=== PATIENT | male | born 1950 | race Caucasian/White ===

== ENCOUNTER 2016-05-22 07:51 | Outpatient (CLI) | payer MEDICARE, MEDICAID ==
[~2016-05-22 07:51] MED LIST: ALPR2TAB3 PO; GLUC500T PO; INFL10VL IV; LISI30TA4 PO; OMEP40CA2 PO; PENT500C PO; PRED20TA PO; VESI10TA PO; diphenhydrAMINE 25 MG CAP PO SCH
[2016-05-22] MEDS ORDERED: NS 1,000 ML IV SCH (08:00)
[2016-05-22] MEDS ORDERED: inFLIXimab INJECTION 500 MG in NS 200 ML IV ONE (08:00)
== END 2016-05-22 11:00 | disposition home or self-care (01) ==
LOC: M INFU 07:51
PROVIDERS: ATTEND Internal Medicine Gastroenterology
DX: K50.90 Crohn's disease, unspecified, without complications (principal); Z79.899 Other long term (current) drug therapy; Z88.8 Allergy status to other drugs, medicaments and biological substances; Z91.013 Allergy to seafood
CPT/HCPCS: 96413; 96415; J1745

== ENCOUNTER 2016-07-11 08:06 | Outpatient (CLI) | payer MEDICARE, MEDICAID ==
[~2016-07-11] VITALS: Ht 175.3 cm; Wt 84.3 kg
[2016-07-11] MEDS ORDERED: inFLIXimab INJECTION 500 MG in NS 200 ML IV ONE (09:00)
[2016-07-11] MEDS ORDERED: NS 1,000 ML IV SCH (09:00)
== END 2016-07-11 11:30 | disposition home or self-care (01) ==
LOC: M INFU 08:06
PROVIDERS: ATTEND Internal Medicine Gastroenterology
DX: K50.90 Crohn's disease, unspecified, without complications (principal); Z79.899 Other long term (current) drug therapy; Z79.84 Long term (current) use of oral hypoglycemic drugs; Z88.8 Allergy status to other drugs, medicaments and biological substances; Z88.5 Allergy status to narcotic agent; Z91.013 Allergy to seafood
CPT/HCPCS: 96413; 96415; J1745

== ENCOUNTER → 2016-07-17 | Outpatient (CLI) | payer MEDICARE, MEDICAID ==
[~2016-07-17] MED LIST changes: +HYDR25T PO; +JANU100T PO; +PROA1AER INH; +PROAIR INH; +VENL100T PO; +VENL150C43 PO; +VENL50TA2 PO; +WELL100T2 PO; +XANA1TAB2 PO; +[UNRECOGNIZED DRUG - CODE] XX; -diphenhydrAMINE 25 MG CAP PO SCH
[2016-07-17 11:01] LABS: MEAN CORPUSCULAR HEMOGLOBIN 29.5 pg (27.0-33.0); MEAN CORPUSCULAR HGB CONC 32.6 g/dl (32.0-36.5); MEAN CORPUSCULAR VOLUME 90.4 fl (80.0-96.0); RED CELL DISTRIBUTION WIDTH 12.5 % (11.5-14.5); WHITE BLOOD COUNT 12.9 K/mm3 (4.0-10.0)
[2016-07-17 12:03] LABS: ALBUMIN 3.5 GM/DL (3.2-5.2); ALBUMIN/GLOBULIN RATIO 0.95 (1.00-1.93); ALKALINE PHOSPHATASE 103 U/L (45-117); ALT/SGPT 36 U/L (12-78); ANION GAP 6 MEQ/L (8-16); AST/SGOT 20 U/L (15-37); BILIRUBIN,TOTAL 0.2 MG/DL (0.2-1.0); BLOOD UREA NITROGEN 26 MG/DL (7-18); CALCIUM LEVEL 9.4 MG/DL (8.8-10.2); CARBON DIOXIDE LEVEL 31 MEQ/L (21-32); CHLORIDE LEVEL 103 MEQ/L (98-107); CREATININE FOR GFR 1.32 MG/DL (0.70-1.30); GLOMERULAR FILTRATION RATE 57.9 (>49); GLUCOSE, FASTING 117 MG/DL (80-110); POTASSIUM SERUM 4.6 MEQ/L (3.5-5.1); SODIUM LEVEL 140 MEQ/L (136-145); TOTAL PROTEIN 7.2 GM/DL (6.4-8.2)
[2016-07-17 13:08] LABS: VITAMIN B12 LEVEL 426 PG/ML
[2016-07-17 13:09] LABS: FOLATE > 24.0 NG/ML
== END ==
LOC: M LAB 10:19
PROVIDERS: ATTEND Internal Medicine Gastroenterology
DX: K50.00 Crohn's disease of small intestine without complications (principal)

== ENCOUNTER 2016-07-21 09:39 | Inpatient (IN) | payer MEDICARE, MEDICAID ==
[~2016-07-21] VITALS: Ht 175.3 cm; Wt 76.6 kg
[~2016-07-21 09:39] MED LIST changes: -HYDR25T PO; -JANU100T PO; -PROA1AER INH; -PROAIR INH; -VENL100T PO; -VENL150C43 PO; -VENL50TA2 PO; -WELL100T2 PO; -XANA1TAB2 PO; -[UNRECOGNIZED DRUG - CODE] XX
[2016-07-21] MEDS ORDERED: [UNRECOGNIZED DRUG - CODE] XX (10:48)
[2016-07-21] MEDS ORDERED: LISI30TA4 PO (10:50)
[2016-07-21] MEDS ORDERED: XANA1TAB2 PO (10:51)
[2016-07-21] MEDS ORDERED: ALPR2TAB3 PO (10:51)
[2016-07-21] MEDS ORDERED: JANU100T PO (10:52)
[2016-07-21] MEDS ORDERED: VENL100T PO (10:54)
[2016-07-21] MEDS ORDERED: VENL50TA2 PO (10:54)
[2016-07-21] MEDS ORDERED: HYDR25T PO (10:55)
[2016-07-21] MEDS ORDERED: WELL100T2 PO (10:57)
[2016-07-21 11:15] LABS: MEAN CORPUSCULAR HEMOGLOBIN 29.9 pg (27.0-33.0); MEAN CORPUSCULAR HGB CONC 32.8 g/dl (32.0-36.5); MEAN CORPUSCULAR VOLUME 91.3 fl (80.0-96.0); PLATELET COUNT, AUTOMATED 352 k/mm3 (150-450); RED CELL DISTRIBUTION WIDTH 12.7 % (11.5-14.5); WHITE BLOOD COUNT 16.1 K/mm3 (4.0-10.0)
[2016-07-21 11:40] LABS: METHADONE URINE NEGATIVE (NEGATIVE)
[2016-07-21 11:51] LABS: ALBUMIN 3.4 GM/DL (3.2-5.2); ALBUMIN/GLOBULIN RATIO 0.92 (1.00-1.93); ALKALINE PHOSPHATASE 94 U/L (45-117); ALT/SGPT 33 U/L (12-78); ANION GAP 6 MEQ/L (8-16); AST/SGOT 17 U/L (15-37); BILIRUBIN,DIRECT < 0.1 MG/DL (0.0-0.2); BILIRUBIN,TOTAL 0.2 MG/DL (0.2-1.0); BLOOD UREA NITROGEN 26 MG/DL (7-18); CALCIUM LEVEL 8.5 MG/DL (8.8-10.2); CARBON DIOXIDE LEVEL 25 MEQ/L (21-32); CHLORIDE LEVEL 106 MEQ/L (98-107); CREATININE FOR GFR 1.41 MG/DL (0.70-1.30); GLOMERULAR FILTRATION RATE 53.7 (>49); GLUCOSE, FASTING 147 MG/DL (80-110); POTASSIUM SERUM 4.5 MEQ/L (3.5-5.1); SODIUM LEVEL 137 MEQ/L (136-145); TOTAL PROTEIN 7.1 GM/DL (6.4-8.2)
[2016-07-21 13:57] LABS: BASO # 0.1 K/mm3 (0.0-0.2); BASO % 0.6 % (0.0-1.0); EOS # 0.2 K/mm3 (0.0-0.50); EOS % 1.3 % (0.0-3.0); LARGE UNSTAINED CELL # 0.2 K/mm3 (0.0-0.4); LARGE UNSTAINED CELL % 1.3 % (0.0-4.0); LYMPH # 4.1 K/mm3 (1.5-4.5); LYMPH % 23.7 % (24.0-44.0); MONO % 5.8 % (0.0-5.0); NEUTROPHILS % 67.4 % (36.0-66.0)
[2016-07-21 14:18] LABS: DIFF SLIDE NUMBER 125
[2016-07-21 16:11] VITALS: BP 124/88
[2016-07-21] MEDS ORDERED: VENL150C43 PO (18:27)
[2016-07-21] MEDS ORDERED: PROAIR INH (18:32)
[2016-07-21] MEDS ORDERED: ACETAMINOPHEN TAB 650MG DOSE (2X325MG) PO PRN (18:45)
[2016-07-21] MEDS ORDERED: ALBUTEROL 90 MCG/ACT 8GM HFA INHALER INH PRN (18:45)
[2016-07-21] MEDS: clonazePAM 1 MG TAB PO SCH (20:04)
[2016-07-21] MEDS: VENLAFAXINE **XR** 75MG CAPSULE PO SCH (20:04)
[2016-07-21] MEDS: NICOTINE 21MG/24HR 1 EA TRANSDERMAL TD SCH (20:06)
[2016-07-21] MEDS ORDERED: MIRALAX *UNIT DOSE* 17GM PACKET PO SCH (21:00)
[2016-07-21] MEDS ORDERED: PROA1AER INH (21:34)
--- NOTE | 2016-07-22 04:03 | HPE ---
DATE OF ADMISSION: 07/21/2016 HISTORY OF PRESENT ILLNESS: Please refer to psychiatric history and evaluation for further details on this admission. This examination and history is intended for medical issues, which may need treatment, followup or consult on this 65-year-old male. ALLERGIES: 1. CELEBREX. 2. TRAMADOL. 3. SEAFOOD. PRIMARY CARE PROVIDER: Dr. Restrepo. SOCIAL HISTORY: He is . Ethyl alcohol (EtOH) none. Smokes 1-2 packs of cigarettes per day. Recreational drug use none. PAST MEDICAL HISTORY: 1. Drx-acxkpcy-pgungwkyw diabetes type 2. 2. Hypertension. 3. Crohn's disease. He follows with Dr. Sanchez. 4. Difficulty starting flow and sometimes no control. He has been to urology, has been worked up. Continues to be worked up. 5. Depression and anxiety. PAST SURGICAL HISTORY: 1. Back surgery times three. 2. Repair right knee meniscus. 3. Cystoscopy. LABORATORY STUDIES: WBC 16.1, hemoglobin 15.1, hematocrit 46.1, platelets 352. BUN 26, creatinine 1.4, calcium 8.5. Urine was positive for benzodiazepines. CURRENT MEDICATIONS: - Remicade infusion every 2 months - lisinopril 30 mg by mouth daily - Januvia 100 mg by mouth daily - ProAir two puffs by mouth four times a day as needed for shortness of breath or wheeze - Xanax 1 mg by mouth four times a day as needed for anxiety - venlafaxine ER 150 mg by mouth twice a day depression REVIEW OF SYSTEMS: No complaint of headache. No blurred or double vision. No fever. No chills. No tinnitus. No hoarseness. No difficulty swallowing. No lightheadedness. No vertigo. Cardiovascular: No complaints of chest pain, shortness of breath, palpitations or edema. Respiratory: No chronic cough, no sputum production. No hemoptysis. No orthopnea. No wheeze. Gastrointestinal (GI): No nausea, vomiting or diarrhea. No hematochezia. No melena. No complaints of abdominal pain. Genitourinary (): History of difficulty starting flow and occasional incontinence. Workup with urology. Musculoskeletal: No joint redness or swelling. Endocrine: History of rvf-ubnowxq-ymlcqthru diabetes type 2. Hematological: No history of anemia. Neurological: No history of seizures. Psychological: See psychiatric history of present illness (HPI). PHYSICAL EXAMINATION: 65-year-old cooperative male in no acute distress. Height 69 inches, weight 80.7 kg, body mass index (BMI) 26.3. Blood pressure 124/88, pulse 99, respirations 16, temperature 97.8. The patient is alert and oriented times three. Pupils equal and react to light. Extraocular muscles intact. Cornea and sclerae clear. Conjunctivae were normal. No facial asymmetry. Pharynx, tongue and gums pink and moist. Tongue is midline. Lower lip has a white-like cyst in the middle of it. He states he has had it going on a year. He put his tooth through it at one time and he has had the light white lump. It seems to sometimes have drainage, none currently. Neck is supple without lymphadenopathy. No thyromegaly, no goiter. Carotids 2+ without bruit. Chest clear to auscultation without wheeze or retraction. Heart is regular. Abdomen is soft, nontender. No masses, pulsations or bruits. No organomegaly. Bowel sounds are positive. Genitourinary/rectal: Not done. Extremities: Show equal strength, full range of motion. No cyanosis, clubbing or edema. Peripheral pulses equal and palpable bilaterally. Skin is warm and dry. IMPRESSION/PLAN: 1. Hypertension, stable, continue lisinopril. 2. Sny-voyejkh-tzaddnlgs diabetes type 2. Continue Januvia. Consistent carbohydrate diet. Fingerstick blood sugars twice a day. 3. Bump or cyst on lower lip. The patient is instructed to follow with primary care provider and may need oral referral. EKG baseline ordered.
[2016-07-22 06:48] VITALS: BP 135/74
[2016-07-22 07:28] LABS: BASO # 0.1 K/mm3 (0.0-0.2); BASO % 0.7 % (0.0-1.0); EOS # 0.3 K/mm3 (0.0-0.50); EOS % 2.2 % (0.0-3.0); LARGE UNSTAINED CELL # 0.3 K/mm3 (0.0-0.4); LARGE UNSTAINED CELL % 1.8 % (0.0-4.0); LYMPH % 30.2 % (24.0-44.0); MEAN CORPUSCULAR HEMOGLOBIN 29.8 pg (27.0-33.0); MEAN CORPUSCULAR HGB CONC 33.1 g/dl (32.0-36.5); MEAN CORPUSCULAR VOLUME 90.1 fl (80.0-96.0); MONO % 6.4 % (0.0-5.0); NEUTROPHILS # 9.3 K/mm3 (1.8-7.7); NEUTROPHILS % 58.8 % (36.0-66.0); PLATELET COUNT, AUTOMATED 371 k/mm3 (150-450); RED CELL DISTRIBUTION WIDTH 12.7 % (11.5-14.5)
[2016-07-22 07:36] LABS: WHITE BLOOD COUNT 15.8 K/mm3 (4.0-10.0)
[2016-07-22] MEDS: VENLAFAXINE **XR** 75MG CAPSULE PO SCH (08:27)
[2016-07-22] MEDS: clonazePAM 1 MG TAB PO SCH ×2 (08:28→20:07)
[2016-07-22] MEDS: SITagliptin 50 MG TAB (JANUVIA) PO SCH (08:29)
[2016-07-22] MEDS: NICOTINE 21MG/24HR 1 EA TRANSDERMAL TD SCH (08:30)
[2016-07-22] MEDS: LISINOPRIL 10 MG TAB PO SCH (09:00)
[2016-07-22] MEDS ORDERED: PARoxetine 25 MG CR TAB (PAXIL CR) PO SCH (09:00)
--- NOTE | 2016-07-22 17:05 | HPEPDOC ---
[facility] History & Physical History and Physical DATE OF ADMISSION: Jul 21, 2016 at 15:24 LEGAL STATUS AT ADMISSION: 9.39 CHIEF COMPLAINT: "I was just on the wrong meds HISTORY OF THE PRESENT ILLNESS: The patient a 65-year-old man presented to [facility] after experiencing increasingly severe depression and anxiety after recent medication change. He described that since 2 years ago when he began to have persistent bladder problems that he became increasingly stressed out and depressed. He described that he began to become more anhedonic and insomnia: Past couple months. He described that he previously done well on Effexor for the last 10 years but after being switched towards Wellbutrin first treatment he experienced multiple late of side effects including visual hallucinations, dizziness and vertigo. He described that he was told by his pharmacist to stop his medication and resume his Effexor. However, he noted some positive effect but realized that his depression was out of control, describing that he lost several pounds as he was not able to have enough energy to get up to clean his house or to go grocery shopping. He additionally described the due to the dizziness from the Wellbutrin that he was unable to drive his car or to provide for himself. He describes that his family due to their concerns helped him to come in for evaluation. PSYCHIATRIC ROS: Affective: The patient does state that he has depressed moods lasting longer than 2 weeks at time with depressed mood featuring him more than 4-5 days during a week associated with anhedonia, insomnia, hopelessness, excessive guilt as primary neurovegetative symptoms.The patient denies any episodes of euphoria/dysphoria associated with decreased need for sleep, hedonism, talkatively or impulsivity lasting longer than 5 days. Anxiety: The patient does state he has excessive worry to the point of fatigue and irritability, as well as discrete episodes of panic associated with diaphoresis, shortness of breath and other somatic symptoms. These do not appear to have a discrete provoking factor and occur suddenly. Trauma: The patient denies any traumatic events associated with nightmares or intrusive thoughts. Psychosis:The patient denies any experiences of auditory or visual hallucinations. They deny any episodes of paranoia or delusional thinking in the past Personality: The patient does not screen positive for borderline personality disorder PAST PSYCHIATRIC HISTORY: Prior Psychiatric Diagnosis: Depression and anxiety Previous admissions: None Current Medications: Effects 300 mg daily in divided doses with Xanax 1 mg 3 times a day when necessary for anxiety for the last "10 or 11 years" Suicide attempts: None Psychotropic Medication History: Tried a variety of SSRIs including Prozac, sertraline, Paxil and other medications that he is unable to recollect at this time. He is unsure of whether they were effective or he had stopped due to side effects. ALLERGIES: Please see below. FAMILY PSYCHIATRIC HISTORY: He reports that most of his family including his mother, sister and brother suffered from depression. His cousin is also diagnosed depression and takes Effexor and Xanax as well. SOCIAL HISTORY: Early Relations:/development: Characterized by a tumultuous relationship with his mother and early abandonment by his father. -sibling order: Youngest of 4 children -Paternal relationships: Father left his mother when he was 10 years old and his mother was noted to be fairly upset and "took her anger out on me". 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 Legal: None elicited Martial: with several children Economic: Subsists on Social Security disability Supports: Daughter, sister and family appear to be good supports Abuse/trauma: Denies any excessive physical, emotional or sexual abuse when he was younger. SUBSTANCE ABUSE HISTORY: He describes used to "drink a lot" until 30 years ago when his son was born he stopped drinking. He states the only will drink and "glass of wine with dinner from time to time". He describes that he does smoke quite a bit but was unable to gauge exactly how much she smokes per day. He denies using any other substances. MEDICAL HISTORY: Diabetes type 2 Chronic back pain urinary incontinence Crohn's disease MENTAL STATUS EXAMINATION: General: Well dressed with fair hygiene Speech: Spontaneous and fluid Thought processes: Linear and logical Thought content: Perseveration on anxiety Abstract reasoning, and computation: Intact Description of associations: Intact Description of abnormal or psychotic thoughts:Denies any suicidal or homicidal ideation. Denies any auditory or visual hallucinations. Does not appear to be responding to internal stimuli. Does not appear to be endorsing any bizarre or paranoid ideation. Judgment: Fair Insight: Fair Orientation: Alert and orientated 3 Recent and remote memory: Intact Attention span and concentration: Intact Fund of knowledge: Adequate Mood: "Ellie bad" Affect: Anxious and dysphoric DIAGNOSES: 1. Unspecified depressive disorder Rule out MDD 2. Unspecified anxiety disorder Rule out somatization as cause of bladder spasms 3. Alcohol use disorder, severe, in sustained remission 4. Tobacco uses disorder, severe, in controlled setting on replacement therapy ASSESSMENT: The patient a 65-year-old man with a history of depression well treated with Effexor with no need for inpatient admissions has presented after recent medication change appears to produce his depressive symptoms to a point that he is unable to cope with. He has multiple stressors including increasing loneliness from living alone and ineffective control of his bladder incontinence which appears to reflect him relapsing into a depressive episode. He is motivated to be detoxed off of Xanax and feels that he does not want to rely on this for his anxiety control. PROBLEM LIST: 1. Anxiety 2. Depression 3. Ineffective coping INITIAL TREATMENT PLAN: 1. Patient was admitted on a 9.39 legal status. 2. Complete history was obtained. 3. With patients permission, family will be contacted and database will be expanded. 4. Patients medication regimen will be reviewed and changed accordingly. -Effects or 300 mg extended release daily with augmentation of 0.25 mg of risperidone daily we will give patient 1 mg of clonazepam twice a day with tapering to help taper off of Xanax due to the excessive length of treatment 5. Patient will be provided with protected environment. 6. Patient will be treated with individual, group, and milieu therapies. 7. Patient will receive supportive psych-education. 8. Discharge planning will commence immediately. 9. Outpatient follow-up treatment will be strongly recommended. 10. The initial treatment plan will focus initially on: Engaging in psychotherapy and furthering evaluation ESTIMATED LENGTH OF STAY: 5-7 DAYS. TIME SPENT COUNSELING AND COORDINATING INITIAL CARE: 50 minutes. Laboratory Data 24H Labs Laboratory Tests 2 07/22/16 06:13: Bedside Glucose (Misc Panel) 158H 07/22/16 06:58: White Blood Count 15.8H, Red Blood Count 5.21, Hemoglobin 15.6, Hematocrit 47.0 , Mean Corpuscular Volume 90.1, Mean Corpuscular Hemoglobin 29.8, Mean Corpuscular Hemoglobin Concent 33.1, Red Cell Distribution Width 12.7, Platelet Count 371, Neutrophils (%) (Auto) 58.8, Lymphocytes (%) (Auto) 30.2, Monocytes ( %) (Auto) 6.4H, Eosinophils (%) (Auto) 2.2, Basophils (%) (Auto) 0.7, Neutrophils # (Auto) 9.3H, Lymphocytes # (Auto) 5.0H, Monocytes # (Auto) 1.0H, Eosinophils # (Auto) 0.3, Basophils # (Auto) 0.1, Large Unclassified Cells # 0.3 , Large Unclassified Cells % 1.8 CBC/BMP Laboratory Tests 07/22/16 06:58 Red Blood Count 5.21, Mean Corpuscular Volume 90.1, Mean Corpuscular Hemoglobin 29.8, Mean Corpuscular Hemoglobin Concent 33.1, Red Cell Distribution Width 12.7 , Neutrophils (%) (Auto) 58.8, Lymphocytes (%) (Auto) 30.2, Monocytes (%) (Auto ) 6.4 H, Eosinophils (%) (Auto) 2.2, Basophils (%) (Auto) 0.7, Neutrophils # ( Auto) 9.3 H, Lymphocytes # (Auto) 5.0 H, Monocytes # (Auto) 1.0 H, Eosinophils # (Auto) 0.3, Basophils # (Auto) 0.1 FSBS Laboratory Tests Test 07/22/16 06:13 Range/Units Bedside Glucose (Misc Panel) 158 80-115 MG/DL Medications Scheduled Infliximab Injection (Remicade) 100 Mg/10 Ml Vial 100 MG IV ASDIRECTED CROHNS ( Reported) EVERY 2 MONTHS; LAST DOSE 07/18/2016 Lisinopril (Lisinopril) 30 Mg Tab 30 MG PO DAILY HYPERTENSION (Reported) Sitagliptin Phosphate (Januvia) 100 Mg Tab 100 MG PO DAILY DIABETES (Reported) Venlafaxine Hydrochloride (Venlafaxine HCl ER) 150 Mg Cap 150 MG PO BID DEPRESSION (Reported) Scheduled PRN Albuterol Sulfate (Proair Hfa) 108 Mcg/Act Aer 2 PUFF INH Q4H PRN PRN SHORTNESS OF BREATH (Reported) Alprazolam (Xanax) 1 Mg Tab 1 MG PO QID PRN PRN ANXIETY (Reported) Allergies Coded Allergies: Celecoxib (Verified Allergy, Unknown, 06/07/14) SEAFOOD (Verified Allergy, Unknown, 2/24/15) Tramadol (Verified Allergy, Unknown, 06/07/14) GME ATTESTATION My preceptor for this patient encounter was physically present in the building during the encounter and was fully available. As needed, all aspects of the patient interview, examination, medical decision making process, and medical care plan development were reviewed and approved by the preceptor. Preceptor is aware and concurs with the plan as stated in the body of this note and will attest to such by his/her cosignature. IZA SMITH DO Jul 22, 2016 17:05
[2016-07-22 18:00] VITALS: BP 118/67
--- NOTE | 2016-07-22 18:01 | ECGEPIP ---
Stationary ECG Study [facility] Test Date: 2016-07-22 Pat Name: JOVITA OLIVA Department: Room: [place] [address] Gender: M Licensed Optical Dispenser: HERLINDA : 1950 Requested By: Marlen Mcfarlane [facility] Order Number: [id number] Reading MD: George Dickens Measurements Intervals [place] Rate: 97 P: 60 [place]: 170 QRS: 89 QRSD: 94 T: 67 QT: 332 QTc: 424 Interpretive Statements Normal sinus rhythm Low voltages with indeterminate frontal axis prominent right precordial R-waves and persistent S waves in V5 and V6; body habitus versus pulmonary disease. Consider right ventricular hypertrophy versus prior posterior wall IN. No change from 11/21/14 Electronically Signed On 07-22-2016 18:01:41 EDT by George Dickens
[2016-07-22] MEDS: traZODone 50 MG TAB PO PRN (20:07)
[2016-07-22] MEDS: MIRALAX *UNIT DOSE* 17GM PACKET PO PRN (20:07)
[2016-07-23 06:44] VITALS: BP 133/82
[2016-07-23] MEDS: SITagliptin 50 MG TAB (JANUVIA) PO SCH (08:16)
[2016-07-23] MEDS: LISINOPRIL 10 MG TAB PO SCH (08:16)
[2016-07-23] MEDS: NICOTINE 21MG/24HR 1 EA TRANSDERMAL TD SCH (08:16)
[2016-07-23] MEDS: clonazePAM 1 MG TAB PO SCH (08:16)
[2016-07-23] MEDS: VENLAFAXINE **XR** 75MG CAPSULE PO SCH (08:17)
[2016-07-23] MEDS: risperiDONE 0.5 MG TAB PO SCH (08:17)
[2016-07-23 09:43] LABS: ALBUMIN 3.3 GM/DL (3.2-5.2); ALBUMIN/GLOBULIN RATIO 0.89 (1.00-1.93); BILIRUBIN,TOTAL 0.3 MG/DL (0.2-1.0); CALCIUM LEVEL 8.5 MG/DL (8.8-10.2); CREATININE FOR GFR 1.55 MG/DL (0.70-1.30); GLOMERULAR FILTRATION RATE 48.1 (>49); POTASSIUM SERUM 4.6 MEQ/L (3.5-5.1)
[2016-07-23] MEDS: MOM 30ML SUSPENSION UDC PO PRN (14:36)
--- NOTE | 2016-07-23 16:37 | IPNPDOC ---
[facility] Progress Note Progress Note DATE OF SERVICE: 07/23/16 INTERVAL HISTORY: Medication Side effects: The patient reports no ill effects from the effects or such as dry mouth or increased anxiety. He denies any side effects from his risperidone such as tremor or EPS. Behavior: Friendly and amenable engaging well in therapeutic milieu Group Attendance: attending groups regularly Psychiatric Symptom change: Reports that his depression remains significant without much change he does continue to report his anxiety is mildly improved but still causes significant impairment in his ability to function. He reports that being more aware of his anxiety he has noticed that he is able to go to the bathroom without the same severity of urinary incontinence that he had had previously. He attributes this to increased stress and anxiety. VITAL SIGNS: See below. NEW TEST RESULTS: See below CURRENT MEDICATIONS: See below. MENTAL STATUS EXAMINATION: General: Well dressed with good hygiene Speech: Spontaneous and fluid Thought processes: Linear and logical Thought content: Future orientated Abstract reasoning, and computation: Intact Description of associations: Intact Description of abnormal or psychotic thoughts:Denies any suicidal or homicidal ideation. Denies any auditory or visual hallucinations. Does not appear to be responding to internal stimuli. Does not appear to be endorsing any bizarre or paranoid ideation. Judgment: Fair Insight: Fair Orientation: Alert and orientated 3 Recent and remote memory: Intact Attention span and concentration: Intact Fund of knowledge: Adequate Mood: "Fine" Affect: Dysthymic with a constricted range DIAGNOSES: 1. Unspecified depression. 2. Unspecified anxiety disorder. 3. Alcohol use disorder, severe, in sustained remission. ASSESSMENT: Improving MANAGEMENT PLAN: Medications: Continue Effexor Center release 300 mg daily with risperidone 0.25 mg for augmentation. We will cut down tomorrow's clonazepam dose to 0. 0.5 mg in the morning and retain the 1 mg a night to continue taper due to long history of Xanax use. Psychotherapy: Encourage groups Social: Discharge planning underway Misc: None Disposition: The patient will need of further inpatient stay to address his severe depression and anxiety as well as to ensure a safe and effective discharge due to his disposition needs. TIME SPENT: 20 minutes. Vital Signs Vital Signs Date Time Temp Pulse Resp B/P Pulse Ox O2 Delivery O2 Flow Rate FiO2 07/23/16 08:16 139/77 07/23/16 06:44 98.4 76 16 07/21/16 10:18 97 07/21/16 09:40 Room Air Laboratory Data 24H Labs Laboratory Tests 2 07/23/16 06:15: Bedside Glucose (Misc Panel) 138H 07/23/16 08:41: Blood Urea Nitrogen 26H, Creatinine 1.55H, Sodium Level 138, Potassium Level 4.6 , Chloride Level 103, Carbon Dioxide Level 27, Calcium Level 8.5L, Aspartate Amino Transf (AST/SGOT) 16, Alanine Aminotransferase (ALT/SGPT) 34, Alkaline Phosphatase 96, Total Bilirubin 0.3, Total Protein 7.0, Albumin 3.3, Albumin/ Globulin Ratio 0.89L, Anion Gap 8, Glomerular Filtration Rate 48.1L CBC/BMP Laboratory Tests 07/23/16 08:41 Calcium Level 8.5 L, Aspartate Amino Transf (AST/SGOT) 16, Alanine Aminotransferase (ALT/SGPT) 34, Alkaline Phosphatase 96, Total Bilirubin 0.3, Total Protein 7.0, Albumin 3.3 Current Medications Current Medications Acetaminophen (Tylenol Tab) 650 mg Q6HP PRN PO HEADACHE or DISCOMFORT; Start at 18:45; Stop 08/20/16 at 18:44 Al Hydrox/Mg Hydrox/Simethicone (Mylanta) 30 ml Q4HP PRN PO HEARTBURN/ INDIGESTION; Start 07/21/16 at 18:45; Stop 08/20/16 at 18:44 Albuterol Sulfate (Proventil, Ventolin Hfa) 2 puff Q4HP PRN INH SHORTNESS OF BREATH; Start 07/21/16 at 18:45; Stop 08/20/16 at 18:44 Clonazepam (KlonoPIN) 1 mg BID PO Last administered on 07/23/16 08:16; Start 07/21/16 at 21:00; Stop 07/28/16 at 20:59 Home Med (Med Rec Complete!) ASDIRECTED XX ; Start 07/21/16 at 21:45; Stop at 21:45; Status DC Lisinopril (Prinivil) 30 mg DAILY PO Last administered on 07/23/16 08:16; Start 07/22/16 at 09:00; Stop 08/21/16 at 08:59 Magnesium Hydroxide (Milk Of Magnesia) 30 ml DAILYPRN PRN PO CONSTIPATION Last administered on 07/23/16 14:36; Start 07/21/16 at 18:45; Stop 08/20/16 at 18:44 Nicotine (Nicoderm Cq 21mg) 1 patch DAILY TD Last administered on 07/23/16 08: 16; Start 07/21/16 at 09:00; Stop 08/20/16 at 08:59 Paroxetine HCl (PAXil CR) 25 mg QAM PO ; Start 07/22/16 at 09:00; Stop 07/22/16 at 16:35; Status DC Polyethylene Glycol (Miralax) 1 pkt BID PO Last administered on 07/21/16 20:04 ; Start 07/21/16 at 21:00; Stop 07/21/16 at 23:51; Status DC Polyethylene Glycol (Miralax) 1 pkt DAILYPRN PRN PO CONSTIPATION Last administered on 07/22/16 20:07; Start 07/22/16 at 00:00; Stop 08/21/16 at 00:00 Risperidone (RisperDAL) 0.25 mg DAILY PO Last administered on 07/23/16 08:17; Start 07/23/16 at 09:00; Stop 08/22/16 at 08:59 Sitagliptin Phosphate (Januvia) 100 mg DAILY PO Last administered on 07/23/16 08:16; Start 07/22/16 at 09:00; Stop 08/21/16 at 08:59 Trazodone HCl (Desyrel) 50 mg QHSP PRN PO INSOMNIA Last administered on 20:07; Start 07/21/16 at 18:45; Stop 08/20/16 at 18:44 Venlafaxine HCl (Effexor Xr) 150 mg BID PO Last administered on 07/22/16 08:27; Start 07/21/16 at 21:00; Stop 07/22/16 at 14:27; Status DC Venlafaxine HCl (Effexor Xr) 300 mg DAILY PO Last administered on 08:17; Start 07/23/16 at 09:00; Stop 08/22/16 at 08:59 Allergies Coded Allergies: Celecoxib (Verified Allergy, Unknown, 06/07/14) SEAFOOD (Verified Allergy, Unknown, 06/07/14) Tramadol (Verified Allergy, Unknown, 06/07/14) GME ATTESTATION My preceptor for this patient encounter was physically present in the building during the encounter and was fully available. As needed, all aspects of the patient interview, examination, medical decision making process, and medical care plan development were reviewed and approved by the preceptor. Preceptor is aware and concurs with the plan as stated in the body of this note and will attest to such by his/her cosignature. IZA SMITH DO Jul 23, 2016 16:37
[2016-07-23 18:00] VITALS: BP 128/65
[2016-07-23] MEDS ORDERED: clonazePAM 1 MG TAB PO SCH (21:00)
[2016-07-23] MEDS: traZODone 50 MG TAB PO PRN (21:27)
[2016-07-23] MEDS: MAALOX 30 ML SUSP *UDC PO PRN (23:26)
[2016-07-24 06:41] VITALS: BP 132/70
[2016-07-24] MEDS: NICOTINE 21MG/24HR 1 EA TRANSDERMAL TD SCH (08:08)
[2016-07-24] MEDS: risperiDONE 0.5 MG TAB PO SCH (08:09)
[2016-07-24] MEDS: LISINOPRIL 10 MG TAB PO SCH (08:09)
[2016-07-24] MEDS: VENLAFAXINE **XR** 75MG CAPSULE PO SCH (08:10)
[2016-07-24] MEDS: clonazePAM 0.5 MG TAB PO SCH ×2 (08:10→20:57)
[2016-07-24] MEDS: SITagliptin 50 MG TAB (JANUVIA) PO SCH (08:10)
[2016-07-24] MEDS: MAALOX 30 ML SUSP *UDC PO PRN (09:05)
--- NOTE | 2016-07-24 18:36 | IPNPDOC ---
[facility] Progress Note Progress Note DATE OF SERVICE: 07/24/16 INTERVAL HISTORY: Medication Side effects: The patient reports that the risperidone is caused him to be dizzy and have some blurred vision. He is unsure if he is having any side effects from the venlafaxine. Behavior: Has been friendly and amenable on the rincon with significant ability to tolerate others anxiety Group Attendance: Has been attending groups fairly frequently, attended this provider's process group and appeared to engage well Psychiatric Symptom change: Reports that his depression and anxiety are improving despite the side effects from the risperidone. VITAL SIGNS: See below. NEW TEST RESULTS: See below CURRENT MEDICATIONS: See below. MENTAL STATUS EXAMINATION: General: Well dressed with good hygiene Speech: Spontaneous and fluid Thought processes: Linear and logical Thought content: Future orientated Abstract reasoning, and computation: Intact Description of associations: Intact Description of abnormal or psychotic thoughts:Denies any suicidal or homicidal ideation. Denies any auditory or visual hallucinations. Does not appear to be responding to internal stimuli. Does not appear to be endorsing any bizarre or paranoid ideation. Judgment: Fair Insight: Fair Orientation: Alert and orientated 3 Recent and remote memory: Intact Attention span and concentration: Intact Fund of knowledge: Adequate Mood: "Okay" Affect: Euthymic with a constricted range DIAGNOSES: 1. Unspecified depressive disorder. 2. Unspecified anxiety disorder. 3. Alcohol use disorder, severe, in sustained remission. ASSESSMENT: Improving MANAGEMENT PLAN: Medications: Will change risperidone to Abilify 2 mg tomorrow. We will continue to taper down clonazepam to 0.5 mg daily and 0.5 mg nightly from 1 mg nightly respectively. We will continue venlafaxine 300 mg extended release Psychotherapy: Encourage group attendance Social: We'll continue discharge planning, patient might be able to see a therapist at another facility that will allow him to change his psychiatrist Misc: None Disposition: The patient will need of further inpatient stay to address his medication adjustments and side effects from risperidone as well as disposition planning. TIME SPENT: 25 minutes. Vital Signs Vital Signs Date Time Temp Pulse Resp B/P Pulse Ox O2 Delivery O2 Flow Rate FiO2 07/24/16 08:09 128/66 07/24/16 06:41 98.9 87 16 07/21/16 10:18 97 07/21/16 09:40 Room Air Laboratory Data 24H Labs Laboratory Tests 2 07/24/16 11:27: Bedside Glucose (Misc Panel) 167H Current Medications Current Medications Acetaminophen (Tylenol Tab) 650 mg Q6HP PRN PO HEADACHE or DISCOMFORT; Start at 18:45; Stop 08/20/16 at 18:44 Al Hydrox/Mg Hydrox/Simethicone (Mylanta) 30 ml Q4HP PRN PO HEARTBURN/ INDIGESTION Last administered on 07/24/16 09:05; Start 07/21/16 at 18:45; Stop 08/20/16 at 18:44 Albuterol Sulfate (Proventil, Ventolin Hfa) 2 puff Q4HP PRN INH SHORTNESS OF BREATH; Start 07/21/16 at 18:45; Stop 08/20/16 at 18:44 Clonazepam (KlonoPIN) 0.5 mg DAILY PO Last administered on 07/24/16 08:10; Start 07/24/16 at 09:00; Stop 07/31/16 at 08:59 Clonazepam (KlonoPIN) 1 mg BID PO Last administered on 07/23/16 08:16; Start 07/21/16 at 21:00; Stop 07/23/16 at 16:38; Status DC Clonazepam (KlonoPIN) 1 mg QHS PO Last administered on 07/23/16 21:26; Start 07/23/16 at 21:00; Stop 07/30/16 at 20:59 Home Med (Med Rec Complete!) ASDIRECTED XX ; Start 07/21/16 at 21:45; Stop at 21:45; Status DC Lisinopril (Prinivil) 30 mg DAILY PO Last administered on 07/24/16 08:09; Start 07/22/16 at 09:00; Stop 08/21/16 at 08:59 Magnesium Hydroxide (Milk Of Magnesia) 30 ml DAILYPRN PRN PO CONSTIPATION Last administered on 07/23/16 14:36; Start 07/21/16 at 18:45; Stop 08/20/16 at 18:44 Nicotine (Nicoderm Cq 21mg) 1 patch DAILY TD Last administered on 07/24/16 08: 08; Start 07/21/16 at 09:00; Stop 08/20/16 at 08:59 Paroxetine HCl (PAXil CR) 25 mg QAM PO ; Start 07/22/16 at 09:00; Stop 07/22/16 at 16:35; Status DC Polyethylene Glycol (Miralax) 1 pkt BID PO Last administered on 07/21/16 20:04 ; Start 07/21/16 at 21:00; Stop 07/21/16 at 23:51; Status DC Polyethylene Glycol (Miralax) 1 pkt DAILYPRN PRN PO CONSTIPATION Last administered on 07/22/16 20:07; Start 07/22/16 at 00:00; Stop 08/21/16 at 00:00 Risperidone (RisperDAL) 0.25 mg DAILY PO Last administered on 07/24/16 08:09; Start 07/23/16 at 09:00; Stop 08/22/16 at 08:59 Sitagliptin Phosphate (Januvia) 100 mg DAILY PO Last administered on 07/24/16 08:10; Start 07/22/16 at 09:00; Stop 08/21/16 at 08:59 Trazodone HCl (Desyrel) 50 mg QHSP PRN PO INSOMNIA Last administered on 21:27; Start 07/21/16 at 18:45; Stop 08/20/16 at 18:44 Venlafaxine HCl (Effexor Xr) 150 mg BID PO Last administered on 07/22/16 08:27; Start 07/21/16 at 21:00; Stop 07/22/16 at 14:27; Status DC Venlafaxine HCl (Effexor Xr) 300 mg DAILY PO Last administered on 08:10; Start 07/23/16 at 09:00; Stop 08/22/16 at 08:59 Allergies Coded Allergies: Celecoxib (Verified Allergy, Unknown, 06/07/14) SEAFOOD (Verified Allergy, Unknown, 06/07/14) Tramadol (Verified Allergy, Unknown, 06/07/14) GME ATTESTATION My preceptor for this patient encounter was physically present in the building during the encounter and was fully available. As needed, all aspects of the patient interview, examination, medical decision making process, and medical care plan development were reviewed and approved by the preceptor. Preceptor is aware and concurs with the plan as stated in the body of this note and will attest to such by his/her cosignature. IZA SMITH DO Jul 24, 2016 18:36
[2016-07-24] MEDS: ARIPiprazole 2 MG TAB PO SCH (20:57)
[2016-07-24] MEDS: traZODone 50 MG TAB PO PRN (20:57)
[2016-07-25 06:33] VITALS: BP 127/63
[2016-07-25] MEDS: NICOTINE 21MG/24HR 1 EA TRANSDERMAL TD SCH (08:12)
[2016-07-25] MEDS: SITagliptin 50 MG TAB (JANUVIA) PO SCH (08:12)
[2016-07-25] MEDS: ARIPiprazole 2 MG TAB PO SCH (08:12)
[2016-07-25] MEDS: VENLAFAXINE **XR** 75MG CAPSULE PO SCH (08:12)
[2016-07-25] MEDS: LISINOPRIL 10 MG TAB PO SCH (08:13)
[2016-07-25] MEDS: clonazePAM 0.5 MG TAB PO SCH ×2 (08:14→22:07)
--- NOTE | 2016-07-25 16:53 | IPNPDOC ---
[facility] Progress Note Progress Note DATE OF SERVICE: 07/25/16 INTERVAL HISTORY: Medication Side effects: Reports some mild fatigue from the Abilify but currently denies any blurred vision or dizziness. Otherwise tolerating medications well Behavior: Friendly and amenable Group Attendance: Engaging groups well Psychiatric Symptom change: No change from yesterday in terms of depression or anxiety, describes some increased worry about his outpatient disposition and will happen once he returns home. VITAL SIGNS: See below. NEW TEST RESULTS: See below CURRENT MEDICATIONS: See below. MENTAL STATUS EXAMINATION: General: Well dressed with good hygiene Speech: Spontaneous and fluid Thought processes: Linear and logical Thought content: Future orientated Abstract reasoning, and computation: Intact Description of associations: Intact Description of abnormal or psychotic thoughts:Denies any suicidal or homicidal ideation. Denies any auditory or visual hallucinations. Does not appear to be responding to internal stimuli. Does not appear to be endorsing any bizarre or paranoid ideation. Judgment: Fair Insight: Fair Orientation: Alert and orientated 3 Recent and remote memory: Intact Attention span and concentration: Intact Fund of knowledge: Adequate Mood: "Okay" Affect: Mildly anxious with a constricted range DIAGNOSES: 1. Unspecified depressive disorder. 2. Unspecified anxiety disorder. 3. Alcohol use disorder, severe, in sustained remission. ASSESSMENT: Improving MANAGEMENT PLAN: Medications: Continue Abilify 2 mg daily with affect sore 300 mg extended release daily. Will titrate Klonopin down to 0.5 mg nightly by discontinuing the morning dose for tomorrow, patient does not appear to be expressing any withdrawal Psychotherapy: Encourage groups Social: Disposition options are being worked on Misc: None Disposition: The patient will need of further inpatient stay to address medication titrations and disposition planning. TIME SPENT: 30 minutes. Vital Signs Vital Signs Date Time Temp Pulse Resp B/P Pulse Ox O2 Delivery O2 Flow Rate FiO2 07/25/16 08:13 127/63 07/25/16 06:33 98.5 79 18 07/21/16 10:18 97 07/21/16 09:40 Room Air Current Medications Current Medications Acetaminophen (Tylenol Tab) 650 mg Q6HP PRN PO HEADACHE or DISCOMFORT; Start at 18:45; Stop 08/20/16 at 18:44 Al Hydrox/Mg Hydrox/Simethicone (Mylanta) 30 ml Q4HP PRN PO HEARTBURN/ INDIGESTION Last administered on 07/24/16 09:05; Start 07/21/16 at 18:45; Stop 08/20/16 at 18:44 Albuterol Sulfate (Proventil, Ventolin Hfa) 2 puff Q4HP PRN INH SHORTNESS OF BREATH; Start 07/21/16 at 18:45; Stop 08/20/16 at 18:44 Aripiprazole (AbiLIFY) 2 mg DAILY PO Last administered on 07/25/16 08:12; Start 07/24/16 at 09:00; Stop 08/23/16 at 08:59 Clonazepam (KlonoPIN) 0.5 mg DAILY PO Last administered on 07/25/16 08:14; Start 07/24/16 at 09:00; Stop 07/31/16 at 08:59 Clonazepam (KlonoPIN) 0.5 mg QHS PO Last administered on 07/24/16 20:57; Start 07/24/16 at 21:00; Stop 07/31/16 at 20:59 Clonazepam (KlonoPIN) 1 mg BID PO Last administered on 07/23/16 08:16; Start 07/21/16 at 21:00; Stop 07/23/16 at 16:38; Status DC Clonazepam (KlonoPIN) 1 mg QHS PO Last administered on 07/23/16 21:26; Start 07/23/16 at 21:00; Stop 07/24/16 at 18:33; Status DC Home Med (Med Rec Complete!) ASDIRECTED XX ; Start 07/21/16 at 21:45; Stop at 21:45; Status DC Lisinopril (Prinivil) 30 mg DAILY PO Last administered on 07/25/16 08:13; Start 07/22/16 at 09:00; Stop 08/21/16 at 08:59 Magnesium Hydroxide (Milk Of Magnesia) 30 ml DAILYPRN PRN PO CONSTIPATION Last administered on 07/23/16 14:36; Start 07/21/16 at 18:45; Stop 08/20/16 at 18:44 Nicotine (Nicoderm Cq 21mg) 1 patch DAILY TD Last administered on 07/25/16 08: 12; Start 07/21/16 at 09:00; Stop 08/20/16 at 08:59 Paroxetine HCl (PAXil CR) 25 mg QAM PO ; Start 07/22/16 at 09:00; Stop 07/22/16 at 16:35; Status DC Polyethylene Glycol (Miralax) 1 pkt BID PO Last administered on 07/21/16 20:04 ; Start 07/21/16 at 21:00; Stop 07/21/16 at 23:51; Status DC Polyethylene Glycol (Miralax) 1 pkt DAILYPRN PRN PO CONSTIPATION Last administered on 07/22/16 20:07; Start 07/22/16 at 00:00; Stop 08/21/16 at 00:00 Risperidone (RisperDAL) 0.25 mg DAILY PO Last administered on 07/24/16 08:09; Start 07/23/16 at 09:00; Stop 07/24/16 at 18:33; Status DC Sitagliptin Phosphate (Januvia) 100 mg DAILY PO Last administered on 07/25/16 08:12; Start 07/22/16 at 09:00; Stop 08/21/16 at 08:59 Trazodone HCl (Desyrel) 50 mg QHSP PRN PO INSOMNIA Last administered on 20:57; Start 07/21/16 at 18:45; Stop 08/20/16 at 18:44 Venlafaxine HCl (Effexor Xr) 150 mg BID PO Last administered on 07/22/16 08:27; Start 07/21/16 at 21:00; Stop 07/22/16 at 14:27; Status DC Venlafaxine HCl (Effexor Xr) 300 mg DAILY PO Last administered on 08:12; Start 07/23/16 at 09:00; Stop 08/22/16 at 08:59 Allergies Coded Allergies: Celecoxib (Verified Allergy, Unknown, 06/07/14) SEAFOOD (Verified Allergy, Unknown, 06/07/14) Tramadol (Verified Allergy, Unknown, 06/07/14) GME ATTESTATION My preceptor for this patient encounter was physically present in the building during the encounter and was fully available. As needed, all aspects of the patient interview, examination, medical decision making process, and medical care plan development were reviewed and approved by the preceptor. Preceptor is aware and concurs with the plan as stated in the body of this note and will attest to such by his/her cosignature. IZA SMTIH DO Jul 25, 2016 16:53
[2016-07-25 18:00] VITALS: BP 135/66
--- NOTE | 2016-07-25 19:17 | REP ---
KUB ABDOMEN AND PELVIS: KUB film of abdomen and pelvis is performed. Bowel gas pattern is normal. There is no evidence of bowel obstruction. Vascular calcifications are seen in the pelvis. A stent is seen in the lower abdomen just to the left of midline. There are mild degenerative changes of the spine. IMPRESSION: Essentially negative exam. Signed by Armando De MD 07/26/2016 03:21 P
[2016-07-25 20:57] VITALS: BP 170/84
[2016-07-25] MEDS ORDERED: ONDANSETRON 4 MG ORAL DISINTEGRATING TAB (S0181) PO PRN (22:00)
[2016-07-25] MEDS: PANTOPRAZOLE 40MG TAB (PROTONIX) PO SCH (22:07)
[2016-07-25] MEDS: MIRALAX *UNIT DOSE* 17GM PACKET PO PRN (22:18)
[2016-07-25 22:36] LABS: BASO # 0.1 K/mm3 (0.0-0.2); BASO % 0.6 % (0.0-1.0); EOS # 0.2 K/mm3 (0.0-0.50); EOS % 1.2 % (0.0-3.0); LARGE UNSTAINED CELL # 0.2 K/mm3 (0.0-0.4); LARGE UNSTAINED CELL % 1.3 % (0.0-4.0); LYMPH # 3.8 K/mm3 (1.5-4.5); MEAN CORPUSCULAR HGB CONC 34.3 g/dl (32.0-36.5); MEAN CORPUSCULAR VOLUME 90.3 fl (80.0-96.0); MONO # 1.2 K/mm3 (0.0-0.8); MONO % 7.4 % (0.0-5.0); NEUTROPHILS # 10.5 K/mm3 (1.8-7.7); NEUTROPHILS % 66.6 % (36.0-66.0); PLATELET COUNT, AUTOMATED 333 k/mm3 (150-450); RED CELL DISTRIBUTION WIDTH 12.6 % (11.5-14.5); WHITE BLOOD COUNT 15.8 K/mm3 (4.0-10.0)
[2016-07-25 22:55] LABS: ALBUMIN 3.3 GM/DL (3.2-5.2); ALKALINE PHOSPHATASE 141 U/L (45-117); ALT/SGPT 258 U/L (12-78); ANION GAP 6 MEQ/L (8-16); AST/SGOT 349 U/L (15-37); BILIRUBIN,TOTAL 0.6 MG/DL (0.2-1.0); BLOOD UREA NITROGEN 26 MG/DL (7-18); CALCIUM LEVEL 8.6 MG/DL (8.8-10.2); CARBON DIOXIDE LEVEL 30 MEQ/L (21-32); CHLORIDE LEVEL 102 MEQ/L (98-107); CREATININE FOR GFR 1.33 MG/DL (0.70-1.30); GLOMERULAR FILTRATION RATE 57.4 (>49); GLUCOSE, FASTING 183 MG/DL (80-110); MAGNESIUM LEVEL 2.6 MG/DL (1.8-2.4); POTASSIUM SERUM 4.1 MEQ/L (3.5-5.1); SODIUM LEVEL 138 MEQ/L (136-145); TOTAL PROTEIN 7.4 GM/DL (6.4-8.2)
--- NOTE | 2016-07-25 23:20 | REPUSA ---
CT of the abdomen and pelvis without contrast Clinical statement: Pain. Technique: Multiple axial CT images were obtained from the base of the lungs to the floor of the pelv is utilizing 5 mm axial slices without administration of contrast. Coronal and sagittal reconstructio ns were also obtained. Comparison: 06/01/2015. Findings: Chest: The visualized lung bases are clear. Abdomen: The kidneys are normal in size bilaterally. There is no evidence of hydronephrosis or nephro lithiasis. Numerous tiny gallstones are in the gallbladder. No pericholecystic inflammatory changes a re seen however. The liver, spleen, pancreas, and adrenal glands are unremarkable. The aorta demonstr ates normal caliber and contour. There is no abdominal lymphadenopathy or ascites. Pelvis: The bowel is unremarkable, with no obstructive or inflammatory changes. The urinary bladder i s within normal limits. There is no pelvic lymphadenopathy or ascites. The other pelvic structures ap pear unremarkable. Bones: There are no suspicious osseous abnormalities seen. Multilevel degenerative disc disease is no darius throughout the spine, most severe at L1/L2, L4/L5, and L5/S1. Mild osteoarthritis of the hip join ts is seen bilaterally. Impression: 1. Cholelithiasis without evidence of acute cholecystitis. 2. No obstructive or inflammatory bowel changes. 3. No evidence of hydronephrosis or nephrolithiasis. 4. Multilevel degenerative disc disease in the lumbar spine as described. 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
[2016-07-25] MEDS: traZODone 50 MG TAB PO PRN (23:37)
[2016-07-25] MEDS: MAALOX 30 ML SUSP *UDC PO PRN (23:37)
[2016-07-25 23:38] LABS: GAMMA GLUTAMYLTRANSPEPTIDASE 385 U/L (15-85)
--- NOTE | 2016-07-26 00:17 | CR ---
DATE OF CONSULTATION: 07/25/2016 PRIMARY CARE PROVIDER: Dr. Linda Restrepo OUTPATIENT PSYCHIATRIST: Dr. Schaffer REQUESTING PHYSICIAN: Dr. Lewis CHIEF COMPLAINT: Abdominal pain. HISTORY OF THE PRESENT ILLNESS: Mr. Jacinto is a 65-year-old male with a past medical history of Moseley's esophagus, Crohn's, currently receiving Remicade infusion every [address] Sanchez, who complains of nausea, vomiting during dinner tonight. The patient is currently admitted to inpatient mental health unit (IM) for severe depression and ineffective coping skills. Since admission, he has been feeling relatively well until tonight when he ate dinner and after three spoons of mashed potato and meatballs, started feeling nauseous. He went back to his room and after using his finger to induce emesis, he immediately vomited some phlegm mixed with some bright red color emesis. Associated with sharp abdominal pain, most significant on his right upper quadrant. Pain was described as sharp. It does wax and wane. Drank some james-luiz which seemed to help. Denies diarrhea. He actually complains of constipation and last bowel movement was yesterday morning where he thought it was a mixture of green mixed with bright red color stool, more foul odor compared to his normal stools. No chest pain, shortness of breath, palpitations, fever, night sweats. Reports chills. Denies similar episodes in the past. PAST MEDICAL HISTORY: Moseley's esophagus. Crohn's disease, last Remicade infusion was July 17, 2016. Bladder incontinence, reportedly followed with three different urologists in the past and was told that it was normal. The patient thinks it is related to his anxiety and depression and states that whenever his psychiatric conditions are well controlled, he notices improvement of symptoms. Type 2 diabetes. Chronic back pain. Hypertension. Depression. Anxiety. Tobacco use. PAST SURGICAL HISTORY: Colonoscopy in 2011 showed non-thrombosed external hemorrhoids. Esophagogastroduodenoscopy (EGD) in 2011, 2012, 2014 consistent with Moseley's esophagus. Colonoscopy in 2014 showed noninflamed stricture and bland scarring in the ileocecal valve, suggestive of Crohn's or inflammatory bowel. Bilateral stent placement to his groin. Three back surgeries. HOME MEDICATIONS: - ProAir HFA two puffs inhaled every 4 hours as needed - Xanax 1 mg four times a day as needed for anxiety - Remicade infusion every 2 months - lisinopril 30 mg by mouth daily - Januvia 100 mg by mouth daily - Effexor 150 mg by mouth twice a day INPATIENT MEDICATIONS: - trazodone 50 mg nightly - Tylenol 650 mg as needed every 6 hours - Milk of Magnesia 30 mL as needed daily - Mylanta 30 mL every 4 hours as needed - nicotine patch 21 mg daily - lisinopril 30 mg daily - Proventil two puffs every 4 hours - Januvia 100 mg daily - MiraLAX one packet as needed - Effexor 300 mg daily - Klonopin 0.5 nightly - Abilify 2 mg by mouth daily ALLERGIES: TRAMADOL, SEAFOOD, CELEBREX, reaction is unknown. SOCIAL HISTORY: The patient is a current smoker, has been smoking up to 1-1/2 packs a day for the last 50 years. He used to drink alcohol but quit 32 years ago. No drug use. 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 No asbestos or TB he's aware of. No pets at home. Outside travel includes to [place], [place], [place]. FAMILY HISTORY: Father from complications from alcohol. Mother from congestive heart failure and emphysema. One brother of heart disease in his 80s. REVIEW OF SYSTEMS: CONSTITUTIONAL: Denies fevers, chills, rigors, weight changes. HENT: Denies headaches, lightheadedness, dizziness, difficulty with speech and swallow. EYES: No blurry vision, diplopia. CARDIOVASCULAR: Denies chest pain, paroxysmal nocturnal dyspnea, pillow orthopnea, lower extremity edema. PULMONARY: Denies shortness of breath, productive cough, hemoptysis. GASTROINTESTINAL: As above. GENITOURINARY: Positive for urinary incontinence. Has been evaluated by multiple urologists in the past. MUSCULOSKELETAL: No bone, muscle, joint pain. NEUROLOGICAL: No paralysis, paresthesia, headaches. ENDOCRINE: Negative for diabetes, or thyroid disease. LYMPHATICS: No lumps, bumps, or swelling anywhere in neck, axilla, or groin. HEMATOLOGY: No abnormal bleeding or bruising. PSYCHIATRIC: Currently admitted to [facility]. SKIN: No new rashes. PHYSICAL EXAMINATION: VITAL SIGNS: Blood pressure 170/84, heart rate 80, temperature 98.3, respiratory rate 20. GENERAL: Patient is lying in bed, comfortable, in no acute distress. He is alert, awake, oriented times three, pleasant, cooperative. HEENT: Normocephalic, atraumatic. Moist oral mucosa. Extraocular movement intact. NECK: Supple. Trachea midline. No jugular venous distention (JVD). CHEST: Symmetric chest rise, no accessory muscle use. Breath sounds clear to auscultation bilaterally. HEART: Regular rate and rhythm. S1, S2 present. ABDOMEN: Soft, mildly tender to palpation diffusely. No guarding, no rebound, no peritoneal signs. : Deferred EXTREMITIES: No pedal edema. Pedal pulses present bilaterally. SKIN: No obvious rashes or lesions. NEUROLOGIC: Cranial nerves 2-12 grossly intact. No focal deficits. PSYCHIATRIC: He is cooperative. Normal affect. IMPRESSION AND PLAN: Mr. Jacinto is a 65-year-old male with a history of Moseley's esophagus, Crohn's disease, who is admitted to inpatient mental health unit (IM) for severe depression and coping mechanism, found to have episodes of nausea, vomiting and abdominal pain tonight. 1. Nausea, vomiting. Currently etiology unclear. Possible causes include GERD, pancreatitis, gastroenteritis, Crohn's exacerbation versus other. At this time, we will check blood work, including CBC, CMP, lipase. We have also ordered a CT of the abdomen and pelvis to further evaluate. Will start the patient with Zofran, continue Tylenol. He reportedly was taking proton pump inhibitor (PPI) a year ago for his Moseley's. Have restarted him on Protonix. Will followup labs. Continue to monitor the patient closely. 2. Hypertension. His blood pressure is somewhat high tonight. This is likely secondary to his underlying pain. If it continues to be elevated, will consider adding Norvasc. Will continue lisinopril for now. 3. Type 2 diabetes. Continue Januvia. 4. Chronic kidney disease. On review of his labs, his creatinine has been about 1.28 to 1.3 range. He did show a slight bump in his creatinine from his labs 2 days ago. Repeat labs tonight. Will continue lisinopril for now. 5. Crohn's disease. His last infusion was 2 weeks ago of Remicade. He reportedly receives Remicade every 2 months. 6. History of Moseley's esophagus. We have put him back on proton pump inhibitor as mentioned above. 7. Urinary incontinence. Reportedly, per patient, his urinary incontinence improves whenever his anxiety and depression are under control. 8. Tobacco abuse. He is on a nicotine patch. 9. Anxiety/depression and difficulty with coping mechanism. He is currently being managed by psychiatric team. Thank you for allowing us to participate in this patient's care. Will continue to follow him closely with you. My preceptor for this patient encounter was Dr. Serrano. The preceptor was physically present in the building during the encounter and was fully available. As needed, all aspects of the patient interview, examination, medical decision making process, and medical care plan development were reviewed and approved by the preceptor. The preceptor is aware and concurs with the plan as stated in the body of this note and will attest to such by his/her cosignature. Edited 07/26/2016 [facility] I have both independently examined this patient as well as reviewed the H&P. I have discussed in detail with the resident the findings and plan of treatment as documented in the residents note. I will continue to follow the patient and offer further guidance to the patients care as necessary during this hospital stay. Hayley ERWIN
[2016-07-26 06:00] VITALS: BP 151/74
[2016-07-26] MEDS: NICOTINE 21MG/24HR 1 EA TRANSDERMAL TD SCH (08:15)
[2016-07-26] MEDS: LISINOPRIL 10 MG TAB PO SCH (08:15)
[2016-07-26] MEDS: VENLAFAXINE **XR** 75MG CAPSULE PO SCH (08:15)
[2016-07-26] MEDS: SENOKOT S TAB PO SCH ×2 (08:15→20:35)
[2016-07-26] MEDS: ARIPiprazole 2 MG TAB PO SCH (08:15)
[2016-07-26] MEDS: SITagliptin 50 MG TAB (JANUVIA) PO SCH (08:16)
[2016-07-26] MEDS: MAALOX 30 ML SUSP *UDC PO PRN (10:26)
--- NOTE | 2016-07-26 11:31 | IPNPDOC ---
Subjective Date Seen The patient was seen on 07/26/16. Subjective Chief Complaint/HPI The patient is a 65-year-old male admitted with a reason for visit of Unspecified Depressive D/O. Events since last encounter Pt states he is feeling better today. No further N/V. Denies abdominal pain. States sx have resolved. ENT: Denies: Dysphagia, Ear Pain, Head Aches Pulmonary: Denies: Cough, Dyspnea Cardiovascular: Denies: Chest Pain, Lt Headedness, Orthopnea, Palpitations, Paroxysmal Noc. Dyspnea Gastrointestinal: Denies: Abdominal Pain, Constipation, Diarrhea, Nausea, Vomiting Objective Physical Examination General Exam: Positive: Alert Eye Exam: Positive: PERRLA ENT Exam: Positive: Atraumatic Chest Exam: Positive: Clear to auscultation, Normal air movement Heart Exam: Positive: Normal S1, Normal S2, Rate Normal, Regular Rhythm, Negative: Murmurs, Rubs Abdomen Exam: Positive: Normal bowel sounds, Soft, Negative: Hepatospenomegaly, Tenderness Skin Exam: Positive: Nl turgor and temperature, Negative: Breakdown, Rash Neuro Exam: Positive: Normal Gait Assessment /Plan Problems (1) Elevated LFTs Status: Acute Problem Text: * Recheck labs. . * CT A/P with no acute changes. * Labs were reviewed, LFTs still elevated. Reviewed the Pt's medications. Trazodone and Abilify are noted to be new medications which are liver metabolized and could be contributing to elevated LFTs. Reviewed with Dr Matthew as well. * Discussed with Dr Gilbert who is aware. * Repeat labs in AM. (2) Nausea & vomiting Status: Resolved Response to Treatment: Stable Problem Text: * Continue Zofran as needed * Symptoms have resolved * Monitor * Recheck labs this AM (3) HTN (hypertension) Status: Chronic Problem Text: * Lisinopril (4) CKD (chronic kidney disease) Status: Chronic Problem Text: * Baseline 1.2-1.3 * Repeat labs pending. (5) Diabetes mellitus Status: Chronic Problem Text: * Januvia (6) Crohns disease Status: Chronic (7) Moseley esophagus Status: Chronic Problem Text: * Protonix Plan/VTE VTE Prophylaxis Ordered?: No (ambulatory) VS, I&O, 24H, Fishbone Vital Signs/I&O Vital Signs Date Time Temp Pulse Resp B/P Pulse Ox O2 Delivery O2 Flow Rate FiO2 07/26/16 08:15 151/74 07/26/16 06:00 98.6 85 16 Room Air 07/21/16 10:18 97 Laboratory Data 24H LABS Laboratory Tests 2 07/25/16 19:40: Lactate Dehydrogenase 286H, Lactic Acid Level 1.8 07/25/16 22:26: Blood Urea Nitrogen 26H, Creatinine 1.33H, Sodium Level 138, Potassium Level 4.1 , Chloride Level 102, Carbon Dioxide Level 30, Calcium Level 8.6L, Aspartate Amino Transf (AST/SGOT) 349H, Alanine Aminotransferase (ALT/SGPT) 258H, Gamma Glutamyl Transpeptidase 385H, Alkaline Phosphatase 141H, Total Bilirubin 0.6#, Total Protein 7.4, Albumin 3.3, Albumin/Globulin Ratio 0.80L, Anion Gap 6L, White Blood Count 15.8H, Red Blood Count 4.84, Hemoglobin 15.0, Hematocrit 43.7 , Mean Corpuscular Volume 90.3, Mean Corpuscular Hemoglobin 31.0, Mean Corpuscular Hemoglobin Concent 34.3, Red Cell Distribution Width 12.6, Platelet Count 333, Neutrophils (%) (Auto) 66.6H, Lymphocytes (%) (Auto) 23.0L, Monocytes (%) (Auto) 7.4H, Eosinophils (%) (Auto) 1.2, Basophils (%) (Auto) 0.6 , Neutrophils # (Auto) 10.5H, Lymphocytes # (Auto) 3.8, Monocytes # (Auto) 1.2H , Eosinophils # (Auto) 0.2, Basophils # (Auto) 0.1, Glomerular Filtration Rate 57.4, Hepatitis A IgM Antibody NEGATIVE, Hepatitis B Core IgM Antibody NEGATIVE , Hepatitis B Surface Antigen NEGATIVE, Hepatitis C Antibody Index 0.1, Large Unclassified Cells # 0.2, Large Unclassified Cells % 1.3, Lipase 329, Magnesium Level 2.6H CBC/BMP Laboratory Tests 07/25/16 22:26 Calcium Level 8.6 L, Aspartate Amino Transf (AST/SGOT) 349 H, Alanine Aminotransferase (ALT/SGPT) 258 H, Gamma Glutamyl Transpeptidase 385 H, Alkaline Phosphatase 141 H, Total Bilirubin 0.6 #, Total Protein 7.4, Albumin 3.3, Red Blood Count 4.84, Mean Corpuscular Volume 90.3, Mean Corpuscular Hemoglobin 31.0, Mean Corpuscular Hemoglobin Concent 34.3, Red Cell Distribution Width 12.6, Neutrophils (%) (Auto) 66.6 H, Lymphocytes (%) (Auto) 23.0 L, Monocytes (%) (Auto) 7.4 H, Eosinophils (%) (Auto) 1.2, Basophils (%) ( Auto) 0.6, Neutrophils # (Auto) 10.5 H, Lymphocytes # (Auto) 3.8, Monocytes # ( Auto) 1.2 H, Eosinophils # (Auto) 0.2, Basophils # (Auto) 0.1 Macie Babb Jul 26, 2016 11:31
[2016-07-26 12:01] LABS: BASO # 0.1 K/mm3 (0.0-0.2); BASO % 0.5 % (0.0-1.0); EOS # 0.2 K/mm3 (0.0-0.50); EOS % 1.6 % (0.0-3.0); LARGE UNSTAINED CELL # 0.2 K/mm3 (0.0-0.4); LARGE UNSTAINED CELL % 1.7 % (0.0-4.0); LYMPH # 3.2 K/mm3 (1.5-4.5); LYMPH % 22.8 % (24.0-44.0); MEAN CORPUSCULAR HEMOGLOBIN 29.9 pg (27.0-33.0); MEAN CORPUSCULAR HGB CONC 32.8 g/dl (32.0-36.5); MEAN CORPUSCULAR VOLUME 91.1 fl (80.0-96.0); MONO % 7.5 % (0.0-5.0); NEUTROPHILS # 8.5 K/mm3 (1.8-7.7); NEUTROPHILS % 65.8 % (36.0-66.0); PLATELET COUNT, AUTOMATED 361 k/mm3 (150-450); RED CELL DISTRIBUTION WIDTH 12.5 % (11.5-14.5)
[2016-07-26 12:49] LABS: ALBUMIN 3.3 GM/DL (3.2-5.2); ALBUMIN/GLOBULIN RATIO 0.89 (1.00-1.93); BILIRUBIN,TOTAL 0.3 MG/DL (0.2-1.0); CALCIUM LEVEL 8.6 MG/DL (8.8-10.2); CREATININE FOR GFR 1.31 MG/DL (0.70-1.30); GLOMERULAR FILTRATION RATE 58.5 (>49); POTASSIUM SERUM 4.9 MEQ/L (3.5-5.1)
[2016-07-26] MEDS: MOM 30ML SUSPENSION UDC PO PRN ×2 (15:04→20:35)
--- NOTE | 2016-07-26 16:25 | IPNPDOC ---
[facility] Progress Note Progress Note DATE OF SERVICE: 07/26/16 INTERVAL HISTORY: Medication Side effects: Patient reports no side effects from his Abilify, venlafaxine or clonazepam Behavior/events: The patient last night had abdominal pain that has since resolved, he is currently undergoing a medical workup. Otherwise no acute events on the [place]incon Group Attendance: Has had difficulties attending groups today due to excessive sleepiness from not sleeping due to abdominal pain Psychiatric Symptom change: Depression/Affective: Rates depression 6 out of 10, slightly worse than previously due to insomnia and fatigue Anxiety: 0 out of 10, improved with no symptoms of excessive worry or panic attacks today Trauma: Not relevant Psychosis: Not relevant VITAL SIGNS: See below. NEW TEST RESULTS: See below CURRENT MEDICATIONS: See below. MENTAL STATUS EXAMINATION: General: Well dressed with good hygiene Speech: Spontaneous and fluid Thought processes: Linear and logical Thought content: Worries about the future Abstract reasoning, and computation: Intact Description of associations: Intact Description of abnormal or psychotic thoughts:Denies any suicidal or homicidal ideation. Denies any auditory or visual hallucinations. Does not appear to be responding to internal stimuli. Does not appear to be endorsing any bizarre or paranoid ideation. Judgment: Fair Insight: Fair Orientation: Alert and orientated 3 Recent and remote memory: Intact Attention span and concentration: Intact Fund of knowledge: Adequate Mood: "Okay" Affect: Mildly dysthymic with constricted affect DIAGNOSES: 1. Unspecified depressive disorder. 2. Unspecified anxiety disorder. 3. alcohol use disorder, severe, in sustained remission. ASSESSMENT: Stable MANAGEMENT PLAN: Medications: Will discontinue trazodone and Abilify as medical providers are concerned that this could lead to increased LFTs. Will start nightly 8 mg of Rozerem for sleep and depression augmentation. Psychotherapy: Encourage group attendance Social: Discharge planning for possible discharge Friday Misc: Medical providers or performing ultrasound tomorrow due to history of Crohn's Disposition: The patient will need of further inpatient stay to address medication adjustments and severe depression. TIME SPENT: 15 minutes. Vital Signs Vital Signs Date Time Temp Pulse Resp B/P Pulse Ox O2 Delivery O2 Flow Rate FiO2 07/26/16 08:15 151/74 07/26/16 06:00 98.6 85 16 Room Air 07/21/16 10:18 97 Laboratory Data 24H Labs Laboratory Tests 2 07/25/16 19:40: Lactate Dehydrogenase 286H, Lactic Acid Level 1.8 07/25/16 22:26: Blood Urea Nitrogen 26H, Creatinine 1.33H, Sodium Level 138, Potassium Level 4.1 , Chloride Level 102, Carbon Dioxide Level 30, Calcium Level 8.6L, Aspartate Amino Transf (AST/SGOT) 349H, Alanine Aminotransferase (ALT/SGPT) 258H, Gamma Glutamyl Transpeptidase 385H, Alkaline Phosphatase 141H, Total Bilirubin 0.6#, Total Protein 7.4, Albumin 3.3, Albumin/Globulin Ratio 0.80L, Anion Gap 6L, White Blood Count 15.8H, Red Blood Count 4.84, Hemoglobin 15.0, Hematocrit 43.7 , Mean Corpuscular Volume 90.3, Mean Corpuscular Hemoglobin 31.0, Mean Corpuscular Hemoglobin Concent 34.3, Red Cell Distribution Width 12.6, Platelet Count 333, Neutrophils (%) (Auto) 66.6H, Lymphocytes (%) (Auto) 23.0L, Monocytes (%) (Auto) 7.4H, Eosinophils (%) (Auto) 1.2, Basophils (%) (Auto) 0.6 , Neutrophils # (Auto) 10.5H, Lymphocytes # (Auto) 3.8, Monocytes # (Auto) 1.2H , Eosinophils # (Auto) 0.2, Basophils # (Auto) 0.1, Glomerular Filtration Rate 57.4, Hepatitis A IgM Antibody NEGATIVE, Hepatitis B Core IgM Antibody NEGATIVE , Hepatitis B Surface Antigen NEGATIVE, Hepatitis C Antibody Index 0.1, Large Unclassified Cells # 0.2, Large Unclassified Cells % 1.3, Lipase 329, Magnesium Level 2.6H 07/26/16 11:30: Blood Urea Nitrogen 20H, Creatinine 1.31H, Sodium Level 140, Potassium Level 4.9 , Chloride Level 105, Carbon Dioxide Level 29, Calcium Level 8.6L, Aspartate Amino Transf (AST/SGOT) 178H, Alanine Aminotransferase (ALT/SGPT) 305H, Gamma Glutamyl Transpeptidase 397H, Alkaline Phosphatase 148H, Total Bilirubin 0.3, Total Protein 7.0, Albumin 3.3, Albumin/Globulin Ratio 0.89L, Anion Gap 6L, White Blood Count 13.0H, Red Blood Count 4.98, Hemoglobin 14.9, Hematocrit 45.3 , Mean Corpuscular Volume 91.1, Mean Corpuscular Hemoglobin 29.9, Mean Corpuscular Hemoglobin Concent 32.8, Red Cell Distribution Width 12.5, Platelet Count 361, Neutrophils (%) (Auto) 65.8, Lymphocytes (%) (Auto) 22.8L, Monocytes (%) (Auto) 7.5H, Eosinophils (%) (Auto) 1.6, Basophils (%) (Auto) 0.5, Neutrophils # (Auto) 8.5H, Lymphocytes # (Auto) 3.2, Monocytes # (Auto) 1.0H, Eosinophils # (Auto) 0.2, Basophils # (Auto) 0.1, Glomerular Filtration Rate 58.5, Large Unclassified Cells # 0.2, Large Unclassified Cells % 1.7 CBC/BMP Laboratory Tests 07/25/16 22:26 Calcium Level 8.6 L, Aspartate Amino Transf (AST/SGOT) 349 H, Alanine Aminotransferase (ALT/SGPT) 258 H, Gamma Glutamyl Transpeptidase 385 H, Alkaline Phosphatase 141 H, Total Bilirubin 0.6 #, Total Protein 7.4, Albumin 3.3, Red Blood Count 4.84, Mean Corpuscular Volume 90.3, Mean Corpuscular Hemoglobin 31.0, Mean Corpuscular Hemoglobin Concent 34.3, Red Cell Distribution Width 12.6, Neutrophils (%) (Auto) 66.6 H, Lymphocytes (%) (Auto) 23.0 L, Monocytes (%) (Auto) 7.4 H, Eosinophils (%) (Auto) 1.2, Basophils (%) ( Auto) 0.6, Neutrophils # (Auto) 10.5 H, Lymphocytes # (Auto) 3.8, Monocytes # ( Auto) 1.2 H, Eosinophils # (Auto) 0.2, Basophils # (Auto) 0.1 07/26/16 11:30 Calcium Level 8.6 L, Aspartate Amino Transf (AST/SGOT) 178 H, Alanine Aminotransferase (ALT/SGPT) 305 H, Gamma Glutamyl Transpeptidase 397 H, Alkaline Phosphatase 148 H, Total Bilirubin 0.3, Total Protein 7.0, Albumin 3.3 , Red Blood Count 4.98, Mean Corpuscular Volume 91.1, Mean Corpuscular Hemoglobin 29.9, Mean Corpuscular Hemoglobin Concent 32.8, Red Cell Distribution Width 12.5, Neutrophils (%) (Auto) 65.8, Lymphocytes (%) (Auto) 22.8 L, Monocytes (%) (Auto) 7.5 H, Eosinophils (%) (Auto) 1.6, Basophils (%) ( Auto) 0.5, Neutrophils # (Auto) 8.5 H, Lymphocytes # (Auto) 3.2, Monocytes # ( Auto) 1.0 H, Eosinophils # (Auto) 0.2, Basophils # (Auto) 0.1 Current Medications Current Medications Acetaminophen (Tylenol Tab) 650 mg Q6HP PRN PO HEADACHE or DISCOMFORT; Start at 18:45; Stop 08/20/16 at 18:44 Al Hydrox/Mg Hydrox/Simethicone (Mylanta) 30 ml Q4HP PRN PO HEARTBURN/ INDIGESTION Last administered on 07/26/16 10:26; Start 07/21/16 at 18:45; Stop 08/20/16 at 18:44 Albuterol Sulfate (Proventil, Ventolin Hfa) 2 puff Q4HP PRN INH SHORTNESS OF BREATH; Start 07/21/16 at 18:45; Stop 08/20/16 at 18:44 Aripiprazole (AbiLIFY) 2 mg DAILY PO Last administered on 07/26/16 08:15; Start 07/24/16 at 09:00; Stop 07/26/16 at 16:19; Status DC Clonazepam (KlonoPIN) 0.5 mg DAILY PO Last administered on 07/25/16 08:14; Start 07/24/16 at 09:00; Stop 07/25/16 at 16:53; Status DC Clonazepam (KlonoPIN) 0.5 mg QHS PO Last administered on 07/25/16 22:07; Start 07/24/16 at 21:00; Stop 07/31/16 at 20:59 Clonazepam (KlonoPIN) 1 mg BID PO Last administered on 07/23/16 08:16; Start 07/21/16 at 21:00; Stop 07/23/16 at 16:38; Status DC Clonazepam (KlonoPIN) 1 mg QHS PO Last administered on 07/23/16 21:26; Start 07/23/16 at 21:00; Stop 07/24/16 at 18:33; Status DC Home Med (Med Rec Complete!) ASDIRECTED XX ; Start 07/21/16 at 21:45; Stop at 21:45; Status DC Lisinopril (Prinivil) 30 mg DAILY PO Last administered on 07/26/16 08:15; Start 07/22/16 at 09:00; Stop 08/21/16 at 08:59 Magnesium Hydroxide (Milk Of Magnesia) 30 ml DAILYPRN PRN PO CONSTIPATION Last administered on 07/26/16 15:04; Start 07/21/16 at 18:45; Stop 08/20/16 at 18:44 Nicotine (Nicoderm Cq 21mg) 1 patch DAILY TD Last administered on 07/26/16 08: 15; Start 07/21/16 at 09:00; Stop 08/20/16 at 08:59 Ondansetron HCl (Zofran Odt) 4 mg Q4HP PRN PO NAUSEA OR VOMITING Last administered on 07/25/16 22:18; Start 07/25/16 at 22:00; Stop 08/24/16 at 21:59 Pantoprazole Sodium (Protonix) 40 mg QHS PO Last administered on 07/25/16 22: 07; Start 07/25/16 at 21:00; Stop 08/24/16 at 20:59 Pantoprazole Sodium (Protonix) 40 mg QHS PO ; Start 07/26/16 at 21:00; Stop at 21:00; Status DC Paroxetine HCl (PAXil CR) 25 mg QAM PO ; Start 07/22/16 at 09:00; Stop 07/22/16 at 16:35; Status DC Polyethylene Glycol (Miralax) 1 pkt BID PO Last administered on 07/21/16 20:04 ; Start 07/21/16 at 21:00; Stop 07/21/16 at 23:51; Status DC Polyethylene Glycol (Miralax) 1 pkt DAILYPRN PRN PO CONSTIPATION Last administered on 07/25/16 22:18; Start 07/22/16 at 00:00; Stop 08/21/16 at 00:00 Ramelteon (Rozerem) 8 mg QHS PO ; Start 07/26/16 at 21:00; Stop 08/25/16 at 20: 59; Status UNV Risperidone (RisperDAL) 0.25 mg DAILY PO Last administered on 07/24/16 08:09; Start 07/23/16 at 09:00; Stop 07/24/16 at 18:33; Status DC Senna/Docusate Sodium (Senokot S) 1 tab BID PO Last administered on 07/26/16 08:15; Start 07/26/16 at 09:00; Stop 08/25/16 at 08:59 Sitagliptin Phosphate (Januvia) 100 mg DAILY PO Last administered on 07/26/16 08:16; Start 07/22/16 at 09:00; Stop 08/21/16 at 08:59 Trazodone HCl (Desyrel) 50 mg QHSP PRN PO INSOMNIA Last administered on 23:37; Start 07/21/16 at 18:45; Stop 07/26/16 at 16:19; Status DC Venlafaxine HCl (Effexor Xr) 150 mg BID PO Last administered on 07/22/16 08:27; Start 07/21/16 at 21:00; Stop 07/22/16 at 14:27; Status DC Venlafaxine HCl (Effexor Xr) 300 mg DAILY PO Last administered on 08:15; Start 07/23/16 at 09:00; Stop 08/22/16 at 08:59 Allergies Coded Allergies: Celecoxib (Verified Allergy, Unknown, 06/07/14) SEAFOOD (Verified Allergy, Unknown, 06/07/14) Tramadol (Verified Allergy, Unknown, 06/07/14) GME ATTESTATION My preceptor for this patient encounter was physically present in the building during the encounter and was fully available. As needed, all aspects of the patient interview, examination, medical decision making process, and medical care plan development were reviewed and approved by the preceptor. Preceptor is aware and concurs with the plan as stated in the body of this note and will attest to such by his/her cosignature. IZA SMITH DO Jul 26, 2016 16:25
[2016-07-26 18:00] VITALS: BP 120/64
[2016-07-26] MEDS ORDERED: PANTOPRAZOLE 40MG TAB (PROTONIX) PO SCH (21:00)
[2016-07-26] MEDS: RAMELTEON 8 MG TAB (ROZEREM) PO SCH (21:51)
[2016-07-26] MEDS: PANTOPRAZOLE 40MG TAB (PROTONIX) PO SCH (21:51)
[2016-07-26] MEDS: clonazePAM 0.5 MG TAB PO SCH (21:52)
[2016-07-27 06:26] VITALS: BP 113/16
[2016-07-27] MEDS: NICOTINE 21MG/24HR 1 EA TRANSDERMAL TD SCH (07:58)
[2016-07-27] MEDS: SENOKOT S TAB PO SCH ×2 (07:58→21:00)
[2016-07-27] MEDS: SITagliptin 50 MG TAB (JANUVIA) PO SCH (07:58)
[2016-07-27] MEDS: VENLAFAXINE **XR** 75MG CAPSULE PO SCH (07:58)
[2016-07-27] MEDS: LISINOPRIL 10 MG TAB PO SCH (07:58)
[2016-07-27 08:08] LABS: MEAN CORPUSCULAR HEMOGLOBIN 30.5 pg (27.0-33.0); MEAN CORPUSCULAR HGB CONC 33.6 g/dl (32.0-36.5); MEAN CORPUSCULAR VOLUME 90.7 fl (80.0-96.0); RED CELL DISTRIBUTION WIDTH 12.6 % (11.5-14.5); WHITE BLOOD COUNT 13.5 K/mm3 (4.0-10.0)
[2016-07-27 08:25] LABS: ALBUMIN 3.3 GM/DL (3.2-5.2); ALBUMIN/GLOBULIN RATIO 0.92 (1.00-1.93); BILIRUBIN,TOTAL 0.3 MG/DL (0.2-1.0); CALCIUM LEVEL 8.4 MG/DL (8.8-10.2); CREATININE FOR GFR 1.33 MG/DL (0.70-1.30); GLOMERULAR FILTRATION RATE 57.4 (>49); POTASSIUM SERUM 5.1 MEQ/L (3.5-5.1); TOTAL PROTEIN 6.9 GM/DL (6.4-8.2)
--- NOTE | 2016-07-27 08:55 | REP ---
REASON: Abdominal pain. Increased liver transaminases. PRIORS: None. Multiple ultrasonographic images of the gallbladder show multiple echogenic foci within the gallbladder lumen, which are mobile and cast acoustic shadows. The gallbladder wall is not abnormally thickened and there is no pericholecystic edema. Multiple sonographic images of the liver show the diffuse increased echoes throughout the hepatic parenchyma but without evidence of a mass or ductal dilatation. The common bile duct measures between 4 and 5 mm. The imaged portion of the pancreas is unremarkable, although seen in a markedly limited fashion. The imaged portion of the right kidney is within normal limits. IMPRESSION: There is cholelithiasis and diffuse fatty infiltration of the liver. The technologist has indicated on the worksheet that the patient did experience a positive sonographic Antunez's sign. Signed by Phil Disla DO 07/27/2016 10:19 A
[2016-07-27] MEDS: hydrOXYzine 50 MG TAB PO SCH ×3 (11:45→21:00)
[2016-07-27 18:00] VITALS: BP 117/58
[2016-07-27] MEDS: PANTOPRAZOLE 40MG TAB (PROTONIX) PO SCH (20:57)
[2016-07-27] MEDS: RAMELTEON 8 MG TAB (ROZEREM) PO SCH (20:57)
[2016-07-27] MEDS: clonazePAM 0.5 MG TAB PO SCH (20:57)
[2016-07-28 07:04] VITALS: BP 118/59
[2016-07-28] MEDS: NICOTINE 21MG/24HR 1 EA TRANSDERMAL TD SCH (08:15)
[2016-07-28] MEDS: LISINOPRIL 10 MG TAB PO SCH (08:16)
[2016-07-28] MEDS: SITagliptin 50 MG TAB (JANUVIA) PO SCH (08:17)
[2016-07-28] MEDS: VENLAFAXINE **XR** 75MG CAPSULE PO SCH (08:17)
[2016-07-28] MEDS: hydrOXYzine 50 MG TAB PO SCH ×4 (08:18→22:15)
[2016-07-28] MEDS: SENOKOT S TAB PO SCH ×2 (08:19→20:10)
[2016-07-28] MEDS: MOM 30ML SUSPENSION UDC PO PRN (12:17)
[2016-07-28 18:00] VITALS: BP 130/65
[2016-07-28] MEDS: clonazePAM 0.5 MG TAB PO SCH (20:08)
[2016-07-28] MEDS: RAMELTEON 8 MG TAB (ROZEREM) PO SCH (20:08)
[2016-07-28] MEDS: PANTOPRAZOLE 40MG TAB (PROTONIX) PO SCH (20:08)
[2016-07-29 06:24] VITALS: BP 126/73
[2016-07-29] MEDS: SITagliptin 50 MG TAB (JANUVIA) PO SCH (08:04)
[2016-07-29] MEDS: SENOKOT S TAB PO SCH ×2 (08:04→20:06)
[2016-07-29] MEDS: VENLAFAXINE **XR** 75MG CAPSULE PO SCH (08:04)
[2016-07-29] MEDS: LISINOPRIL 10 MG TAB PO SCH (08:04)
[2016-07-29] MEDS: NICOTINE 21MG/24HR 1 EA TRANSDERMAL TD SCH (08:05)
[2016-07-29] MEDS: hydrOXYzine 50 MG TAB PO SCH ×4 (08:05→20:06)
[2016-07-29] MEDS ORDERED: buPROPion **SR TABLET** (ZYBAN) 150MG PO SCH (09:00)
--- NOTE | 2016-07-29 17:16 | IPNPDOC ---
[facility] Progress Note Progress Note DATE OF SERVICE: 07/29/16 INTERVAL HISTORY: Medication Side effects: The patient reports no side effects from his Effexor or the clonazepam Behavior/events: The patient's abdominal pain appeared to be secondary to gallstones and had subsequent abdominal pain over the weekend. He received an ultrasound that revealed a fatty liver and irritation to the gallbladder. Group Attendance: Reduce group attendance Psychiatric Symptom change: Depression/Affective: Describes his depression as a "7 out of 10" Anxiety: Describes his anxiety as a 5 out of 10 Trauma: Not applicable Psychosis: Not applicable VITAL SIGNS: See below. NEW TEST RESULTS: See below CURRENT MEDICATIONS: See below. MENTAL STATUS EXAMINATION: General: Well dressed with good hygiene Speech: Spontaneous and fluid Thought processes: Linear and logical Thought content: Worried about discharge Abstract reasoning, and computation: Intact Description of associations: Intact Description of abnormal or psychotic thoughts:Denies any suicidal or homicidal ideation. Denies any auditory or visual hallucinations. Does not appear to be responding to internal stimuli. Does not appear to be endorsing any bizarre or paranoid ideation. Judgment: Fair Insight: Fair Orientation: Alert and orientated 3 Recent and remote memory: Intact Attention span and concentration: Intact Fund of knowledge: Adequate Mood: "Anxious" Affect: Mildly dysthymic DIAGNOSES: 1. Unspecified depressive disorder. 2. Unspecified anxiety disorder. 3. Alcohol use disorder, severe, in sustained remission. ASSESSMENT: Improving MANAGEMENT PLAN: Medications: The patient requested that his Effexor be cross titrated with Wellbutrin, despite his previous bad reaction he attributes this to the combination of sudden discontinuation of Effexor and Xanax. He is amenable to this cost titration as he feels his depressive symptoms are not well controlled. His clonazepam will be continued at 0.5 mg nightly as he was told this was used to detox him from Xanax. His Effexor will be lowered to 225 mg extended release tomorrow. Psychotherapy: Encourage group attendance Social: None Misc: Surgical consult was performed and the results were that the patient likely passed a gallstone over the weekend and as a currently would require no emergent surgical intervention. The surgical supervisor described that the patient could pursue outpatient call bladder removal if he should decide to. The only recommendation was to perform a liver function panel tomorrow to ensure that his liver enzymes are trending down. Disposition: The patient will need of further inpatient stay to address his refractory depressed mood. TIME SPENT: 20 minutes. Vital Signs Vital Signs Date Time Temp Pulse Resp B/P Pulse Ox O2 Delivery O2 Flow Rate FiO2 07/29/16 08:04 137/72 07/29/16 06:24 96.8 87 16 07/26/16 06:00 Room Air Laboratory Data 24H Labs Laboratory Tests 2 07/28/16 17:14: Bedside Glucose (Misc Panel) 115 Current Medications Current Medications Acetaminophen (Tylenol Tab) 650 mg Q6HP PRN PO HEADACHE or DISCOMFORT; Start at 18:45; Stop 08/20/16 at 18:44; Status Cancel Al Hydrox/Mg Hydrox/Simethicone (Mylanta) 30 ml Q4HP PRN PO HEARTBURN/ INDIGESTION Last administered on 07/26/16 10:26; Start 07/21/16 at 18:45; Stop 08/20/16 at 18:44 Albuterol Sulfate (Proventil, Ventolin Hfa) 2 puff Q4HP PRN INH SHORTNESS OF BREATH; Start 07/21/16 at 18:45; Stop 08/20/16 at 18:44 Aripiprazole (AbiLIFY) 2 mg DAILY PO Last administered on 07/26/16 08:15; Start 07/24/16 at 09:00; Stop 07/26/16 at 16:19; Status DC Bupropion HCl (Zyban, Wellbutrin Sr) 150 mg BID PO ; Start 07/29/16 at 09:00; Stop 08/28/16 at 08:59; Status Cancel Clonazepam (KlonoPIN) 0.5 mg DAILY PO Last administered on 07/25/16 08:14; Start 07/24/16 at 09:00; Stop 07/25/16 at 16:53; Status DC Clonazepam (KlonoPIN) 0.5 mg QHS PO Last administered on 07/28/16 20:08; Start 07/24/16 at 21:00; Stop 07/31/16 at 20:59 Clonazepam (KlonoPIN) 1 mg BID PO Last administered on 07/23/16 08:16; Start 07/21/16 at 21:00; Stop 07/23/16 at 16:38; Status DC Clonazepam (KlonoPIN) 1 mg QHS PO Last administered on 07/23/16 21:26; Start 07/23/16 at 21:00; Stop 07/24/16 at 18:33; Status DC Home Med (Med Rec Complete!) ASDIRECTED XX ; Start 07/21/16 at 21:45; Stop at 21:45; Status DC Hydroxyzine HCl (Atarax) 50 mg TID PO Last administered on 07/29/16 16:09; Start 07/27/16 at 09:00; Stop 08/26/16 at 08:59 Lisinopril (Prinivil) 30 mg DAILY PO Last administered on 07/29/16 08:04; Start 07/22/16 at 09:00; Stop 08/21/16 at 08:59 Magnesium Hydroxide (Milk Of Magnesia) 30 ml DAILYPRN PRN PO CONSTIPATION Last administered on 07/28/16 12:17; Start 07/21/16 at 18:45; Stop 08/20/16 at 18:44 Nicotine (Nicoderm Cq 21mg) 1 patch DAILY TD Last administered on 07/29/16 08: 05; Start 07/21/16 at 09:00; Stop 08/20/16 at 08:59 Ondansetron HCl (Zofran Odt) 4 mg Q4HP PRN PO NAUSEA OR VOMITING Last administered on 07/25/16 22:18; Start 07/25/16 at 22:00; Stop 08/24/16 at 21:59 Pantoprazole Sodium (Protonix) 40 mg QHS PO Last administered on 07/28/16 20: 08; Start 07/25/16 at 21:00; Stop 08/24/16 at 20:59 Pantoprazole Sodium (Protonix) 40 mg QHS PO ; Start 07/26/16 at 21:00; Stop at 21:00; Status DC Paroxetine HCl (PAXil CR) 25 mg QAM PO ; Start 07/22/16 at 09:00; Stop 07/22/16 at 16:35; Status DC Polyethylene Glycol (Miralax) 1 pkt BID PO Last administered on 07/21/16 20:04 ; Start 07/21/16 at 21:00; Stop 07/21/16 at 23:51; Status DC Polyethylene Glycol (Miralax) 1 pkt DAILYPRN PRN PO CONSTIPATION Last administered on 07/25/16 22:18; Start 07/22/16 at 00:00; Stop 08/21/16 at 00:00 Ramelteon (Rozerem) 8 mg QHS PO Last administered on 07/28/16 20:08; Start at 21:00; Stop 08/25/16 at 20:59 Risperidone (RisperDAL) 0.25 mg DAILY PO Last administered on 07/24/16 08:09; Start 07/23/16 at 09:00; Stop 07/24/16 at 18:33; Status DC Senna/Docusate Sodium (Senokot S) 1 tab BID PO Last administered on 07/29/16 08:04; Start 07/26/16 at 09:00; Stop 08/25/16 at 08:59 Sitagliptin Phosphate (Januvia) 100 mg DAILY PO Last administered on 07/29/16 08:04; Start 07/22/16 at 09:00; Stop 08/21/16 at 08:59 Trazodone HCl (Desyrel) 50 mg QHSP PRN PO INSOMNIA Last administered on 23:37; Start 07/21/16 at 18:45; Stop 07/26/16 at 16:19; Status DC Venlafaxine HCl (Effexor Xr) 150 mg BID PO Last administered on 07/22/16 08:27; Start 07/21/16 at 21:00; Stop 07/22/16 at 14:27; Status DC Venlafaxine HCl (Effexor Xr) 225 mg DAILY PO ; Start 07/30/16 at 09:00; Stop 08/29/16 at 08:59 Venlafaxine HCl (Effexor Xr) 300 mg DAILY PO Last administered on 08:04; Start 07/23/16 at 09:00; Stop 07/29/16 at 10:33; Status DC Allergies Coded Allergies: Celecoxib (Verified Allergy, Unknown, 06/07/14) SEAFOOD (Verified Allergy, Unknown, 06/07/14) Tramadol (Verified Allergy, Unknown, 06/07/14) GME ATTESTATION My preceptor for this patient encounter was physically present in the building during the encounter and was fully available. As needed, all aspects of the patient interview, examination, medical decision making process, and medical care plan development were reviewed and approved by the preceptor. Preceptor is aware and concurs with the plan as stated in the body of this note and will attest to such by his/her cosignature. IZA SMITH DO Jul 29, 2016 17:15
[2016-07-29 18:00] VITALS: BP 109/70
[2016-07-29] MEDS: RAMELTEON 8 MG TAB (ROZEREM) PO SCH (20:06)
[2016-07-29] MEDS: PANTOPRAZOLE 40MG TAB (PROTONIX) PO SCH (20:06)
[2016-07-29] MEDS: clonazePAM 0.5 MG TAB PO SCH (20:06)
[2016-07-30 06:42] VITALS: BP 142/88
[2016-07-30 07:46] LABS: ALBUMIN 3.2 GM/DL (3.2-5.2); ALBUMIN/GLOBULIN RATIO 0.86 (1.00-1.93); BILIRUBIN,DIRECT 0.1 MG/DL (0.0-0.2); BILIRUBIN,TOTAL 0.2 MG/DL (0.2-1.0); TOTAL PROTEIN 6.9 GM/DL (6.4-8.2)
[2016-07-30] MEDS: NICOTINE 21MG/24HR 1 EA TRANSDERMAL TD SCH (08:02)
[2016-07-30] MEDS: SITagliptin 50 MG TAB (JANUVIA) PO SCH (08:03)
[2016-07-30] MEDS: hydrOXYzine 50 MG TAB PO SCH ×3 (08:03→20:20)
[2016-07-30] MEDS: LISINOPRIL 10 MG TAB PO SCH (08:03)
[2016-07-30] MEDS: SENOKOT S TAB PO SCH ×2 (08:03→20:20)
[2016-07-30] MEDS ORDERED: VENLAFAXINE **XR** 75MG CAPSULE PO SCH (09:00)
--- NOTE | 2016-07-30 17:48 | IPNPDOC ---
[facility] Progress Note Progress Note DATE OF SERVICE: 07/30/16 Elevated 69-year-old male with history of depressive disorder who has been treated with Effexor XR XR 300 mg by mouth every morning and since yesterday he requested medication to be changed to Wellbutrin. Previously when he was admitted he stated that Wellbutrin had caused him seizures, blackouts and fainting episodes. Now he states he is not sure if it was Wellbutrin or if it was the Atarax that he was also taking. Tomorrow he will be taking only 150 mg of Effexor and on the he'll be taking 75mgs. and on Friday Effexor will be discontinued. The same Friday he will be started on Paxil CR 25 mg and on Friday the dose will be increased to 37.5 mg. All these changes were discussed with the patient because he denies suicidal ideation and homicidal ideation but he continues to say that he has no energy and that he doesn't feel like he used to be. He believes that this is because he has been taking Effexor for such a long period of time and now he feels that he is not being as effective as it was. Exactly because of this he was taking Risperdal initially just as a booster for Effexor, but he was feeling very sleepy and a little bit dizzy and for that reason it was discontinued. His liver enzymes were elevated and an abdominal ultrasound revealed that he had cholelithiasis and a fatty liver. The hospitalist was informed and his opinion was that the patient was in pain because he had passed a stone. The patient has been stable and will try to stabilize him on the medication treatment plan discussed above. The patient is not a risk to himself or others, he is not suicidal, not homicidal, not violent and not psychotic. DIAGNOSES: 1. Unspecified major depressive disorder. 2. . 3. . ASSESSMENT: Patient needs to improve his mood and energy level, and hopefully this will be done with Paxil CR. MANAGEMENT PLAN: Continue hospitalization. TIME SPENT: 30 minutes. Vital Signs Vital Signs Date Time Temp Pulse Resp B/P Pulse Ox O2 Delivery O2 Flow Rate FiO2 07/30/16 08:03 141/78 07/30/16 06:42 99.2 85 18 07/26/16 06:00 Room Air Laboratory Data 24H Labs Laboratory Tests 2 07/30/16 06:55: Aspartate Amino Transf (AST/SGOT) 24, Alanine Aminotransferase (ALT/SGPT) 100H, Alkaline Phosphatase 146H, Total Bilirubin 0.2, Direct Bilirubin 0.1, Albumin 3.2, Albumin/Globulin Ratio 0.86L, Total Protein 6.9 Current Medications Current Medications Acetaminophen (Tylenol Tab) 650 mg Q6HP PRN PO HEADACHE or DISCOMFORT; Start at 18:45; Stop 08/20/16 at 18:44; Status Cancel Al Hydrox/Mg Hydrox/Simethicone (Mylanta) 30 ml Q4HP PRN PO HEARTBURN/ INDIGESTION Last administered on 07/26/16 10:26; Start 07/21/16 at 18:45; Stop 08/20/16 at 18:44 Albuterol Sulfate (Proventil, Ventolin Hfa) 2 puff Q4HP PRN INH SHORTNESS OF BREATH; Start 07/21/16 at 18:45; Stop 08/20/16 at 18:44 Aripiprazole (AbiLIFY) 2 mg DAILY PO Last administered on 07/26/16 08:15; Start 07/24/16 at 09:00; Stop 07/26/16 at 16:19; Status DC Bupropion HCl (Zyban, Wellbutrin Sr) 150 mg BID PO ; Start 07/29/16 at 09:00; Stop 08/28/16 at 08:59; Status Cancel Clonazepam (KlonoPIN) 0.5 mg DAILY PO Last administered on 07/25/16 08:14; Start 07/24/16 at 09:00; Stop 07/25/16 at 16:53; Status DC Clonazepam (KlonoPIN) 0.5 mg QHS PO Last administered on 07/29/16 20:06; Start 07/24/16 at 21:00; Stop 07/31/16 at 20:59 Clonazepam (KlonoPIN) 1 mg BID PO Last administered on 07/23/16 08:16; Start 07/21/16 at 21:00; Stop 07/23/16 at 16:38; Status DC Clonazepam (KlonoPIN) 1 mg QHS PO Last administered on 07/23/16 21:26; Start 07/23/16 at 21:00; Stop 07/24/16 at 18:33; Status DC Home Med (Med Rec Complete!) ASDIRECTED XX ; Start 07/21/16 at 21:45; Stop at 21:45; Status DC Hydroxyzine HCl (Atarax) 50 mg TID PO Last administered on 07/30/16 15:47; Start 07/27/16 at 09:00; Stop 08/26/16 at 08:59 Lisinopril (Prinivil) 30 mg DAILY PO Last administered on 07/30/16 08:03; Start 07/22/16 at 09:00; Stop 08/21/16 at 08:59 Magnesium Hydroxide (Milk Of Magnesia) 30 ml DAILYPRN PRN PO CONSTIPATION Last administered on 07/28/16 12:17; Start 07/21/16 at 18:45; Stop 08/20/16 at 18:44 Nicotine (Nicoderm Cq 21mg) 1 patch DAILY TD Last administered on 07/30/16 08: 02; Start 07/21/16 at 09:00; Stop 08/20/16 at 08:59 Ondansetron HCl (Zofran Odt) 4 mg Q4HP PRN PO NAUSEA OR VOMITING Last administered on 07/25/16 22:18; Start 07/25/16 at 22:00; Stop 08/24/16 at 21:59 Pantoprazole Sodium (Protonix) 40 mg QHS PO Last administered on 07/29/16 20: 06; Start 07/25/16 at 21:00; Stop 08/24/16 at 20:59 Pantoprazole Sodium (Protonix) 40 mg QHS PO ; Start 07/26/16 at 21:00; Stop at 21:00; Status DC Paroxetine HCl (PAXil CR) 25 mg QAM PO ; Start 07/22/16 at 09:00; Stop 07/22/16 at 16:35; Status DC Polyethylene Glycol (Miralax) 1 pkt BID PO Last administered on 07/21/16 20:04 ; Start 07/21/16 at 21:00; Stop 07/21/16 at 23:51; Status DC Polyethylene Glycol (Miralax) 1 pkt DAILYPRN PRN PO CONSTIPATION Last administered on 07/25/16 22:18; Start 07/22/16 at 00:00; Stop 08/21/16 at 00:00 Ramelteon (Rozerem) 8 mg QHS PO Last administered on 07/29/16 20:06; Start at 21:00; Stop 08/25/16 at 20:59 Risperidone (RisperDAL) 0.25 mg DAILY PO Last administered on 07/24/16 08:09; Start 07/23/16 at 09:00; Stop 07/24/16 at 18:33; Status DC Senna/Docusate Sodium (Senokot S) 1 tab BID PO Last administered on 07/30/16 08:03; Start 07/26/16 at 09:00; Stop 08/25/16 at 08:59 Sitagliptin Phosphate (Januvia) 100 mg DAILY PO Last administered on 07/30/16 08:03; Start 07/22/16 at 09:00; Stop 08/21/16 at 08:59 Trazodone HCl (Desyrel) 50 mg QHSP PRN PO INSOMNIA Last administered on 23:37; Start 07/21/16 at 18:45; Stop 07/26/16 at 16:19; Status DC Venlafaxine HCl (Effexor Xr) 150 mg BID PO Last administered on 07/22/16 08:27; Start 07/21/16 at 21:00; Stop 07/22/16 at 14:27; Status DC Venlafaxine HCl (Effexor Xr) 225 mg DAILY PO Last administered on 08:03; Start 07/30/16 at 09:00; Stop 07/30/16 at 13:14; Status DC Venlafaxine HCl (Effexor Xr) 300 mg DAILY PO Last administered on 08:04; Start 07/23/16 at 09:00; Stop 07/29/16 at 10:33; Status DC Venlafaxine HCl (Effexor Xr) 300 mg DAILY PO ; Start 07/31/16 at 09:00; Stop 08/30/16 at 08:59; Status Cancel Allergies Coded Allergies: Celecoxib (Verified Allergy, Unknown, 06/07/14) SEAFOOD (Verified Allergy, Unknown, 06/07/14) Tramadol (Verified Allergy, Unknown, 06/07/14) DEMETRIO PLUMMER MD Jul 30, 2016 17:48
[2016-07-30 18:00] VITALS: BP 131/60
[2016-07-30] MEDS: PANTOPRAZOLE 40MG TAB (PROTONIX) PO SCH (20:20)
[2016-07-30] MEDS: clonazePAM 0.5 MG TAB PO SCH (20:20)
[2016-07-30] MEDS: RAMELTEON 8 MG TAB (ROZEREM) PO SCH (20:20)
[2016-07-30] MEDS ORDERED: PREPARATION H OINTMENT (HEMORRHOID) PR PRN (20:45)
[2016-07-31 06:34] VITALS: BP 133/66
[2016-07-31] MEDS ORDERED: VENLAFAXINE **XR** 75MG CAPSULE PO ONE (08:00)
[2016-07-31] MEDS: hydrOXYzine 50 MG TAB PO SCH ×3 (08:18→20:17)
[2016-07-31] MEDS: SENOKOT S TAB PO SCH ×2 (08:18→20:17)
[2016-07-31] MEDS: LISINOPRIL 10 MG TAB PO SCH (08:18)
[2016-07-31] MEDS: SITagliptin 50 MG TAB (JANUVIA) PO SCH (08:19)
[2016-07-31] MEDS: NICOTINE 21MG/24HR 1 EA TRANSDERMAL TD SCH (08:19)
[2016-07-31] MEDS ORDERED: VENLAFAXINE **XR** 75MG CAPSULE PO SCH (09:00)
[2016-07-31] MEDS: MOM 30ML SUSPENSION UDC PO PRN (11:38)
--- NOTE | 2016-07-31 16:03 | IPNPDOC ---
[facility] Progress Note Progress Note DATE OF SERVICE: 07/31/16 INTERVAL HISTORY: Medication Side effects: Reports no side effects from his Effexor or Klonopin Behavior/events: No major events over the evening Group Attendance: Has attended groups intermittently Self-Rated Scores: (original in paper chart) Bernardo Depressive Inventory: 31 indicating severe depression Bernardo Anxiety Inventory: 27 indicating moderate anxiety Psychiatric Symptoms & Provider Rating scales: HAM-A: 1- ANXIOUS MOOD Mild [1] 2- TENSION Mild [1] 3- FEARS Not present [0] 4- INSOMNIA Not present [0] 5- INTELLECTUAL Mild [1] 6- DEPRESSED MOOD Mild [1] 7- SOMATIC (muscular) Mild [1] 8- SOMATIC (sensory) Not present [0] 9- CARDIOVASCULAR SYMPTOMS Not present [0] 10- RESPIRATORY SYMPTOMS Not present [0] 11- GASTROINTESTINALS SYMPTOMS Not present [0] 12- GENITOURINARY SYMPTOMS Mild [1] 13- AUTONOMIC SYMPTOMS Not present [0] 14- BEHAVIOUR AT INTERVIEW Not present [0] ? HAM-A Score (of 56 points possible) 6 HAM-D: DEPRESSED MOOD Gloomy attitude, pessimism, hopelessness [1] FEELINGS OF GUILT Absent [0] SUICIDE Absent [0] INSOMNIA EARLY No difficulty falling asleep [0] INSOMNIA MIDDLE No difficulty [0] INSOMNIA LATE No difficulty [0] WORK AND ACTIVITIES Stopped working because of present illness. [4] RETARDATION: PSYCHOMOTOR Slight retardation at interview [1] AGITATION None [0] ANXIETY: PSYCHOLOGICAL Moderate [2] ANXIETY: SOMATIC Moderate [2] SOMATIC SYMPTOMS: GASTROINTESTINAL Loss of appetite but eating without encouragement [1] SOMATIC SYMPTOMS: GENERAL None [0] GENITAL SYMPTOMS Mild [1] HYPOCHONDRIASIS Self-absorption (bodily) [1] LOSS OF WEIGHT (rating method) Rating by history LOSS OF WEIGHT (result) Definite (according to patient) weight loss [2] INSIGHT Acknowledges being depressed and ill [0] PARANOID SYMPTOMS None DIURNAL VARIATION No variation DEPERSONALIZATION AND DEREALIZATION Absent OBSESSIONAL & COMPULSIVE SYMPTOMS Absent ? Score 15 ? Assessment MODERATE DEPRESSION VITAL SIGNS: See below. NEW TEST RESULTS: See below CURRENT MEDICATIONS: See below. MENTAL STATUS EXAMINATION: General: Well dressed with good hygiene Speech: Spontaneous and fluid Thought processes: Linear and logical Thought content: Perseveration on health issues Abstract reasoning, and computation: Intact Description of associations: Intact Description of abnormal or psychotic thoughts:Denies any suicidal or homicidal ideation. Denies any auditory or visual hallucinations. Does not appear to be responding to internal stimuli. Does not appear to be endorsing any bizarre or paranoid ideation. Judgment: Fair Insight: Fair Orientation: Alert and orientated 3 Recent and remote memory: Intact Attention span and concentration: Intact Fund of knowledge: Adequate Mood: "Okay" Affect: Mildly anxious and dysphoric DIAGNOSES: 1. Unspecified depressive disorder. 2. Unspecified anxiety disorder. 3. Alcohol use disorder, severe, in remission. ASSESSMENT: Patient reports severe subjective depression and moderate anxiety, Stewart rating scores indicate moderate depression and mild anxiety. Patient reports that his symptoms are improving since the day prior MANAGEMENT PLAN: Medications: Continuing to taper down off venlafaxine with 75 mg tomorrow with a planned start of Paxil on Friday. Will continue clonazepam 0.5 mg at night as the patient reports that the previous taper was done too quickly. Psychotherapy: Encourage group attendance Social: Discharge planning underway Misc: None Disposition: The patient will need of further inpatient stay to address his depressive symptoms and need for stabilization on an effective medication regiment. TIME SPENT: 20 minutes. Vital Signs Vital Signs Date Time Temp Pulse Resp B/P Pulse Ox O2 Delivery O2 Flow Rate FiO2 07/31/16 08:18 123/71 07/31/16 06:34 97.5 92 16 07/26/16 06:00 Room Air Laboratory Data 24H Labs Laboratory Tests 2 07/30/16 16:46: Bedside Glucose (Misc Panel) 157H Current Medications Current Medications Acetaminophen (Tylenol Tab) 650 mg Q6HP PRN PO HEADACHE or DISCOMFORT; Start at 18:45; Stop 08/20/16 at 18:44; Status Cancel Al Hydrox/Mg Hydrox/Simethicone (Mylanta) 30 ml Q4HP PRN PO HEARTBURN/ INDIGESTION Last administered on 07/26/16t 10:26; Start 07/21/16 at 18:45; Stop 08/20/16 at 18:44 Albuterol Sulfate (Proventil, Ventolin Hfa) 2 puff Q4HP PRN INH SHORTNESS OF BREATH; Start 07/21/16 at 18:45; Stop 08/20/16 at 18:44 Aripiprazole (AbiLIFY) 2 mg DAILY PO Last administered on 07/26/16 08:15; Start 07/24/16 at 09:00; Stop 07/26/16 at 16:19; Status DC Bupropion HCl (Zyban, Wellbutrin Sr) 150 mg BID PO ; Start 07/29/16 at 09:00; Stop 08/28/16 at 08:59; Status Cancel Clonazepam (KlonoPIN) 0.5 mg DAILY PO Last administered on 07/25/16 08:14; Start 07/24/16 at 09:00; Stop 07/25/16 at 16:53; Status DC Clonazepam (KlonoPIN) 0.5 mg QHS PO Last administered on 07/30/16 20:20; Start 07/24/16 at 21:00; Stop 07/31/16 at 20:59 Clonazepam (KlonoPIN) 1 mg BID PO Last administered on 07/23/16 08:16; Start 07/21/16 at 21:00; Stop 07/23/16 at 16:38; Status DC Clonazepam (KlonoPIN) 1 mg QHS PO Last administered on 07/23/16 21:26; Start 07/23/16 at 21:00; Stop 07/24/16 at 18:33; Status DC Home Med (Med Rec Complete!) ASDIRECTED XX ; Start 07/21/16 at 21:45; Stop at 21:45; Status DC Hydroxyzine HCl (Atarax) 50 mg TID PO Last administered on 07/31/16 15:46; Start 07/27/16 at 09:00; Stop 08/26/16 at 08:59 Lisinopril (Prinivil) 30 mg DAILY PO Last administered on 07/31/16 08:18; Start 07/22/16 at 09:00; Stop 08/21/16 at 08:59 Magnesium Hydroxide (Milk Of Magnesia) 30 ml DAILYPRN PRN PO CONSTIPATION Last administered on 07/31/16 11:38; Start 07/21/16 at 18:45; Stop 08/20/16 at 18:44 Nicotine (Nicoderm Cq 21mg) 1 patch DAILY TD Last administered on 07/31/16 08: 19; Start 07/21/16 at 09:00; Stop 08/20/16 at 08:59 Ondansetron HCl (Zofran Odt) 4 mg Q4HP PRN PO NAUSEA OR VOMITING Last administered on 07/25/16 22:18; Start 07/25/16 at 22:00; Stop 08/24/16 at 21:59 Pantoprazole Sodium (Protonix) 40 mg QHS PO Last administered on 07/30/16 20: 20; Start 07/25/16 at 21:00; Stop 08/24/16 at 20:59 Pantoprazole Sodium (Protonix) 40 mg QHS PO ; Start 07/26/16 at 21:00; Stop at 21:00; Status DC Paroxetine HCl (PAXil CR) 25 mg QAM PO ; Start 07/22/16 at 09:00; Stop 07/22/16 at 16:35; Status DC Phenyleph/Shark Oil/Min Oil/Petrol (Preparation H Ointment) 1 dose QIDP PRN [place] ITCHING Last administered on 07/30/16 21:20; Start 07/30/16 at 20:45; Stop at 20:44 Polyethylene Glycol (Miralax) 1 pkt BID PO Last administered on 07/21/16 20:04 ; Start 07/21/16 at 21:00; Stop 07/21/16 at 23:51; Status DC Polyethylene Glycol (Miralax) 1 pkt DAILYPRN PRN PO CONSTIPATION Last administered on 07/25/16 22:18; Start 07/22/16 at 00:00; Stop 08/21/16 at 00:00 Ramelteon (Rozerem) 8 mg QHS PO Last administered on 07/30/16 20:20; Start at 21:00; Stop 08/25/16 at 20:59 Risperidone (RisperDAL) 0.25 mg DAILY PO Last administered on 07/24/16 08:09; Start 07/23/16 at 09:00; Stop 07/24/16 at 18:33; Status DC Senna/Docusate Sodium (Senokot S) 1 tab BID PO Last administered on 07/31/16 08:18; Start 07/26/16 at 09:00; Stop 08/25/16 at 08:59 Sitagliptin Phosphate (Januvia) 100 mg DAILY PO Last administered on 07/31/16 08:19; Start 07/22/16 at 09:00; Stop 08/21/16 at 08:59 Trazodone HCl (Desyrel) 50 mg QHSP PRN PO INSOMNIA Last administered on 23:37; Start 07/21/16 at 18:45; Stop 07/26/16 at 16:19; Status DC Venlafaxine HCl (Effexor Xr) 150 mg BID PO Last administered on 07/22/16 08:27; Start 07/21/16 at 21:00; Stop 07/22/16 at 14:27; Status DC Venlafaxine HCl (Effexor Xr) 225 mg DAILY PO Last administered on 08:03; Start 07/30/16 at 09:00; Stop 07/30/16 at 13:14; Status DC Venlafaxine HCl (Effexor Xr) 300 mg DAILY PO Last administered on 08:04; Start 07/23/16 at 09:00; Stop 07/29/16 at 10:33; Status DC Venlafaxine HCl (Effexor Xr) 300 mg DAILY PO ; Start 07/31/16 at 09:00; Stop 08/30/16 at 08:59; Status Cancel Allergies Coded Allergies: Celecoxib (Verified Allergy, Unknown, 06/07/14) SEAFOOD (Verified Allergy, Unknown, 06/07/14) Tramadol (Verified Allergy, Unknown, 06/07/14) IZA SMITH DO Jul 31, 2016 16:03
[2016-07-31 18:00] VITALS: BP 123/64
[2016-07-31] MEDS: PANTOPRAZOLE 40MG TAB (PROTONIX) PO SCH (20:17)
[2016-07-31] MEDS: RAMELTEON 8 MG TAB (ROZEREM) PO SCH (20:17)
[2016-08-01 06:20] VITALS: BP 130/74
[2016-08-01] MEDS ORDERED: VENLAFAXINE **XR** 75MG CAPSULE PO ONE (08:00)
[2016-08-01] MEDS: LISINOPRIL 10 MG TAB PO SCH (08:36)
[2016-08-01] MEDS: hydrOXYzine 50 MG TAB PO SCH ×3 (08:36→21:00)
[2016-08-01] MEDS: SITagliptin 50 MG TAB (JANUVIA) PO SCH (08:36)
[2016-08-01] MEDS: NICOTINE 21MG/24HR 1 EA TRANSDERMAL TD SCH (08:36)
[2016-08-01] MEDS: SENOKOT S TAB PO SCH ×2 (08:36→20:17)
--- NOTE | 2016-08-01 16:52 | IPNPDOC ---
[facility] Progress Note Progress Note DATE OF SERVICE: 08/01/16 INTERVAL HISTORY: Medication Side effects: Reports no side effects from his Effexor Behavior/events: No events overnight Group Attendance: Poor has been reclusive to his room the majority of the day sleeping Psychiatric Symptoms: HAM-A: 1- ANXIOUS MOOD Moderate [2] 2- TENSION Moderate [2] 3- FEARS Not present [0] 4- INSOMNIA Mild [1] 5- INTELLECTUAL Mild [1] 6- DEPRESSED MOOD Not present [0] 7- SOMATIC (muscular) Mild [1] 8- SOMATIC (sensory) Not present [0] 9- CARDIOVASCULAR SYMPTOMS Not present [0] 10- RESPIRATORY SYMPTOMS Not present [0] 11- GASTROINTESTINALS SYMPTOMS Moderate [2] 12- GENITOURINARY SYMPTOMS Mild [1] 13- AUTONOMIC SYMPTOMS Not present [0] 14- BEHAVIOUR AT INTERVIEW Moderate [2] ? HAM-A Score (of 56 points possible) 12 HAM-D: DEPRESSED MOOD Gloomy attitude, pessimism, hopelessness [1] FEELINGS OF GUILT Absent [0] SUICIDE Absent [0] INSOMNIA EARLY No difficulty falling asleep [0] INSOMNIA MIDDLE Patient complains of being restless and disturbed during the night [1] INSOMNIA LATE No difficulty [0] WORK AND ACTIVITIES Stopped working because of present illness. [4] RETARDATION: PSYCHOMOTOR Normal speech and thought [0] AGITATION Fidgetiness [1] ANXIETY: PSYCHOLOGICAL Moderate [2] ANXIETY: SOMATIC Mild [1] SOMATIC SYMPTOMS: GASTROINTESTINAL Loss of appetite but eating without encouragement [1] SOMATIC SYMPTOMS: GENERAL Heaviness in limbs, back or head; backaches, headaches , muscle aches, fatigability [1] GENITAL SYMPTOMS Mild [1] HYPOCHONDRIASIS Not present [0] LOSS OF WEIGHT (rating method) Rating by history LOSS OF WEIGHT (result) Definite (according to patient) weight loss [2] INSIGHT Acknowledges being depressed and ill [0] PARANOID SYMPTOMS None DIURNAL VARIATION Worse in P.M. Christian the severity of the variation Mild DEPERSONALIZATION AND DEREALIZATION Absent OBSESSIONAL & COMPULSIVE SYMPTOMS Absent ? Score 15 ? Assessment MODERATE DEPRESSION YOUNG NIRALI: Not indicated BRIEF PSYCHOTIC RATING SCALE: Not indicated VITAL SIGNS: See below. NEW TEST RESULTS: See below CURRENT MEDICATIONS: See below. MENTAL STATUS EXAMINATION: General: Well dressed with good hygiene Speech: Spontaneous and fluid Thought processes: Linear and logical Thought content: Perseveration on anxiety Abstract reasoning, and computation: Intact Description of associations: Intact Description of abnormal or psychotic thoughts:Denies any suicidal or homicidal ideation. Denies any auditory or visual hallucinations. Does not appear to be responding to internal stimuli. Does not appear to be endorsing any bizarre or paranoid ideation. Judgment: Fair Insight: Fair Orientation: Alert and orientated 3 Recent and remote memory: Intact Attention span and concentration: Intact Fund of knowledge: Adequate Mood: "Bad" Affect: Anxious and dysphoric DIAGNOSES: 1. Unspecified depressive disorder. 2. Unspecified anxiety disorder. 3. Alcohol use disorder, severe, in sustained remission. ASSESSMENT: Regressing subjectively MANAGEMENT PLAN: Medications: Continue cross titration with last dose of Effexor and start of Paxil 25 mg controlled release tomorrow Psychotherapy: Encourage group attendance Social: [place] of discharge Friday Misc: None Disposition: The patient will need of further inpatient stay to address medication titrations and depressive/anxiety symptoms. TIME SPENT: 15 minutes. Vital Signs Vital Signs Date Time Temp Pulse Resp B/P Pulse Ox O2 Delivery O2 Flow Rate FiO2 08/01/16 08:36 139/78 08/01/16 06:20 98.1 84 18 07/26/16 06:00 Room Air Laboratory Data 24H Labs Laboratory Tests 2 08/01/16 06:18: Bedside Glucose (Misc Panel) 141H Current Medications Current Medications Acetaminophen (Tylenol Tab) 650 mg Q6HP PRN PO HEADACHE or DISCOMFORT; Start at 18:45; Stop 08/20/16 at 18:44; Status Cancel Al Hydrox/Mg Hydrox/Simethicone (Mylanta) 30 ml Q4HP PRN PO HEARTBURN/ INDIGESTION Last administered on 07/26/16 10:26; Start 07/21/16 at 18:45; Stop 08/20/16 at 18:44 Albuterol Sulfate (Proventil, Ventolin Hfa) 2 puff Q4HP PRN INH SHORTNESS OF BREATH; Start 07/21/16 at 18:45; Stop 08/20/16 at 18:44 Aripiprazole (AbiLIFY) 2 mg DAILY PO Last administered on 07/26/16 08:15; Start 07/24/16 at 09:00; Stop 07/26/16 at 16:19; Status DC Bupropion HCl (Zyban, Wellbutrin Sr) 150 mg BID PO ; Start 07/29/16 at 09:00; Stop 08/28/16 at 08:59; Status Cancel Clonazepam (KlonoPIN) 0.5 mg DAILY PO Last administered on 07/25/16 08:14; Start 07/24/16 at 09:00; Stop 07/25/16 at 16:53; Status DC Clonazepam (KlonoPIN) 0.5 mg QHS PO Last administered on 07/30/16 20:20; Start 07/24/16 at 21:00; Stop 07/31/16 at 20:59; Status DC Clonazepam (KlonoPIN) 1 mg BID PO Last administered on 07/23/16 08:16; Start 07/21/16 at 21:00; Stop 07/23/16 at 16:38; Status DC Clonazepam (KlonoPIN) 1 mg QHS PO Last administered on 07/23/16 21:26; Start 07/23/16 at 21:00; Stop 07/24/16 at 18:33; Status DC Home Med (Med Rec Complete!) ASDIRECTED XX ; Start 07/21/16 at 21:45; Stop at 21:45; Status DC Hydroxyzine HCl (Atarax) 50 mg TID PO Last administered on 08/01/16 16:05; Start 07/27/16 at 09:00; Stop 08/26/16 at 08:59 Lisinopril (Prinivil) 30 mg DAILY PO Last administered on 08/01/16 08:36; Start 07/22/16 at 09:00; Stop 08/21/16 at 08:59 Magnesium Hydroxide (Milk Of Magnesia) 30 ml DAILYPRN PRN PO CONSTIPATION Last administered on 07/31/16 11:38; Start 07/21/16 at 18:45; Stop 08/20/16 at 18:44 Miscellaneous (Unresolved Clarification Entry) SEE LABEL COMMENTS UNRESOLVED XX ; Start 08/01/16 at 00:01; Stop 08/31/16 at 00:00 Nicotine (Nicoderm Cq 21mg) 1 patch DAILY TD Last administered on 08/01/16 08: 36; Start 07/21/16 at 09:00; Stop 08/20/16 at 08:59 Ondansetron HCl (Zofran Odt) 4 mg Q4HP PRN PO NAUSEA OR VOMITING Last administered on 07/25/16 22:18; Start 07/25/16 at 22:00; Stop 08/24/16 at 21:59 Pantoprazole Sodium (Protonix) 40 mg QHS PO Last administered on 07/31/16 20: 17; Start 07/25/16 at 21:00; Stop 08/24/16 at 20:59 Pantoprazole Sodium (Protonix) 40 mg QHS PO ; Start 07/26/16 at 21:00; Stop at 21:00; Status DC Paroxetine HCl (PAXil CR) 25 mg QAM PO ; Start 07/22/16 at 09:00; Stop 07/22/16 at 16:35; Status DC Paroxetine HCl (PAXil CR) 25 mg QAM PO ; Start 08/02/16 at 09:00; Stop 08/04/16 at 08:00 Phenyleph/Shark Oil/Min Oil/Petrol (Preparation H Ointment) 1 dose QIDP PRN [place] ITCHING Last administered on 07/30/16 21:20; Start 07/30/16 at 20:45; Stop at 20:44 Polyethylene Glycol (Miralax) 1 pkt BID PO Last administered on 07/21/16 20:04 ; Start 07/21/16 at 21:00; Stop 07/21/16 at 23:51; Status DC Polyethylene Glycol (Miralax) 1 pkt DAILYPRN PRN PO CONSTIPATION Last administered on 07/25/16 22:18; Start 07/22/16 at 00:00; Stop 08/21/16 at 00:00 Ramelteon (Rozerem) 8 mg QHS PO Last administered on 07/31/16 20:17; Start at 21:00; Stop 08/25/16 at 20:59 Risperidone (RisperDAL) 0.25 mg DAILY PO Last administered on 07/24/16 08:09; Start 07/23/16 at 09:00; Stop 07/24/16 at 18:33; Status DC Senna/Docusate Sodium (Senokot S) 1 tab BID PO Last administered on 08/01/16 08:36; Start 07/26/16 at 09:00; Stop 08/25/16 at 08:59 Sitagliptin Phosphate (Januvia) 100 mg DAILY PO Last administered on 08/01/16 08:36; Start 07/22/16 at 09:00; Stop 08/21/16 at 08:59 Trazodone HCl (Desyrel) 50 mg QHSP PRN PO INSOMNIA Last administered on 23:37; Start 07/21/16 at 18:45; Stop 07/26/16 at 16:19; Status DC Venlafaxine HCl (Effexor Xr) 150 mg BID PO Last administered on 07/22/16 08:27; Start 07/21/16 at 21:00; Stop 07/22/16 at 14:27; Status DC Venlafaxine HCl (Effexor Xr) 225 mg DAILY PO Last administered on 08:03; Start 07/30/16 at 09:00; Stop 07/30/16 at 13:14; Status DC Venlafaxine HCl (Effexor Xr) 300 mg DAILY PO Last administered on 08:04; Start 07/23/16 at 09:00; Stop 07/29/16 at 10:33; Status DC Venlafaxine HCl (Effexor Xr) 300 mg DAILY PO ; Start 07/31/16 at 09:00; Stop 08/30/16 at 08:59; Status Cancel Allergies Coded Allergies: Celecoxib (Verified Allergy, Unknown, 06/07/14) SEAFOOD (Verified Allergy, Unknown, 06/07/14) Tramadol (Verified Allergy, Unknown, 06/07/14) GME ATTESTATION My preceptor for this patient encounter was physically present in the building during the encounter and was fully available. As needed, all aspects of the patient interview, examination, medical decision making process, and medical care plan development were reviewed and approved by the preceptor. Preceptor is aware and concurs with the plan as stated in the body of this note and will attest to such by his/her cosignature. IZA SMITH DO Aug 01, 2016 16:52
[2016-08-01 18:00] VITALS: BP 124/65
[2016-08-01] MEDS: PANTOPRAZOLE 40MG TAB (PROTONIX) PO SCH (20:17)
[2016-08-01] MEDS: RAMELTEON 8 MG TAB (ROZEREM) PO SCH (20:17)
[2016-08-02 07:14] VITALS: BP 125/67
[2016-08-02] MEDS: NICOTINE 21MG/24HR 1 EA TRANSDERMAL TD SCH (08:03)
[2016-08-02] MEDS: PARoxetine 25 MG CR TAB (PAXIL CR) PO SCH (08:04)
[2016-08-02] MEDS: SENOKOT S TAB PO SCH ×2 (08:04→20:22)
[2016-08-02] MEDS: SITagliptin 50 MG TAB (JANUVIA) PO SCH (08:04)
[2016-08-02] MEDS: LISINOPRIL 10 MG TAB PO SCH (08:04)
[2016-08-02] MEDS: hydrOXYzine 50 MG TAB PO SCH ×3 (08:05→20:22)
[2016-08-02] MEDS: MAALOX 30 ML SUSP *UDC PO PRN (11:41)
--- NOTE | 2016-08-02 16:32 | IPNPDOC ---
[facility] Progress Note Progress Note DATE OF SERVICE: 08/02/16 INTERVAL HISTORY: Medication Side effects: Reports that he's become increasingly anxious after the discontinuation of the Effexor, but has not noted any side effects on the Paxil Behavior/events: No events overnight Group Attendance: Has had difficulty with group attendance as he's been reclusive to his room Psychiatric Symptoms: HAM-A: 1- ANXIOUS MOOD Moderate [2] 2- TENSION Moderate [2] 3- FEARS Not present [0] 4- INSOMNIA Moderate [2] 5- INTELLECTUAL Mild [1] 6- DEPRESSED MOOD Moderate [2] 7- SOMATIC (muscular) Moderate [2] 8- SOMATIC (sensory) Moderate [2] 9- CARDIOVASCULAR SYMPTOMS Mild [1] 10- RESPIRATORY SYMPTOMS Not present [0] 11- GASTROINTESTINALS SYMPTOMS Moderate [2] 12- GENITOURINARY SYMPTOMS Mild [1] 13- AUTONOMIC SYMPTOMS Mild [1] 14- BEHAVIOUR AT INTERVIEW Moderate [2] ? HAM-A Score (of 56 points possible) 20 HAM-D: DEPRESSED MOOD Gloomy attitude, pessimism, hopelessness [1] FEELINGS OF GUILT Self-reproach, feels he/she has let people down [1] SUICIDE Absent [0] INSOMNIA EARLY Complaints of occasional difficulty in falling asleep i.e. more than half-hour [1] INSOMNIA MIDDLE Patient complains of being restless and disturbed during the night [1] INSOMNIA LATE No difficulty [0] WORK AND ACTIVITIES Stopped working because of present illness. [4] RETARDATION: PSYCHOMOTOR Normal speech and thought [0] AGITATION Playing with hands, hair, obvious restlessness [2] ANXIETY: PSYCHOLOGICAL Moderate [2] ANXIETY: SOMATIC Moderate [2] SOMATIC SYMPTOMS: GASTROINTESTINAL Difficulty eating without urging. Requests or requires laxatives or medication [2] SOMATIC SYMPTOMS: GENERAL Heaviness in limbs, back or head; backaches, headaches , muscle aches, fatigability [1] GENITAL SYMPTOMS Mild [1] HYPOCHONDRIASIS Self-absorption (bodily) [1] LOSS OF WEIGHT (rating method) Rating by history LOSS OF WEIGHT (result) Definite (according to patient) weight loss [2] INSIGHT Acknowledges illness but attributes cause to bad food, overwork, virus, need for rest, etc. [1] PARANOID SYMPTOMS None DIURNAL VARIATION Worse in P.M. Christian the severity of the variation Mild DEPERSONALIZATION AND DEREALIZATION Absent OBSESSIONAL & COMPULSIVE SYMPTOMS Absent ? Score 22 ? Assessment SEVERE DEPRESSION VITAL SIGNS: See below. NEW TEST RESULTS: See below CURRENT MEDICATIONS: See below. MENTAL STATUS EXAMINATION: General: Well dressed with good hygiene Speech: Spontaneous and fluid Thought processes: Linear and logical Thought content: Preoccupations with anxiety and health Abstract reasoning, and computation: Intact Description of associations: Intact Description of abnormal or psychotic thoughts:Denies any suicidal or homicidal ideation. Denies any auditory or visual hallucinations. Does not appear to be responding to internal stimuli. Does not appear to be endorsing any bizarre or paranoid ideation. Judgment: Fair Insight: Fair Orientation: Alert and orientated 3 Recent and remote memory: Intact Attention span and concentration: Intact Fund of knowledge: Adequate Mood: "Bad" Affect: Anxious and dysphoric DIAGNOSES: 1. Unspecified depressive disorder. 2. Unspecified anxiety disorder. 3. Alcohol use disorder, severe, in sustained remission. ASSESSMENT: Patient appears to be deteriorating in terms of depression and anxiety symptoms according to his rating scales as he is being cross titrated from the effects or to the Paxil. This is an expected consequence of a complex titration with Effexor. The original cross titration was the need is for the patient's admission. MANAGEMENT PLAN: Medications: Continue Paxil 25 mg daily Psychotherapy: Encourage group attendance Social: Plan discharge for Friday if patient's symptoms resolve sufficiently well Misc: Encourage patient to take more nothing by mouth Disposition: The patient will need of further inpatient stay to address severe depressive symptoms and increasing anxiety symptoms and medication cross titration. TIME SPENT: 15 minutes. Vital Signs Vital Signs Date Time Temp Pulse Resp B/P Pulse Ox O2 Delivery O2 Flow Rate FiO2 08/02/16 08:04 125/67 08/02/16 07:14 98.0 86 20 Current Medications Current Medications Acetaminophen (Tylenol Tab) 650 mg Q6HP PRN PO HEADACHE or DISCOMFORT; Start at 18:45; Stop 08/20/16 at 18:44; Status Cancel Al Hydrox/Mg Hydrox/Simethicone (Mylanta) 30 ml Q4HP PRN PO HEARTBURN/ INDIGESTION Last administered on 08/02/16t 11:41; Start 07/21/16 at 18:45; Stop 08/20/16 at 18:44 Albuterol Sulfate (Proventil, Ventolin Hfa) 2 puff Q4HP PRN INH SHORTNESS OF BREATH; Start 07/21/16 at 18:45; Stop 08/20/16 at 18:44 Aripiprazole (AbiLIFY) 2 mg DAILY PO Last administered on 07/26/16 08:15; Start 07/24/16 at 09:00; Stop 07/26/16 at 16:19; Status DC Bupropion HCl (Zyban, Wellbutrin Sr) 150 mg BID PO ; Start 07/29/16 at 09:00; Stop 08/28/16 at 08:59; Status Cancel Clonazepam (KlonoPIN) 0.5 mg DAILY PO Last administered on 07/25/16 08:14; Start 07/24/16 at 09:00; Stop 07/25/16 at 16:53; Status DC Clonazepam (KlonoPIN) 0.5 mg QHS PO Last administered on 07/30/16 20:20; Start 07/24/16 at 21:00; Stop 07/31/16 at 20:59; Status DC Clonazepam (KlonoPIN) 1 mg BID PO Last administered on 07/23/16 08:16; Start 07/21/16 at 21:00; Stop 07/23/16 at 16:38; Status DC Clonazepam (KlonoPIN) 1 mg QHS PO Last administered on 07/23/16 21:26; Start 07/23/16 at 21:00; Stop 07/24/16 at 18:33; Status DC Home Med (Med Rec Complete!) ASDIRECTED XX ; Start 07/21/16 at 21:45; Stop at 21:45; Status DC Hydroxyzine HCl (Atarax) 50 mg TID PO Last administered on 08/02/16 15:42; Start 07/27/16 at 09:00; Stop 08/26/16 at 08:59 Lisinopril (Prinivil) 30 mg DAILY PO Last administered on 08/02/16 08:04; Start 07/22/16 at 09:00; Stop 08/21/16 at 08:59 Magnesium Hydroxide (Milk Of Magnesia) 30 ml DAILYPRN PRN PO CONSTIPATION Last administered on 07/31/16 11:38; Start 07/21/16 at 18:45; Stop 08/20/16 at 18:44 Miscellaneous (Unresolved Clarification Entry) SEE LABEL COMMENTS UNRESOLVED XX ; Start 08/01/16 at 00:01; Stop 08/31/16 at 00:00 Nicotine (Nicoderm Cq 21mg) 1 patch DAILY TD Last administered on 08/02/16 08: 03; Start 07/21/16 at 09:00; Stop 08/20/16 at 08:59 Ondansetron HCl (Zofran Odt) 4 mg Q4HP PRN PO NAUSEA OR VOMITING Last administered on 07/25/16 22:18; Start 07/25/16 at 22:00; Stop 08/24/16 at 21:59 Pantoprazole Sodium (Protonix) 40 mg QHS PO Last administered on 08/01/16 20: 17; Start 07/25/16 at 21:00; Stop 08/24/16 at 20:59 Pantoprazole Sodium (Protonix) 40 mg QHS PO ; Start 07/26/16 at 21:00; Stop at 21:00; Status DC Paroxetine HCl (PAXil CR) 25 mg QAM PO ; Start 07/22/16 at 09:00; Stop 07/22/16 at 16:35; Status DC Paroxetine HCl (PAXil CR) 25 mg QAM PO Last administered on 08/02/16 08:04; Start 08/02/16 at 09:00; Stop 08/04/16 at 08:00 Phenyleph/Shark Oil/Min Oil/Petrol (Preparation H Ointment) 1 dose QIDP PRN [place] ITCHING Last administered on 07/30/16 21:20; Start 07/30/16 at 20:45; Stop at 20:44 Polyethylene Glycol (Miralax) 1 pkt BID PO Last administered on 07/21/16 20:04 ; Start 07/21/16 at 21:00; Stop 07/21/16 at 23:51; Status DC Polyethylene Glycol (Miralax) 1 pkt DAILYPRN PRN PO CONSTIPATION Last administered on 07/25/16 22:18; Start 07/22/16 at 00:00; Stop 08/21/16 at 00:00 Ramelteon (Rozerem) 8 mg QHS PO Last administered on 08/01/16 20:17; Start at 21:00; Stop 08/25/16 at 20:59 Risperidone (RisperDAL) 0.25 mg DAILY PO Last administered on 07/24/16 08:09; Start 07/23/16 at 09:00; Stop 07/24/16 at 18:33; Status DC Senna/Docusate Sodium (Senokot S) 1 tab BID PO Last administered on 08/02/16 08:04; Start 07/26/16 at 09:00; Stop 08/25/16 at 08:59 Sitagliptin Phosphate (Januvia) 100 mg DAILY PO Last administered on 08/02/16 08:04; Start 07/22/16 at 09:00; Stop 08/21/16 at 08:59 Trazodone HCl (Desyrel) 50 mg QHSP PRN PO INSOMNIA Last administered on 23:37; Start 07/21/16 at 18:45; Stop 07/26/16 at 16:19; Status DC Venlafaxine HCl (Effexor Xr) 150 mg BID PO Last administered on 07/22/16 08:27; Start 07/21/16 at 21:00; Stop 07/22/16 at 14:27; Status DC Venlafaxine HCl (Effexor Xr) 225 mg DAILY PO Last administered on 08:03; Start 07/30/16 at 09:00; Stop 07/30/16 at 13:14; Status DC Venlafaxine HCl (Effexor Xr) 300 mg DAILY PO Last administered on 08:04; Start 07/23/16 at 09:00; Stop 07/29/16 at 10:33; Status DC Venlafaxine HCl (Effexor Xr) 300 mg DAILY PO ; Start 07/31/16 at 09:00; Stop 08/30/16 at 08:59; Status Cancel Allergies Coded Allergies: Celecoxib (Verified Allergy, Unknown, 06/07/14) SEAFOOD (Verified Allergy, Unknown, 06/07/14) Tramadol (Verified Allergy, Unknown, 06/07/14) GME ATTESTATION My preceptor for this patient encounter was physically present in the building during the encounter and was fully available. As needed, all aspects of the patient interview, examination, medical decision making process, and medical care plan development were reviewed and approved by the preceptor. Preceptor is aware and concurs with the plan as stated in the body of this note and will attest to such by his/her cosignature. IZA SMITH DO Aug 02, 2016 16:32
[2016-08-02 18:00] VITALS: BP 111/68
[2016-08-02] MEDS: RAMELTEON 8 MG TAB (ROZEREM) PO SCH (20:22)
[2016-08-02] MEDS: PANTOPRAZOLE 40MG TAB (PROTONIX) PO SCH (20:22)
[2016-08-03 06:37] VITALS: BP 135/69
[2016-08-03] MEDS: NICOTINE 21MG/24HR 1 EA TRANSDERMAL TD SCH (08:26)
[2016-08-03] MEDS: SITagliptin 50 MG TAB (JANUVIA) PO SCH (08:26)
[2016-08-03] MEDS: SENOKOT S TAB PO SCH ×2 (08:26→21:41)
[2016-08-03] MEDS: hydrOXYzine 50 MG TAB PO SCH ×3 (08:26→21:41)
[2016-08-03] MEDS: LISINOPRIL 10 MG TAB PO SCH (08:27)
[2016-08-03] MEDS: PARoxetine 25 MG CR TAB (PAXIL CR) PO SCH (08:28)
[2016-08-03 18:00] VITALS: BP 130/74
[2016-08-03] MEDS: PANTOPRAZOLE 40MG TAB (PROTONIX) PO SCH (21:41)
[2016-08-03] MEDS: RAMELTEON 8 MG TAB (ROZEREM) PO SCH (21:41)
[2016-08-04 06:44] VITALS: BP 132/61
[2016-08-04] MEDS: SITagliptin 50 MG TAB (JANUVIA) PO SCH (08:19)
[2016-08-04] MEDS: hydrOXYzine 50 MG TAB PO SCH ×3 (08:19→21:45)
[2016-08-04] MEDS: PARoxetine 12.5 MG **CR** TAB PO SCH (08:19)
[2016-08-04] MEDS: SENOKOT S TAB PO SCH ×2 (08:20→21:45)
[2016-08-04] MEDS: LISINOPRIL 10 MG TAB PO SCH (08:20)
[2016-08-04] MEDS: NICOTINE 21MG/24HR 1 EA TRANSDERMAL TD SCH (08:22)
[2016-08-04 18:00] VITALS: BP 117/58
[2016-08-04] MEDS: PANTOPRAZOLE 40MG TAB (PROTONIX) PO SCH (21:45)
[2016-08-04] MEDS: RAMELTEON 8 MG TAB (ROZEREM) PO SCH (21:45)
[2016-08-05 06:24] VITALS: BP 106/67
[2016-08-05 08:12] VITALS: BP 129/68
[2016-08-05] MEDS: LISINOPRIL 10 MG TAB PO SCH (08:12)
[2016-08-05] MEDS: hydrOXYzine 50 MG TAB PO SCH (08:12)
[2016-08-05] MEDS: NICOTINE 21MG/24HR 1 EA TRANSDERMAL TD SCH (08:12)
[2016-08-05] MEDS: SENOKOT S TAB PO SCH (08:12)
[2016-08-05] MEDS: SITagliptin 50 MG TAB (JANUVIA) PO SCH (08:12)
[2016-08-05] MEDS: PARoxetine 12.5 MG **CR** TAB PO SCH (09:54)
[2016-08-05] MEDS ORDERED: PARO12.5 PO ×2 (10:44→11:05)
[2016-08-05] MEDS ORDERED: ROZE8TAB9 PO (10:47)
[2016-08-05] MEDS ORDERED: HYDRO50TAB PO (10:54)
[2016-08-05] MEDS ORDERED: NICO21DI5 TD (11:12)
--- NOTE | 2016-08-05 14:13 | DS.PDOC ---
[facility] Discharge Summary Discharge Summary DATE OF ADMISSION: Jul 21, 2016 at 15:24 DATE OF DISCHARGE: Aug 05, 2016 at 12:30 DISCHARGE DIAGNOSES: 1. Major depressive disorder, chronic moderate without suicidal ideation 2. Generalized anxiety disorder REASON FOR ADMISSION: Upon admission he stated that he has been feeling very depressed and anxious and he thought that the antidepressant that he was taking (Effexor 300 mg) was not helping him anymore. He expressed that he had been treated with multiple antidepressants and that he was being treated with Xanax and he wished it to be discontinued. CONSULTANTS INVOLVED: Surgery consult for cholelithiasis. He was evaluated and the technology sales consultant thought he could have elected surgery after being discharged. He' ll even consider these was an emergency. TREATMENT AND PROGRESS ON THE UNIT : During this hospitalization the patient has slow progress and he never got to feel free of the symptoms of depression. Although he denied suicidal thoughts, his energy levels were low and low social interaction with other peers, blaming himself and have guilty feelings, has poor attention and concentration, psychomotor retardation, anhedonia. He received Risperdal on a low-dose, not as an antipsychotic but to boost his antidepressant, Effexor but it was discontinued because he stated feeling dizzy. Xanax was discontinued and he was started on a very low dose of Klonopin but it was discontinued. He also received Abilify instead of Risperdal to boost his antidepressant but it also was discontinued, because he had elevated liver function tests. He was kept on Effexor until he verbalized he continued to be very depressed and he didn't want to be on Effexor anymore. He agreed to start using Paxil CR, since he had used it before and he felt he had a response to it. He was tapered from Effexor and started on Paxil CR 25 mg and was discharged on Paxil CR 37.5 mg. On Friday, August 03 he still verbalized feeling depressed and anxious but not suicidal. On August 04 he reported feeling better with the new dose of 37.5 mg of Paxil and upon discharge on August 05 he said that he felt a little bit better and that he hoped this medication will help him control his depression. HOSPITAL COURSE: After above DISCHARGE ASSESSMENT: Patient was stable, judgment and insight have improved, continued to be depressed but less and he was on admission. He was not suicidal and not homicidal. No psychotic thoughts. MENTAL STATUS EXAMINATION ON DISCHARGE: Patient is a 65-year old male, who is alert, oriented, cooperative with good eye contact. Speech is and normal. Language skills are fair. Thought processes including: Linear, goal-directed. Thought content: Negative for suicidal ideation, negative for homicidal ideation , negative for delusional thoughts, negative for auditory or visual hallucinations. Abstract reasoning, and computation: Fair. Description of associations: No loosening of associations. Description of abnormal or psychotic thoughts: Not present. Judgment: Improved. Insight: Improved. Orientation to oriented 3. Recent and remote memory: Intact. Attention span and concentration: Improved. Language: Normal. Fund of knowledge: Fair. Mood:"I'm getting better". Affect: Brighter. MEDICATIONS ON DISCHARGE: -Paxil CR 37.5 mg for depression and anxiety. - Rozerem 8 mg by mouth daily at bedtime for insomnia. -Atarax 50 mg twice a day when necessary for anxiety. PLAN/FOLLOWUP ARRANGEMENTS: We will continue his outpatient treatment. The amount of time spent in the coordination of care for this patient was approximately 30 minutes. Vital Signs/I&Os Vital Signs Date Time Temp Pulse Resp B/P Pulse Ox O2 Delivery O2 Flow Rate FiO2 08/05/16 08:12 129/68 08/05/16 06:24 98.1 83 16 Laboratory Data Labs 24H Laboratory Tests 2 08/04/16 17:15: Bedside Glucose (Misc Panel) 151H 08/05/16 05:48: Bedside Glucose (Misc Panel) 140H Medications Scheduled Hydroxyzine HCl (Hydroxyzine HCl) 50 Mg Tab #10 50 MG PO TID ANXIETY Infliximab Injection (Remicade) 100 Mg/10 Ml Vial 100 MG IV ASDIRECTED CROHNS ( Reported) EVERY 2 MONTHS; LAST DOSE 07/18/2016 Lisinopril (Lisinopril) 30 Mg Tab 30 MG PO DAILY HYPERTENSION (Reported) Nicotine (Nicoderm Cq) 21 Mg/24 Hr Dis 21 MG TD DAILY SMOKING CESSATION ( Reported) Paroxetine (Paroxetine HCl ER) 12.5 Mg Tab #21 37.5 MG PO DAILY MOOD Ramelteon (Rozerem) 8 Mg Tab #10 8 MG PO QHS insomnia Sitagliptin Phosphate (Januvia) 100 Mg Tab 100 MG PO DAILY DIABETES (Reported) Scheduled PRN Albuterol Sulfate (Proair Hfa) 108 Mcg/Act Aer 2 PUFF INH Q4H PRN PRN SHORTNESS OF BREATH (Reported) Allergies Coded Allergies: Celecoxib (Verified Allergy, Unknown, 06/07/14) SEAFOOD (Verified Allergy, Unknown, 06/07/14) Tramadol (Verified Allergy, Unknown, 06/07/14) DEMETRIO PLUMMER MD Aug 05, 2016 14:13
== END 2016-08-05 12:30 | disposition home or self-care (01) | DRG 885 ==
LOC: M ED 10:58 → M ED INP 15:24 → M PSY 15:56
PROVIDERS: ADMIT Psychiatry & Neurology Psychiatry; ATTEND Psychiatry & Neurology Psychiatry
DX: F33.1 Major depressive disorder, recurrent, moderate (principal); K50.90 Crohn's disease, unspecified, without complications; F41.1 Generalized anxiety disorder; F17.210 Nicotine dependence, cigarettes, uncomplicated; I10 Essential (primary) hypertension; R32 Unspecified urinary incontinence; R94.5 Abnormal results of liver function studies; K13.0 Diseases of lips; K22.70 Barrett's esophagus without dysplasia; E11.9 Type 2 diabetes mellitus without complications; Z91.013 Allergy to seafood; Z88.5 Allergy status to narcotic agent; Z88.8 Allergy status to other drugs, medicaments and biological substances; Z79.899 Other long term (current) drug therapy; Z79.84 Long term (current) use of oral hypoglycemic drugs

== ENCOUNTER → 2016-08-12 | Outpatient (REF) | payer MEDICARE, MEDICAID ==
[~2016-08-12] MED LIST changes: +HYDR25T PO; +HYDRO50TAB PO; +JANU100T PO; +NICO21DI5 TD; +PARO12.5 PO; +PROA1AER INH; +PROAIR INH; +ROZE8TAB9 PO; +VENL100T PO; +VENL150C43 PO; +VENL50TA2 PO; +WELL100T2 PO; +XANA1TAB2 PO; +[UNRECOGNIZED DRUG - CODE] XX
[2016-08-12 19:11] LABS: BASO # 0.1 K/mm3 (0.0-0.2); BASO % 0.8 % (0.0-1.0); EOS # 0.3 K/mm3 (0.0-0.50); EOS % 1.7 % (0.0-3.0); LARGE UNSTAINED CELL # 0.4 K/mm3 (0.0-0.4); LARGE UNSTAINED CELL % 2.3 % (0.0-4.0); LYMPH # 5.4 K/mm3 (1.5-4.5); LYMPH % 29.5 % (24.0-44.0); MEAN CORPUSCULAR HEMOGLOBIN 30.5 pg (27.0-33.0); MEAN CORPUSCULAR HGB CONC 33.6 g/dl (32.0-36.5); MEAN CORPUSCULAR VOLUME 90.8 fl (80.0-96.0); MONO # 1.2 K/mm3 (0.0-0.8); MONO % 7.1 % (0.0-5.0); NEUTROPHILS # 10.1 K/mm3 (1.8-7.7); NEUTROPHILS % 58.7 % (36.0-66.0); PLATELET COUNT, AUTOMATED 443 k/mm3 (150-450); RED CELL DISTRIBUTION WIDTH 12.4 % (11.5-14.5)
[2016-08-12 19:18] LABS: WHITE BLOOD COUNT 17.2 K/mm3 (4.0-10.0)
[2016-08-12 19:30] LABS: ALBUMIN 3.4 GM/DL (3.2-5.2); ALBUMIN/GLOBULIN RATIO 0.89 (1.00-1.93); BILIRUBIN,TOTAL 0.2 MG/DL (0.2-1.0); CALCIUM LEVEL 8.1 MG/DL (8.8-10.2); CREATININE FOR GFR 1.35 MG/DL (0.70-1.30); GLOMERULAR FILTRATION RATE 56.5 (>49); POTASSIUM SERUM 4.4 MEQ/L (3.5-5.1); TOTAL PROTEIN 7.2 GM/DL (6.4-8.2)
== END ==
LOC: M LAB REF 16:43
PROVIDERS: ATTEND Family Medicine
DX: K80.20 Calculus of gallbladder without cholecystitis without obstruction (principal); E11.9 Type 2 diabetes mellitus without complications; R30.0 Dysuria; Z72.0 Tobacco use

== ENCOUNTER → 2016-08-19 | Outpatient (REF) | payer MEDICARE, MEDICAID ==
[2016-08-19 19:24] LABS: BASO # 0.1 K/mm3 (0.0-0.2); BASO % 0.8 % (0.0-1.0); EOS # 0.3 K/mm3 (0.0-0.50); EOS % 2.6 % (0.0-3.0); LARGE UNSTAINED CELL # 0.2 K/mm3 (0.0-0.4); LARGE UNSTAINED CELL % 2.1 % (0.0-4.0); LYMPH # 3.9 K/mm3 (1.5-4.5); LYMPH % 33.5 % (24.0-44.0); MEAN CORPUSCULAR HEMOGLOBIN 30.3 pg (27.0-33.0); MEAN CORPUSCULAR HGB CONC 33.4 g/dl (32.0-36.5); MEAN CORPUSCULAR VOLUME 90.8 fl (80.0-96.0); MONO # 0.8 K/mm3 (0.0-0.8); MONO % 7.4 % (0.0-5.0); NEUTROPHILS # 5.9 K/mm3 (1.8-7.7); NEUTROPHILS % 53.6 % (36.0-66.0); PLATELET COUNT, AUTOMATED 372 k/mm3 (150-450); RED CELL DISTRIBUTION WIDTH 12.5 % (11.5-14.5)
[2016-08-19 20:04] LABS: ALT/SGPT 48 U/L (12-78); AMYLASE 57 U/L (25-115); ANION GAP 7 MEQ/L (8-16); AST/SGOT 22 U/L (15-37); BLOOD UREA NITROGEN 15 MG/DL (7-18); CALCIUM LEVEL 8.6 MG/DL (8.8-10.2); CARBON DIOXIDE LEVEL 26 MEQ/L (21-32); CHLORIDE LEVEL 109 MEQ/L (98-107); CREATININE FOR GFR 1.26 MG/DL (0.70-1.30); GLOMERULAR FILTRATION RATE > 60.0 (>49); GLUCOSE, FASTING 122 MG/DL (80-110); POTASSIUM SERUM 4.7 MEQ/L (3.5-5.1); SODIUM LEVEL 142 MEQ/L (136-145)
== END ==
LOC: M LAB REF 16:46
PROVIDERS: ATTEND Family Medicine
DX: K85.90 Acute pancreatitis without necrosis or infection, unspecified (principal); K80.20 Calculus of gallbladder without cholecystitis without obstruction; E83.51 Hypocalcemia

== ENCOUNTER → 2016-08-28 | Outpatient (REF) | payer MEDICARE, MEDICAID ==
[~2016-08-28] MED LIST changes: +METF-699 PO; +PAXI40TA2 PO; +bp pill PO
[2016-08-28 17:59] LABS: BASO # 0.1 K/mm3 (0.0-0.2); EOS # 0.2 K/mm3 (0.0-0.50); EOS % 2.1 % (0.0-3.0); LARGE UNSTAINED CELL # 0.2 K/mm3 (0.0-0.4); LARGE UNSTAINED CELL % 1.8 % (0.0-4.0); LYMPH # 3.3 K/mm3 (1.5-4.5); LYMPH % 31.2 % (24.0-44.0); MEAN CORPUSCULAR HEMOGLOBIN 30.4 pg (27.0-33.0); MEAN CORPUSCULAR HGB CONC 33.2 g/dl (32.0-36.5); MEAN CORPUSCULAR VOLUME 91.3 fl (80.0-96.0); MONO # 0.9 K/mm3 (0.0-0.8); MONO % 8.7 % (0.0-5.0); NEUTROPHILS # 5.6 K/mm3 (1.8-7.7); NEUTROPHILS % 55.1 % (36.0-66.0); PLATELET COUNT, AUTOMATED 395 k/mm3 (150-450); RED CELL DISTRIBUTION WIDTH 12.6 % (11.5-14.5); WHITE BLOOD COUNT 10.1 K/mm3 (4.0-10.0)
[2016-08-28 18:00] LABS: ALT/SGPT 39 U/L (12-78); AMYLASE 81 U/L (25-115); ANION GAP 5 MEQ/L (8-16); AST/SGOT 20 U/L (15-37); BLOOD UREA NITROGEN 11 MG/DL (7-18); CALCIUM LEVEL 7.9 MG/DL (8.8-10.2); CARBON DIOXIDE LEVEL 29 MEQ/L (21-32); CHLORIDE LEVEL 106 MEQ/L (98-107); CREATININE FOR GFR 1.13 MG/DL (0.70-1.30); GLOMERULAR FILTRATION RATE > 60.0 (>49); GLUCOSE, FASTING 98 MG/DL (80-110); POTASSIUM SERUM 4.6 MEQ/L (3.5-5.1); SODIUM LEVEL 140 MEQ/L (136-145)
== END ==
LOC: M LAB REF 16:44
PROVIDERS: ATTEND Family Medicine
DX: K80.20 Calculus of gallbladder without cholecystitis without obstruction (principal); E11.9 Type 2 diabetes mellitus without complications; I10 Essential (primary) hypertension; Z87.438 Personal history of other diseases of male genital organs

== ENCOUNTER 2016-09-06 07:42 | Day surgery (SDC) | payer MEDICARE, MEDICAID ==
[~2016-09-06] VITALS: Ht 175.3 cm; Wt 78.5 kg
[2016-09-06] MEDS ORDERED: LIDOCAINE 1% SDV 5 ML VIAL SQ PRN (08:00)
[2016-09-06] MEDS: metFORMIN XR 500MG TAB *GLUCOPHAGE XR PO SCH (08:00)
[2016-09-06] MEDS ORDERED: LR 1,000 ML IV ONE (08:00)
[2016-09-06] MEDS ORDERED: LIDOCAINE 2% INJ 100 MG/5 ML SDV (FOR ANES.) As Ordered ONE (08:52)
[2016-09-06] MEDS ORDERED: fentaNYL 250 MCG/5 ML INJECTION (J3010) As Ordered ONE (08:52)
[2016-09-06] MEDS ORDERED: ROCURONIUM BROMIDE 50 MG/5 ML VIAL As Ordered ONE (08:52)
[2016-09-06] MEDS ORDERED: MIDAZOLAM INJ 2 MG/2 ML VIAL (J2250) As Ordered ONE (08:52)
[2016-09-06] MEDS ORDERED: PROPOFOL 200 MG/20 ML VIAL As Ordered ONE (08:52)
[2016-09-06] MEDS ORDERED: [UNRECOGNIZED DRUG - CODE] PO (08:56)
[2016-09-06] MEDS ORDERED: LISI30TA4 PO (08:57)
[2016-09-06] MEDS: SENOKOT S TAB PO SCH ×2 (09:00→20:45)
[2016-09-06] MEDS ORDERED: LR 1,000 ML IV SCH ×2 (09:00→11:45)
[2016-09-06] MEDS: OMEPRAZOLE 20 MG CAP PO SCH (09:00)
[2016-09-06] MEDS ORDERED: OLANZapine 5 MG TAB PO SCH (09:00)
[2016-09-06] MEDS: PARoxetine 20 MG TAB PO SCH (09:00)
[2016-09-06] MEDS: LISINOPRIL 10 MG TAB PO SCH (09:00)
[2016-09-06] MEDS ORDERED: BUPIVACAINE HCL 0.25% 30 ML VIAL As Ordered ONE (09:39)
[2016-09-06] MEDS ORDERED: LIDOCAINE 1% SDV INJ 30 ML VIAL As Ordered ONE (09:39)
[2016-09-06] MEDS ORDERED: CONRAY-60 60% 50ML VIAL (Q9961) As Ordered ONE (09:43)
[2016-09-06] MEDS: AMPICILLIN SOD/SULBACTAM SOD 3 GM in D5W MINI-BAG PLUS 100 ML IV SCH ×2 (10:05→15:00)
[2016-09-06] MEDS ORDERED: ePHEDrine SULFATE 25 MG/5 ML(5MG/ML) SYRINGE As Ordered ONE (10:19)
[2016-09-06] MEDS ORDERED: LABETALOL HCL 100 MG/20 ML VIAL As Ordered ONE (10:34)
[2016-09-06] MEDS ORDERED: METOCLOPRAMIDE INJ 10MG/2ML VIAL (J2765) As Ordered ONE (10:38)
[2016-09-06] MEDS ORDERED: GLYCOPYRROLATE INJ 0.2 MG/ML 2 ML VIAL As Ordered ONE (10:47)
[2016-09-06] MEDS ORDERED: ONDANSETRON 4MG/2ML VIAL (J2405) As Ordered ONE (10:47)
[2016-09-06] MEDS ORDERED: NEOSTIGMINE 1MG/ML 5 ML SYRINGE (J2710) As Ordered ONE (10:47)
[2016-09-06] MEDS ORDERED: HYDROmorphone HCL 2 MG/ML 1ML VIAL (J1170) As Ordered ONE (11:02)
--- NOTE | 2016-09-06 11:35 | ROOPDOC ---
[facility] Report Of Operation Report of Operation DATE OF PROCEDURE: 09/06/16 PREPROCEDURE DIAGNOSES: Cholelithiasis, history of transient passage of common bile duct stone, gallstone pancreatitis POSTPROCEDURE DIAGNOSES: Same PROCEDURE: Laparoscopic cholecystectomy with intraoperative cholangiogram. SURGEON: Sunny Ewing MD CHILD CARE TEACHER: Wai Hughes MD ANESTHESIA: General anesthesia. ESTIMATED BLOOD LOSS: Approximately 20 mL. COMPLICATIONS: None. REMARKS: Chronically thickened gallbladder with small stones inside. No acute inflammation. Cystic duct and common bile duct appears normal in size, nondilated. No filling defects identified in the cholangiogram. Normal passage of dye into the duodenum.. PROCEDURE NOTE: Patient is a 65-year-old gentleman who back in June had a history consistent of transient passage of a colon bile duct stone when he had abdominal pain, abnormally elevated LFTs that resolved after a day or so while he was admitted at the inpatient mental health unit. He had gallstones on ultrasound. He continues to have intermittent pain and discomfort as an outpatient also with transient elevation of his lipase.. DESCRIPTION OF PROCEDURE: . He is brought to the OR for laparoscopic cholecystectomy. We also plan to perform intraoperative cholangiogram to verify no residual stones in the biliary tree. He has a history consistent of transient passage of gallstones through the common bile duct. He was given a dose of Unasyn 3 g IV for prophylaxis. He was brought to the operating room, placed supine on the table. General endotracheal anesthesia started. His abdomen prepped and draped in usual sterile fashion. He had compression stockings for DVT prophylaxis. After surgical timeout we began our surgery. Entry into the abdomen done through an incision at the above the umbilicus. He has a small reducible umbilical hernia. Veress needle inserted and intra- abdominal insufflation done to a pressure of 15 mmHg. Using the same incision a 5 mm Visiport was placed under direct vision laparoscope. He was then placed on the reverse Trendelenburg position, his right side tilted up about 30 to further expose the gallbladder. 3 working ports were placed in their usual position including 11 mm port at the epigastric area, and 5 mm ports along the right subcostal line. The gallbladder was noted to be moderately distended, extending several centimeters off from the liver edge. Liver appears smooth in appearance. Fundus of gallbladder was grasped and the gallbladder elevated superiorly exposing the infundibulum neck to gallbladder. There were some small adhesions at the underside of the gallbladder which was easily lysed. The hepato -cystic triangle was dissected both with [place] instrument and Bovie cautery. The cystic duct was identified as well as the cystic artery. There were both circumferentially dissected. The posterior wall of the neck of the gallbladder was likewise dissected free off the liver bed. Dissection of the Gallbladder neck done until we met the critical view of safety whereby only the previously identified cystic duct and cystic artery were coursing through the neck to gallbladder. A Vizcaino clamp was then used for intraoperative cholangiogram. The neck of the gallbladder was grasped. Under direct vision the cholangiogram catheter inserted onto the neck of the gallbladder. This was aspirated and tested noted to be working well. The abdomen was deflated he was placed in slight Trendelenburg position. Intraoperative cholangiogram was done. Visualized images shows normal biliary tree. No filling defects identified. Full passage of contrast into the duodenum and observed. The cholangiogram was then ended. He was repositioned back to complete the cholecystectomy. His abdomen was then reinflated. The cystic artery was clipped 4 times and divided. The cystic duct was clipped proximal to where we made the entry for the cholangiogram. This was then divided.. The rest of the gallbladder was then dissected off the liver bed with Bovie cautery. Gallbladder was delivered through the epigastric port site with an Endo Catch bag. On re-insufflation, we examined our surgical site. Liver bed shows no bleeding. The clips at the cystic duct and artery were noted to be well placed. The abdomen was then deflated, all ports removed. The fascial defect at the epigastric port site was closed with 0 Vicryl. All skin incisions closed with 4-0 Monocryl in subcuticular fashion Dermabond was used for wound coverage. Patient was then promptly awake and extubated and brought to the recovery room stable sponges and instruments verified to be correct . SUNNY EWING MD September 06, 2016 11:29
[2016-09-06] MEDS ORDERED: ONDANSETRON 4MG/2ML VIAL (J2405) IV PRN ×3 (11:45→12:30)
[2016-09-06] MEDS ORDERED: fentaNYL 100 MCG/2 ML INJECTION (J3010) IV PRN (11:45)
[2016-09-06] MEDS ORDERED: NORCO, ANEXSIA 5/325MG TABLET (HYDROcodone/ACETAMINOPHEN) PO PRN ×4 (12:00→12:30)
[2016-09-06] MEDS ORDERED: KETOROLAC 30 MG/ML VIAL (J1885) IV PRN (12:00)
[2016-09-06] MEDS ORDERED: ALPRAZolam 0.5 MG TAB PO PRN (12:30)
[2016-09-06] MEDS ORDERED: ACETAMINOPHEN TAB 650MG DOSE (2X325MG) PO PRN (12:30)
[2016-09-06 12:50] VITALS: BP 144/89
[2016-09-06 14:00] VITALS: BP 142/82
[2016-09-06] MEDS ORDERED: LOSA50TA20 PO (15:43)
[2016-09-06] MEDS ORDERED: HYDR-3713 PO (15:43)
[2016-09-06] MEDS ORDERED: diphenhydrAMINE 25 MG CAP PO ONE (20:15)
[2016-09-06 22:00] VITALS: BP 144/77
[2016-09-07 06:00] VITALS: BP 146/74
[2016-09-07] MEDS: SENOKOT S TAB PO SCH (08:27)
[2016-09-07 08:28] VITALS: BP 146/74
[2016-09-07] MEDS: metFORMIN XR 500MG TAB *GLUCOPHAGE XR PO SCH (08:28)
[2016-09-07] MEDS: PARoxetine 20 MG TAB PO SCH (08:28)
[2016-09-07] MEDS: OMEPRAZOLE 20 MG CAP PO SCH (08:28)
[2016-09-07] MEDS: LISINOPRIL 10 MG TAB PO SCH (08:28)
[2016-09-07] MEDS ORDERED: SITagliptin 50 MG TAB (JANUVIA) PO SCH (09:00)
--- NOTE | 2016-09-07 10:56 | REP ---
Intraoperative cholangiogram: Single view. History: Symptomatic gallstones. 9 seconds of fluoroscopy time is reported. Findings: A single fluoroscopically obtained intraprocedural last image hold spot radiograph of the right upper quadrant documents cystic duct contrast injection. Good opacification is seen in the common hepatic and common bile duct with contrast in the duodenum. No filling defect is seen in the common bile duct. There is reflux into a segment of normal appearing pancreatic duct. Impression: No evidence of common bile duct stone. Signed by Ashish Merrill MD 09/11/2016 07:34 A
== END 2016-09-07 10:00 | disposition home or self-care (01) ==
LOC: M SDC 07:42 → M MS5PR 12:50 → M SDC 09-07 10:00
PROVIDERS: ATTEND Surgery
DX: K80.18 Calculus of gallbladder with other cholecystitis without obstruction (principal); K85.10 Biliary acute pancreatitis without necrosis or infection; I10 Essential (primary) hypertension; F32.9 Major depressive disorder, single episode, unspecified; F41.9 Anxiety disorder, unspecified; K44.9 Diaphragmatic hernia without obstruction or gangrene; H90.5 Unspecified sensorineural hearing loss; R19.7 Diarrhea, unspecified; I49.9 Cardiac arrhythmia, unspecified; K64.9 Unspecified hemorrhoids; M12.9 Arthropathy, unspecified; E11.9 Type 2 diabetes mellitus without complications; K50.90 Crohn's disease, unspecified, without complications; I73.9 Peripheral vascular disease, unspecified; Z87.891 Personal history of nicotine dependence; Z88.8 Allergy status to other drugs, medicaments and biological substances; Z91.013 Allergy to seafood; Z79.899 Other long term (current) drug therapy; Z79.84 Long term (current) use of oral hypoglycemic drugs
CPT/HCPCS: 47563; 74300; 88304; J1170; J2250; J2405; J2710; J2765; J3010; Q9961

== ENCOUNTER 2016-09-26 07:47 | Outpatient (CLI) | payer MEDICARE, MEDICAID ==
[~2016-09-26] VITALS: Ht 175.3 cm; Wt 84.3 kg
[~2016-09-26 07:47] MED LIST changes: +HYDR-3713 PO; +LOSA50TA20 PO; +[UNRECOGNIZED DRUG - CODE] PO; +diphenhydrAMINE 25 MG CAP PO SCH
[2016-09-26] MEDS ORDERED: NS 1,000 ML IV SCH (08:00)
[2016-09-26] MEDS ORDERED: inFLIXimab INJECTION 500 MG in NS 200 ML IV ONE (09:00)
== END 2016-09-26 10:50 | disposition home or self-care (01) ==
LOC: M INFU 07:47
PROVIDERS: ATTEND Internal Medicine Gastroenterology
DX: K50.90 Crohn's disease, unspecified, without complications (principal); F17.210 Nicotine dependence, cigarettes, uncomplicated; Z88.8 Allergy status to other drugs, medicaments and biological substances; Z91.013 Allergy to seafood; Z79.899 Other long term (current) drug therapy
CPT/HCPCS: 96413; 96415; J1745

== ENCOUNTER → 2016-10-10 | Outpatient (REF) | payer MEDICARE, MEDICAID ==
[~2016-10-10] MED LIST changes: +ALPR2TAB3; +BUPR10TASR PO; +CIPR-249 PO; +HYDR-3363 PO; -HYDR25T PO; +PARO40TA2; +PAXI40TA10 PO; -PAXI40TA2 PO; +PERC5TAB12 PO; -PROA1AER INH; +PROAAER10 INH; +PYRI1TAB5 PO; +ROZE8TAB16 PO; -ROZE8TAB9 PO; +TRAM50TA2; +TRAM50TA2 PO; -VESI10TA PO; +VESI10TA2 PO; +[UNRECOGNIZED DRUG - CODE] PO; -[UNRECOGNIZED DRUG - CODE] PO; -diphenhydrAMINE 25 MG CAP PO SCH
== END ==
LOC: M SMT 17:07
PROVIDERS: ATTEND Urology
DX: N39.41 Urge incontinence (principal)
CPT/HCPCS: 81001; 87086; G0463

== ENCOUNTER → 2016-10-11 | Outpatient (CLI) | payer MEDICARE, MEDICAID | LOC: M LAB 12:15 | PROVIDERS: ATTEND Urology | DX: Z12.5 Encounter for screening for malignant neoplasm of prostate (principal) ==

== ENCOUNTER → 2016-11-01 | Outpatient (REF) | payer MEDICARE | LOC: M SMT 12:32 | PROVIDERS: ATTEND Urology | DX: R31.29 Other microscopic hematuria (principal) ==

== ENCOUNTER 2016-11-21 07:30 | Outpatient (CLI) | payer MEDICARE, MEDICAID ==
[~2016-11-21] VITALS: Ht 175.3 cm; Wt 84.3 kg
[~2016-11-21 07:30] MED LIST changes: -ALPR2TAB3; -BUPR10TASR PO; -CIPR-249 PO; -PARO40TA2; -PERC5TAB12 PO; -PYRI1TAB5 PO; -TRAM50TA2; -TRAM50TA2 PO; +diphenhydrAMINE 25 MG CAP PO SCH
[2016-11-21] MEDS ORDERED: inFLIXimab INJECTION 500 MG in NS 200 ML IV ONE (08:00)
[2016-11-21] MEDS ORDERED: NS 1,000 ML IV SCH (08:00)
[2017-02-14] MEDS ORDERED: BUPR10TASR PO (15:48)
== END 2016-11-21 10:30 | disposition home or self-care (01) ==
LOC: M INFU 07:30
PROVIDERS: ATTEND Internal Medicine Gastroenterology
DX: K50.00 Crohn's disease of small intestine without complications (principal); Z72.0 Tobacco use; Z88.8 Allergy status to other drugs, medicaments and biological substances; Z91.013 Allergy to seafood; Z79.899 Other long term (current) drug therapy
CPT/HCPCS: 96413; 96415; J1745

== ENCOUNTER 2016-12-10 13:09 | Emergency (ER) | payer MEDICARE, MEDICAID ==
[~2016-12-10] VITALS: Ht 175.3 cm; Wt 79.5 kg
[~2016-12-10 13:09] MED LIST changes: -diphenhydrAMINE 25 MG CAP PO SCH
[2016-12-10] MEDS ORDERED: TRAM50TA2 (13:30)
[2016-12-10] MEDS ORDERED: PARO40TA2 (13:30)
[2016-12-10] MEDS ORDERED: ALPR2TAB3 (13:30)
[2016-12-10] MEDS ORDERED: PERC5TAB12 PO (15:12)
--- NOTE | 2016-12-10 15:45 | REP ---
Right rib series: Five the views including PA chest. History: Right rib pain question fracture. Comparison chest x-ray November 21, 2014. Findings: PA chest radiograph shows no evidence of pneumothorax or hydrothorax. Mediastinum is not widened. The heart size is normal. Right lung and left lung appear clear. Right-sided rib views demonstrate fractures involving the right 6th, 7th, and 8th, lateral ribs segments. These are minimally displaced. There is some mild pleural thickening. Impression: Right 6th, 7th, and 8th, lateral rib fractures , minimally displaced. No pneumothorax or pulmonary contusion. Signed by Ashish Merrill MD 12/10/2016 05:19 P
[2016-12-10 15:56] VITALS: BP 124/71
[2017-02-14] MEDS ORDERED: BUPR10TASR PO (15:48)
== END 2016-12-10 15:57 | disposition home or self-care (01) ==
LOC: M ED 13:09
DX: S22.41XA Multiple fractures of ribs, right side, initial encounter for closed fracture (principal); S20.211A Contusion of right front wall of thorax, initial encounter; W19.XXXA Unspecified fall, initial encounter; Y92.89 Other specified places as the place of occurrence of the external cause; Y93.89 Activity, other specified; Y99.8 Other external cause status; E11.9 Type 2 diabetes mellitus without complications; F41.9 Anxiety disorder, unspecified; F33.9 Major depressive disorder, recurrent, unspecified; K50.90 Crohn's disease, unspecified, without complications; Z87.891 Personal history of nicotine dependence

== ENCOUNTER 2016-12-13 19:51 | Emergency (ER) | payer MEDICARE, MEDICAID ==
[~2016-12-13] VITALS: Ht 175.3 cm; Wt 77.3 kg
[~2016-12-13 19:51] MED LIST changes: +ALPR2TAB3; +PARO40TA2; +PERC5TAB12 PO; +TRAM50TA2
--- NOTE | 2016-12-13 21:50 | REPUSA ---
Clinical history: right flank pain, hematuria. Findings: The urinary bladder is contracted. The right kidney measures 10.9 x 5.7 x 5.5 cm. The left kidney measures 12.1 x 5.5 x 4.8 cm. The kidneys demonstrate normal echotexture and echogenicity. The re is no evidence of hydronephrosis or nephrolithiasis. No renal masses are seen. No free fluid is ap preciated. Impression: Unremarkable ultrasound examination of the kidneys.
[2016-12-13] MEDS ORDERED: TRAM50TA2 PO (22:06)
[2016-12-13] MEDS ORDERED: CIPR-249 PO (22:08)
[2016-12-13] MEDS ORDERED: PYRI1TAB5 PO (22:08)
[2016-12-13] MEDS ORDERED: CIPROFLOXACIN 500 MG TAB PO ONE (22:15)
[2016-12-13] MEDS ORDERED: PHENAZOPYRIDINE 100 MG TAB PO ONE (22:15)
[2016-12-13 22:19] VITALS: BP 121/74
[2017-02-14] MEDS ORDERED: BUPR10TASR PO (15:48)
== END 2016-12-13 22:21 | disposition home or self-care (01) ==
LOC: M ED 19:51
DX: N30.91 Cystitis, unspecified with hematuria (principal); E11.9 Type 2 diabetes mellitus without complications; I10 Essential (primary) hypertension; K50.90 Crohn's disease, unspecified, without complications

== ENCOUNTER 2017-01-29 09:16 | Outpatient (CLI) | payer MEDICARE, MEDICAID ==
[~2017-01-29] VITALS: Ht 175.3 cm; Wt 87.8 kg
[~2017-01-29 09:16] MED LIST changes: +CIPR-249 PO; +PYRI1TAB5 PO; +TRAM50TA2 PO
[2017-01-29] MEDS: inFLIXimab INJECTION 500 MG in NS 200 ML IV ONE (09:59)
[2017-01-29] MEDS: NS 1,000 ML IV SCH (09:59)
[2017-01-29] MEDS: diphenhydrAMINE 25 MG CAP PO ONE (10:00)
[2017-02-14] MEDS ORDERED: BUPR10TASR PO (15:48)
== END 2017-01-29 12:15 | disposition home or self-care (01) ==
LOC: M INFU 09:16
PROVIDERS: ATTEND Internal Medicine Gastroenterology
DX: K50.90 Crohn's disease, unspecified, without complications (principal); Z88.8 Allergy status to other drugs, medicaments and biological substances; Z91.013 Allergy to seafood; Z88.3 Allergy status to other anti-infective agents; Z79.899 Other long term (current) drug therapy
CPT/HCPCS: 96413; 96415; J1745

== ENCOUNTER 2017-02-20 06:38 | Day surgery (SDC) | payer MEDICARE, MEDICAID ==
[2017-02-20] VITALS (7 sets, daily range): BP systolic 138–157; BP diastolic 68–95
[~2017-02-20] VITALS: Ht 175.3 cm; Wt 77.1 kg
[~2017-02-20 06:38] MED LIST changes: +BUPR10TASR PO
[2017-02-20] MEDS ORDERED: LIDOCAINE 1% MDV 20ML VIAL SQ PRN (07:00)
[2017-02-20] MEDS ORDERED: LR 1,000 ML IV ONE (07:00)
[2017-02-20] MEDS ORDERED: CONRAY-60 60% 50ML VIAL (Q9961) As Ordered ONE (08:28)
[2017-02-20] MEDS ORDERED: MIDAZOLAM INJ 2 MG/2 ML VIAL (J2250) As Ordered ONE (08:34)
[2017-02-20] MEDS ORDERED: ROCURONIUM BROMIDE 50 MG/5 ML VIAL As Ordered ONE (08:34)
[2017-02-20] MEDS ORDERED: PROPOFOL 200 MG/20 ML VIAL As Ordered ONE (08:34)
[2017-02-20] MEDS ORDERED: LIDOCAINE 2% INJ 100 MG/5 ML SDV (FOR ANES.) As Ordered ONE (08:34)
[2017-02-20] MEDS ORDERED: dexameTHASONE 4 MG/ML 1ML VIAL (J1100) As Ordered ONE (08:34)
[2017-02-20] MEDS ORDERED: fentaNYL 250 MCG/5 ML INJECTION (J3010) As Ordered ONE (08:34)
[2017-02-20] MEDS ORDERED: ePHEDrine SULFATE 25 MG/5 ML(5MG/ML) SYRINGE As Ordered ONE (09:15)
[2017-02-20] MEDS ORDERED: LABETALOL HCL 100 MG/20 ML VIAL As Ordered ONE (09:35)
[2017-02-20] MEDS ORDERED: METOCLOPRAMIDE INJ 10MG/2ML VIAL (J2765) As Ordered ONE (09:36)
[2017-02-20] MEDS ORDERED: ONDANSETRON 4MG/2ML VIAL (J2405) As Ordered ONE (09:36)
[2017-02-20] MEDS ORDERED: GLYCOPYRROLATE INJ 0.2 MG/ML 2 ML VIAL As Ordered ONE (09:53)
[2017-02-20] MEDS ORDERED: NEOSTIGMINE 10 MG/10 ML VIAL (J2710) As Ordered ONE (09:53)
[2017-02-20] MEDS ORDERED: CIPR500T3 PO (10:14)
[2017-02-20] MEDS ORDERED: TYLE650T35 PO (10:15)
--- NOTE | 2017-02-20 10:27 | REP ---
Retrograde pyelogram: A series of seven films is performed during opacification of the right and left ureters through a cystoscopy cannula. The procedure is performed by the urologist, Dr. Granda. Fluoroscopic exposure time is 1 minute 8 seconds. Fluoroscopic images are performed with last image hold technology and require no additional radiation. Signed by Armando Montes MD 02/20/2017 10:19 A
[2017-02-20] MEDS ORDERED: fentaNYL 100 MCG/2 ML INJECTION (J3010) IV PRN (11:15)
[2017-02-20] MEDS ORDERED: ONDANSETRON 4MG/2ML VIAL (J2405) IV PRN (11:15)
[2017-02-20] MEDS ORDERED: METOCLOPRAMIDE INJ 10MG/2ML VIAL (J2765) IV PRN (11:15)
[2017-02-20] MEDS ORDERED: LR 1,000 ML IV SCH (11:15)
[2017-02-20] MEDS ORDERED: MEPERIDINE INJ 25 MG/ML VIAL (J2175) IV PRN (11:15)
[2017-02-20] MEDS ORDERED: PERCOCET 5MG/325MG TAB PO PRN (11:15)
[2017-02-20] MEDS ORDERED: metFORMIN XR 500MG TAB *GLUCOPHAGE XR PO ONE (14:00)
[2017-02-20] MEDS ORDERED: oxyCODONE 5MG TAB PO PRN (14:45)
[2017-02-20] MEDS: ACETAMINOPHEN 650MG ER TAB (TYLENOL ARTHRITIS) PO SCH ×2 (14:48→20:50)
[2017-02-20] MEDS: CIPROFLOXACIN 500 MG TAB PO SCH (17:32)
[2017-02-20] MEDS ORDERED: metFORMIN XR 500MG TAB *GLUCOPHAGE XR PO SCH (18:00)
[2017-02-21 02:00] VITALS: BP 144/66
[2017-02-21] MEDS: ACETAMINOPHEN 650MG ER TAB (TYLENOL ARTHRITIS) PO SCH (05:29)
[2017-02-21] MEDS: CIPROFLOXACIN 500 MG TAB PO SCH (05:29)
[2017-02-21 06:00] VITALS: BP 143/87
[2017-02-21 08:26] VITALS: BP 143/87
[2017-02-21] MEDS ORDERED: buPROPion (WELLBUTRIN SR) 100 MG SR TAB PO SCH (09:00)
[2017-02-21] MEDS ORDERED: LOSARTAN 50 MG TAB PO SCH (09:00)
[2017-02-21 10:00] VITALS: BP 156/75
--- NOTE | 2017-02-21 13:35 | RO ---
DATE OF PROCEDURE: 02/20/2017 PREPROCEDURE DIAGNOSES: Lower urinary tract symptoms, urgency and frequency, plus urine cytology positive for malignancy. POSTPROCEDURE DIAGNOSES: Flat bladder lesions, multiple, possible carcinoma in situ. SURGERY PERFORMED: Cystoscopy plus bilateral retrograde pyelograms, plus random bladder biopsies, plus resection of prostatic urethra, transurethral resection of prostate (TURP), plus exam under anesthesia. SURGEON: Dexter Jackson MD AUDIT CONTROL CLERK: None. ANESTHESIA: General. FINDINGS: Flat bladder lesions, possible carcinoma in situ. COMPLICATIONS: None. ESTIMATED BLOOD LOSS (EBL): Minimum. HISTORY OF PRESENT ILLNESS: 66-year-old male patient with lower urinary tract symptoms including urgency and frequency. He had a urodynamic study that showed a low bladder capacity. The patient underwent, at [facility], a TURP of the prostate. He continued having lower urinary tract symptoms. For this reason, we did, in the clinic, a urine cytology and a cystoscopy. The urine cytology has shown suspicious for malignancy in two urine cytologies, positive for malignancy. For this reason, we have consented the patient for cystoscopy plus bilateral retrograde pyelograms, possible bilateral ureteroscopy, possible double-J stents, plus random bladder biopsies, plus TURP. The patient is aware of the complication related to this type of surgery. He has consented for the surgery. PROCEDURE DESCRIPTION: In a patient under general anesthesia in supine modified low lithotomy position, after prepping and draping the area of concern, which included the entire genitalia and abdomen, we started by introducing a cystoscope, #21-Venezuelan in diameter with a 30-degree lens under videoendoscopic guidance. The patient has hypospadias and, for this reason, we introduced the cystoscopy, which showed a penile urethra, which was normal, bulbar urethra and membranous urethra normal. The prostatic urethra showed changes of a prior transurethral resection of the prostate. Bladder neck was opened. Both ureteral orifices were seen, small and flat in the trigone. There were multiple flat lesions in the bladder with a tendency to bleed in the whole entire bladder, and we could actively notice that the bladder capacity was also reduced. For this reason, we grabbed biopsy forceps and we did random biopsies of the bladder. First, we did the posterior bladder wall, then right lateral wall, left lateral wall, dome. We then proceeded to actively take out the cystoscope and introduce a resectoscope. We fulgurated every single lesion, bleeding from the biopsies, and then we actively did another set of biopsies from the right lateral wall with the resectoscope and sent them for pathology analysis. We then proceeded to resect the left prostatic urethra between the level of 4 and 6-o'clock position, and then also the right prostatic urethra between the level of 8 and 6-o'clock position. We sent the specimens in separate containers. We also resected the trigonal area of the bladder and sent it in separate containers. All specimens were sent for permanent pathology analysis. We then took out the resectoscope plus the cystoscope and passed a #5-Venezuelan Pollack catheter into the right ureteral orifice and did a retrograde pyelogram. The ureter was intact, and the upper collecting system was intact. We performed the same maneuver on the left side. We did a retrograde pyelogram on the left side. The ureter was intact. There was no hydronephrosis, no lesions in the left upper tract. We then took the Pollack catheter out and took the cystoscope and passed a #20-Frency Pollack [place] catheter, three way, irrigated with normal saline, inflated balloon to 20 mL and placed it to gravity. PLAN: The patient will go home today with a [place] to gravity. Once the irrigation is actively passing urine clear, will discontinue irrigation. He will go home with a [place] to gravity. Ciprofloxacin 500 mg one tablet by mouth twice a day for 10 days and Tylenol for pain. He will followup in 4 days for a voiding trial.
== END 2017-02-21 10:28 | disposition home or self-care (01) ==
LOC: M SDC 06:38 → M MS5PR 12:02 → M SDC 02-21 10:28
PROVIDERS: ATTEND Urology
DX: D09.0 Carcinoma in situ of bladder (principal); R39.15 Urgency of urination; I10 Essential (primary) hypertension; E11.9 Type 2 diabetes mellitus without complications; K50.90 Crohn's disease, unspecified, without complications; K21.9 Gastro-esophageal reflux disease without esophagitis; M12.9 Arthropathy, unspecified; M54.9 Dorsalgia, unspecified; M81.0 Age-related osteoporosis without current pathological fracture; F41.9 Anxiety disorder, unspecified; F32.9 Major depressive disorder, single episode, unspecified; Z88.8 Allergy status to other drugs, medicaments and biological substances; Z91.013 Allergy to seafood; Z91.048 Other nonmedicinal substance allergy status; Z79.899 Other long term (current) drug therapy; Z79.84 Long term (current) use of oral hypoglycemic drugs; Z87.440 Personal history of urinary (tract) infections; Z72.0 Tobacco use
CPT/HCPCS: 52204; 52601; 74420; 88108; 88305; J1100; J2250; J2405; J2710; J2765; J3010; Q9961

== ENCOUNTER 2017-03-13 07:59 | Outpatient (CLI) | payer MEDICARE, MEDICAID ==
[~2017-03-13] VITALS: Ht 175.3 cm; Wt 84.3 kg
[~2017-03-13 07:59] MED LIST changes: +CIPR500T3 PO; +TYLE650T35 PO
[2017-03-13] MEDS ORDERED: NS 1,000 ML IV SCH (08:15)
[2017-03-13] MEDS ORDERED: diphenhydrAMINE 25 MG CAP PO ONE (08:15)
[2017-03-13] MEDS ORDERED: inFLIXimab INJECTION 500 MG in NS 200 ML IV ONE (09:00)
== END 2017-03-13 11:20 | disposition home or self-care (01) ==
LOC: M INFU 07:59
PROVIDERS: ATTEND Internal Medicine Gastroenterology
DX: K50.90 Crohn's disease, unspecified, without complications (principal); F41.9 Anxiety disorder, unspecified; F17.210 Nicotine dependence, cigarettes, uncomplicated; Z88.8 Allergy status to other drugs, medicaments and biological substances; Z88.3 Allergy status to other anti-infective agents; Z91.013 Allergy to seafood; Z79.84 Long term (current) use of oral hypoglycemic drugs; Z79.891 Long term (current) use of opiate analgesic; Z79.899 Other long term (current) drug therapy; Z79.2 Long term (current) use of antibiotics
CPT/HCPCS: 96413; 96415; J1745

== ENCOUNTER → 2017-06-12 | Outpatient (REF) | payer MEDICARE, MEDICAID | LOC: M LAB REF 15:50 | DX: K50.00 Crohn's disease of small intestine without complications (principal) | CPT/HCPCS: 87507 ==

== ENCOUNTER → 2017-06-26 | Outpatient (CLI) | payer MEDICARE, MEDICAID ==
[~2017-06-26] MED LIST changes: -ALPR2TAB3; -ALPR2TAB3 PO; -BUPR10TASR PO; -CIPR-249 PO; -CIPR500T3 PO; +GASTROGRAFIN SOLUTION 30ML (Q9963) As Ordered; -GLUC500T PO; -HYDR-3363 PO; -HYDR-3713 PO; -HYDRO50TAB PO; -INFL10VL IV; +ISOVUE-370 76% 100ML VIAL (Q9967) As Ordered; -JANU100T PO; -LISI30TA4 PO; -LOSA50TA20 PO; -METF-699 PO; -NICO21DI5 TD; -OMEP40CA2 PO; -PARO12.5 PO; -PARO40TA2; -PAXI40TA10 PO; -PENT500C PO; -PERC5TAB12 PO; -PRED20TA PO; -PROAAER10 INH; -PROAIR INH; -PYRI1TAB5 PO; -ROZE8TAB16 PO; -TRAM50TA2; -TRAM50TA2 PO; -TYLE650T35 PO; -VENL100T PO; -VENL150C43 PO; -VENL50TA2 PO; -VESI10TA2 PO; -WELL100T2 PO; -XANA1TAB2 PO; -[UNRECOGNIZED DRUG - CODE] PO; -[UNRECOGNIZED DRUG - CODE] XX; -bp pill PO
== END ==
LOC: M RAD 08:43
DX: K50.018 Crohn's disease of small intestine with other complication (principal); Z98.890 Other specified postprocedural states
CPT/HCPCS: Q9963

== ENCOUNTER 2017-09-15 08:17 | Outpatient (CLI) | payer MEDICARE, MEDICAID ==
[2017-09-15] MEDS: FILTER 1.2 MICRON (ADULT TPN/MANNITOL/REMICADE) XX (08:45)
[2017-09-15] MEDS: diphenhydrAMINE 25 MG CAP PO (08:50)
[2017-09-15] MEDS: ACETAMINOPHEN TAB 650MG DOSE (2X325MG) PO (08:51)
[2017-09-15] MEDS: NS 1,000 ML IV (08:56)
[2017-09-15] MEDS: inFLIXimab INJECTION 400 MG in NS 210 ML IV (09:11)
== END 2017-09-15 11:25 | disposition home or self-care (01) ==
LOC: M INFU 08:17
DX: K50.90 Crohn's disease, unspecified, without complications (principal); E11.9 Type 2 diabetes mellitus without complications; M54.2 Cervicalgia; M12.9 Arthropathy, unspecified; F17.210 Nicotine dependence, cigarettes, uncomplicated; Z79.891 Long term (current) use of opiate analgesic; Z79.899 Other long term (current) drug therapy; Z79.84 Long term (current) use of oral hypoglycemic drugs; Z88.8 Allergy status to other drugs, medicaments and biological substances; Z91.013 Allergy to seafood; Z85.51 Personal history of malignant neoplasm of bladder; Z87.442 Personal history of urinary calculi
CPT/HCPCS: J1745

== ENCOUNTER 2017-09-24 13:20 | Outpatient (CLI) | payer MEDICARE, MEDICAID ==
[2017-10-06 14:26] LABS: BASO # 0.1 10^3/uL (0.0-0.2); EOS # 0.6 10^3/uL (0.0-0.50); EOS % 4.2 % (0.0-3.0); HEMATOCRIT 37.1 % (42.0-52.0); HEMOGLOBIN 12.1 g/dl (13.5-17.5); IMMATURE GRANULOCYTE % 0.4 % (0-3.0); LYMPH # 3.6 10^3/uL (1.5-4.5); LYMPH % 27.8 % (24.0-44.0); MEAN CORPUSCULAR HEMOGLOBIN 27.6 pg (27.0-33.0); MEAN CORPUSCULAR HGB CONC 32.6 g/dl (32.0-36.5); MEAN CORPUSCULAR VOLUME 84.7 fl (80.0-96.0); MONO # 1.3 10^3/uL (0.0-0.8); MONO % 9.8 % (0.0-5.0); NEUTROPHILS # 7.4 10^3/uL (1.8-7.7); NEUTROPHILS % 56.8 % (36.0-66.0); PLATELET COUNT, AUTOMATED 319 10^3/uL (150-450); RED BLOOD COUNT 4.38 10^6/uL (4.30-6.10); RED CELL DISTRIBUTION WIDTH 14.9 % (11.5-14.5)
[2017-10-06 15:13] LABS: VITAMIN B12 LEVEL 346 PG/ML (247-911)
[2017-10-06 15:24] LABS: HEPATITIS B SURFACE ANTIGEN NEGATIVE (NEGATIVE)
[2017-10-06 15:39] LABS: ALBUMIN 3.2 GM/DL (3.2-5.2); ALBUMIN/GLOBULIN RATIO 0.84 (1.00-1.93); ALKALINE PHOSPHATASE 126 U/L (45-117); ALT/SGPT 27 U/L (12-78); ANION GAP 8 MEQ/L (8-16); AST/SGOT 17 U/L (7-37); BILIRUBIN,TOTAL 0.2 MG/DL (0.2-1.0); BLOOD UREA NITROGEN 21 MG/DL (7-18); C REACTIVE PROTEIN QUANTITATIV 0.76 MG/DL (0.00-0.30); CARBON DIOXIDE LEVEL 25 MEQ/L (21-32); CHLORIDE LEVEL 107 MEQ/L (98-107); CREATININE FOR GFR 1.23 MG/DL (0.70-1.30); GLOMERULAR FILTRATION RATE > 60.0 (>49); GLUCOSE, FASTING 128 MG/DL (70-100); POTASSIUM SERUM 4.3 MEQ/L (3.5-5.1); SODIUM LEVEL 140 MEQ/L (136-145)
[2017-10-08 14:47] LABS: QUANTIFERON GOLD TB Negative (Negative); TB Test (QFT) Antigen 0.04 IU/mL (.); TB Test (QFT) Antigen Minus Ni 0.01 IU/mL (.); TB Test (QFT) Mitogen 6.61 IU/mL (.); TB Test (QFT) Nil 0.03 IU/mL (.)
== END 2017-10-06 ==
LOC: M LAB 13:20
DX: K50.018 Crohn's disease of small intestine with other complication (principal)
CPT/HCPCS: 82607

== ENCOUNTER 2017-10-07 05:55 | Emergency (ER) | payer MEDICARE, MEDICAID ==
[2017-10-07] MEDS: GASTROGRAFIN SOLUTION 30ML PO ×2 (08:00→08:31)
[2017-10-07] MEDS ORDERED: diphenhydrAMINE INJ 50MG/ML VIAL (J1200) IV (08:00)
[2017-10-07] MEDS ORDERED: FAMOTIDINE IV BAG 20 MG in APPROPRIATE DILUENT 1 EA IV (08:00)
[2017-10-07] MEDS ORDERED: methylPREDNISolone INJ 125 MG/2 ML VIAL (J2930) IV (08:00)
[2017-10-07] MEDS: NS 1,000 ML IV (08:01)
[2017-10-07 08:16] LABS: BASO # 0.1 10^3/uL (0.0-0.2); BASO % 1.2 % (0.0-1.0); EOS # 0.4 10^3/uL (0.0-0.50); EOS % 4.2 % (0.0-3.0); HEMATOCRIT 38.2 % (42.0-52.0); HEMOGLOBIN 12.4 g/dl (13.5-17.5); IMMATURE GRANULOCYTE % 0.3 % (0-3.0); LYMPH # 3.1 10^3/uL (1.5-4.5); MEAN CORPUSCULAR HEMOGLOBIN 27.4 pg (27.0-33.0); MEAN CORPUSCULAR HGB CONC 32.5 g/dl (32.0-36.5); MEAN CORPUSCULAR VOLUME 84.3 fl (80.0-96.0); MONO # 1.1 10^3/uL (0.0-0.8); MONO % 10.7 % (0.0-5.0); NEUTROPHILS # 5.2 10^3/uL (1.8-7.7); NEUTROPHILS % 52.6 % (36.0-66.0); PLATELET COUNT, AUTOMATED 295 10^3/uL (150-450); RED BLOOD COUNT 4.53 10^6/uL (4.30-6.10); RED CELL DISTRIBUTION WIDTH 14.8 % (11.5-14.5); WHITE BLOOD COUNT 9.8 10^3/uL (4.0-10.0)
[2017-10-07 08:26] LABS: KETONE, URINE AUTO RFX NEGATIVE (NEGATIVE); RBC, URINE AUTO RFX 2 /HPF (0-3); SPECIFIC GRAVITY UR AUTO RFX 1.004 (1.002-1.035); SQUAM EPITHELIAL CELL UR AURFX 0 /HPF (0-6); WBC, URINE AUTO RFX 6 /HPF (0-3)
[2017-10-07 08:36] LABS: LEUKOCYTE ESTERASE UR AUTO RFX TRACE (NEGATIVE); NITRITE, URINE AUTO RFX POSITIVE (NEGATIVE)
[2017-10-07 08:45] LABS: ALBUMIN 3.2 GM/DL (3.2-5.2); ALBUMIN/GLOBULIN RATIO 0.84 (1.00-1.93); ALKALINE PHOSPHATASE 111 U/L (45-117); ALT/SGPT 31 U/L (12-78); AMYLASE 61 U/L (25-115); ANION GAP 9 MEQ/L (8-16); AST/SGOT 18 U/L (7-37); BILIRUBIN,DIRECT < 0.1 MG/DL (0.0-0.2); BILIRUBIN,TOTAL 0.2 MG/DL (0.2-1.0); BLOOD UREA NITROGEN 21 MG/DL (7-18); C REACTIVE PROTEIN QUANTITATIV 0.96 MG/DL (0.00-0.30); CALCIUM LEVEL 8.3 MG/DL (8.8-10.2); CARBON DIOXIDE LEVEL 24 MEQ/L (21-32); CHLORIDE LEVEL 108 MEQ/L (98-107); CREATININE FOR GFR 1.15 MG/DL (0.70-1.30); GLOMERULAR FILTRATION RATE > 60.0 (>49); GLUCOSE, FASTING 116 MG/DL (70-100); LIPASE 150 U/L (73-393); POTASSIUM SERUM 4.2 MEQ/L (3.5-5.1); SODIUM LEVEL 141 MEQ/L (136-145)
[2017-10-07 09:15] LABS: ERYTHROCYTE SEDIMENTATION RATE 42 mm/hr (0-20)
[2017-10-07] MEDS ORDERED: ISOVUE-370 76% 100ML VIAL (Q9967) As Ordered (09:46)
== END 2017-10-07 11:40 | disposition home or self-care (01) ==
LOC: M ED 05:55
DX: R19.7 Diarrhea, unspecified (principal); N13.30 Unspecified hydronephrosis; I10 Essential (primary) hypertension; J44.9 Chronic obstructive pulmonary disease, unspecified; K50.919 Crohn's disease, unspecified, with unspecified complications; Z85.51 Personal history of malignant neoplasm of bladder; Z85.46 Personal history of malignant neoplasm of prostate; Z90.79 Acquired absence of other genital organ(s); F41.9 Anxiety disorder, unspecified; F32.9 Major depressive disorder, single episode, unspecified; Z72.0 Tobacco use; Z79.899 Other long term (current) drug therapy; Z88.8 Allergy status to other drugs, medicaments and biological substances; Z91.89 Other specified personal risk factors, not elsewhere classified; Z91.013 Allergy to seafood
CPT/HCPCS: Q9963

== ENCOUNTER 2017-11-10 13:54 | Outpatient (CLI) | payer MEDICARE, MEDICAID ==
[2017-11-10] MEDS: FILTER 1.2 MICRON (ADULT TPN/MANNITOL/REMICADE) XX (13:45)
[2017-11-10] MEDS: diphenhydrAMINE 25 MG CAP PO (14:29)
[2017-11-10] MEDS: NS 1,000 ML IV (14:29)
[2017-11-10] MEDS: ACETAMINOPHEN TAB 650MG DOSE (2X325MG) PO (14:29)
[2017-11-10] MEDS: inFLIXimab INJECTION 400 MG in NS 210 ML IV (14:40)
== END 2017-11-10 17:00 | disposition home or self-care (01) ==
LOC: M INFU 13:54
DX: K50.90 Crohn's disease, unspecified, without complications (principal); Z88.8 Allergy status to other drugs, medicaments and biological substances; Z91.013 Allergy to seafood; Z79.84 Long term (current) use of oral hypoglycemic drugs; Z79.899 Other long term (current) drug therapy; Z79.891 Long term (current) use of opiate analgesic
CPT/HCPCS: J1745

== ENCOUNTER 2017-12-17 14:54 | Emergency (ER) | payer MEDICARE, MEDICAID | END 2017-12-17 19:02 | disposition home or self-care (01) | LOC: M ED 14:54 | DX: S06.0X1A Concussion with loss of consciousness of 30 minutes or less, initial encounter (principal); W22.8XXA Striking against or struck by other objects, initial encounter; Y92.59 Other trade areas as the place of occurrence of the external cause; Y99.0 Civilian activity done for income or pay; R19.7 Diarrhea, unspecified; K50.00 Crohn's disease of small intestine without complications; I10 Essential (primary) hypertension; J44.9 Chronic obstructive pulmonary disease, unspecified; E11.9 Type 2 diabetes mellitus without complications; K50.90 Crohn's disease, unspecified, without complications; M81.0 Age-related osteoporosis without current pathological fracture; F41.9 Anxiety disorder, unspecified; F33.9 Major depressive disorder, recurrent, unspecified; F90.9 Attention-deficit hyperactivity disorder, unspecified type; F17.200 Nicotine dependence, unspecified, uncomplicated; Z85.46 Personal history of malignant neoplasm of prostate; Z79.84 Long term (current) use of oral hypoglycemic drugs; Z79.899 Other long term (current) drug therapy | CPT/HCPCS: 70450 ==

== ENCOUNTER → 2017-12-17 | Outpatient (CLI) | payer MEDICARE, MEDICAID | LOC: M LAB 14:04 | DX: K50.00 Crohn's disease of small intestine without complications (principal); R19.7 Diarrhea, unspecified ==

== ENCOUNTER 2018-01-06 07:05 | Outpatient (CLI) | payer MEDICARE, MEDICAID ==
[2018-01-06] MEDS: diphenhydrAMINE 25 MG CAP PO (07:25)
[2018-01-06] MEDS: NS 1,000 ML IV (07:25)
[2018-01-06] MEDS: ACETAMINOPHEN TAB 650MG DOSE (2X325MG) PO (07:25)
[2018-01-06] MEDS: FILTER 1.2 MICRON (ADULT TPN/MANNITOL/REMICADE) XX (07:26)
[2018-01-06] MEDS: inFLIXimab INJECTION 400 MG in NS 210 ML IV (07:47)
== END 2018-01-06 13:00 | disposition home or self-care (01) ==
LOC: M INFU 07:05
DX: K50.90 Crohn's disease, unspecified, without complications (principal); Z91.013 Allergy to seafood; Z88.8 Allergy status to other drugs, medicaments and biological substances; Z88.3 Allergy status to other anti-infective agents; Z91.041 Radiographic dye allergy status
CPT/HCPCS: J1745

== ENCOUNTER 2018-01-09 06:52 | Day surgery (SDC) | payer MEDICARE, MEDICAID ==
[2018-01-09] MEDS ORDERED: SIMETHICONE 40MG/0.6ML DROPS 30ML As Ordered (07:11)
[2018-01-09] MEDS: NS 1,000 ML IV (07:38)
[2018-01-09] MEDS ORDERED: PROPOFOL 200 MG/20 ML VIAL As Ordered (08:22)
[2018-01-09] MEDS ORDERED: LIDOCAINE 2% INJ 100 MG/5 ML SDV (FOR ANES.) As Ordered (08:22)
== END 2018-01-09 10:36 | disposition home or self-care (01) ==
LOC: M OPP 06:52
DX: K22.70 Barrett's esophagus without dysplasia (principal); K22.8 Other specified diseases of esophagus; K44.9 Diaphragmatic hernia without obstruction or gangrene; I10 Essential (primary) hypertension; E11.9 Type 2 diabetes mellitus without complications; R00.8 Other abnormalities of heart beat; K50.90 Crohn's disease, unspecified, without complications; K21.9 Gastro-esophageal reflux disease without esophagitis; R12 Heartburn; M19.90 Unspecified osteoarthritis, unspecified site; M81.0 Age-related osteoporosis without current pathological fracture; F41.9 Anxiety disorder, unspecified; F32.9 Major depressive disorder, single episode, unspecified; J44.9 Chronic obstructive pulmonary disease, unspecified; Z85.51 Personal history of malignant neoplasm of bladder; Z85.46 Personal history of malignant neoplasm of prostate; F17.210 Nicotine dependence, cigarettes, uncomplicated; Z88.8 Allergy status to other drugs, medicaments and biological substances; Z88.3 Allergy status to other anti-infective agents; Z91.013 Allergy to seafood; Z79.84 Long term (current) use of oral hypoglycemic drugs; Z79.899 Other long term (current) drug therapy
CPT/HCPCS: 43239

== ENCOUNTER → 2018-02-12 | Outpatient (REF) | payer MEDICARE, MEDICAID | LOC: M LAB REF 12:36 | DX: R19.7 Diarrhea, unspecified (principal) | CPT/HCPCS: 87507 ==

== ENCOUNTER → 2018-02-13 | Outpatient (CLI) | payer MEDICARE, MEDICAID ==
[2018-02-13 11:40] LABS: BASO # 0.1 10^3/uL (0.0-0.2); BASO % 0.9 % (0.0-1.0); EOS # 0.3 10^3/uL (0.0-0.50); EOS % 2.4 % (0.0-3.0); HEMATOCRIT 41.1 % (42.0-52.0); HEMOGLOBIN 13.2 g/dl (13.5-17.5); IMMATURE GRANULOCYTE % 0.4 % (0-3.0); LYMPH # 3.3 10^3/uL (1.5-4.5); MEAN CORPUSCULAR HEMOGLOBIN 27.2 pg (27.0-33.0); MEAN CORPUSCULAR HGB CONC 32.1 g/dl (32.0-36.5); MEAN CORPUSCULAR VOLUME 84.7 fl (80.0-96.0); MONO # 1.2 10^3/uL (0.0-0.8); MONO % 9.3 % (0.0-5.0); NEUTROPHILS # 7.7 10^3/uL (1.8-7.7); PLATELET COUNT, AUTOMATED 339 10^3/uL (150-450); RED BLOOD COUNT 4.85 10^6/uL (4.30-6.10); RED CELL DISTRIBUTION WIDTH 13.5 % (11.5-14.5); WHITE BLOOD COUNT 12.5 10^3/uL (4.0-10.0)
[2018-02-13 11:57] LABS: ALBUMIN 3.4 GM/DL (3.2-5.2); ALBUMIN/GLOBULIN RATIO 0.79 (1.00-1.93); ALKALINE PHOSPHATASE 158 U/L (45-117); ALT/SGPT 60 U/L (12-78); ANION GAP 8 MEQ/L (8-16); AST/SGOT 39 U/L (7-37); BILIRUBIN,TOTAL 0.2 MG/DL (0.2-1.0); BLOOD UREA NITROGEN 21 MG/DL (7-18); C REACTIVE PROTEIN QUANTITATIV 0.82 MG/DL (0.00-0.30); CARBON DIOXIDE LEVEL 27 MEQ/L (21-32); CHLORIDE LEVEL 105 MEQ/L (98-107); CREATININE FOR GFR 1.46 MG/DL (0.70-1.30); GLOMERULAR FILTRATION RATE 51.3 (>49); GLUCOSE, FASTING 107 MG/DL (70-100); POTASSIUM SERUM 4.5 MEQ/L (3.5-5.1); SODIUM LEVEL 140 MEQ/L (136-145); TOTAL PROTEIN 7.7 GM/DL (6.4-8.2)
== END ==
LOC: M LAB 10:43
DX: R19.7 Diarrhea, unspecified (principal)
CPT/HCPCS: 82607

== ENCOUNTER 2018-03-02 07:53 | Outpatient (CLI) | payer MEDICARE, MEDICAID ==
[2018-03-02] MEDS: NS 1,000 ML IV (08:00)
[2018-03-02] MEDS: FILTER 1.2 MICRON (ADULT TPN/MANNITOL/REMICADE) XX (08:00)
[2018-03-02] MEDS: diphenhydrAMINE 25MG PO PRIOR TO INFUSION PO (08:17)
[2018-03-02] MEDS: ACETAMINOPHEN 650MG PO PRIOR TO INFUSION PO (08:17)
[2018-03-02] MEDS: inFLIXimab INJECTION 400 MG in NS 210 ML IV (08:27)
== END 2018-03-02 10:50 | disposition home or self-care (01) ==
LOC: M INFU 07:53
DX: K50.90 Crohn's disease, unspecified, without complications (principal); Z91.013 Allergy to seafood; Z88.8 Allergy status to other drugs, medicaments and biological substances; Z91.041 Radiographic dye allergy status; Z85.51 Personal history of malignant neoplasm of bladder; Z79.899 Other long term (current) drug therapy
CPT/HCPCS: J1745

== ENCOUNTER → 2018-03-30 | Outpatient (CLI) | payer MEDICARE, MEDICAID ==
[~2018-03-30] MED LIST changes: +ADDE10CA3 PO; +ALPR2TAB3; +ALPR2TAB3 PO; +BUPR10TASR PO; +CHOL4POW2 PO; +CIPR-249 PO; +CIPR500T3 PO; -GASTROGRAFIN SOLUTION 30ML (Q9963) As Ordered; +GLUC500T PO; +HYDR-3363 PO; +HYDR-3713 PO; +HYDRO50TAB PO; +INFL10VL IV; -ISOVUE-370 76% 100ML VIAL (Q9967) As Ordered; +JANU100T PO; +LISI-672 PO; +LOSA50TA73 PO; +METF-699 PO; +NICO21DI5 TD; +OLAN2.5T PO; +OMEP40CA2 PO; +PARO12.5 PO; +PARO40TA2; +PAXI40TA10 PO; +PENT500C PO; +PERC5TAB12 PO; +PRED20TA PO; +PROAAER10 INH; +PROAIR INH; +PYRI1TAB5 PO; +ROZE8TAB16 PO; +TRAM50TA2; +TRAM50TA2 PO; +TYLE650T35 PO; +VENL100T PO; +VENL150C43 PO; +VENL50TA2 PO; +VESI10TA2 PO; +WELL100T2 PO; +XANA1TAB2 PO; +[UNRECOGNIZED DRUG - CODE] PO; +[UNRECOGNIZED DRUG - CODE] XX; +bp pill PO
[2018-03-30 10:36] LABS: BASO # 0.1 10^3/uL (0.0-0.2); BASO % 0.8 % (0.0-1.0); EOS # 0.3 10^3/uL (0.0-0.50); EOS % 2.3 % (0.0-3.0); HEMATOCRIT 41.3 % (42.0-52.0); HEMOGLOBIN 12.7 g/dl (13.5-17.5); LYMPH # 2.7 10^3/uL (1.5-4.5); LYMPH % 23.7 % (24.0-44.0); MEAN CORPUSCULAR HEMOGLOBIN 27.5 pg (27.0-33.0); MEAN CORPUSCULAR HGB CONC 30.8 g/dl (32.0-36.5); MEAN CORPUSCULAR VOLUME 89.4 fl (80.0-96.0); MONO # 1.3 10^3/uL (0.0-0.8); MONO % 11.3 % (0.0-5.0); NEUTROPHILS % 61.2 % (36.0-66.0); PLATELET COUNT, AUTOMATED 264 10^3/uL (150-450); RED BLOOD COUNT 4.62 10^6/uL (4.30-6.10); WHITE BLOOD COUNT 11.5 10^3/uL (4.0-10.0)
[2018-03-30 11:06] LABS: ALBUMIN 3.2 GM/DL (3.2-5.2); BILIRUBIN,TOTAL 0.2 MG/DL (0.2-1.0); C REACTIVE PROTEIN QUANTITATIV 1.88 MG/DL (0.00-0.30); CALCIUM LEVEL 7.9 MG/DL (8.8-10.2); CREATININE FOR GFR 1.33 MG/DL (0.70-1.30); GLOMERULAR FILTRATION RATE 57.1 (>49); POTASSIUM SERUM 4.5 MEQ/L (3.5-5.1)
== END ==
LOC: M LAB 09:46
PROVIDERS: ATTEND Internal Medicine Gastroenterology
DX: K50.018 Crohn's disease of small intestine with other complication (principal)

== ENCOUNTER → 2018-04-03 | Outpatient (CLI) | payer MEDICARE, MEDICAID ==
[~2018-04-03] MED LIST changes: +ISOVUE-370 76% 100ML VIAL (Q9967) As Ordered ONE; -LOSA50TA73 PO; +LOSA50TA88 PO; -NICO21DI5 TD; +NICO21DI6 TD
--- NOTE | 2018-04-03 18:45 | REP ---
Clinical: History of prostate cancer. Technique: Axial contrast enhanced images from the lung bases to the pubic symphysis using 100 ml Isovue 370 intravenous contrast material with precontrast and delayed images of the abdomen as well as coronal and sagittal re-formations. Comparison: 10/07/2017. Findings: The patient appears to be status post bladder and prostate resection with ileal loop urostomy via the right anterior abdominopelvic wall. The kidneys demonstrate normal symmetric enhancement and no evidence for acute perinephric stranding or hydroureteronephrosis. Liver, spleen, pancreas, and bilateral adrenal glands are normal. The patient is status post cholecystectomy. The enteric system is without obstruction. There is submucosal fat deposition and mural thickening involving the distal third terminal ileum raising the possibility of inflammatory bowel disease/Crohn's disease. Scattered sigmoid diverticula noted without acute diverticulitis. Pelvis again demonstrates prior bladder and prostate resection without inflammatory changes, fluid, or residual mass. No intraperitoneal, retroperitoneal or pelvic adenopathy is appreciated. No ascites. No free air. Atherosclerotic changes of the aorta and vasculature noted without aneurysm. Patent left common iliac artery stent identified. Musculoskeletal structures demonstrate degenerative changes without focal osseous abnormality. Lung bases are clear. Visualized heart and pericardium normal. Impression: 1. Evidence of prior bladder and prostate resection with ileal loop urostomy and normal appearance the bilateral kidneys. 2. Mild mucosal thickening and submucosal fat deposition to the distal ileum raising the possibility of inflammatory bowel disease/Crohn's disease. 3. No further acute abdominopelvic pathology appreciated. No ascites. No adenopathy. No mass/metastatic lesion identified. Electronically Signed by Christian Garcia MD 04/03/2018 06:37 P
== END ==
LOC: M RAD 16:56
PROVIDERS: ATTEND Urology
DX: C61 Malignant neoplasm of prostate (principal); K57.30 Diverticulosis of large intestine without perforation or abscess without bleeding; I70.0 Atherosclerosis of aorta; Z90.79 Acquired absence of other genital organ(s)
CPT/HCPCS: 74178; Q9967

== ENCOUNTER 2018-04-27 07:59 | Outpatient (CLI) | payer MEDICARE, MEDICAID ==
[2018-04-27] VITALS (8 sets, daily range): BP systolic 116–157; BP diastolic 62–93
[~2018-04-27] VITALS: Ht 170.2 cm; Wt 79.0 kg
[~2018-04-27 07:59] MED LIST changes: -ISOVUE-370 76% 100ML VIAL (Q9967) As Ordered ONE
[2018-04-27] MEDS ORDERED: ACETAMINOPHEN 650MG PO PRIOR TO INFUSION PO ONE (09:00)
[2018-04-27] MEDS ORDERED: diphenhydrAMINE 25MG PO PRIOR TO INFUSION PO ONE (09:00)
[2018-04-27] MEDS ORDERED: inFLIXimab INJECTION 400 MG in NS 210 ML IV ONE (09:00)
[2018-04-27] MEDS ORDERED: NS 1,000 ML IV SCH (09:00)
[2018-04-27] MEDS ORDERED: FILTER 1.2 MICRON (ADULT TPN/MANNITOL/REMICADE) XX ONE (09:00)
== END 2018-04-27 11:30 | disposition home or self-care (01) ==
LOC: M INFU 07:59
PROVIDERS: ATTEND Internal Medicine Gastroenterology
DX: K50.90 Crohn's disease, unspecified, without complications (principal)
CPT/HCPCS: 96413; 96415; J1745

== ENCOUNTER 2018-06-02 08:16 | Outpatient (CLI) | payer MEDICARE, MEDICAID ==
[~2018-06-02] VITALS: Ht 175.3 cm; Wt 83.9 kg
[2018-06-02 08:20] VITALS: BP 161/79
[2018-06-02] MEDS ORDERED: VEDOLIZUMAB 300 MG in NS 250 ML IV ONE (09:00)
[2018-06-02 09:15] VITALS: BP 136/81
[2018-06-02 10:30] VITALS: BP_SYST 151; BP_SYST 154; BP_DIAS 67; BP_DIAS 70
== END 2018-06-02 10:30 | disposition home or self-care (01) ==
LOC: M INFU 08:16
PROVIDERS: ATTEND Internal Medicine Gastroenterology
DX: K50.90 Crohn's disease, unspecified, without complications (principal); Z79.84 Long term (current) use of oral hypoglycemic drugs; Z79.899 Other long term (current) drug therapy; Z88.3 Allergy status to other anti-infective agents; Z88.8 Allergy status to other drugs, medicaments and biological substances; Z91.013 Allergy to seafood
CPT/HCPCS: 96365; J3380

== ENCOUNTER 2018-06-16 07:45 | Outpatient (CLI) | payer MEDICARE, MEDICAID ==
[~2018-06-16] VITALS: Ht 172.7 cm; Wt 83.9 kg
[2018-06-16] MEDS ORDERED: VEDOLIZUMAB 300 MG in NS 250 ML IV ONE (08:15)
[2018-06-16 08:17] VITALS: BP 133/74
[2018-06-16 09:08] VITALS: BP 149/71
[2018-06-16 09:37] VITALS: BP 141/68
== END 2018-06-16 09:40 | disposition home or self-care (01) ==
LOC: M INFU 07:45
PROVIDERS: ATTEND Internal Medicine Gastroenterology
DX: K50.90 Crohn's disease, unspecified, without complications (principal); Z88.8 Allergy status to other drugs, medicaments and biological substances
CPT/HCPCS: 96365; J3380

== ENCOUNTER 2018-07-14 08:48 | Outpatient (CLI) | payer MEDICARE, MEDICAID ==
[~2018-07-14] VITALS: Ht 175.3 cm; Wt 83.9 kg
[~2018-07-14 08:48] MED LIST changes: -OLAN2.5T PO; +OLAN2.5T25 PO
[2018-07-14 09:00] VITALS: BP 166/76
[2018-07-14] MEDS ORDERED: VEDOLIZUMAB 300 MG in NS 250 ML IV ONE (09:15)
[2018-07-14 09:25] VITALS: BP 132/68
[2018-07-14 10:15] VITALS: BP 125/67
== END 2018-07-14 10:20 | disposition home or self-care (01) ==
LOC: M INFU 08:48
PROVIDERS: ATTEND Internal Medicine Gastroenterology
DX: K50.90 Crohn's disease, unspecified, without complications (principal); Z88.6 Allergy status to analgesic agent; Z88.8 Allergy status to other drugs, medicaments and biological substances
CPT/HCPCS: 96365; J3380

== ENCOUNTER 2018-09-08 15:00 | Outpatient (CLI) | payer MEDICARE, MEDICAID ==
[~2018-09-08] VITALS: Ht 175.3 cm; Wt 83.9 kg
[2018-09-08] MEDS ORDERED: VEDOLIZUMAB 300 MG in NS 250 ML IV ONE (15:15)
[2018-09-08 15:16] VITALS: BP 141/76
[2018-09-08 16:30] VITALS: BP 150/75
== END 2018-09-08 16:30 | disposition home or self-care (01) ==
LOC: M INFU 15:00
PROVIDERS: ATTEND Internal Medicine Gastroenterology
DX: K50.90 Crohn's disease, unspecified, without complications (principal); Z88.3 Allergy status to other anti-infective agents; Z91.013 Allergy to seafood; Z79.84 Long term (current) use of oral hypoglycemic drugs; Z79.899 Other long term (current) drug therapy
CPT/HCPCS: 96365; J3380

== ENCOUNTER → 2018-10-20 | Outpatient (CLI) | payer MEDICARE, MEDICAID ==
[2018-10-20 12:23] LABS: BASO # 0.1 10^3/uL (0.0-0.2); BASO % 1.2 % (0.0-1.0); EOS # 0.3 10^3/uL (0.0-0.50); EOS % 3.1 % (0.0-3.0); HEMATOCRIT 41.5 % (42.0-52.0); HEMOGLOBIN 13.4 g/dl (13.5-17.5); LYMPH # 2.6 10^3/uL (1.5-4.5); LYMPH % 23.6 % (24.0-44.0); MEAN CORPUSCULAR HEMOGLOBIN 28.5 pg (27.0-33.0); MEAN CORPUSCULAR HGB CONC 32.3 g/dl (32.0-36.5); MEAN CORPUSCULAR VOLUME 88.3 fl (80.0-96.0); MONO # 0.9 10^3/uL (0.0-0.8); MONO % 8.4 % (0.0-5.0); NEUTROPHILS # 6.8 10^3/uL (1.8-7.7); NEUTROPHILS % 62.8 % (36.0-66.0); PLATELET COUNT, AUTOMATED 334 10^3/uL (150-450); WHITE BLOOD COUNT 10.9 10^3/uL (4.0-10.0)
[2018-10-20 13:40] LABS: ALBUMIN 3.5 GM/DL (3.2-5.2); ALT/SGPT 46 U/L (12-78); BILIRUBIN,TOTAL 0.2 MG/DL (0.2-1.0); BLOOD UREA NITROGEN 21 MG/DL (7-18); C REACTIVE PROTEIN QUANTITATIV 1.34 MG/DL (0.00-0.30); CALCIUM LEVEL 8.8 MG/DL (8.8-10.2); CARBON DIOXIDE LEVEL 25 MEQ/L (21-32); CHLORIDE LEVEL 104 MEQ/L (98-107); CREATININE FOR GFR 1.27 MG/DL (0.70-1.30); GLOMERULAR FILTRATION RATE > 60.0 (>49); GLUCOSE, FASTING 215 MG/DL (70-100); POTASSIUM SERUM 4.6 MEQ/L (3.5-5.1); SODIUM LEVEL 137 MEQ/L (136-145); TOTAL PROTEIN 7.4 GM/DL (6.4-8.2)
[2018-10-20 14:51] LABS: CLOSTRIDIUM DIFFICILE PCR NEGATIVE (NEGATIVE)
[2018-10-21 08:58] LABS: HEPATITIS B SURFACE ANTIGEN NEGATIVE (NEGATIVE)
== END ==
LOC: M LAB 11:25
PROVIDERS: ATTEND Internal Medicine Gastroenterology
DX: K50.018 Crohn's disease of small intestine with other complication (principal)

== ENCOUNTER 2018-11-03 08:00 | Outpatient (CLI) | payer MEDICARE, MEDICAID ==
[~2018-11-03] VITALS: Ht 175.3 cm; Wt 83.9 kg
[2018-11-03 08:16] VITALS: BP 157/80
[2018-11-03] MEDS ORDERED: NS IV ONE (09:00)
[2018-11-03] MEDS ORDERED: VEDOLIZUMAB IV ONE (09:00)
[2018-11-03 10:39] VITALS: BP 142/78
== END 2018-11-03 10:45 | disposition home or self-care (01) ==
LOC: M INFU 08:00
PROVIDERS: ATTEND Internal Medicine Gastroenterology
DX: K50.90 Crohn's disease, unspecified, without complications (principal)
CPT/HCPCS: 96365; J3380

== ENCOUNTER → 2018-12-08 | Outpatient (CLI) | payer MEDICARE, MEDICAID ==
[~2018-12-08] MED LIST changes: +HYDR1TAB33 PO; -HYDRO50TAB PO
--- NOTE | 2018-12-09 12:05 | REP ---
PA and lateral chest: Comparison is 02/13/2017. The lung lee are clear. The cardiac size is normal. The marleny, mediastinum, and skeletal structures are unremarkable. Impression: Negative PA and lateral chest. There is no interval change. Electronically Signed by Armando Montes MD 12/09/2018 07:55 A
== END ==
LOC: M LAB 07:16
PROVIDERS: ATTEND Urology
DX: C61 Malignant neoplasm of prostate (principal)

== ENCOUNTER → 2018-12-16 | Outpatient (REF) | payer MEDICARE, MEDICAID ==
[~2018-12-16] MED LIST changes: -OMEP40CA2 PO; +OMEP40CA97 PO; -PARO12.5 PO; +PARO12.510 PO
[2018-12-16 16:48] LABS: BASO # 0.1 10^3/uL (0.0-0.2); BASO % 1.3 % (0.0-1.0); EOS # 0.5 10^3/uL (0.0-0.5); EOS % 4.9 % (0.0-3.0); HEMATOCRIT 41.7 % (42.0-52.0); HEMOGLOBIN 13.3 g/dl (13.5-17.5); LYMPH # 2.5 10^3/uL (1.5-5.0); LYMPH % 24.4 % (24.0-44.0); MEAN CORPUSCULAR HEMOGLOBIN 29.2 pg (27.0-33.0); MEAN CORPUSCULAR HGB CONC 31.9 g/dl (32.0-36.5); MEAN CORPUSCULAR VOLUME 91.4 fl (80.0-96.0); MONO # 0.9 10^3/uL (0.0-0.8); MONO % 8.7 % (0.0-5.0); NEUTROPHILS # 6.2 10^3/uL (1.5-8.5); NEUTROPHILS % 59.9 % (36.0-66.0); PLATELET COUNT, AUTOMATED 392 10^3/uL (150-450); RED BLOOD COUNT 4.56 10^6/uL (4.30-6.10); WHITE BLOOD COUNT 10.4 10^3/uL (4.0-10.0)
[2018-12-16 17:19] LABS: ALBUMIN 3.4 GM/DL (3.2-5.2); BILIRUBIN,TOTAL 0.2 MG/DL (0.2-1.0); CHOLESTEROL RISK RATIO 4.818 (<5); CREATININE FOR GFR 1.43 MG/DL (0.70-1.30); GLOMERULAR FILTRATION RATE 52.4 (>49); POTASSIUM SERUM 4.7 MEQ/L (3.5-5.1); TOTAL PROTEIN 7.5 GM/DL (6.4-8.2)
== END ==
LOC: M LAB REF 16:14
PROVIDERS: ATTEND Family Medicine
DX: Z00.00 Encounter for general adult medical examination without abnormal findings (principal); D09.0 Carcinoma in situ of bladder; R07.89 Other chest pain; J44.9 Chronic obstructive pulmonary disease, unspecified; Z98.890 Other specified postprocedural states; I10 Essential (primary) hypertension

== ENCOUNTER 2018-12-29 08:05 | Outpatient (CLI) | payer MEDICARE, MEDICAID ==
[~2018-12-29] VITALS: Ht 175.3 cm; Wt 83.9 kg
[2018-12-29 08:05] VITALS: BP 158/72
[2018-12-29] MEDS ORDERED: VEDOLIZUMAB IV ONE (09:00)
[2018-12-29] MEDS ORDERED: NS IV ONE (09:00)
[2018-12-29 10:15] VITALS: BP 146/70
== END 2018-12-29 10:15 | disposition home or self-care (01) ==
LOC: M INFU 08:05
PROVIDERS: ATTEND Internal Medicine Gastroenterology
DX: K51.90 Ulcerative colitis, unspecified, without complications (principal)
CPT/HCPCS: 96365; J3380

== ENCOUNTER → 2019-02-12 | Outpatient (CLI) | payer MEDICARE, MEDICAID ==
[~2019-02-12] MED LIST changes: +PARO12.5 PO; -PARO12.510 PO
--- NOTE | 2019-03-02 07:19 | ECWPNPC ---
PATIENT NAME: JOVITA OLIVA : 1950 GENDER: MALE VISIT DATE: 02/12/2019 DISCHARGE DATE: 02/12/19 1313 VISIT LOCKED DATE TIME: PHYSICIAN: ARELIS CAI MD RESOURCE: ARELIS CAI MD REASON FOR APPOINTMENT 1. LOW BCK & LEFT LEG HISTORY OF PRESENT ILLNESS PAIN SCREENING: PATIENT HAS A COMPLAINT OF ACUTE OR CHRONIC PAIN :YES 68 YEAR OLD MALE PATIENT WITH A HISTORY OF CHRONIC LOW BACK AND LEFT HIP PAIN. THE PATIENT DESCRIBES THE PAIN SORE, SHARP, AND CONTINUOUS WITH A PAIN SCORE OF 7-10/10 DEPENDING ON PHYSICAL ACTIVITY. THE PATIENT STATES HE HAS BEEN SUFFERING FROM HIS PAIN FOR MANY YEARS AND HAS HAD 3 BACK SURGERIES DONE IN THE PAST, HOWEVER THE PAIN STILL PERSISTS. THE PATIENT SAYS HIS LOW BACK AND LEFT HIP PAIN IS AFFECTING HIS ABILITY TO PERFORM HIS DAILY ACTIVITIES SUCH MOVING AROUND, CLEANING HIS HOUSE, AND GROCERY SHOPPING. THE PATIENT SAYS HE HAS TROUBLE WALKING DUE TO HIS PAIN AND MUST TAKE FREQUENT BREAKS TO REST. PATIENT DENIES UNEXPLAINABLE WEIGHT LOSS, FEVER, CHILLS, NEW CHANGES ON HIS URINARY OR BOWEL CONTROL. THE PATIENT MENTIONS ON 05/20/2017 HE HAD A CYSTECTOMY DUE TO BLADDER CANCER. FALL RISK SCREENING: SCREENING :NO FALLS REPORTED IN THE LAST YEAR CURRENT MEDICATIONS TAKING METFORMIN HCL 500 MG TABLET 1 TABLET WITH A MEAL ORALLY BID TAKING OMEPRAZOLE 40 MG CAPSULE DELAYED RELEASE 1 CAPSULE 30 MINUTES BEFORE MORNING MEAL ORALLY ONCE A DAY TAKING ATORVASTATIN CALCIUM 20 MG TABLET 1 TABLET ORALLY ONCE A DAY TAKING DEXTROAMPHETAMINE SULFATE 10 MG TABLET 1 TABLET IN THE MORNING ORALLY ONCE A DAY TAKING LOSARTAN POTASSIUM 50 MG TABLET 1 TABLET ORALLY ONCE A DAY TAKING ALPRAZOLAM 2 MG TABLET 1 TABLET ORALLY UP TO 3 TIMES A DAY TAKING BUPROPION HCL 100 MG TABLET 1 TABLET ORALLY DAILY TAKING VENLAFAXINE HCL 75 MG TABLET 1 TABLET WITH FOOD ORALLY ONCE A DAY TAKING ENTYVIO 300 MG SOLUTION RECONSTITUTED DIRECTED INTRAVENOUS INFUSION EVERY 60 DAYS TAKING ALEVE 220 MG TABLET 1 TABLET WITH FOOD OR MILK NEEDED ORALLY EVERY 12 HRS NOT-TAKING LEEROY BCG 50 MG SUSPENSION RECONSTITUTED DIRECTED INTRAVESICAL 1 INSTILLATION PER WK X 6 WKS MEDICATION LIST REVIEWED AND RECONCILED WITH THE PATIENT PAST MEDICAL HISTORY HTN DEPRESSION/ANXIETY HYPERLIPIDEMIA S/P DISC REPAIR-LUMBAR 1995 DM GERD/BARRETTS BRONCHITIS CROHN'S DISEASE ALLERGIES CELEBREX: RASH - ALLERGY SHELL FISH: RASH, SWELLING - ALLERGY CHANTIX: RASH, STOMACH UPSET - ALLERGY IODINE: RASH SURGICAL HISTORY ABSCESS DRAINAGE 12/25/2010 COLONOSCOPY/ENDOSCOPY 05/16/2011 LOWER BACK SURGERY 07/1995, 10/2007, 10/2013 RIGHT KNEE TORN MENISCUS REPAIR 07/2012 GALLBLADDER REMOVED 09/2016 BLADDER SURGERY 02/20/2017 FAMILY HISTORY FATHER: , HEART MOTHER: , CHF SIBLINGS: ALIVE, BROTHER 68 YEARS WITH ENLARGED HEART., DIAGNOSED WITH UNSPECIFIED HEART DISEASE SON(S): ALIVE 1 SISTER(S) . 1 SON(S) . NO KNOWN FAMILY HISTORY OF ANY UROLOGICALLY RELATED DISEASES/CANCERS. SOCIAL HISTORY GENERAL: TOBACCO USE ARE YOU A:CURRENT EVERY DAY SMOKER SMOKING CESSATION INFORMATION GIVEN02/12/2019 ARE YOU A:CURRENT EVERY DAY SMOKER SMOKING CESSATION INFORMATION GIVEN02/12/2019 DIET: REGULAR. DOMESTIC VIOLENCE NONE. RECREATIONAL DRUG USE DENIES. EXERCISE: DAILY. LEARNING BARRIERS / SPECIAL NEEDS BARRIERS TO LEARNING?NO HEARING IMPAIRED?YES VISION IMPAIRED?YES :CORRECTIVE LENSES COGNITIVELY IMPAIRED?NO READINESS TO LEARN?YES LEARNING PREFERENCES?NO LEARNING CAPABILITIES PRESENT?YES EMOTIONAL BARRIERS?NO SPECIAL DEVICES?NO SCUBA INSTRUCTOR NEEDED?NO PAIN CLINIC PFS, CLERGY, PUBLIC HEALTH REFERRALS HAS THE PATIENT BEEN EDUCATED REGARDING HIS/HER PLAN OF CARE?YES HAS THE PATIENT BEEN EDUCATED REGARDING PAIN, THE RISK FOR PAIN, THE IMPORTANCE OF EFFECTIVE PAIN MANAGEMENT, AND THE PAIN ASSESSMENT PROCESS?YES LATEX QUESTIONNAIRE LATEX ALLERGY : HAVE YOU EVER DEVELOPED ANY TYPE OF REACTION AFTER HANDLING LATEX PRODUCTS SUCH RUBBER GLOVES, CONDOMS, DIAPHRAGMS, BALLOONS, SOCKS, OR UNDERWEAR?NO LATEX ALLERGY : HAVE YOU EVER DEVELOPED ANY TYPE OF REACTION DURING OR AFTER DENTAL APPOINTMENT, VAGINAL/RECTAL EXAMINATION, SURGICAL PROCEDURE, OR ANY OTHER EXPOSURE?NO LATEX RISK : HAVE YOU EVER HAD ANY DIFFICULTY BREATHING OR HIVES AFTER EATING OR HANDLING ANY FRUITS, OR VEGETABLES; SUCH KIWI, BANANAS, STONE FRUITS, OR CHESTNUTSNO LATEX RISK : DO YOU HAVE A PREVIOUS PERSONAL HISTORY OF MORE THAN NINE SURGERIES, SPINA BIFIDA, OR REPEATED CATHERIZATIONS? NO LATEX RISK : ARE YOU FREQUENTLY EXPOSED TO LATEX PRODUCTS IN YOUR OCCUPATION?NO DATE ASKED : 02/12/2019 CAFFEINE RECENT QUIT 11 DAYS AGO, USING A NICOTINE PATCH. ADVANCE DIRECTIVE ADVANCE DIRECTIVE DISCUSSED WITH PATIENT:YES PT HAS HCP -SON CHRISTOPHER PJ DRUZE NO ROMAN CATHOLIC BELIEFS THAT WOULD IMPACT HEALTH CARE. MARITAL STATUS: .. ALCOHOL SCREENING POINTS: 0, INTERPRETATION: NEGATIVE. OCCUPATION: RETIRED. SEXUAL HX HAD SEX IN THE LAST 12 MONTHS (VAGINAL, ORAL, OR ANAL)?: NO, HAVE YOU EVER HAD AN STD?: NO. PARTIALLY DISABLED DUE TO BACK.REVIEWED WITH PT 02/12/19 1145 BV. HOSPITALIZATION/MAJOR DIAGNOSTIC PROCEDURE SURGICALY RELATED REVIEW OF SYSTEMS REVIEWED BY: PROVIDER: ARELIS CAI MD . CONSTITUTIONAL: ANY CHANGE IN YOUR MEDICAL CONDITION? NO . CHILLS NO . FEVER NO . INFECTION: DO YOU HAVE NEW INFECTIONS? NO . DO YOU HAVE HISTORY OF MRSA? NO . MUSCULOSKELETAL: ANY NEW PATTERNS OF PAIN OR NUMBNESS? YES, PT STATES HE HAS HAD LOW BACK PAIN SINCE 1995, STATES HE ALSO HAS HAD PAIN IN LEFT HIP FOR THE PAST COUPLE YEARS . SYTEMIC LUPUS NO . GASTROENTEROLOGY: ANY NEW CHANGE IN BOWEL CONTROL? YES, PT HAS CROHNS DISEASE . BARRETTS ESOPHAGUS YES . CIRRHOSIS NO . HEPATITIS NO . LIVER FAILURE NO . ACID REFLUX YES . UNEXPLAINED WEIGHT LOSS NO . GENITOURINARY: ANY NEW CHANGE IN BLADDER CONTROL? PT HAS URINE OSTOMY . IS THERE A CHANCE YOU COULD BE ? NO . HEMATOLOGY/LYMPH: DO YOU TAKE ANY BLOOD THINNERS? (FOR EXAMPLE- COUMADIN, PLAVIX, AGGRENOX, PLATEL, PRADAXA, OR XARELTO) NO . WHEN WAS YOUR LAST DOSE? DATE: TIME: . LOW PLATELET COUNT NO . SICKLE CELL DISEASE NO . VON WILLIEBRANDS NO . FACTOR V LEIDEN NO . THALLASEMIA NO . ANEMIA NO . EASY BRUISING NO . NEUROLOGY: HAVE YOU FALLEN IN THE PAST 12 MONTHS? YES, PT STATES HE HAS HAD ABOUT 3 FALLS IN THE PAST YEAR, STATES WITH ONE FALL ABOUT A YEAR AGO, HE FELL OFF A LADDER AND HIT HIS HEAD, STATES HE LOST CONSCIOUSNESS, STATES PRIMARY DOCTOR IS AWARE. . ANY NEW EXTREMITY NUMBNESS OR WEAKNESS? NO . HEAD INJURY YES, WITH FALL OFF LADDER ABOUT 1 YEAR AGO, HIT BACK OF HEAD . DEMENTIA NO . CEREBRAL PALSY NO . MULTIPLE SCLEROSIS NO . DIZZINESS NO . HEADACHE NO . STROKES NO . VERTIGO NO . CARDIOLOGY: DO YOU HAVE A PACEMAKER OR DEFIBRILLATOR? NO . ANGINA NO . HEART ATTACK NO . HEART SURGERY NO . CONGESTIVE HEART FAILURE/FLUID OVERLOAD NO . CHEST PAIN NO . HIGH BLOOD PRESSURE ON MEDICATION(S) . IRREGULAR HEART BEAT NO . RESPIRATORY: HAVE YOU BEEN SICK IN THE PAST WEEK? NO . FEVER NO . FLU LIKE SYMPTOMS? NO . CPAP NO . BYPAP NO . ASTHMA NO . EMPHYSEMA NO . CHRONIC LUNG DISEASES NO . SHORTNESS OF BREATH ON EXERTION NO . COUGH NO . SNORING NO . INTEGUMENTARY: DO YOU HAVE ANY RASHES OR OPEN SORES? NO . ALLERGIC/IMMUNO: ARE YOU ALLERGIC TO IV DYE? YES . ANY NEW ALLERGIES? NO . PSYCHIATRIC: DO YOU HAVE THOUGHTS OF HURTING YOURSELF OR SOMEONE ELSE? NO . ARE YOU ABUSED, NEGLECTED, OR IN AN UNSAFE ENVIRONMENT? NO . ENDOCRINOLOGY: ARE YOU DIABETIC? YES . THYROID DISORDER NO . OTHER: DO YOU NEED ANY PRESCRIPTIONS? NO . IF YES, PLEASE LIST: ____ . ANY NEW PROBLEMS WITH YOUR MEDICATIONS? NO . WHEN DID YOU LAST EAT? ____ . WHEN DID YOU LAST DRINK? ____ . WHAT DID YOU LAST DRINK? ____ . NAME OF PERSON DRIVING YOU HOME? ____ . DO YOU HAVE ANY OTHER QUESTIONS OR CONCERNS NO . VITAL SIGNS WT 174.4 LBS, HT 69 IN, BMI 25.75 INDEX, BP 134/66 MM HG, HR 91 /MIN, RR 18 /MIN, TEMP 97.3 F, OXYGEN SAT % 98%, NA INITIALS AW 1130, REVIEWED BY: BV. EXAMINATION GENERAL EXAMINATION: PATIENT IS ALERT O X 3 AND COOPERATIVE. LUNGS CLEAR, TO AUSCULTATION. HEART: NO MURMURS OR GALLOPS; FACIAL CRANIAL NERVES ARE GROSSLY NORMAL. GOOD SYMMETRY OF FACIAL MUSCLE MOVEMENT. NORMAL VISUAL GONZALEZ. ANTALGIC WALK. TENDERNESS OVER THE PARASPINAL MUSCLE GROUP OF THE LOW BACK. PRESENCE OF BANDS OF TISSUE AND TRIGGER POINTS WITH RESTRICTION OF MOVEMENT OF THE LOW BACK. LEFT LEG IS WEAKER AT EXTENSION AND FLEXION. TENDERNESS OVER THE LEFT HIP NEAR THE GREATER TROCH OF FEMUR. ASSESSMENTS LOW BACK PAIN - M54.5 (PRIMARY) OTHER CHRONIC PAIN - G89.29 MYALGIA, OTHER SITE - M79.18 INTERVERTEBRAL DISC DISORDERS WITH RADICULOPATHY, LUMBAR REGION - M51.16 GREATER TROCHANTERIC BURSITIS OF RIGHT HIP - M70.61 TREATMENT LOW BACK PAIN [facility] MRI LUMBAR W/O CONTRAST (CPT 31361) (ORDER CANCELLED)[id number] FOR CLEARANCES FOR CONTRAST CLINICAL NOTES: WE DISCUSSED SEVERAL ISSUES WITH MR. OLIVA'S PAIN MANAGEMENT CASE. I WOULD LIKE TO ORDER A LUMBAR AND LEFT HIP MRI WITH AND WITHOUT CONTRAST. HOWEVER, BEFORE THE PATIENT HAS THE MRI'S DONE I WILL REQUEST FOR A CLEARANCE FROM THE PATIENT'S PRIMARY CARE PROVIDER FOR THE PATIENT TO HAVE CONTRAST DUE TO THE HISTORY OF CYSTECTOMY. I WILL ALSO REQUEST FOR A CLEARANCE FROM THE PATIENT'S PRIMARY CARE PROVIDER FOR THE PATIENT TO HAVE STEROID SPINE INJECTIONS DONE IN THE FUTURE. DUE TO THE TRIGGER POINTS, BANDS OF TISSUE, AND RESTRICTION OF MOVEMENT, I WOULD LIKE TO MOVE FORWARD WITH A LOW BACK TRIGGER POINT INJECTION AT THIS TIME. WE DISCUSSED THE BENEFITS, RISKS, AND ALTERNATIVES OF THE INJECTION AND THE PATIENT WOULD LIKE TO PROCEED. I AM LOOKING FOR LONG LASTING PAIN RELIEF FROM THIS INJECTION FOR THE PATIENT. THE PATIENT WILL FOLLOW UP WITH THE NURSE PRACTITIONER IN SEVERAL WEEKS AFTER HIS TRIGGER POINT INJECTION TO SEE HOW IT IS HELPING WITH HIS PAIN AND WILL ALSO FOLLOW UP TO REVIEW HIS MRI RESULTS ONCE THEY ARE DONE. INSTRUCTIONS WERE GIVEN, QUESTIONS WERE ANSWERED, PATIENT REPORTS UNDERSTANDING AND AGREES WITH THE PLAN. I, HOMERO PRIDE, DOCUMENTED THE ABOVE INFORMATION ACTING A SCRIBE FOR DR. CAI. I HAVE REVIEWED THE ABOVE DOCUMENT, WRITTEN BY HOMERO HENSONIBMaicol AND I VERIFY THAT IT IS ACCURATE. DEAR ALEXANDER DOVER MD: THANK YOU FOR YOUR KIND REFERRAL OF JOVITA OLIVA. IF YOU WANT TO DISCUSS HIS CASE WITH ME PLEASE CALL ME AT THE PAIN CENTER AT [phone]. SINCERELY, ARELIS CAI MD PAIN MEDICINE . OTHER CHRONIC PAIN [facility] MRI LUMBAR W/O CONTRAST (CPT 52879) (ORDER CANCELLED)[id number] FOR CLEARANCES FOR CONTRAST PREVENTIVE MEDICINE PAIN CLINIC TEACHING: PROCEDURE TEACHING PT GIVEN WRITTEN AND VERBAL EDUCATION ON TRIGGER POINT INJECTIONS. PT ALSO GIVEN WRITTEN AND VERBAL PRE PROCEDURE INSTRUCTIONS. PT VERBALIZED UNDERSTANDING OF ALL EDUCATION AND INSTRUCTIONS. LUIS HASTINGS 02/12/2019 1:16:41 PM > . PROCEDURE CODES FA211 ESTABILISHED PATIENT [facility] FACILITY CHARGE G8427 CURRENT MEDS W/DOSAGES DOCUMENTED G8730 PAIN ASSESS POS TOOL F/U PLAN DOC DISPOSITION & COMMUNICATION FOLLOW UP REASON: TPI AND F/UP WITH DISPUTE COORDINATOR AFTER TPI, REQUESTING CLEARANCES FOR LS AND LT HIP MRI'S AFTER RECEIVE CLEARANCES ELECTRONICALLY SIGNED BY ARELIS CAI MD, MD ON 03/01/2019 AT 05:34 PM EST DISCLAIMER : THIS IS A VISIT SUMMARY EXTRACTED FROM THE [employer] CHART. IT IS NOT A COPY OF THE [employer] PROGRESS NOTE. RIP
== END ==
LOC: M PAIN 11:30
PROVIDERS: ATTEND Anesthesiology
DX: M54.5 Low back pain (principal); G89.29 Other chronic pain; M79.18 Myalgia, other site; M51.16 Intervertebral disc disorders with radiculopathy, lumbar region; M70.61 Trochanteric bursitis, right hip; I10 Essential (primary) hypertension; Z86.59 Personal history of other mental and behavioral disorders; E78.5 Hyperlipidemia, unspecified; E11.9 Type 2 diabetes mellitus without complications; K21.9 Gastro-esophageal reflux disease without esophagitis; F17.210 Nicotine dependence, cigarettes, uncomplicated; Z88.3 Allergy status to other anti-infective agents; Z88.8 Allergy status to other drugs, medicaments and biological substances; Z91.013 Allergy to seafood; Z79.84 Long term (current) use of oral hypoglycemic drugs; Z79.899 Other long term (current) drug therapy

== ENCOUNTER → 2019-02-25 | Outpatient (CLI) | payer MEDICARE, MEDICAID ==
--- NOTE | 2019-02-25 13:40 | REP ---
CT brain: 02/25/2019. Indication: Head trauma. Comparison: None. Technique: Unenhanced axial CT images of the brain were obtained from skull base to vertex. Findings: There is no acute intracranial hemorrhage, acute cortical infarction, mass effect or hydrocephalous. New no acute calvarial fracture is present. Impression: No acute intracranial process. Electronically Signed by Antonio Arambula DO 02/25/2019 01:32 P
== END ==
LOC: M RAD 13:10
PROVIDERS: ATTEND Physician Assistant
DX: S05.10XA Contusion of eyeball and orbital tissues, unspecified eye, initial encounter (principal); X58.XXXA Exposure to other specified factors, initial encounter; Y92.9 Unspecified place or not applicable

== ENCOUNTER → 2019-03-29 | Outpatient (CLI) | payer MEDICARE, MEDICAID ==
[~2019-03-29] MED LIST changes: +BUPIVACAINE HCL 0.25% 10 ML VIAL As Ordered ONE; +BUPIVACAINE HCL 0.25% 30 ML VIAL As Ordered ONE
--- NOTE | 2019-03-31 02:27 | ECWPNPC ---
PATIENT NAME: JOVITA OLIVA : 1950 GENDER: MALE VISIT DATE: 03/29/2019 DISCHARGE DATE: 03/29/19 161 VISIT LOCKED DATE TIME: PHYSICIAN: ARELIS CAI MD RESOURCE: ARELIS CAI MD REASON FOR APPOINTMENT 1. TPI HISTORY OF PRESENT ILLNESS HISTORY OF PRESENT ILLNESS: PAIN THE PATIENT DESCRIBES THE PAIN... FALL RISK SCREENING: SCREENING :NO FALLS REPORTED IN THE LAST YEAR CURRENT MEDICATIONS TAKING METFORMIN HCL 500 MG TABLET 1 TABLET WITH A MEAL ORALLY BID, NOTES: 03/29/19 0600 TAKING OMEPRAZOLE 40 MG CAPSULE DELAYED RELEASE 1 CAPSULE 30 MINUTES BEFORE MORNING MEAL ORALLY ONCE A DAY, NOTES: NONE LATELY TAKING ATORVASTATIN CALCIUM 20 MG TABLET 1 TABLET ORALLY ONCE A DAY, NOTES: 03/29/19 06 TAKING DEXTROAMPHETAMINE SULFATE 10 MG TABLET 1 TABLET IN THE MORNING ORALLY ONCE A DAY, NOTES: 03/29/19 AM TAKING LOSARTAN POTASSIUM 50 MG TABLET 1 TABLET ORALLY ONCE A DAY, NOTES: 03/29/19 AM TAKING ALPRAZOLAM 2 MG TABLET 1 TABLET ORALLY UP TO 3 TIMES A DAY, NOTES: 03/29/19 AM TAKING BUPROPION HCL 100 MG TABLET 1 TABLET ORALLY DAILY, NOTES: 03/29/19 AM TAKING VENLAFAXINE HCL 75 MG TABLET 1 TABLET WITH FOOD ORALLY ONCE A DAY, NOTES: 03/29/19 TAKING ENTYVIO 300 MG SOLUTION RECONSTITUTED DIRECTED INTRAVENOUS INFUSION EVERY 60 DAYS, NOTES: FEBRUARY TAKING ALEVE 220 MG TABLET 1 TABLET WITH FOOD OR MILK NEEDED ORALLY EVERY 12 HRS, NOTES: NONE LATELY NOT-TAKING LEEROY BCG 50 MG SUSPENSION RECONSTITUTED DIRECTED INTRAVESICAL 1 INSTILLATION PER WK X 6 WKS MEDICATION LIST REVIEWED AND RECONCILED WITH THE PATIENT PAST MEDICAL HISTORY HTN DEPRESSION/ANXIETY HYPERLIPIDEMIA S/P DISC REPAIR-LUMBAR 1995 DM GERD/BARRETTS BRONCHITIS CROHN'S DISEASE FX LEFT SHOULDER-01/30 ALLERGIES CELEBREX: RASH - ALLERGY SHELL FISH: RASH, SWELLING - ALLERGY CHANTIX: RASH, STOMACH UPSET - ALLERGY IODINE: RASH SURGICAL HISTORY ABSCESS DRAINAGE 12/25/2010 COLONOSCOPY/ENDOSCOPY 05/16/2011 LOWER BACK SURGERY 07/1995, 10/2007, 10/2013 RIGHT KNEE TORN MENISCUS REPAIR 07/2012 GALLBLADDER REMOVED 09/2016 BLADDER SURGERY 02/20/2017 FAMILY HISTORY FATHER: , HEART MOTHER: , CHF SIBLINGS: ALIVE, BROTHER 68 YEARS WITH ENLARGED HEART., DIAGNOSED WITH UNSPECIFIED HEART DISEASE SON(S): ALIVE 1 SISTER(S) . 1 SON(S) . NO KNOWN FAMILY HISTORY OF ANY UROLOGICALLY RELATED DISEASES/CANCERS. SOCIAL HISTORY GENERAL: TOBACCO USE ARE YOU A:CURRENT SOME DAY SMOKER SMOKING CESSATION INFORMATION GIVEN03/19/2019 DIET: REGULAR. DOMESTIC VIOLENCE NONE. RECREATIONAL DRUG USE DENIES. EXERCISE: DAILY. LEARNING BARRIERS / SPECIAL NEEDS BARRIERS TO LEARNING?NO HEARING IMPAIRED?YES VISION IMPAIRED?YES COGNITIVELY IMPAIRED?NO :CORRECTIVE LENSES READINESS TO LEARN?YES LEARNING PREFERENCES?NO LEARNING CAPABILITIES PRESENT?YES EMOTIONAL BARRIERS?NO SPECIAL DEVICES?NO MEAT PROCESSOR NEEDED?NO PAIN CLINIC PFS, CLERGY, PUBLIC HEALTH REFERRALS HAS THE PATIENT BEEN EDUCATED REGARDING HIS/HER PLAN OF CARE?YES HAS THE PATIENT BEEN EDUCATED REGARDING PAIN, THE RISK FOR PAIN, THE IMPORTANCE OF EFFECTIVE PAIN MANAGEMENT, AND THE PAIN ASSESSMENT PROCESS?YES LATEX QUESTIONNAIRE LATEX ALLERGY : HAVE YOU EVER DEVELOPED ANY TYPE OF REACTION AFTER HANDLING LATEX PRODUCTS SUCH RUBBER GLOVES, CONDOMS, DIAPHRAGMS, BALLOONS, SOCKS, OR UNDERWEAR?NO LATEX ALLERGY : HAVE YOU EVER DEVELOPED ANY TYPE OF REACTION DURING OR AFTER DENTAL APPOINTMENT, VAGINAL/RECTAL EXAMINATION, SURGICAL PROCEDURE, OR ANY OTHER EXPOSURE?NO LATEX RISK : HAVE YOU EVER HAD ANY DIFFICULTY BREATHING OR HIVES AFTER EATING OR HANDLING ANY FRUITS, OR VEGETABLES; SUCH KIWI, BANANAS, STONE FRUITS, OR CHESTNUTSNO LATEX RISK : DO YOU HAVE A PREVIOUS PERSONAL HISTORY OF MORE THAN NINE SURGERIES, SPINA BIFIDA, OR REPEATED CATHERIZATIONS? NO LATEX RISK : ARE YOU FREQUENTLY EXPOSED TO LATEX PRODUCTS IN YOUR OCCUPATION?NO DATE ASKED : 03/19/2019 CAFFEINE RECENT QUIT 11 DAYS AGO, USING A NICOTINE PATCH. ADVANCE DIRECTIVE ADVANCE DIRECTIVE DISCUSSED WITH PATIENT:YES PT HAS HCP -SON JAMSHID OLIVA ZOROASTRIANISM NO TEMPLE BELIEFS THAT WOULD IMPACT HEALTH CARE. MARITAL STATUS: .. ALCOHOL SCREENING POINTS: 0, INTERPRETATION: NEGATIVE. OCCUPATION: RETIRED. SEXUAL HX HAD SEX IN THE LAST 12 MONTHS (VAGINAL, ORAL, OR ANAL)?: NO, HAVE YOU EVER HAD AN STD?: NO. PARTIALLY DISABLED DUE TO BACK.REVIEWED WITH PT 02/12/19 1145 BVPRE PROCEDURE SCREENING DONE 03/19/19 EM 03/29/19 REVIEWED WITH PT. AD. HOSPITALIZATION/MAJOR DIAGNOSTIC PROCEDURE SURGICALY RELATED REVIEW OF SYSTEMS REVIEWED BY: PROVIDER: . CONSTITUTIONAL: ANY CHANGE IN YOUR MEDICAL CONDITION? NO . CHILLS NO . FEVER NO . INFECTION: DO YOU HAVE NEW INFECTIONS? NO . DO YOU HAVE HISTORY OF MRSA? NO . MUSCULOSKELETAL: ANY NEW PATTERNS OF PAIN OR NUMBNESS? NO . GASTROENTEROLOGY: ANY NEW CHANGE IN BOWEL CONTROL? NO . GENITOURINARY: ANY NEW CHANGE IN BLADDER CONTROL? NO . IS THERE A CHANCE YOU COULD BE ? NO . HEMATOLOGY/LYMPH: DO YOU TAKE ANY BLOOD THINNERS? (FOR EXAMPLE- COUMADIN, PLAVIX, AGGRENOX, PLATEL, PRADAXA, OR XARELTO) NO . WHEN WAS YOUR LAST DOSE? DATE: TIME: . NEUROLOGY: HAVE YOU FALLEN IN THE PAST 12 MONTHS? YES, FELL OFF LADDER, FELL WHEN GETTING OUT OF A BOAT. NO MAJOR INJURIES. . ANY NEW EXTREMITY NUMBNESS OR WEAKNESS? NO, HANDS ACHE AND LEFT LEG WEAKNESS GETTING WORSE OVER THE PAST YEAR . CARDIOLOGY: DO YOU HAVE A PACEMAKER OR DEFIBRILLATOR? NO . RESPIRATORY: HAVE YOU BEEN SICK IN THE PAST WEEK? NO . FEVER NO . FLU LIKE SYMPTOMS? NO . COUGH NO . INTEGUMENTARY: DO YOU HAVE ANY RASHES OR OPEN SORES? NO . ALLERGIC/IMMUNO: ARE YOU ALLERGIC TO IV DYE? NO . ANY NEW ALLERGIES? NO . PSYCHIATRIC: DO YOU HAVE THOUGHTS OF HURTING YOURSELF OR SOMEONE ELSE? NO . ARE YOU ABUSED, NEGLECTED, OR IN AN UNSAFE ENVIRONMENT? NO . ENDOCRINOLOGY: ARE YOU DIABETIC? YES, FSBS AT 0700 WAS 123 . OTHER: DO YOU NEED ANY PRESCRIPTIONS? NO . IF YES, PLEASE LIST: ____ . ANY NEW PROBLEMS WITH YOUR MEDICATIONS? NO . WHEN DID YOU LAST EAT? 03/28 2000 . WHEN DID YOU LAST DRINK? 03/29 1100 . WHAT DID YOU LAST DRINK? WATER . NAME OF PERSON DRIVING YOU HOME? RONNIE NAVARRO . DO YOU HAVE ANY OTHER QUESTIONS OR CONCERNS NO I TOOK MY METFORMIN OUT OF HABIT. HAD FLU SHOT 01/30 . VITAL SIGNS WT 168.2 LBS, HT 69 IN, BMI 24.84 INDEX, BP 124/69 MM HG, HR 107 /MIN, RR 18 /MIN, TEMP 96.7 F, OXYGEN SAT % 98%, NA INITIALS SC 13:53, REVIEWED BY: AD. ASSESSMENTS MYALGIA, OTHER SITE - M79.18 (PRIMARY) PROCEDURES PN TRIGGER POINT INJECTION NO STEROIDS DATE OF PROCEDURE : PRE PROCEDURE DIAGNOSIS 1. MYALGIA 2. PAIN AT BILATERAL LOW BACK AREA. POST PROCEDURE DIAGNOSIS 1. MYALGIA 2. PAIN AT BILATERAL LOW BACK AREA. PROCEDURE TRIGGER POINT INJECTION AT RIGHT AND LEFT LOW BACK AREA. SURGEON DR. ARELIS CAI FLARER NONE ANESTHESIA LOCAL PRE PROCEDURE NOTE 68 YEAR-OLD PATIENT WITH HISTORY OF CHRONIC PAIN AT RIGHT AND LEFT LOW BACK AREA. I EVALUATED THE PATIENT AND REVIEWED THE CHART. THERE IS EVIDENCE OF BANDS OF TISSUE WITH RESTRICTION OF MOVEMENT AND PRESENCE OF TRIGGER POINT AT THE AFFECTED AREA. I WENT OVER THE RISKS, ALTERNATIVES, AND BENEFITS ASSOCIATED WITH THIS PROCEDURE. THE PATIENT WOULD LIKE TO PROCEED AND GAVE CONSENT TO PERFORM THE PROCEDURE. THE PATIENT DENIES UNEXPLAINABLE WEIGHT LOSS, FEVER, CHILLS, OR NEW CHANGES IN URINARY OR BOWEL CONTROL. DESCRIPTION OF PROCEDURE THE PATIENT WAS BROUGHT TO THE PROCEDURE ROOM AND PLACED IN THE SITTING POSITION. THE AREA WAS CLEANED WITH ALCOHOL. THE PROCEDURE WAS DONE USING ASEPTIC STERILE TECHNIQUES. I CHECKED LATERALITY AND THE LEVEL WHERE THE PROCEDURE WAS GOING TO BE PERFORMED WITH THE PATIENT AND THE SUPPORTING STAFF AT THE MOMENT OF THE TIME OUT IN THE PROCEDURE ROOM. USING A 25-GAUGE NEEDLE, TRIGGER POINTS WERE INJECTED AT THE RIGHT AND LEFT LOW BACK AREA WITH A TOTAL OF 40 ML OF BUPIVACAINE 0.25%. AGREED WITH THE PATIENT THE PROCEDURE WAS DONE WITHOUT STEROIDS. THERE WAS NO EVIDENCE OF BLOOD, PARESTHESIA OR CEREBROSPINAL FLUID DURING THE PROCEDURE. THE PATIENT WAS SENT TO THE RECOVERY ROOM. THE PATIENT WAS MOVING THE EXTREMITIES AND DOING WELL. THERE WAS NO COMPLICATION DURING THE PROCEDURE. POST PROCEDURE NOTE I AM LOOKING FOR LONG LASTING PAIN RELIEF WITH THIS INJECTION. THE PATIENT WILL BE SEEN IN A FOLLOW UP IN THE NEXT FEW WEEKS. INSTRUCTIONS WERE GIVEN, QUESTIONS WERE ANSWERED, AND THE PATIENT EXPRESSED UNDERSTANDING AND AGREED WITH THE PLAN. I, HOMERO PRIDE, DOCUMENTED THE ABOVE INFORMATION ACTING A SCRIBE FOR DR. CAI. I HAVE REVIEWED THE ABOVE DOCUMENT, WRITTEN BY HOMERO SANTIAGO AND I VERIFY THAT IT IS ACCURATE. PROCEDURE CODES 35899 INJ TRIGGER POINT / [facility] [place] COMMUNICATION FOLLOW UP 3 WEEKS ELECTRONICALLY SIGNED BY ARELIS CAI MD, MD ON 03/30/2019 AT 05:17 PM EST DISCLAIMER : THIS IS A VISIT SUMMARY EXTRACTED FROM THE [employer] CHART. IT IS NOT A COPY OF THE [employer] PROGRESS NOTE. MTDD
== END ==
LOC: M PAIN 13:45
PROVIDERS: ATTEND Anesthesiology
DX: M79.18 Myalgia, other site (principal); I10 Essential (primary) hypertension; Z86.59 Personal history of other mental and behavioral disorders; E78.5 Hyperlipidemia, unspecified; E11.9 Type 2 diabetes mellitus without complications; K21.9 Gastro-esophageal reflux disease without esophagitis; F17.210 Nicotine dependence, cigarettes, uncomplicated; Z88.3 Allergy status to other anti-infective agents; Z88.8 Allergy status to other drugs, medicaments and biological substances; Z91.013 Allergy to seafood; Z79.84 Long term (current) use of oral hypoglycemic drugs; Z79.899 Other long term (current) drug therapy

== ENCOUNTER 2019-04-20 07:47 | Outpatient (CLI) | payer MEDICARE, MEDICAID ==
[~2019-04-20] VITALS: Ht 175.3 cm; Wt 83.9 kg
[~2019-04-20 07:47] MED LIST changes: -BUPIVACAINE HCL 0.25% 10 ML VIAL As Ordered ONE; -BUPIVACAINE HCL 0.25% 30 ML VIAL As Ordered ONE
[2019-04-20 07:57] VITALS: BP 149/67
[2019-04-20] MEDS ORDERED: VEDOLIZUMAB IV ONE (08:00)
[2019-04-20] MEDS ORDERED: NS IV ONE (08:00)
[2019-04-20 09:30] VITALS: BP 125/68
== END 2019-04-20 10:00 | disposition home or self-care (01) ==
LOC: M INFU 07:47
PROVIDERS: ATTEND Internal Medicine Gastroenterology
DX: K50.90 Crohn's disease, unspecified, without complications (principal); Z88.1 Allergy status to other antibiotic agents; Z91.013 Allergy to seafood; Z88.6 Allergy status to analgesic agent; Z88.8 Allergy status to other drugs, medicaments and biological substances
CPT/HCPCS: 96365; J3380

== ENCOUNTER → 2019-05-03 | Outpatient (CLI) | payer MEDICARE, MEDICAID ==
[~2019-05-03] MED LIST changes: -PARO12.5 PO; +PARO12.510 PO
--- NOTE | 2019-05-19 04:38 | ECWPNPC ---
PATIENT NAME: JOVITA OLIVA : 1950 GENDER: MALE VISIT DATE: 05/03/2019 DISCHARGE DATE: 05/03/19 1225 VISIT LOCKED DATE TIME: PHYSICIAN: YANY RESENDEZ RESOURCE: YANY RESENDEZ REASON FOR APPOINTMENT 1. POST TPI HISTORY OF PRESENT ILLNESS HISTORY OF PRESENT ILLNESS: HERE FOR POST PROCEDURE FOLLOW-UP. HAD TRIGGER POINT INJECTIONS, BILATERAL LOWER BACK ON 03/29/2019. REPORTING IMPROVEMENT IN HIS LOW BACK PAIN THAT CONTINUES TODAY. RATING PAIN LEVEL A 0/10 IN HIS LOWER BACK. HE SUFFERS FROM PERSISTENT LEFT HIP PAIN. THIS HAS BEEN THERE FOR A FEW YEARS BUT SEEMS TO BE GETTING WORSE OVER THE PAST 6 MONTHS. DENIES PRECIPITATING EVENT. . HE IS UNABLE TO TOLERATE GOING TO THE GYM DUE TO LEFT HIP PAIN . DESCRIBES LEFT HIP PAIN SHARP AND SORE. PAIN THE PATIENT DESCRIBES THE PAIN... FALL RISK SCREENING: SCREENING :NO FALLS REPORTED IN THE LAST YEAR CURRENT MEDICATIONS TAKING METFORMIN HCL 500 MG TABLET 1 TABLET WITH A MEAL ORALLY BID TAKING OMEPRAZOLE 40 MG CAPSULE DELAYED RELEASE 1 CAPSULE 30 MINUTES BEFORE MORNING MEAL ORALLY ONCE A DAY TAKING ATORVASTATIN CALCIUM 20 MG TABLET 1 TABLET ORALLY ONCE A DAY TAKING DEXTROAMPHETAMINE SULFATE 10 MG TABLET 1 TABLET IN THE MORNING ORALLY ONCE A DAY TAKING LOSARTAN POTASSIUM 50 MG TABLET 1 TABLET ORALLY ONCE A DAY TAKING ALPRAZOLAM 2 MG TABLET 1 TABLET ORALLY UP TO 3 TIMES A DAY TAKING BUPROPION HCL 100 MG TABLET 1 TABLET ORALLY DAILY TAKING VENLAFAXINE HCL 75 MG TABLET 1 TABLET WITH FOOD ORALLY ONCE A DAY TAKING ENTYVIO 300 MG SOLUTION RECONSTITUTED DIRECTED INTRAVENOUS INFUSION EVERY 60 DAYS TAKING ALEVE 220 MG TABLET 1 TABLET WITH FOOD OR MILK NEEDED ORALLY EVERY 12 HRS TAKING ASPIRIN 81 81 MG TABLET DELAYED RELEASE 1 TABLET ORALLY ONCE A DAY NOT-TAKING LEEROY BCG 50 MG SUSPENSION RECONSTITUTED DIRECTED INTRAVESICAL 1 INSTILLATION PER WK X 6 WKS MEDICATION LIST REVIEWED AND RECONCILED WITH THE PATIENT PAST MEDICAL HISTORY HTN DEPRESSION/ANXIETY HYPERLIPIDEMIA S/P DISC REPAIR-LUMBAR 1995 DM GERD/BARRETTS BRONCHITIS CROHN'S DISEASE FX LEFT SHOULDER-01/30 ALLERGIES CELEBREX: RASH - ALLERGY SHELL FISH: RASH, SWELLING - ALLERGY CHANTIX: RASH, STOMACH UPSET - ALLERGY IODINE: RASH SURGICAL HISTORY ABSCESS DRAINAGE 12/25/2010 COLONOSCOPY/ENDOSCOPY 05/16/2011 LOWER BACK SURGERY 07/1995, 10/2007, 10/2013 RIGHT KNEE TORN MENISCUS REPAIR 07/2012 GALLBLADDER REMOVED 09/2016 BLADDER SURGERY 02/20/2017 FAMILY HISTORY FATHER: , HEART MOTHER: , CHF SIBLINGS: ALIVE, BROTHER 68 YEARS WITH ENLARGED HEART., DIAGNOSED WITH UNSPECIFIED HEART DISEASE SON(S): ALIVE 1 SISTER(S) . 1 SON(S) . NO KNOWN FAMILY HISTORY OF ANY UROLOGICALLY RELATED DISEASES/CANCERS. SOCIAL HISTORY GENERAL: TOBACCO USE ARE YOU A:CURRENT SOME DAY SMOKER SMOKING CESSATION INFORMATION GIVEN03/19/2019 DIET: REGULAR. DOMESTIC VIOLENCE NONE. RECREATIONAL DRUG USE DRUG USE?NO EXERCISE: DAILY. LEARNING BARRIERS / SPECIAL NEEDS BARRIERS TO LEARNING?NO HEARING IMPAIRED?YES VISION IMPAIRED?YES COGNITIVELY IMPAIRED?NO :CORRECTIVE LENSES READINESS TO LEARN?YES LEARNING PREFERENCES?NO LEARNING CAPABILITIES PRESENT?YES EMOTIONAL BARRIERS?NO SPECIAL DEVICES?NO SPICE ROOM WORKER NEEDED?NO PAIN CLINIC PFS, CLERGY, PUBLIC HEALTH REFERRALS HAS THE PATIENT BEEN EDUCATED REGARDING HIS/HER PLAN OF CARE?YES HAS THE PATIENT BEEN EDUCATED REGARDING PAIN, THE RISK FOR PAIN, THE IMPORTANCE OF EFFECTIVE PAIN MANAGEMENT, AND THE PAIN ASSESSMENT PROCESS?YES LATEX QUESTIONNAIRE LATEX ALLERGY : HAVE YOU EVER DEVELOPED ANY TYPE OF REACTION AFTER HANDLING LATEX PRODUCTS SUCH RUBBER GLOVES, CONDOMS, DIAPHRAGMS, BALLOONS, SOCKS, OR UNDERWEAR?NO LATEX ALLERGY : HAVE YOU EVER DEVELOPED ANY TYPE OF REACTION DURING OR AFTER DENTAL APPOINTMENT, VAGINAL/RECTAL EXAMINATION, SURGICAL PROCEDURE, OR ANY OTHER EXPOSURE?NO LATEX RISK : HAVE YOU EVER HAD ANY DIFFICULTY BREATHING OR HIVES AFTER EATING OR HANDLING ANY FRUITS, OR VEGETABLES; SUCH KIWI, BANANAS, STONE FRUITS, OR CHESTNUTSNO LATEX RISK : DO YOU HAVE A PREVIOUS PERSONAL HISTORY OF MORE THAN NINE SURGERIES, SPINA BIFIDA, OR REPEATED CATHERIZATIONS? NO LATEX RISK : ARE YOU FREQUENTLY EXPOSED TO LATEX PRODUCTS IN YOUR OCCUPATION?NO DATE ASKED : 03/19/2019 CAFFEINE CAFFEINE USE?YES ADVANCE DIRECTIVE ADVANCE DIRECTIVE DISCUSSED WITH PATIENT:YES PT HAS HCP -SON JAMSHID OLIVA CATHOLIC NO MORMONISM BELIEFS THAT WOULD IMPACT HEALTH CARE. MARITAL STATUS: .. ALCOHOL SCREENING POINTS: 0, INTERPRETATION: NEGATIVE. OCCUPATION: RETIRED. SEXUAL HX HAD SEX IN THE LAST 12 MONTHS (VAGINAL, ORAL, OR ANAL)?: NO, HAVE YOU EVER HAD AN STD?: NO. PARTIALLY DISABLED DUE TO BACK.REVIEWED WITH PT 02/12/19 1145 BVPRE PROCEDURE SCREENING DONE 03/19/19 EM 03/29/19 REVIEWED WITH PT. IRVIN WITH PATIENT 05/03/2019 1158 JS. HOSPITALIZATION/MAJOR DIAGNOSTIC PROCEDURE SURGICALY RELATED REVIEW OF SYSTEMS REVIEWED BY: PROVIDER: YANY VALLE . CONSTITUTIONAL: ANY CHANGE IN YOUR MEDICAL CONDITION? NO . CHILLS NO . FEVER NO . INFECTION: DO YOU HAVE NEW INFECTIONS? NO . DO YOU HAVE HISTORY OF MRSA? NO . MUSCULOSKELETAL: ANY NEW PATTERNS OF PAIN OR NUMBNESS? YES, STATES PAIN HAS GOTTEN BETTER SINCE INJECTION - PAIN PRESENT IN THE MORNING BUT GOES AWAY AFTER AN HOUR OR TWO . GASTROENTEROLOGY: ANY NEW CHANGE IN BOWEL CONTROL? NO . GENITOURINARY: ANY NEW CHANGE IN BLADDER CONTROL? NO . IS THERE A CHANCE YOU COULD BE ? NO . HEMATOLOGY/LYMPH: DO YOU TAKE ANY BLOOD THINNERS? (FOR EXAMPLE- COUMADIN, PLAVIX, AGGRENOX, PLATEL, PRADAXA, OR XARELTO) NO . WHEN WAS YOUR LAST DOSE? DATE: TIME: . NEUROLOGY: HAVE YOU FALLEN IN THE PAST 12 MONTHS? YES, STATES PRIOR TO LAST VISIT, DISCUSSED AT PREVIOUS VISIT . ANY NEW EXTREMITY NUMBNESS OR WEAKNESS? NO . CARDIOLOGY: DO YOU HAVE A PACEMAKER OR DEFIBRILLATOR? NO . RESPIRATORY: HAVE YOU BEEN SICK IN THE PAST WEEK? NO . FEVER NO . FLU LIKE SYMPTOMS? NO . COUGH NO . INTEGUMENTARY: DO YOU HAVE ANY RASHES OR OPEN SORES? NO . ALLERGIC/IMMUNO: ARE YOU ALLERGIC TO IV DYE? NO . ANY NEW ALLERGIES? NO . PSYCHIATRIC: DO YOU HAVE THOUGHTS OF HURTING YOURSELF OR SOMEONE ELSE? NO . ARE YOU ABUSED, NEGLECTED, OR IN AN UNSAFE ENVIRONMENT? NO . ENDOCRINOLOGY: ARE YOU DIABETIC? YES . OTHER: DO YOU NEED ANY PRESCRIPTIONS? NO . IF YES, PLEASE LIST: ____ . ANY NEW PROBLEMS WITH YOUR MEDICATIONS? NO . WHEN DID YOU LAST EAT? ____ . WHEN DID YOU LAST DRINK? ____ . WHAT DID YOU LAST DRINK? ____ . NAME OF PERSON DRIVING YOU HOME? ____ . DO YOU HAVE ANY OTHER QUESTIONS OR CONCERNS YES - STATES CONTINUED PAIN IN HIP AND PAINFUL WHEN HE WALKS . VITAL SIGNS WT 171.0 LBS, HT 69 IN, BMI 25.25 INDEX, BP 143/75 MM HG, HR 93 /MIN, RR 16 /MIN, TEMP 97.1 F, OXYGEN SAT % 98%, SAFE IN ENV? (Y/N) YES, REVIEWED BY: ZULEMA. EXAMINATION GENERAL EXAMINATION: GENERAL AWAKE,ALERT , PLEASANT. PSYCH AFFECT NORMAL . LUNGS: LUNG GONZALEZ ARE CLEAR TO AUSCULTATION BILATERALLY. GOOD MOVEMENT OF AIR . HEART: S1, S2 IN A REGULAR RATE AND RHYTHM. NO SIGNIFICANT MURMURS, RUBS OR GALLOPS NOTED . MUSCULOSKELETAL:TENDERNESS WITH PALPATION OVER LEFT HIP . ASSESSMENTS PAIN IN LEFT HIP - M25.552 (PRIMARY) TREATMENT PAIN IN LEFT HIP [facility] MRI HIP WITHOUT [id number] NOTES: WE WILL NEED AN MRI OF THE LEFT HIP TO ASSIST IN DETERMINING PATHOLOGY OF PAIN AND TO DEVELOP A TREATMENT PLAN/INJECTION THERAPY. PROCEDURE CODES FA211 ESTABILISHED PATIENT [facility] CHARGE DISPOSITION & COMMUNICATION FOLLOW UP POST MRI LEFT HIP (REASON: MRI LEFT HIP) ELECTRONICALLY SIGNED BY LEONARD LUGO ON 05/18/2019 AT 08:59 AM EST DISCLAIMER : THIS IS A VISIT SUMMARY EXTRACTED FROM THE [employer] CHART. IT IS NOT A COPY OF THE [employer] PROGRESS NOTE. RIP
== END ==
LOC: M PAIN 11:00
PROVIDERS: ATTEND Nurse Practitioner Family
DX: M25.552 Pain in left hip (principal); I10 Essential (primary) hypertension; Z86.59 Personal history of other mental and behavioral disorders; E78.5 Hyperlipidemia, unspecified; E11.9 Type 2 diabetes mellitus without complications; K21.9 Gastro-esophageal reflux disease without esophagitis; F17.210 Nicotine dependence, cigarettes, uncomplicated; Z88.3 Allergy status to other anti-infective agents; Z88.8 Allergy status to other drugs, medicaments and biological substances; Z91.013 Allergy to seafood; Z79.82 Long term (current) use of aspirin; Z79.84 Long term (current) use of oral hypoglycemic drugs; Z79.899 Other long term (current) drug therapy

== ENCOUNTER → 2019-05-24 | Outpatient (CLI) | payer MEDICARE, MEDICAID ==
--- NOTE | 2019-05-24 16:35 | REP ---
Clinical: Left hip pain. Technique: Neutral and frog lateral views of the left hip. Findings: Osseous structures, joint spaces, and surrounding soft tissues are normal. No overt arthritic changes are appreciated. No acute fracture dislocation. No periarticular calcifications or loose bodies identified. Impression: Normal left hip radiographs. Electronically Signed by Christian Garcia MD 05/24/2019 10:26 A
== END ==
LOC: M RAD 09:44
PROVIDERS: ATTEND Nurse Practitioner Family
DX: M25.552 Pain in left hip (principal)

== ENCOUNTER → 2019-05-24 | Outpatient (CLI) | payer MEDICARE, MEDICAID | LOC: M LAB 10:12 | PROVIDERS: ATTEND Family Medicine | DX: N41.1 Chronic prostatitis (principal); Z12.5 Encounter for screening for malignant neoplasm of prostate ==

== ENCOUNTER → 2019-06-04 | Outpatient (CLI) | payer MEDICARE, MEDICAID ==
--- NOTE | 2019-06-05 00:02 | ECWPNPC ---
PATIENT NAME: JOVITA OLIVA : 1950 GENDER: MALE VISIT DATE: 06/04/2019 DISCHARGE DATE: 06/04/19 1455 VISIT LOCKED DATE TIME: PHYSICIAN: YANY RESENDEZ RESOURCE: YANY RESENDEZ REASON FOR APPOINTMENT 1. MEDS HISTORY OF PRESENT ILLNESS HISTORY OF PRESENT ILLNESS: HERE FOR FOLLOW-UP OF PERSISTENT LEFT HIP PAIN AND ACTIVITY INTOLERANCE DUE TO LEFT HIP PAIN. HAD LEFT HIP X-RAY DONE PER OUR ORDER AND THIS IS REVIEWED WITH PATIENT TODAY. SHOWING NORMAL LEFT HIP RADIOGRAPHS. CONTINUES TO HAVE PERSISTENT LEFT HIP PAIN, ESPECIALLY WITH AMBULATING GREATER THAN 50 FEET WHERE HE HAS TO STOP DUE TO LEFT HIP PAIN. UNFORTUNATELY, X-RAY OF THE LEFT HIP WILL NOT SHOW A SOFT TISSUE INFLAMMATION. WE WILL NEED A LEFT HIP MRI TO RULE OUT LEFT HIP TROCHANTERIC BURSAL INFLAMMATION. CONTINUES TO BENEFIT FROM TRIGGER POINT INJECTIONS OF THE LUMBAR SPINE DONE A FEW MONTHS AGO. RATING PAIN LEVEL A 0-8/10 VAS. PAIN THE PATIENT DESCRIBES THE PAIN... FALL RISK SCREENING: SCREENING :NO FALLS REPORTED IN THE LAST YEAR CURRENT MEDICATIONS TAKING METFORMIN HCL 500 MG TABLET 1 TABLET WITH A MEAL ORALLY BID TAKING OMEPRAZOLE 40 MG CAPSULE DELAYED RELEASE 1 CAPSULE 30 MINUTES BEFORE MORNING MEAL ORALLY ONCE A DAY TAKING ATORVASTATIN CALCIUM 20 MG TABLET 1 TABLET ORALLY ONCE A DAY TAKING DEXTROAMPHETAMINE SULFATE 10 MG TABLET 1 TABLET IN THE MORNING ORALLY ONCE A DAY TAKING LOSARTAN POTASSIUM 50 MG TABLET 1 TABLET ORALLY ONCE A DAY TAKING ALPRAZOLAM 2 MG TABLET 1 TABLET ORALLY UP TO 3 TIMES A DAY TAKING BUPROPION HCL 100 MG TABLET 1 TABLET ORALLY DAILY TAKING VENLAFAXINE HCL 75 MG TABLET 1 TABLET WITH FOOD ORALLY ONCE A DAY TAKING ENTYVIO 300 MG SOLUTION RECONSTITUTED DIRECTED INTRAVENOUS INFUSION EVERY 60 DAYS TAKING ALEVE 220 MG TABLET 1 TABLET WITH FOOD OR MILK NEEDED ORALLY EVERY 12 HRS TAKING ASPIRIN 81 81 MG TABLET DELAYED RELEASE 1 TABLET ORALLY ONCE A DAY TAKING NICODERM CQ 21 MG/24HR PATCH 24 HOUR TRANSDERMAL NOT-TAKING LEEROY BCG 50 MG SUSPENSION RECONSTITUTED DIRECTED INTRAVESICAL 1 INSTILLATION PER WK X 6 WKS MEDICATION LIST REVIEWED AND RECONCILED WITH THE PATIENT PAST MEDICAL HISTORY HTN DEPRESSION/ANXIETY HYPERLIPIDEMIA S/P DISC REPAIR-LUMBAR 1995 DM GERD/BARRETTS BRONCHITIS CROHN'S DISEASE FX LEFT SHOULDER-01/30 ALLERGIES CELEBREX: RASH - ALLERGY SHELL FISH: RASH, SWELLING - ALLERGY CHANTIX: RASH, STOMACH UPSET - ALLERGY IODINE: RASH SURGICAL HISTORY ABSCESS DRAINAGE 12/25/2010 COLONOSCOPY/ENDOSCOPY 05/16/2011 LOWER BACK SURGERY 07/1995, 10/2007, 10/2013 RIGHT KNEE TORN MENISCUS REPAIR 07/2012 GALLBLADDER REMOVED 09/2016 BLADDER SURGERY 02/20/2017 FAMILY HISTORY FATHER: , HEART MOTHER: , CHF SIBLINGS: ALIVE, BROTHER 68 YEARS WITH ENLARGED HEART., DIAGNOSED WITH UNSPECIFIED HEART DISEASE SON(S): ALIVE 1 SISTER(S) . 1 SON(S) . NO KNOWN FAMILY HISTORY OF ANY UROLOGICALLY RELATED DISEASES/CANCERS. SOCIAL HISTORY GENERAL: TOBACCO USE ARE YOU A:CURRENT SOME DAY SMOKER SMOKING CESSATION INFORMATION GIVEN03/19/2019 03-29-19 LAST CIG DIET: REGULAR. DOMESTIC VIOLENCE NONE. RECREATIONAL DRUG USE DRUG USE?NO EXERCISE: DAILY. LEARNING BARRIERS / SPECIAL NEEDS BARRIERS TO LEARNING?NO HEARING IMPAIRED?YES VISION IMPAIRED?YES COGNITIVELY IMPAIRED?NO :CORRECTIVE LENSES READINESS TO LEARN?YES LEARNING PREFERENCES?NO LEARNING CAPABILITIES PRESENT?YES EMOTIONAL BARRIERS?NO SPECIAL DEVICES?NO FUNERAL HOME LOCATION MANAGER NEEDED?NO PAIN CLINIC PFS, CLERGY, PUBLIC HEALTH REFERRALS HAS THE PATIENT BEEN EDUCATED REGARDING HIS/HER PLAN OF CARE?YES HAS THE PATIENT BEEN EDUCATED REGARDING PAIN, THE RISK FOR PAIN, THE IMPORTANCE OF EFFECTIVE PAIN MANAGEMENT, AND THE PAIN ASSESSMENT PROCESS?YES LATEX QUESTIONNAIRE LATEX ALLERGY : HAVE YOU EVER DEVELOPED ANY TYPE OF REACTION AFTER HANDLING LATEX PRODUCTS SUCH RUBBER GLOVES, CONDOMS, DIAPHRAGMS, BALLOONS, SOCKS, OR UNDERWEAR?NO LATEX ALLERGY : HAVE YOU EVER DEVELOPED ANY TYPE OF REACTION DURING OR AFTER DENTAL APPOINTMENT, VAGINAL/RECTAL EXAMINATION, SURGICAL PROCEDURE, OR ANY OTHER EXPOSURE?NO DATE ASKED : 03/19/2019 LATEX RISK : HAVE YOU EVER HAD ANY DIFFICULTY BREATHING OR HIVES AFTER EATING OR HANDLING ANY FRUITS, OR VEGETABLES; SUCH KIWI, BANANAS, STONE FRUITS, OR CHESTNUTSNO LATEX RISK : DO YOU HAVE A PREVIOUS PERSONAL HISTORY OF MORE THAN NINE SURGERIES, SPINA BIFIDA, OR REPEATED CATHERIZATIONS? NO LATEX RISK : ARE YOU FREQUENTLY EXPOSED TO LATEX PRODUCTS IN YOUR OCCUPATION?NO CAFFEINE CAFFEINE USE?YES ADVANCE DIRECTIVE ADVANCE DIRECTIVE DISCUSSED WITH PATIENT:YES PT HAS HCP -SON JAMSHID OLIVA CHURCH NO EPISCOPAL BELIEFS THAT WOULD IMPACT HEALTH CARE. MARITAL STATUS: .. ALCOHOL SCREENING POINTS: 0, INTERPRETATION: NEGATIVE. OCCUPATION: RETIRED. SEXUAL HX HAD SEX IN THE LAST 12 MONTHS (VAGINAL, ORAL, OR ANAL)?: NO, HAVE YOU EVER HAD AN STD?: NO. PARTIALLY DISABLED DUE TO BACK.REVIEWED WITH PT 02/12/19 1145 BVPRE PROCEDURE SCREENING DONE 03/19/19 EM 03/29/19 REVIEWED WITH PT. GIOVANYJMANIRUDHD WITH PATIENT 05/03/2019 1158 JS. HOSPITALIZATION/MAJOR DIAGNOSTIC PROCEDURE SURGICALY RELATED REVIEW OF SYSTEMS REVIEWED BY: PROVIDER: YANY VALLE . CONSTITUTIONAL: ANY CHANGE IN YOUR MEDICAL CONDITION? NO . CHILLS NO . FEVER NO . INFECTION: DO YOU HAVE NEW INFECTIONS? NO . DO YOU HAVE HISTORY OF MRSA? NO . MUSCULOSKELETAL: ANY NEW PATTERNS OF PAIN OR NUMBNESS? NO . GASTROENTEROLOGY: ANY NEW CHANGE IN BOWEL CONTROL? NO . GENITOURINARY: ANY NEW CHANGE IN BLADDER CONTROL? NO . IS THERE A CHANCE YOU COULD BE ? NO . HEMATOLOGY/LYMPH: DO YOU TAKE ANY BLOOD THINNERS? (FOR EXAMPLE- COUMADIN, PLAVIX, AGGRENOX, PLATEL, PRADAXA, OR XARELTO) NO . WHEN WAS YOUR LAST DOSE? DATE: TIME: . NEUROLOGY: HAVE YOU FALLEN IN THE PAST 12 MONTHS? NO . ANY NEW EXTREMITY NUMBNESS OR WEAKNESS? NO . CARDIOLOGY: DO YOU HAVE A PACEMAKER OR DEFIBRILLATOR? NO . RESPIRATORY: HAVE YOU BEEN SICK IN THE PAST WEEK? NO . FEVER NO . FLU LIKE SYMPTOMS? NO . COUGH NO . INTEGUMENTARY: DO YOU HAVE ANY RASHES OR OPEN SORES? NO . ALLERGIC/IMMUNO: ARE YOU ALLERGIC TO IV DYE? NO . ANY NEW ALLERGIES? NO . PSYCHIATRIC: DO YOU HAVE THOUGHTS OF HURTING YOURSELF OR SOMEONE ELSE? NO . ARE YOU ABUSED, NEGLECTED, OR IN AN UNSAFE ENVIRONMENT? NO . ENDOCRINOLOGY: ARE YOU DIABETIC? NO . OTHER: DO YOU NEED ANY PRESCRIPTIONS? NO . IF YES, PLEASE LIST: ____ . ANY NEW PROBLEMS WITH YOUR MEDICATIONS? NO . WHEN DID YOU LAST EAT? ____ . WHEN DID YOU LAST DRINK? ____ . WHAT DID YOU LAST DRINK? ____ . NAME OF PERSON DRIVING YOU HOME? ____ . DO YOU HAVE ANY OTHER QUESTIONS OR CONCERNS NO . VITAL SIGNS WT 181 LBS, HT 69 IN, BMI 26.73 INDEX, BP 132/70 MM HG, HR 101 /MIN, RR 18 /MIN, TEMP 97.1 F, OXYGEN SAT % 97%, NA INITIALS MS 1417. EXAMINATION GENERAL EXAMINATION: GENERAL AWAKE,ALERT , PLEASANT. PSYCH AFFECT NORMAL . LUNGS: LUNG GONZALEZ ARE CLEAR TO AUSCULTATION BILATERALLY. GOOD MOVEMENT OF AIR . HEART: S1, S2 IN A REGULAR RATE AND RHYTHM. NO SIGNIFICANT MURMURS, RUBS OR GALLOPS NOTED . MUSCULOSKELETAL:TENDERNESS WITH PALPATION OVER LEFT HIP . ASSESSMENTS PAIN IN LEFT HIP - M25.552 (PRIMARY) MYALGIA, OTHER SITE - M79.18 TREATMENT PAIN IN LEFT HIP MRI : HIP, [id number] NOTES: DUE TO PERSISTENT LEFT HIP PAIN AND ACTIVITY INTOLERANCE DUE TO LEFT HIP PAIN IM RECOMMENDING A MRI OF THE LEFT HIP TO RULE OUT SOFT TISSUE INFLAMMATION/TROCHANTERIC BURSITIS. LEFT HIP X-RAY DONE THIS PAST MONTH IS WITHIN NORMAL LIMITS AND WILL NOT SHOW SOFT TISSUE INFLAMMATION THAT WE ARE LOOKING FOR TO SECURE DIAGNOSIS. PATIENT WILL FOLLOW-UP WITH NURSE PRACTITIONER IN 4-6 WEEKS TO REVIEW LEFT HIP MRI AND DEVELOP A TREATMENT PLAN POTENTIALLY LEFT TROCHANTERIC BURSAL STEROID INJECTION. PROCEDURE CODES FA211 ESTABILISHED PATIENT [facility] CHARGE DISPOSITION & COMMUNICATION FOLLOW UP 6 WEEKS REVIEW MRI LEFT HIP ELECTRONICALLY SIGNED BY LEONARD LUGO ON 06/04/2019 AT 03:15 PM EST DISCLAIMER : THIS IS A VISIT SUMMARY EXTRACTED FROM THE [employer] CHART. IT IS NOT A COPY OF THE [employer] PROGRESS NOTE. RIP
== END ==
LOC: M PAIN 14:00
PROVIDERS: ATTEND Nurse Practitioner Family
DX: M25.552 Pain in left hip (principal); M79.18 Myalgia, other site; I10 Essential (primary) hypertension; E11.9 Type 2 diabetes mellitus without complications; Z79.82 Long term (current) use of aspirin; Z79.84 Long term (current) use of oral hypoglycemic drugs; Z79.899 Other long term (current) drug therapy; Z88.8 Allergy status to other drugs, medicaments and biological substances; Z91.013 Allergy to seafood; Z88.4 Allergy status to anesthetic agent

== ENCOUNTER 2019-06-15 07:55 | Outpatient (CLI) | payer MEDICARE, MEDICAID ==
[~2019-06-15] VITALS: Ht 175.3 cm; Wt 78.9 kg
[2019-06-15 08:00] VITALS: BP 129/81
[2019-06-15] MEDS ORDERED: ENTY1INJ IV (08:34)
[2019-06-15] MEDS ORDERED: NS IV ONE (09:00)
[2019-06-15] MEDS ORDERED: VEDOLIZUMAB IV ONE (09:00)
[2019-06-15 10:15] VITALS: BP 146/67
== END 2019-06-15 10:15 | disposition home or self-care (01) ==
LOC: M INFU 07:55
PROVIDERS: ATTEND Internal Medicine Gastroenterology
DX: K50.90 Crohn's disease, unspecified, without complications (principal); Z88.6 Allergy status to analgesic agent; Z88.8 Allergy status to other drugs, medicaments and biological substances; Z91.013 Allergy to seafood
CPT/HCPCS: 96365; J3380

== ENCOUNTER → 2019-08-02 | Outpatient (CLI) | payer MEDICARE, MEDICAID ==
[~2019-08-02] MED LIST changes: +ENTY1INJ IV
--- NOTE | 2019-08-02 12:41 | REP ---
MRI LEFT HIP: TECHNIQUE: Coronal T1, STIR through the pelvis, T2 fat sat, left hip all three planes, axial oblique proton density fat sat left hip. Visualized osseous structures demonstrate normal bone marrow signal. There is no bone marrow edema or occult fracture. There is no evidence of avascular necrosis. There is a superior labral tear. The anterior labrum is diffusely frayed. There is no joint effusion. There is a mild chondromalacia. Surrounding soft tissue structures demonstrate no abnormality. Visualized intrapelvic structures are unremarkable. There is a small left inguinal hernia containing fat. IMPRESSION: Superior labral tear. Anterior labrum is diffusely frayed. There is mild chondromalacia. Electronically Signed by Armando De MD 08/02/2019 01:05 P
== END ==
LOC: M RAD 10:34
PROVIDERS: ATTEND Nurse Practitioner Family
DX: M25.552 Pain in left hip (principal); M94.252 Chondromalacia, left hip; S73.192A Other sprain of left hip, initial encounter; X58.XXXA Exposure to other specified factors, initial encounter; Y92.9 Unspecified place or not applicable

== ENCOUNTER → 2019-08-05 | Outpatient (CLI) | payer MEDICARE, MEDICAID ==
--- NOTE | 2019-08-07 00:29 | ECWPNPC ---
PATIENT NAME: JOVITA OLIVA : 1950 GENDER: MALE VISIT DATE: 08/05/2019 DISCHARGE DATE: 08/05/19 1043 VISIT LOCKED DATE TIME: PHYSICIAN: YANY RESENDEZ RESOURCE: YANY RESENDEZ REASON FOR APPOINTMENT 1. REVIEW MRI [phone] HISTORY OF PRESENT ILLNESS HISTORY OF PRESENT ILLNESS: PHONE CALL TO PATIENT WHO AGREES TO TELEPHONE VISIT TODAY. CHIEF AREA OF PAIN IS LEFT HIP AND LEFT LOW BACK. PAIN IS AGGRAVATED WITH INCREASED ACTIVITY. MRI OF THE LEFT HIP IS REVIEWED. THIS IS SHOWING LABRAL TEAR AND FRAYING. I WILL BE REFERRING HIM TO [facility] FOR THEIR EVALUATION. DESCRIBES MUSCLE SPASM TYPE PAIN, LEFT LOW BACK. REVIEWED TREATMENT OPTIONS. HAS RESPONDED WELL TO TRIGGER POINT INJECTIONS IN THE PAST. PAIN THE PATIENT DESCRIBES THE PAIN... FALL RISK SCREENING: SCREENING :NO FALLS REPORTED IN THE LAST YEAR CURRENT MEDICATIONS TAKING METFORMIN HCL 500 MG TABLET 1 TABLET WITH A MEAL ORALLY BID TAKING OMEPRAZOLE 40 MG CAPSULE DELAYED RELEASE 1 CAPSULE 30 MINUTES BEFORE MORNING MEAL ORALLY ONCE A DAY TAKING ATORVASTATIN CALCIUM 20 MG TABLET 1 TABLET ORALLY ONCE A DAY TAKING DEXTROAMPHETAMINE SULFATE 10 MG TABLET 1 TABLET IN THE MORNING ORALLY ONCE A DAY TAKING LOSARTAN POTASSIUM 50 MG TABLET 1 TABLET ORALLY ONCE A DAY TAKING ALPRAZOLAM 2 MG TABLET 1 TABLET ORALLY UP TO 3 TIMES A DAY TAKING BUPROPION HCL 100 MG TABLET 1 TABLET ORALLY DAILY TAKING VENLAFAXINE HCL 75 MG TABLET 1 TABLET WITH FOOD ORALLY ONCE A DAY TAKING ENTYVIO 300 MG SOLUTION RECONSTITUTED DIRECTED INTRAVENOUS INFUSION EVERY 60 DAYS TAKING ALEVE 220 MG TABLET 1 TABLET WITH FOOD OR MILK NEEDED ORALLY EVERY 12 HRS TAKING ASPIRIN 81 81 MG TABLET DELAYED RELEASE 1 TABLET ORALLY ONCE A DAY TAKING NICODERM CQ 21 MG/24HR PATCH 24 HOUR TRANSDERMAL NOT-TAKING LEEROY BCG 50 MG SUSPENSION RECONSTITUTED DIRECTED INTRAVESICAL 1 INSTILLATION PER WK X 6 WKS MEDICATION LIST REVIEWED AND RECONCILED WITH THE PATIENT PAST MEDICAL HISTORY HTN DEPRESSION/ANXIETY HYPERLIPIDEMIA S/P DISC REPAIR-LUMBAR 1995 DM GERD/BARRETTS BRONCHITIS CROHN'S DISEASE FX LEFT SHOULDER-01/30 ALLERGIES CELEBREX: RASH - ALLERGY SHELL FISH: RASH, SWELLING - ALLERGY CHANTIX: RASH, STOMACH UPSET - ALLERGY IODINE: RASH SURGICAL HISTORY ABSCESS DRAINAGE 12/25/2010 COLONOSCOPY/ENDOSCOPY 05/16/2011 LOWER BACK SURGERY 07/1995, 10/2007, 10/2013 RIGHT KNEE TORN MENISCUS REPAIR 07/2012 GALLBLADDER REMOVED 09/2016 BLADDER SURGERY 02/20/2017 FAMILY HISTORY FATHER: , HEART MOTHER: , CHF SIBLINGS: ALIVE, BROTHER 68 YEARS WITH ENLARGED HEART., DIAGNOSED WITH UNSPECIFIED HEART DISEASE SON(S): ALIVE 1 SISTER(S) . 1 SON(S) . NO KNOWN FAMILY HISTORY OF ANY UROLOGICALLY RELATED DISEASES/CANCERS. SOCIAL HISTORY GENERAL: TOBACCO USE ARE YOU A:FORMER SMOKER HOW LONG HAS IT BEEN SINCE YOU LAST SMOKED?3-6 MONTHS SMOKING CESSATION INFORMATION GIVEN08/05/2019 03-29-19 LAST CIG LATEX QUESTIONNAIRE LATEX ALLERGY : HAVE YOU EVER DEVELOPED ANY TYPE OF REACTION AFTER HANDLING LATEX PRODUCTS SUCH RUBBER GLOVES, CONDOMS, DIAPHRAGMS, BALLOONS, SOCKS, OR UNDERWEAR?NO LATEX ALLERGY : HAVE YOU EVER DEVELOPED ANY TYPE OF REACTION DURING OR AFTER DENTAL APPOINTMENT, VAGINAL/RECTAL EXAMINATION, SURGICAL PROCEDURE, OR ANY OTHER EXPOSURE?NO LATEX RISK : HAVE YOU EVER HAD ANY DIFFICULTY BREATHING OR HIVES AFTER EATING OR HANDLING ANY FRUITS, OR VEGETABLES; SUCH KIWI, BANANAS, STONE FRUITS, OR CHESTNUTSNO LATEX RISK : DO YOU HAVE A PREVIOUS PERSONAL HISTORY OF MORE THAN NINE SURGERIES, SPINA BIFIDA, OR REPEATED CATHERIZATIONS? NO LATEX RISK : ARE YOU FREQUENTLY EXPOSED TO LATEX PRODUCTS IN YOUR OCCUPATION?NO DATE ASKED : 08/05/2019 ALCOHOL SCREENING POINTS: 0, INTERPRETATION: NEGATIVE. RECREATIONAL DRUG USE DRUG USE?NO CAFFEINE CAFFEINE USE?YES SEXUAL HX HAD SEX IN THE LAST 12 MONTHS (VAGINAL, ORAL, OR ANAL)?: NO, HAVE YOU EVER HAD AN STD?: NO. BUDDHIST NO RELIGION BELIEFS THAT WOULD IMPACT HEALTH CARE. LEARNING BARRIERS / SPECIAL NEEDS BARRIERS TO LEARNING?NO HEARING IMPAIRED?YES VISION IMPAIRED?YES COGNITIVELY IMPAIRED?NO :CORRECTIVE LENSES READINESS TO LEARN?YES LEARNING PREFERENCES?NO LEARNING CAPABILITIES PRESENT?YES EMOTIONAL BARRIERS?NO SPECIAL DEVICES?NO BIOSECURITY OFFICER NEEDED?NO DOMESTIC VIOLENCE NONE. OCCUPATION: RETIRED. DIET: REGULAR. EXERCISE: DAILY. MARITAL STATUS: .. NEW PATIENT PAIN DIARY TODAY'S VISITNOTES 08/05/2019 PATIENT DESCRIBES PAIN :IT COMES AND GOES, SHARP FROM 0-10, WHAT LEVEL IS YOUR PAIN TODAY?1 DEPENDING ON ACTIVITY - STATES HE HASN'T DONE MUCH TODAY YET. PAIN CLINIC PFS, CLERGY, PUBLIC HEALTH REFERRALS HAS THE PATIENT BEEN EDUCATED REGARDING HIS/HER PLAN OF CARE?YES HAS THE PATIENT BEEN EDUCATED REGARDING PAIN, THE RISK FOR PAIN, THE IMPORTANCE OF EFFECTIVE PAIN MANAGEMENT, AND THE PAIN ASSESSMENT PROCESS?YES ADVANCE DIRECTIVE ADVANCE DIRECTIVE DISCUSSED WITH PATIENT:YES PT HAS HCP -SON JAMSHID OLIVA PARTIALLY DISABLED DUE TO BACK. HOSPITALIZATION/MAJOR DIAGNOSTIC PROCEDURE SURGICALY RELATED REVIEW OF SYSTEMS REVIEWED BY: PROVIDER: YNAY VALLE . CONSTITUTIONAL: ANY CHANGE IN YOUR MEDICAL CONDITION? NO . CHILLS NO . FEVER NO . INFECTION: DO YOU HAVE NEW INFECTIONS? NO . DO YOU HAVE HISTORY OF MRSA? NO . MUSCULOSKELETAL: ANY NEW PATTERNS OF PAIN OR NUMBNESS? NO . GASTROENTEROLOGY: ANY NEW CHANGE IN BOWEL CONTROL? NO . GENITOURINARY: ANY NEW CHANGE IN BLADDER CONTROL? NO . IS THERE A CHANCE YOU COULD BE ? NO . HEMATOLOGY/LYMPH: DO YOU TAKE ANY BLOOD THINNERS? (FOR EXAMPLE- COUMADIN, PLAVIX, AGGRENOX, PLATEL, PRADAXA, OR XARELTO) NO . WHEN WAS YOUR LAST DOSE? DATE: TIME: . NEUROLOGY: HAVE YOU FALLEN IN THE PAST 12 MONTHS? YES, STATES FALL LAST SUMMER, DISCUSSED AT PREVIOUS VISIT . ANY NEW EXTREMITY NUMBNESS OR WEAKNESS? NO . CARDIOLOGY: DO YOU HAVE A PACEMAKER OR DEFIBRILLATOR? NO . RESPIRATORY: HAVE YOU BEEN SICK IN THE PAST WEEK? NO . FEVER NO . FLU LIKE SYMPTOMS? NO . COUGH NO . INTEGUMENTARY: DO YOU HAVE ANY RASHES OR OPEN SORES? NO . ALLERGIC/IMMUNO: ARE YOU ALLERGIC TO IV DYE? NO . ANY NEW ALLERGIES? NO . PSYCHIATRIC: DO YOU HAVE THOUGHTS OF HURTING YOURSELF OR SOMEONE ELSE? NO . ARE YOU ABUSED, NEGLECTED, OR IN AN UNSAFE ENVIRONMENT? NO . ENDOCRINOLOGY: ARE YOU DIABETIC? YES . OTHER: DO YOU NEED ANY PRESCRIPTIONS? NO . IF YES, PLEASE LIST: ____ . ANY NEW PROBLEMS WITH YOUR MEDICATIONS? NO . WHEN DID YOU LAST EAT? ____ . WHEN DID YOU LAST DRINK? ____ . WHAT DID YOU LAST DRINK? ____ . NAME OF PERSON DRIVING YOU HOME? ____ . DO YOU HAVE ANY OTHER QUESTIONS OR CONCERNS NO . ASSESSMENTS PAIN IN LEFT HIP - M25.552 (PRIMARY) MYALGIA, OTHER SITE - M79.18 TREATMENT PAIN IN LEFT HIP NOTES: TRIGGER POINT INJECTION, LEFT LOW BACK. [facility] REASON:LEFT HIP PAIN/ABNORMAL LEFT HIP MRI-RECENT .DONE AT [facility] OTHERS NOTES: NO VITALS OBTAINED DUE TO PHONE VISIT. PREVENTIVE MEDICINE PAIN CLINIC TEACHING: PROCEDURE TEACHING REVIEWED INFORMATION ON TRIGGER POINT INJECTION PROCEDURE WITH PATIENT. ALSO REVIEWED PRE-PROCEDURE INSTRUCTIONS VIA PHONE AND MAILED INSTRUCTIONS TO PATIENT. PATIENT VERBALIZED AN UNDERSTANDING. MARTHA BURNS 08/05/2019 1:43:21 PM > . DISPOSITION & COMMUNICATION FOLLOW UP POST (REASON: TRIGGER POINT INJECTION, LEFT LOW BACK) ELECTRONICALLY SIGNED BY LEONARD LUGO ON 08/06/2019 AT 02:30 PM EDT DISCLAIMER : THIS IS A VISIT SUMMARY EXTRACTED FROM THE [employer] CHART. IT IS NOT A COPY OF THE [employer] PROGRESS NOTE. RIP
== END ==
LOC: M PAIN 10:30
PROVIDERS: ATTEND Nurse Practitioner Family
DX: M25.552 Pain in left hip (principal); M79.18 Myalgia, other site; I10 Essential (primary) hypertension; E11.9 Type 2 diabetes mellitus without complications; K50.90 Crohn's disease, unspecified, without complications; Z79.82 Long term (current) use of aspirin; Z79.84 Long term (current) use of oral hypoglycemic drugs; Z79.899 Other long term (current) drug therapy; Z88.4 Allergy status to anesthetic agent; Z88.8 Allergy status to other drugs, medicaments and biological substances; Z91.013 Allergy to seafood; Z87.891 Personal history of nicotine dependence

== ENCOUNTER 2019-08-10 07:50 | Outpatient (CLI) | payer MEDICARE, MEDICAID ==
[~2019-08-10] VITALS: Ht 175.3 cm; Wt 78.9 kg
[2019-08-10 08:14] VITALS: BP 138/76
[2019-08-10] MEDS ORDERED: VEDOLIZUMAB IV ONE (08:30)
[2019-08-10] MEDS ORDERED: NS IV ONE (08:30)
[2019-08-10 09:32] VITALS: BP 140/67
== END 2019-08-10 09:45 | disposition home or self-care (01) ==
LOC: M INFU 07:50
PROVIDERS: ATTEND Internal Medicine Gastroenterology
DX: K50.90 Crohn's disease, unspecified, without complications (principal); Z88.8 Allergy status to other drugs, medicaments and biological substances; Z91.013 Allergy to seafood
CPT/HCPCS: 96365; J3380

== ENCOUNTER → 2019-09-08 | Outpatient (CLI) | payer MEDICARE, MEDICAID ==
[~2019-09-08] MED LIST changes: -LISI-672 PO; +LISI30TA4 PO
[2019-09-08 11:46] LABS: CREATININE FOR GFR 1.42 MG/DL (0.70-1.30); GLOMERULAR FILTRATION RATE 52.8 (>49)
== END ==
LOC: M LAB 10:07
PROVIDERS: ATTEND Nurse Practitioner Family
DX: M46.1 Sacroiliitis, not elsewhere classified (principal)

== ENCOUNTER → 2019-09-15 | Outpatient (CLI) | payer MEDICARE, MEDICAID ==
[~2019-09-15] MED LIST changes: +PROHANCE 279.3MG/ML 5ML VIAL As Ordered ONE
--- NOTE | 2019-09-15 13:21 | REPVR ---
PROCEDURE INFORMATION: Exam: MR Lumbar Spine Without and With Contrast. Exam date and time: 09/15/2019 11:46 AM Age: 68 years old Clinical indication: Low back pain; Prior surgery; Surgery date: 6+ months; Surgery type: Surg x4, last one in 2013; Additional info: Sacriolitis TECHNIQUE: Imaging protocol: Multiplanar magnetic resonance images of the lumbar spine without and with intravenous contrast. Contrast material: PROHANCE; Contrast volume: 8 ml; Contrast route: IV; COMPARISON: MRI-LS SPINE W/O FOLL WITH CON 05/28/2013 2:44 PM FINDINGS: Vertebrae: No acute compression fracture is seen. A chronic L1 superior endplate compression fracture is noted. There is mild L1 vertebral body height loss. There is 5 mm of retrolisthesis of L1 on L2. There is minimal retrolisthesis of L2 on L3. Wide decompressive laminectomies are noted at L1 and L2 levels. Modic 2 marrow changes are present along the L4-L5 and L5-S1 endplates. Spinal cord: The conus medullaris terminates at the L1-L2 level. There is no evidence of arachnoiditis or cauda equina compression. L1-L2: There is disc dehydration, severe disc space narrowing, moderate diffuse circumferential disc bulging, circumferential osteophytic ridging, mild facet arthropathy, and a wide decompressive laminectomy. There is no spinal canal stenosis. There is severe narrowing of the left subarticular recess, severe left neural foraminal narrowing, and moderate right neural foraminal narrowing. L2-L3: There is marked diffuse circumferential disc bulging with a large superimposed broad-based right paracentral, subarticular, and foraminal disc protrusion. Right paracentral disc material is migrating caudally roughly 11 mm from the level of the disc. Circumferential osteophytic ridging and moderate facet arthropathy is also noted. There is a wide decompressive laminectomy. There is no significant spinal canal stenosis. There is severe narrowing of the right subarticular recess, moderate narrowing of the left subarticular recess, and moderate/severe bilateral neural foraminal narrowing. L3-L4: There is moderate diffuse circumferential disc bulging, marked thickening of the ligamentum flavum, and severe facet arthropathy. This is causing moderate/severe spinal canal stenosis, severe narrowing of the subarticular recesses, and moderate bilateral neural foraminal narrowing. L4-L5: There is moderate diffuse circumferential disc bulging and circumferential osteophytic ridging. Severe right and moderate left facet arthropathy is also noted. A left hemilaminectomy defect is present. This is causing mild spinal canal stenosis, moderate narrowing of the right subarticular recess, severe right neural foraminal narrowing, and mild left neural foraminal narrowing. L5-S1: There is disc dehydration, severe disc space narrowing, marked diffuse circumferential disc bulging, and a small superimposed central disc protrusion. Moderate facet arthropathy is also present. This is causing minimal spinal canal stenosis, mild narrowing of the left subarticular recess, moderate left neural foraminal narrowing, and mild right neural foraminal narrowing. Soft tissues: Mild edema and enhancement is noted within the interspinous ligament at L3-L4, likely degenerative. IMPRESSION: Postoperative and degenerative changes of the lumbar spine as discussed above Electronically signed by: Juan Hall On 09/15/2019 13:20:59 PM
== END ==
LOC: M RAD 09:02
PROVIDERS: ATTEND Nurse Practitioner Family
DX: M46.1 Sacroiliitis, not elsewhere classified (principal)
CPT/HCPCS: 72158; A9576

== ENCOUNTER → 2019-09-24 | Outpatient (CLI) | payer MEDICARE, MEDICAID ==
[~2019-09-24] MED LIST changes: -PROHANCE 279.3MG/ML 5ML VIAL As Ordered ONE
== END ==
LOC: M LABSMTC 10:55
PROVIDERS: ATTEND Family Medicine
DX: Z11.59 Encounter for screening for other viral diseases (principal)
CPT/HCPCS: C9803; U0003

== ENCOUNTER → 2019-09-24 | Outpatient (CLI) | payer MEDICARE, MEDICAID ==
--- NOTE | 2019-09-28 02:50 | ECWPNPC ---
PATIENT NAME: JOVITA OLIVA : 1950 GENDER: MALE VISIT DATE: 09/24/2019 DISCHARGE DATE: 09/24/19 1012 VISIT LOCKED DATE TIME: PHYSICIAN: YANY RESENDEZ RESOURCE: YANY RESENDEZ REASON FOR APPOINTMENT 1. MRI REVIEW/PRE PROCEDURE PAT DONE HISTORY OF PRESENT ILLNESS GENERAL: HERE FOR FOLLOW-UP OF CHRONIC LOW BACK PAIN. HISTORY OF MULTIPLE LUMBAR SURGERIES. RECENT MRI WITH IV CONTRAST OF THE LUMBOSACRAL SPINE IS REVIEWED WITH PATIENT. SHOWING MULTILEVEL SPINAL STENOSIS RELATED TO POSTOPERATIVE AND DEGENERATIVE CHANGES OF THE LUMBAR SPINE. DISCUSSED TREATMENT OPTIONS. PATIENT IS ON ENTYVIO EVERY 2 MONTHS FOR CROHN'S DISEASE. HAS A HISTORY OF BLADDER CANCER. HAS UROSTOMY TUBE. DISCUSSED IMMUNE STATUS. DISCUSSED THE POSSIBILITY OF STEROID MEDICATIONS LOWERING HIS IMMUNE STATUS. REVIEWED BUN/CREATININE THAT WERE SLIGHTLY ELEVATED BEFORE HIS MRI WITH CONTRAST ENHANCEMENT. VOICES MULTIPLE CONCERNS OVER OTHER MEDICAL ISSUES. REPORTING DIZZY EPISODES. I'VE ENCOURAGED HIM TO REVIEW BUN/CREATININE AND DIZZY SPELLS WITH HIS PRIMARY CARE PROVIDER. HE SEES PRIMARY CARE AT [facility]. -. FALL RISK SCREENING: SCREENING :TWO OR MORE FALLS WITHOUT INJURY IN THE PAST YEAR PT STATES THAT HE FEELS UNSTEADY AT TIMES, ENCOURAGED PT TO REACH OUT TO PCP FOR GUIDANCE ON AMBULATION AIDES PAIN SCREENING: PATIENT HAS A COMPLAINT OF ACUTE OR CHRONIC PAIN :YES LOCATION OF PAIN:LOW BACK INTENSITY OF PAIN (SCALE OF 1 TO 10):8 WHAT DOES YOUR PAIN FEEL LIKE:INTERMITTENT, STABBING DURATION:PERIODIC NURSING NOTE: -. PAIN CENTER INTAKE QUESTIONS: DO YOU HAVE A HISTORY OF MRSA? :NO DO YOU TAKE A BLOOD THINNERS? :NO DO YOU HAVE ANY BLEEDING DISORDERS? :NO ANY NEW NUMBNESS OR WEAKNESS IN YOUR LEGS OR ARMS? :NO ANY PACEMAKER,DEFIBRILLATOR, OR DORSAL COLUMN STIMULATOR? :NO DO YOU HAVE ANY RASHES OR OPEN SORES? :NO ARE YOU ALLERGIC TO IV DYE? :NO ARE YOU DIABETIC? :NO ANY NEW PROBLEMS WITH YOUR MEDICATIONS? :NO HAVE YOU RECEIVED A VACCINE IN THE PAST 30 DAYS? :NO DO YOU PLAN TO RECEIVE A VACCINE IN THE NEXT 21 DAYS? :NO DO YOU NEED ANY PRESCRIPTION? :NO DO YOU TAKE ANY IMMUNOSUPPRESSIVE MEDICATIONS? :NO IS THERE A CHANCE YOU COULD BE ? :NO ARE YOU BREAST FEEDING? :NO CURRENT MEDICATIONS TAKING METFORMIN HCL 500 MG TABLET 1 TABLET WITH A MEAL ORALLY BID TAKING OMEPRAZOLE 40 MG CAPSULE DELAYED RELEASE 1 CAPSULE 30 MINUTES BEFORE MORNING MEAL ORALLY ONCE A DAY TAKING ATORVASTATIN CALCIUM 20 MG TABLET 1 TABLET ORALLY ONCE A DAY TAKING DEXTROAMPHETAMINE SULFATE 10 MG TABLET 1 TABLET IN THE MORNING ORALLY ONCE A DAY TAKING LOSARTAN POTASSIUM 50 MG TABLET 1 TABLET ORALLY ONCE A DAY TAKING ALPRAZOLAM 2 MG TABLET 1 TABLET ORALLY UP TO 3 TIMES A DAY TAKING BUPROPION HCL 150 MG TABLET EXTENDED RELEASE 1 TABLET ORALLY DAILY TAKING VENLAFAXINE HCL 75 MG TABLET 1 TABLET WITH FOOD ORALLY ONCE A DAY TAKING ENTYVIO 300 MG SOLUTION RECONSTITUTED DIRECTED INTRAVENOUS INFUSION EVERY 60 DAYS TAKING ALEVE 220 MG TABLET 1 TABLET WITH FOOD OR MILK NEEDED ORALLY EVERY 12 HRS TAKING ASPIRIN 81 81 MG TABLET DELAYED RELEASE 1 TABLET ORALLY ONCE A DAY TAKING NICODERM CQ 21 MG/24HR PATCH 24 HOUR TRANSDERMAL NOT-TAKING LEEROY BCG 50 MG SUSPENSION RECONSTITUTED DIRECTED INTRAVESICAL 1 INSTILLATION PER WK X 6 WKS MEDICATION LIST REVIEWED AND RECONCILED WITH THE PATIENT PAST MEDICAL HISTORY HTN DEPRESSION/ANXIETY HYPERLIPIDEMIA S/P DISC REPAIR-LUMBAR 1995 DM GERD/BARRETTS BRONCHITIS CROHN'S DISEASE FX LEFT SHOULDER-01/30 ALLERGIES CELEBREX: RASH - ALLERGY SHELL FISH: RASH, SWELLING - ALLERGY CHANTIX: RASH, STOMACH UPSET - ALLERGY IODINE: RASH SURGICAL HISTORY ABSCESS DRAINAGE 12/25/2010 COLONOSCOPY/ENDOSCOPY 05/16/2011 LOWER BACK SURGERY 07/1995, 10/2007, 10/2013 RIGHT KNEE TORN MENISCUS REPAIR 07/2012 GALLBLADDER REMOVED 09/2016 BLADDER SURGERY 02/20/2017 FAMILY HISTORY FATHER: , HEART MOTHER: , CHF SIBLINGS: ALIVE, BROTHER 68 YEARS WITH ENLARGED HEART., DIAGNOSED WITH UNSPECIFIED HEART DISEASE SON(S): ALIVE 1 SISTER(S) . 1 SON(S) . NO KNOWN FAMILY HISTORY OF ANY UROLOGICALLY RELATED DISEASES/CANCERS. SOCIAL HISTORY GENERAL: TOBACCO USE ARE YOU A:FORMER SMOKER HOW LONG HAS IT BEEN SINCE YOU LAST SMOKED?3-6 MONTHS SMOKING CESSATION INFORMATION GIVEN08/05/2019 03-29-19 LAST CIG LATEX QUESTIONNAIRE LATEX ALLERGY : HAVE YOU EVER DEVELOPED ANY TYPE OF REACTION AFTER HANDLING LATEX PRODUCTS SUCH RUBBER GLOVES, CONDOMS, DIAPHRAGMS, BALLOONS, SOCKS, OR UNDERWEAR?NO LATEX ALLERGY : HAVE YOU EVER DEVELOPED ANY TYPE OF REACTION DURING OR AFTER DENTAL APPOINTMENT, VAGINAL/RECTAL EXAMINATION, SURGICAL PROCEDURE, OR ANY OTHER EXPOSURE?NO LATEX RISK : HAVE YOU EVER HAD ANY DIFFICULTY BREATHING OR HIVES AFTER EATING OR HANDLING ANY FRUITS, OR VEGETABLES; SUCH KIWI, BANANAS, STONE FRUITS, OR CHESTNUTSNO LATEX RISK : DO YOU HAVE A PREVIOUS PERSONAL HISTORY OF MORE THAN NINE SURGERIES, SPINA BIFIDA, OR REPEATED CATHERIZATIONS? NO LATEX RISK : ARE YOU FREQUENTLY EXPOSED TO LATEX PRODUCTS IN YOUR OCCUPATION?NO DATE ASKED : 09/23/2019 ALCOHOL SCREENING POINTS: 0, INTERPRETATION: NEGATIVE. RECREATIONAL DRUG USE DRUG USE?NO CAFFEINE CAFFEINE USE?YES SEXUAL HX HAD SEX IN THE LAST 12 MONTHS (VAGINAL, ORAL, OR ANAL)?: NO, HAVE YOU EVER HAD AN STD?: NO. TAOIST NO CHRISTIAN BELIEFS THAT WOULD IMPACT HEALTH CARE. 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 DIET: REGULAR. EXERCISE: DAILY. MARITAL STATUS: .. PAIN CLINIC PFS, CLERGY, PUBLIC HEALTH REFERRALS HAS THE PATIENT BEEN EDUCATED REGARDING HIS/HER PLAN OF CARE?YES HAS THE PATIENT BEEN EDUCATED REGARDING PAIN, THE RISK FOR PAIN, THE IMPORTANCE OF EFFECTIVE PAIN MANAGEMENT, AND THE PAIN ASSESSMENT PROCESS?YES ADVANCE DIRECTIVE ADVANCE DIRECTIVE DISCUSSED WITH PATIENT:YES PT HAS HCP -SON JAMSHID OLIVA PARTIALLY DISABLED DUE TO BACK. HOSPITALIZATION/MAJOR DIAGNOSTIC PROCEDURE SURGICALY RELATED REVIEW OF SYSTEMS CONSTITUTIONAL: ANY RECENT FEVER OR ILLNESS NO . CHILLS NO . GASTROENTEROLOGY: BOWEL INCONTINENCE NO . ANY NEW CHANGE IN BOWEL CONTROL? NO . ABDOMINAL PAIN NO . CONSTIPATION NO . GENITOURINARY: ANY NEW CHANGE IN BLADDER CONTROL? NO . IS THERE A CHANCE YOU COULD BE ? NO . URINARY INCONTINENCE NO . CARDIOLOGY: CHEST PRESSURE NO . CHEST PAIN NO . RESPIRATORY: COUGH NO . SHORTNESS OF BREATH NO . VITAL SIGNS WT 173.2 LBS, HT 69 IN, BMI 25.57 INDEX, BP 159/84 MM HG, HR 103 /MIN, RR 18 /MIN, TEMP 95.9 F, OXYGEN SAT % 99%, SAFE IN ENV? (Y/N) YES, NA INITIALS AW 0926, REVIEWED BY: CINDY. EXAMINATION GENERAL EXAMINATION: GENERAL ALERT,NO DISTRESS . PSYCH AFFECT NORMAL . LUNGS: LUNG SOUNDS ARE CLEAR . HEART: HEART RATE REGULAR . MUSCULOSKELETAL: MST 5/5 BILAT. LOWER EXTREMITIES . LUMBAR: TENDERNESS WITH PALPATION OF LEFT SIJ REGION. POSITIVE DENITA'S TESTING OVER LEFT LEG.. DIAGNOSTIC TESTS REVIEWED CT L/S [id number] . 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 HE WOULD LIKE TO GET STARTED IN THE GYM, WHICH WAS HELPFUL FOR HIS PAIN IN THE PAST. HE WOULD CONSIDER POSSIBLY DOING SOME STEROID INJECTIONS IN JANUARY.. QUESTIONS WERE ANSWERED AND PATIENT VOICES UNDERSTANDING. ENCOURAGED HIM TO FOLLOW-UP WITH PRIMARY CARE IN REGARDS TO COMPLAINTS OF DIZZINESS, UNSTEADY GAIT AND KIDNEY FUNCTION. A REFERRAL TO [facility] TO HAVE HIS LOW BACK AND LEFT HIP PAIN WILL BE MADE. [facility] RE[facility]:PLEASE ASSESS CHRONIC LOW BACK PAIN/HISTORY OF MULTIPLE BACK SURGERIES/LEFT HIP PAINCHRONIC FOR ALTERNATIVES OTHER THAN STEROID INJECTIONS DUE TO HIS IMMUNE COMPROMISED STATE, AND RISK FOR INFECTION PROCEDURE CODES FA211 ESTABILISHED PATIENT [facility] CHARGE DISPOSITION & COMMUNICATION FOLLOW UP FOLLOW-UP IN JANUARY (REASON: POSTLAMINECTOMY PAIN SYNDROME/) ELECTRONICALLY SIGNED BY LEONARD LUGO ON 09/27/2019 AT 01:00 PM EDT DISCLAIMER : THIS IS A VISIT SUMMARY EXTRACTED FROM THE [employer] CHART. IT IS NOT A COPY OF THE [employer] PROGRESS NOTE. RIP
== END ==
LOC: M PAIN 09:45
PROVIDERS: ATTEND Nurse Practitioner Family
DX: M46.1 Sacroiliitis, not elsewhere classified (principal); M96.1 Postlaminectomy syndrome, not elsewhere classified; M25.552 Pain in left hip

== ENCOUNTER 2019-10-05 08:39 | Outpatient (CLI) | payer MEDICARE, MEDICAID ==
[~2019-10-05] VITALS: Ht 175.3 cm; Wt 78.9 kg
[2019-10-05] MEDS ORDERED: NS IV ONE (08:45)
[2019-10-05] MEDS ORDERED: VEDOLIZUMAB IV ONE (08:45)
[2019-10-05 08:47] VITALS: BP 134/75
[2019-10-05 12:05] VITALS: BP 136/61
== END 2019-10-05 11:05 | disposition home or self-care (01) ==
LOC: M INFU 08:39
PROVIDERS: ATTEND Internal Medicine Gastroenterology
DX: K50.90 Crohn's disease, unspecified, without complications (principal); Z88.4 Allergy status to anesthetic agent; Z88.8 Allergy status to other drugs, medicaments and biological substances; Z91.013 Allergy to seafood
CPT/HCPCS: 96365; 96366; J3380

== ENCOUNTER 2019-11-30 08:00 | Outpatient (CLI) | payer MEDICARE, MEDICAID ==
[~2019-11-30 08:00] MED LIST changes: +ACET650T61 PO; -METF-699 PO; +METF-817 PO; -TYLE650T35 PO; +VEDOLIZUMAB 300MG VIAL (ENTYVIO) (J3380 PER 1MG) ONE
== END 2019-11-30 10:15 | disposition home or self-care (01) ==
LOC: M INFU 08:00
PROVIDERS: ATTEND Internal Medicine Gastroenterology
DX: K50.90 Crohn's disease, unspecified, without complications (principal)
CPT/HCPCS: 96365; J3380

== ENCOUNTER 2020-01-25 07:51 | Outpatient (CLI) | payer MEDICARE, MEDICAID ==
[~2020-01-25] VITALS: Ht 175.3 cm; Wt 78.9 kg
[~2020-01-25 07:51] MED LIST changes: -VEDOLIZUMAB 300MG VIAL (ENTYVIO) (J3380 PER 1MG) ONE
[2020-01-25 08:16] VITALS: BP 155/68
[2020-01-25] MEDS: NS IV ONE (08:24)
[2020-01-25] MEDS: VEDOLIZUMAB IV ONE (08:24)
[2020-01-25 09:18] VITALS: BP 147/73
== END 2020-01-25 09:20 | disposition home or self-care (01) ==
LOC: M INFU 07:51
PROVIDERS: ATTEND Internal Medicine Gastroenterology
DX: K50.90 Crohn's disease, unspecified, without complications (principal)
CPT/HCPCS: 96365; J3380

== ENCOUNTER → 2020-01-31 | Outpatient (CLI) | payer MEDICARE, MEDICAID ==
--- NOTE | 2020-01-31 11:42 | ECWPNPC ---
PATIENT NAME: JOVITA OLIVA : 1950 GENDER: MALE VISIT DATE: 01/31/2020 DISCHARGE DATE: 01/31/20 1110 VISIT LOCKED DATE TIME: PHYSICIAN: YANY RESENDEZ RESOURCE: YANY RESENDEZ REASON FOR APPOINTMENT 1. POST LAMINECTOMY SYNDROM HISTORY OF PRESENT ILLNESS DEPRESSION SCREENING: PHQ-2 (2015 EDITION) LITTLE INTEREST OR PLEASURE IN DOING THINGS?NOT AT ALL FEELING DOWN, DEPRESSED, OR HOPELESS?NOT AT ALL TOTAL SCORE0 GENERAL: HERE FOR FOLLOW-UP OF PERSISTENT LOW BACK PAIN WITH A HISTORY OF POSTLAMINECTOMY PAIN SYNDROME. OVERALL HE IS DOING WELL. HAS DAYS WHERE HE HAS MORE PAIN ESPECIALLY WITH LIFTING. DENIES LEFT HIP PAIN ANYMORE. HE DOES NOT WANT NARCOTIC PAIN MEDICATIONS. CURRENTLY USING 2 ALEVE CAPSULES DAILY. DISCUSSED CONSERVATIVE CARE AND USE OF IBUPROFEN/TYLENOL COMBINATION PRODUCT [id number]. OVERALL DOING QUITE WELL WITH HOME EXERCISE AND STRETCHING.-. FALL RISK SCREENING: SCREENING :NO FALLS REPORTED IN THE LAST YEAR 1 YEAR AGO, WAS SORE AFTERWORD PAIN SCREENING: PATIENT HAS A COMPLAINT OF ACUTE OR CHRONIC PAIN :YES LOCATION OF PAIN:MID BACK, LOW BACK INTENSITY OF PAIN (SCALE OF 1 TO 10):2 PAIN COMES AND GOES ITS NOT CONSTANT WHAT DOES YOUR PAIN FEEL LIKE:ACHING DURATION:PERIODIC PAIN IS INCREASED BY:ACTIVITIES PAIN IS DECREASED BY:OTHERS SOME MEDS HEP AND REST NURSING NOTE: -. PAIN CENTER INTAKE QUESTIONS: DO YOU HAVE A HISTORY OF MRSA? :NO DO YOU TAKE A BLOOD THINNERS? :NO DO YOU HAVE ANY BLEEDING DISORDERS? :NO ANY NEW NUMBNESS OR WEAKNESS IN YOUR LEGS OR ARMS? :NO ANY PACEMAKER,DEFIBRILLATOR, OR DORSAL COLUMN STIMULATOR? :NO DO YOU HAVE ANY RASHES OR OPEN SORES? :NO ARE YOU ALLERGIC TO IV DYE? :NO ARE YOU DIABETIC? :YES ANY NEW PROBLEMS WITH YOUR MEDICATIONS? :NO HAVE YOU RECEIVED A VACCINE IN THE PAST 30 DAYS? :NO DO YOU PLAN TO RECEIVE A VACCINE IN THE NEXT 21 DAYS? :YES YES TO GETTING THE FLU VAC DO YOU NEED ANY PRESCRIPTION? :NO DO YOU TAKE ANY IMMUNOSUPPRESSIVE MEDICATIONS? :NO IS THERE A CHANCE YOU COULD BE ? :NO ARE YOU BREAST FEEDING? :NO CURRENT MEDICATIONS TAKING METFORMIN HCL 500 MG TABLET 1 TABLET WITH A MEAL ORALLY BID TAKING OMEPRAZOLE 40 MG CAPSULE DELAYED RELEASE 1 CAPSULE 30 MINUTES BEFORE MORNING MEAL ORALLY ONCE A DAY TAKING ATORVASTATIN CALCIUM 20 MG TABLET 1 TABLET ORALLY ONCE A DAY TAKING LOSARTAN POTASSIUM 50 MG TABLET 1 TABLET ORALLY ONCE A DAY TAKING ALPRAZOLAM 2 MG TABLET 1 TABLET ORALLY UP TO 3 TIMES A DAY TAKING BUPROPION HCL 150 MG TABLET EXTENDED RELEASE 1 TABLET ORALLY DAILY TAKING VENLAFAXINE HCL 75 MG TABLET 1 TABLET WITH FOOD ORALLY ONCE A DAY TAKING D3-50 1.25 MG ([id number] UT) CAPSULE 1 CAPSULE ORALLY NOT-TAKING DEXTROAMPHETAMINE SULFATE 10 MG TABLET 1 TABLET IN THE MORNING ORALLY ONCE A DAY NOT-TAKING ENTYVIO 300 MG SOLUTION RECONSTITUTED DIRECTED INTRAVENOUS INFUSION EVERY 60 DAYS NOT-TAKING ALEVE 220 MG TABLET 1 TABLET WITH FOOD OR MILK NEEDED ORALLY EVERY 12 HRS NOT-TAKING ASPIRIN 81 81 MG TABLET DELAYED RELEASE 1 TABLET ORALLY ONCE A DAY NOT-TAKING NICODERM CQ 21 MG/24HR PATCH 24 HOUR TRANSDERMAL NOT-TAKING LEEROY BCG 50 MG SUSPENSION RECONSTITUTED DIRECTED INTRAVESICAL 1 INSTILLATION PER WK X 6 WKS MEDICATION LIST REVIEWED AND RECONCILED WITH THE PATIENT PAST MEDICAL HISTORY HTN DEPRESSION/ANXIETY HYPERLIPIDEMIA S/P DISC REPAIR-LUMBAR 1995 DM GERD/BARRETTS BRONCHITIS CROHN'S DISEASE FX LEFT SHOULDER-01/30 ALLERGIES CELEBREX: RASH - ALLERGY SHELL FISH: RASH, SWELLING - ALLERGY CHANTIX: RASH, STOMACH UPSET - ALLERGY IODINE: RASH SURGICAL HISTORY ABSCESS DRAINAGE 12/25/2010 COLONOSCOPY/ENDOSCOPY 05/16/2011 LOWER BACK SURGERY 07/1995, 10/2007, 10/2013 RIGHT KNEE TORN MENISCUS REPAIR 07/2012 GALLBLADDER REMOVED 09/2016 BLADDER SURGERY 02/20/2017 FAMILY HISTORY FATHER: , HEART MOTHER: , CHF SIBLINGS: ALIVE, BROTHER 68 YEARS WITH ENLARGED HEART., DIAGNOSED WITH UNSPECIFIED HEART DISEASE SON(S): ALIVE 1 SISTER(S) . 1 SON(S) . NO KNOWN FAMILY HISTORY OF ANY UROLOGICALLY RELATED DISEASES/CANCERS. SOCIAL HISTORY GENERAL: TOBACCO USE ARE YOU A:FORMER SMOKER HOW LONG HAS IT BEEN SINCE YOU LAST SMOKED?3-6 MONTHS SMOKING CESSATION INFORMATION GIVEN08/05/2019 03-29-19 LAST CIG LATEX QUESTIONNAIRE LATEX ALLERGY : HAVE YOU EVER DEVELOPED ANY TYPE OF REACTION AFTER HANDLING LATEX PRODUCTS SUCH RUBBER GLOVES, CONDOMS, DIAPHRAGMS, BALLOONS, SOCKS, OR UNDERWEAR?NO LATEX ALLERGY : HAVE YOU EVER DEVELOPED ANY TYPE OF REACTION DURING OR AFTER DENTAL APPOINTMENT, VAGINAL/RECTAL EXAMINATION, SURGICAL PROCEDURE, OR ANY OTHER EXPOSURE?NO LATEX RISK : HAVE YOU EVER HAD ANY DIFFICULTY BREATHING OR HIVES AFTER EATING OR HANDLING ANY FRUITS, OR VEGETABLES; SUCH KIWI, BANANAS, STONE FRUITS, OR CHESTNUTSNO LATEX RISK : DO YOU HAVE A PREVIOUS PERSONAL HISTORY OF MORE THAN NINE SURGERIES, SPINA BIFIDA, OR REPEATED CATHERIZATIONS? NO LATEX RISK : ARE YOU FREQUENTLY EXPOSED TO LATEX PRODUCTS IN YOUR OCCUPATION?NO DATE ASKED : 01/31/2020 ALCOHOL SCREENING POINTS: 0, INTERPRETATION: NEGATIVE. RECREATIONAL DRUG USE DRUG USE?NO CAFFEINE CAFFEINE USE?YES SEXUAL HX HAD SEX IN THE LAST 12 MONTHS (VAGINAL, ORAL, OR ANAL)?: NO, HAVE YOU EVER HAD AN STD?: NO. ORTHODOX NO CHRISTIAN BELIEFS THAT WOULD IMPACT HEALTH CARE. LEARNING BARRIERS / SPECIAL NEEDS BARRIERS TO LEARNING?NO HEARING IMPAIRED?YES VISION IMPAIRED?YES COGNITIVELY IMPAIRED?NO :CORRECTIVE LENSES READINESS TO LEARN?YES LEARNING PREFERENCES?NO LEARNING CAPABILITIES PRESENT?YES EMOTIONAL BARRIERS?NO SPECIAL DEVICES?NO STACKER STRAIGHTENER NEEDED?NO DOMESTIC VIOLENCE DO YOU FEEL SAFE IN YOUR ENVIRONMENT?YES OCCUPATION: RETIRED. DIET: REGULAR. EXERCISE: DAILY. MARITAL STATUS: .. PAIN CLINIC PFS, CLERGY, PUBLIC HEALTH REFERRALS HAS THE PATIENT BEEN EDUCATED REGARDING HIS/HER PLAN OF CARE?YES HAS THE PATIENT BEEN EDUCATED REGARDING PAIN, THE RISK FOR PAIN, THE IMPORTANCE OF EFFECTIVE PAIN MANAGEMENT, AND THE PAIN ASSESSMENT PROCESS?YES ADVANCE DIRECTIVE ADVANCE DIRECTIVE DISCUSSED WITH PATIENT:YES PT HAS HCP -SON JAMSHID OLIVA PARTIALLY DISABLED DUE TO BACK. HOSPITALIZATION/MAJOR DIAGNOSTIC PROCEDURE SURGICALY RELATED REVIEW OF SYSTEMS CONSTITUTIONAL: ANY RECENT FEVER NO . CHILLS NO . GASTROENTEROLOGY: BOWEL INCONTINENCE NO . ANY NEW CHANGE IN BOWEL CONTROL? NO . HISTORY OF UNUSUAL ABDOMINAL PAIN OR CRAMPING NOT MENTIONED NO . CONSTIPATION NO . GENITOURINARY: ANY NEW CHANGE IN BLADDER CONTROL? NO . IS THERE A CHANCE YOU COULD BE ? NO . URINARY INCONTINENCE NO . CARDIOLOGY: NEW CHEST PRESSURE NO . HISTORY OF CHEST PAIN,IRREGULAR HEART BEAT NOT MENTIONED NO . RESPIRATORY: COUGH NO . SHORTNESS OF BREATH NO . VITAL SIGNS WT 172.2 LBS, HT 69 IN, BMI 25.43 INDEX, BP 138/63 MM HG, HR 102 /MIN, RR 18 /MIN, TEMP 98.1 F, OXYGEN SAT % 97%, SAFE IN ENV? (Y/N) YES, NA INITIALS AW 1027, REVIEWED BY: ZULEMA. EXAMINATION GENERAL EXAMINATION: GENERALAWAKE,ALERT ,PLEASANT . PSYCHAFFECT NORMAL . LUNGS:LUNG GONZALEZ ARE CLEAR TO AUSCULTATION BILATERALLY. GOOD MOVEMENT OF AIR . HEART:S1, S2 IN A REGULAR RATE AND RHYTHM. NO SIGNIFICANT MURMURS, RUBS OR GALLOPS NOTED . 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 PROCEDURE CODES FA211 ESTABILISHED PATIENT [facility] CHARGE DISPOSITION & COMMUNICATION FOLLOW UP PT WILL CALL FOR F/U IF NECESSARY (REASON: POST LAMINECTOMY PAIN SYNDROME) ELECTRONICALLY SIGNED BY LEONARD LUGO ON 01/31/2020 AT 11:14 AM EDT DISCLAIMER : THIS IS A VISIT SUMMARY EXTRACTED FROM THE [employer] CHART. IT IS NOT A COPY OF THE [employer] PROGRESS NOTE. RIP
== END ==
LOC: M PAIN 10:00
PROVIDERS: ATTEND Nurse Practitioner Family
DX: M46.1 Sacroiliitis, not elsewhere classified (principal); M96.1 Postlaminectomy syndrome, not elsewhere classified; M25.552 Pain in left hip; I10 Essential (primary) hypertension; F32.9 Major depressive disorder, single episode, unspecified; F41.9 Anxiety disorder, unspecified; E11.9 Type 2 diabetes mellitus without complications; K21.9 Gastro-esophageal reflux disease without esophagitis; K22.70 Barrett's esophagus without dysplasia; K50.90 Crohn's disease, unspecified, without complications; Z87.891 Personal history of nicotine dependence; Z79.84 Long term (current) use of oral hypoglycemic drugs; Z79.899 Other long term (current) drug therapy; Z88.8 Allergy status to other drugs, medicaments and biological substances; Z91.013 Allergy to seafood

== ENCOUNTER 2020-03-21 08:04 | Outpatient (CLI) | payer MEDICARE, MEDICAID ==
[~2020-03-21] VITALS: Ht 175.3 cm; Wt 78.9 kg
[~2020-03-21 08:04] MED LIST changes: +NS IV ONE; +VEDOLIZUMAB IV ONE
[2020-03-21 08:26] VITALS: BP 144/69
[2020-03-21 08:28] VITALS: BP 144/69
[2020-03-21 09:58] VITALS: BP 139/70
== END 2020-03-21 10:00 | disposition home or self-care (01) ==
LOC: M INFU 08:04
PROVIDERS: ATTEND Internal Medicine Gastroenterology
DX: K50.90 Crohn's disease, unspecified, without complications (principal); Z88.8 Allergy status to other drugs, medicaments and biological substances
CPT/HCPCS: 96365; J3380

== ENCOUNTER 2020-05-17 14:29 | Outpatient (CLI) | payer MEDICARE, MEDICAID ==
[~2020-05-17] VITALS: Ht 175.3 cm; Wt 78.9 kg
[~2020-05-17 14:29] MED LIST changes: -NS IV ONE; -VEDOLIZUMAB IV ONE
[2020-05-17 14:30] VITALS: BP 140/73
[2020-05-17] MEDS ORDERED: NS IV ONE (15:00)
[2020-05-17] MEDS ORDERED: VEDOLIZUMAB IV ONE (15:00)
[2020-05-17 16:30] VITALS: BP 138/71
== END 2020-05-17 16:30 | disposition home or self-care (01) ==
LOC: M INFU 14:29
PROVIDERS: ATTEND Internal Medicine Gastroenterology
DX: K50.90 Crohn's disease, unspecified, without complications (principal); Z88.8 Allergy status to other drugs, medicaments and biological substances
CPT/HCPCS: 96365; J3380

== ENCOUNTER → 2020-06-12 | Outpatient (CLI) | payer MEDICARE, MEDICAID ==
--- NOTE | 2020-06-18 23:09 | ECWPNPC ---
PATIENT NAME: JOVITA OLIVA : 1950 GENDER: MALE VISIT DATE: 06/12/2020 DISCHARGE DATE: 06/12/20 1523 VISIT LOCKED DATE TIME: PHYSICIAN: YANY RESENDEZ RESOURCE: YANY RESENDEZ REASON FOR APPOINTMENT 1. POST LAMINECTOMY PAIN SYNDROME HISTORY OF PRESENT ILLNESS GENERAL: PATIENT CALLS FOR A FOLLOW-UP DUE TO LEFT HIP PAIN. HISTORY OF CHRONIC LEFT HIP PAIN. PAIN HAS BEEN AGGRAVATED OVER THE PAST MONTH. PAIN IS AGGRAVATED BY WALKING. PAIN IS RELIEVED SOMEWHAT AT REST. REVIEWED MRI OF THE LEFT HIP AND DISCUSSED TREATMENT PLAN. -. FALL RISK SCREENING: SCREENING : NO FALLS REPORTED IN THE LAST YEAR. PAIN SCREENING: PATIENT HAS A COMPLAINT OF ACUTE OR CHRONIC PAIN :YES LOCATION OF PAIN:LOW BACK, LEFT HIP INTENSITY OF PAIN (SCALE OF 1 TO 10):6 WHAT DOES YOUR PAIN FEEL LIKE:INTERMITTENT DURATION:INTERMITTENT PAIN IS INCREASED BY:ACTIVITIES PAIN IS DECREASED BY:OTHERS HEAT AND ICE NURSING NOTE: -. PAIN CENTER INTAKE QUESTIONS: DO YOU HAVE A HISTORY OF MRSA? :NO DO YOU TAKE A BLOOD THINNERS? :NO DO YOU HAVE ANY BLEEDING DISORDERS? :NO ANY NEW NUMBNESS OR WEAKNESS IN YOUR LEGS OR ARMS? :NO ANY PACEMAKER,DEFIBRILLATOR, OR DORSAL COLUMN STIMULATOR? :NO DO YOU HAVE ANY RASHES OR OPEN SORES? :NO ARE YOU ALLERGIC TO IV DYE? :NO ARE YOU DIABETIC? :YES ANY NEW PROBLEMS WITH YOUR MEDICATIONS? :NO HAVE YOU RECEIVED A VACCINE IN THE PAST 30 DAYS? :YES IF SO WHAT VACCINE AND WHEN? 1ST COVID DO YOU PLAN TO RECEIVE A VACCINE IN THE NEXT 21 DAYS? :YES IF SO WHAT VACCINE AND WHEN? COVID 2ND DO YOU NEED ANY PRESCRIPTION? :NO DO YOU TAKE ANY IMMUNOSUPPRESSIVE MEDICATIONS? :NO IS THERE A CHANCE YOU COULD BE ? :NO ARE YOU BREAST FEEDING? :NO CURRENT MEDICATIONS TAKING METFORMIN HCL 500 MG TABLET 1 TABLET WITH A MEAL ORALLY BID TAKING OMEPRAZOLE 40 MG CAPSULE DELAYED RELEASE 1 CAPSULE 30 MINUTES BEFORE MORNING MEAL ORALLY ONCE A DAY TAKING ATORVASTATIN CALCIUM 20 MG TABLET 1 TABLET ORALLY ONCE A DAY TAKING LOSARTAN POTASSIUM 50 MG TABLET 1 TABLET ORALLY ONCE A DAY TAKING ALPRAZOLAM 1 MG TABLET 1 TABLET ORALLY UP TO 3 TIMES A DAY TAKING BUPROPION HCL 150 MG TABLET EXTENDED RELEASE 1 TABLET ORALLY DAILY TAKING VENLAFAXINE HCL 75 MG TABLET 150 MG 1 TABLET WITH FOOD ORALLY ONCE A DAY TAKING D3-50 1.25 MG ([id number] UT) CAPSULE 1 CAPSULE ORALLY TAKING ASPIRIN 81 MG TABLET CHEWABLE 1 TABLET ORALLY ONCE A DAY TAKING GLIPIZIDE ER 2.5 MG TABLET EXTENDED RELEASE 24 HOUR 1 TABLET WITH BREAKFAST ORALLY ONCE A DAY NOT-TAKING DEXTROAMPHETAMINE SULFATE 10 MG TABLET 1 TABLET IN THE MORNING ORALLY ONCE A DAY NOT-TAKING ENTYVIO 300 MG SOLUTION RECONSTITUTED DIRECTED INTRAVENOUS INFUSION EVERY 60 DAYS NOT-TAKING ALEVE 220 MG TABLET 1 TABLET WITH FOOD OR MILK NEEDED ORALLY EVERY 12 HRS NOT-TAKING ASPIRIN 81 81 MG TABLET DELAYED RELEASE 1 TABLET ORALLY ONCE A DAY NOT-TAKING NICODERM CQ 21 MG/24HR PATCH 24 HOUR TRANSDERMAL NOT-TAKING LEEROY BCG 50 MG SUSPENSION RECONSTITUTED DIRECTED INTRAVESICAL 1 INSTILLATION PER WK X 6 WKS MEDICATION LIST REVIEWED AND RECONCILED WITH THE PATIENT PAST MEDICAL HISTORY HTN DEPRESSION/ANXIETY HYPERLIPIDEMIA S/P DISC REPAIR-LUMBAR 1995 DM GERD/BARRETTS BRONCHITIS CROHN'S DISEASE FX LEFT SHOULDER-01/30 ALLERGIES CELEBREX: RASH - ALLERGY SHELL FISH: RASH, SWELLING - ALLERGY CHANTIX: RASH, STOMACH UPSET - ALLERGY IODINE: RASH SOCIAL HISTORY GENERAL: TOBACCO USE ARE YOU A:FORMER SMOKER HOW LONG HAS IT BEEN SINCE YOU LAST SMOKED?3-6 MONTHS SMOKING CESSATION INFORMATION GIVEN08/05/2019 03-29-19 LAST CIG LATEX QUESTIONNAIRE LATEX ALLERGY : HAVE YOU EVER DEVELOPED ANY TYPE OF REACTION AFTER HANDLING LATEX PRODUCTS SUCH RUBBER GLOVES, CONDOMS, DIAPHRAGMS, BALLOONS, SOCKS, OR UNDERWEAR?NO LATEX ALLERGY : HAVE YOU EVER DEVELOPED ANY TYPE OF REACTION DURING OR AFTER DENTAL APPOINTMENT, VAGINAL/RECTAL EXAMINATION, SURGICAL PROCEDURE, OR ANY OTHER EXPOSURE?NO LATEX RISK : HAVE YOU EVER HAD ANY DIFFICULTY BREATHING OR HIVES AFTER EATING OR HANDLING ANY FRUITS, OR VEGETABLES; SUCH KIWI, BANANAS, STONE FRUITS, OR CHESTNUTSNO LATEX RISK : DO YOU HAVE A PREVIOUS PERSONAL HISTORY OF MORE THAN NINE SURGERIES, SPINA BIFIDA, OR REPEATED CATHERIZATIONS? NO LATEX RISK : ARE YOU FREQUENTLY EXPOSED TO LATEX PRODUCTS IN YOUR OCCUPATION?NO DATE ASKED : 06/12/2020 ALCOHOL USE: YES GLASS A WINE. ALCOHOL SCREENING POINTS: 0, INTERPRETATION: NEGATIVE. RECREATIONAL DRUG USE DRUG USE?NO CAFFEINE CAFFEINE USE?YES SEXUAL HX HAD SEX IN THE LAST 12 MONTHS (VAGINAL, ORAL, OR ANAL)?: NO, HAVE YOU EVER HAD AN STD?: NO. MU-ISM NO WORSHIP BELIEFS THAT WOULD IMPACT HEALTH CARE. 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 DIET: REGULAR. EXERCISE: DAILY. MARITAL STATUS: .. - HAS THE PATIENT BEEN EDUCATED REGARDING HIS/HER PLAN OF CARE?YES HAS THE PATIENT BEEN EDUCATED REGARDING PAIN, THE RISK FOR PAIN, THE IMPORTANCE OF EFFECTIVE PAIN MANAGEMENT, AND THE PAIN ASSESSMENT PROCESS?YES ADVANCE DIRECTIVE ADVANCE DIRECTIVE DISCUSSED WITH PATIENT:YES PT HAS HCP -SON JAMSHID OLIVA PARTIALLY DISABLED DUE TO BACK. REVIEW OF SYSTEMS CONSTITUTIONAL: ANY RECENT FEVER NO . CHILLS NO . WEIGHT CHANGE OF UNKNOWN REASONS NO . GASTROENTEROLOGY: NEW UNEXPLAINABLE CHANGES IN BOWEL CONTROL NO . CONSTIPATION NO . GENITOURINARY: ANY NEW CHANGE IN BLADDER CONTROL? NO . NEUROLOGY: NEW ONSET DIZZINESS OR NEUROLOGICAL CHANGES NOT MENTIONED NO . NEW NUMBNESS OR PAIN PATTERNS NOT MENTIONED AND PERTINENT TO TODAY'S VISIT NO . CARDIOLOGY: NEW CHEST PRESSURE NO . PATIENT DENIES NO . RESPIRATORY: UNEXPLAINABLE COUGH NO . NEW SHORTNESS OF BREATH NO . VITAL SIGNS WT 168 LBS, HT 69 IN, BMI 24.81 INDEX, BP 157/90 MM HG, HR 89 /MIN, RR 18 /MIN, TEMP 97.6 F, OXYGEN SAT % 97%, SAFE IN ENV? (Y/N) YEST.LEROY COCHRAN. EXAMINATION GENERAL EXAMINATION: GENERAL AWAKE,ALERT , PLEASANT. PSYCH AFFECT NORMAL . LUNGS: LUNG GONZALEZ ARE CLEAR TO AUSCULTATION BILATERALLY. GOOD MOVEMENT OF AIR . HEART: S1, S2 IN A REGULAR RATE AND RHYTHM. NO SIGNIFICANT MURMURS, RUBS OR GALLOPS NOTED . MUSCULOSKELETAL:TENDERNESS WITH PALPATION OVER LEFT HIP . DIAGNOSTIC TESTS REVIEWED MRI LEFT HIP-2019. 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 PROCEDURE CODES [id number] ESTABILISHED PATIENT [facility] FAC[facility] CHARGE DISPOSITION & COMMUNICATION FOLLOW UP POST PROCEDURE (REASON: SCHEDULE AFTER 07/13-DUE TO COVID ADMIN LEFT GREATER TROCHANTER OF THE FEMUR BURSAL INJECTION) ELECTRONICALLY SIGNED BY YANY VALLE, LEONARD ON 06/18/2020 AT 09:02 AM EST DISCLAIMER : THIS IS A VISIT SUMMARY EXTRACTED FROM THE [employer] CHART. IT IS NOT A COPY OF THE [employer] PROGRESS NOTE. RIP
== END ==
LOC: M PAIN 14:15
PROVIDERS: ATTEND Nurse Practitioner Family
DX: M70.62 Trochanteric bursitis, left hip (principal); I10 Essential (primary) hypertension; F32.9 Major depressive disorder, single episode, unspecified; F41.9 Anxiety disorder, unspecified; E78.5 Hyperlipidemia, unspecified; E11.9 Type 2 diabetes mellitus without complications; K21.9 Gastro-esophageal reflux disease without esophagitis; K22.70 Barrett's esophagus without dysplasia; K50.90 Crohn's disease, unspecified, without complications; Z87.891 Personal history of nicotine dependence; Z79.84 Long term (current) use of oral hypoglycemic drugs; Z79.82 Long term (current) use of aspirin; Z79.899 Other long term (current) drug therapy; Z88.8 Allergy status to other drugs, medicaments and biological substances; Z91.013 Allergy to seafood

== ENCOUNTER → 2020-06-29 | Outpatient (CLI) | payer MEDICARE, MEDICAID | LOC: M LABSMTC 13:21 | PROVIDERS: ATTEND Anesthesiology | DX: Z20.822 Contact with and (suspected) exposure to COVID-19 (principal) ==

== ENCOUNTER → 2020-07-11 | Outpatient (CLI) | payer MEDICARE, MEDICAID ==
[~2020-07-11] VITALS: Ht 175.3 cm; Wt 81.1 kg
[~2020-07-11] MED LIST changes: +NS IV ONE; +VEDOLIZUMAB IV ONE
[2020-07-11 08:32] VITALS: BP 124/72
[2020-07-11 10:05] VITALS: BP 151/82
== END ==
LOC: M INFU 08:00
PROVIDERS: ATTEND Internal Medicine Gastroenterology
DX: K50.90 Crohn's disease, unspecified, without complications (principal); Z88.8 Allergy status to other drugs, medicaments and biological substances; Z91.013 Allergy to seafood
CPT/HCPCS: 96365; J3380

== ENCOUNTER → 2020-07-19 | Outpatient (CLI) | payer MEDICARE, MEDICAID ==
[~2020-07-19] MED LIST changes: -NS IV ONE; -VEDOLIZUMAB IV ONE
== END ==
LOC: M LABSMTC 09:46
PROVIDERS: ATTEND Anesthesiology
DX: Z20.822 Contact with and (suspected) exposure to COVID-19 (principal)

== ENCOUNTER → 2020-08-11 | Outpatient (CLI) | payer MEDICARE, MEDICAID | LOC: M LABSMTC 12:23 | PROVIDERS: ATTEND Anesthesiology | DX: Z20.822 Contact with and (suspected) exposure to COVID-19 (principal) ==

== ENCOUNTER → 2020-08-16 | Outpatient (CLI) | payer MEDICARE, MEDICAID ==
[~2020-08-16] MED LIST changes: +BUPIVACAINE HCL 0.25% 30ML VIAL As Ordered ONE; +ISOVUE-M 300 61% 15ML VIAL As Ordered ONE; +LIDOCAINE 1% SDV 30ML VIAL As Ordered ONE; +TRIAMCINOLONE ACETONIDE SUSP 40 MG/ML VIAL (J3301) As Ordered ONE; +diazePAM 5MG TABLET As Ordered ONE; +oxyCODONE 5MG TAB As Ordered ONE
--- NOTE | 2020-08-16 16:13 | REP ---
INDICATION: LEFT GREATER TROCHANTER BURSA INJECTION OF THE FEMUR. COMPARISON: None. TECHNIQUE: Two C-arm views left hip. FINDINGS: A needle overlies the proximal left femur. IMPRESSION: 9 seconds of fluoroscopy time was utilized. <Electronically signed by Armando De > 08/16/20 [id number]
--- NOTE | 2020-08-23 02:10 | ECWPNPC ---
PATIENT NAME: JOVITA OLIVA : 1950 GENDER: MALE VISIT DATE: 08/16/2020 DISCHARGE DATE: 08/16/201716 VISIT LOCKED DATE TIME: PHYSICIAN: ARELIS CAI MD RESOURCE: ARELIS CAI MD REASON FOR APPOINTMENT 1. LEFT GREATER TROCHANTER BURSAL INJECTION OF THE FEMUR HISTORY OF PRESENT ILLNESS FALL RISK SCREENING: SCREENING : NO FALLS REPORTED IN THE LAST YEAR. PAIN SCREENING: PATIENT HAS A COMPLAINT OF ACUTE OR CHRONIC PAIN :YES LOCATION OF PAIN:LEFT HIP INTENSITY OF PAIN (SCALE OF 1 TO 10):10 WHAT DOES YOUR PAIN FEEL LIKE:ACHING, SHARP, TENDER, THROBBING, SORE DURATION:ONLY WITH SPECIFIC ACTIVITIES, INTERMITTENT PAIN IS INCREASED BY:ACTIVITIES PAIN IS DECREASED BY:SITTING, OTHERS PATIENT REPORTS ONLY ABLE TO WALK VERY SHORT DISTANCES WITHOUT HAVIN TO TAKE A BREAK. PLAN/GOALS/TREATMENT/INTERVENTION/FOLLOW UP:SEE PLAN NURSING NOTE: -. PAIN CENTER INTAKE QUESTIONS: DO YOU HAVE A HISTORY OF MRSA? :NO DO YOU TAKE A BLOOD THINNERS? :NO DO YOU HAVE ANY BLEEDING DISORDERS? :NO ANY NEW NUMBNESS OR WEAKNESS IN YOUR LEGS OR ARMS? :NO ANY PACEMAKER,DEFIBRILLATOR, OR DORSAL COLUMN STIMULATOR? :NO DO YOU HAVE ANY RASHES OR OPEN SORES? :NO ARE YOU ALLERGIC TO IV DYE? :NO ARE YOU DIABETIC? :YES FSBS:146 AT 12 PM ANY NEW PROBLEMS WITH YOUR MEDICATIONS? :NO HAVE YOU RECEIVED A VACCINE IN THE PAST 30 DAYS? :NO DO YOU PLAN TO RECEIVE A VACCINE IN THE NEXT 21 DAYS? :NO DO YOU TAKE ANY IMMUNOSUPPRESSIVE MEDICATIONS? :YES ENTYVIO (LAST DOSE: 06/2020) ANY HISTORY OF SEIZURES? :NO ANY HISTORY OF CARDIAC ISSUES OR EVENTS? :NO DO YOU HAVE ANY KIDNEY OR LIVER DISEASE? :NO DO YOU HAVE SLEEP APNEA? :NO ANY RECENT HEAD INJURY? :NO DO YOU HAVE ANY NEW INFECTIONS? :NO IS THERE A CHANCE YOU COULD BE ? :N/A ARE YOU BREAST FEEDING? :N/A WHEN DID YOU LAST EAT? : 0530 WHEN DID YOU LAST DRINK? : 08/16/2020 1130 WHAT DID YOU LAST DRINK? : APPLEJUICE NAME OF PERSON DRIVING YOU HOME? : BOBBI (NURSE) DO YOU HAVE ANY OTHER QUESTIONS OR CONCERNS? : NO CURRENT MEDICATIONS TAKING METFORMIN HCL 500 MG TABLET 1 TABLET WITH A MEAL ORALLY BID TAKING OMEPRAZOLE 40 MG CAPSULE DELAYED RELEASE 1 CAPSULE 30 MINUTES BEFORE MORNING MEAL ORALLY ONCE A DAY TAKING ATORVASTATIN CALCIUM 20 MG TABLET 1 TABLET ORALLY ONCE A DAY TAKING LOSARTAN POTASSIUM 50 MG TABLET 1 TABLET ORALLY ONCE A DAY TAKING ALPRAZOLAM 1 MG TABLET 1 TABLET ORALLY UP TO 3 TIMES A DAY TAKING BUPROPION HCL 150 MG TABLET EXTENDED RELEASE 1 TABLET ORALLY DAILY TAKING VENLAFAXINE HCL 75 MG TABLET 150 MG 1 TABLET WITH FOOD ORALLY ONCE A DAY TAKING D3-50 1.25 MG (72304 UT) CAPSULE 1 CAPSULE ORALLY WEEKLY TAKING ASPIRIN 81 MG TABLET CHEWABLE 1 TABLET ORALLY ONCE A DAY TAKING GLIPIZIDE ER 2.5 MG TABLET EXTENDED RELEASE 24 HOUR 1 TABLET WITH BREAKFAST ORALLY ONCE A DAY TAKING TRULICITY 0.75 MG/0.5ML SOLUTION PEN-INJECTOR DIRECTED SUBCUTANEOUS ONCE A WEEK, NOTES: 08/14/20 TAKING ENTYVIO 300 MG SOLUTION RECONSTITUTED DIRECTED INTRAVENOUS Q 60 DAYS, NOTES: LD: 07/11/20 ND: 09/03/20 NOT-TAKING DEXTROAMPHETAMINE SULFATE 10 MG TABLET 1 TABLET IN THE MORNING ORALLY ONCE A DAY NOT-TAKING ENTYVIO 300 MG SOLUTION RECONSTITUTED DIRECTED INTRAVENOUS INFUSION EVERY 60 DAYS NOT-TAKING ALEVE 220 MG TABLET 1 TABLET WITH FOOD OR MILK NEEDED ORALLY EVERY 12 HRS NOT-TAKING ASPIRIN 81 81 MG TABLET DELAYED RELEASE 1 TABLET ORALLY ONCE A DAY NOT-TAKING NICODERM CQ 21 MG/24HR PATCH 24 HOUR TRANSDERMAL NOT-TAKING LEEROY BCG 50 MG SUSPENSION RECONSTITUTED DIRECTED INTRAVESICAL 1 INSTILLATION PER WK X 6 WKS DISCONTINUED MAY USE ENTIVEO INTRAVENOUSLY Q 60 DAYS, NOTES: 07/11/20 MEDICATION LIST REVIEWED AND RECONCILED WITH THE PATIENT PAST MEDICAL HISTORY HTN DEPRESSION/ANXIETY HYPERLIPIDEMIA S/P DISC REPAIR-LUMBAR 1995 DM GERD/BARRETTS BRONCHITIS CROHN'S DISEASE FX LEFT SHOULDER-01/30 ALLERGIES CELEBREX: RASH - ALLERGY SHELL FISH: RASH, SWELLING - ALLERGY CHANTIX: RASH, STOMACH UPSET - ALLERGY IODINE: RASH - ALLERGY SOCIAL HISTORY GENERAL: TOBACCO USE ARE YOU A:CURRENT SMOKER ARE YOU INTERESTED IN QUITTING?THINKING ABOUT QUITTING COUNSELED THE PATIENT ON SMOKING CESSATION, EDUCATION REMQKOIW70/03/2021 PATIENT COUNSELED ON THE DANGERS OF TOBACCO USE AND URGED TO QUIT:08/16/2020 SMOKING CESSATION INFORMATION GIVEN08/14/2020 LATEX QUESTIONNAIRE LATEX ALLERGY : HAVE YOU EVER DEVELOPED ANY TYPE OF REACTION AFTER HANDLING LATEX PRODUCTS SUCH RUBBER GLOVES, CONDOMS, DIAPHRAGMS, BALLOONS, SOCKS, OR UNDERWEAR?NO LATEX ALLERGY : HAVE YOU EVER DEVELOPED ANY TYPE OF REACTION DURING OR AFTER DENTAL APPOINTMENT, VAGINAL/RECTAL EXAMINATION, SURGICAL PROCEDURE, OR ANY OTHER EXPOSURE?NO DATE ASKED : 06/12/2020 LATEX RISK : HAVE YOU EVER HAD ANY DIFFICULTY BREATHING OR HIVES AFTER EATING OR HANDLING ANY FRUITS, OR VEGETABLES; SUCH KIWI, BANANAS, STONE FRUITS, OR CHESTNUTSNO LATEX RISK : DO YOU HAVE A PREVIOUS PERSONAL HISTORY OF MORE THAN NINE SURGERIES, SPINA BIFIDA, OR REPEATED CATHERIZATIONS? NO LATEX RISK : ARE YOU FREQUENTLY EXPOSED TO LATEX PRODUCTS IN YOUR OCCUPATION?NO ALCOHOL USE: YES GLASS A WINE. LUNG CANCER SCREENING SMOKING STATUS:CURRENT SMOKER IS THE PATIENT BETWEEN THE AGE OF 55 AND 77?YES ALCOHOL SCREENING POINTS: 0, INTERPRETATION: NEGATIVE. RECREATIONAL DRUG USE DRUG USE?NO CAFFEINE CAFFEINE USE?YES SEXUAL HX HAD SEX IN THE LAST 12 MONTHS (VAGINAL, ORAL, OR ANAL)?: NO, HAVE YOU EVER HAD AN STD?: NO. SYNAGOGUE NO SYNAGOGUE BELIEFS THAT WOULD IMPACT HEALTH CARE. LEARNING BARRIERS / SPECIAL NEEDS CHANGE FROM LAST VISIT?NO BARRIERS TO LEARNING?NO HEARING IMPAIRED?YES :HEARING AIDES VISION IMPAIRED?YES :CORRECTIVE LENSES COGNITIVELY IMPAIRED?NO READINESS TO LEARN?YES LEARNING PREFERENCES?NO LEARNING CAPABILITIES PRESENT?YES EMOTIONAL BARRIERS?NO SPECIAL DEVICES?NO ACCOUNTING FILE CLERK NEEDED?NO DOMESTIC VIOLENCE DO YOU FEEL SAFE IN YOUR ENVIRONMENT?YES OCCUPATION: RETIRED. DIET: REGULAR. EXERCISE: DAILY. MARITAL STATUS: .. - HAS THE PATIENT BEEN EDUCATED REGARDING HIS/HER PLAN OF CARE?YES HAS THE PATIENT BEEN EDUCATED REGARDING PAIN, THE RISK FOR PAIN, THE IMPORTANCE OF EFFECTIVE PAIN MANAGEMENT, AND THE PAIN ASSESSMENT PROCESS?YES ADVANCE DIRECTIVE ADVANCE DIRECTIVE DISCUSSED WITH PATIENT:YES PT HAS HCP -SON JAMSHID OLIVA PARTIALLY DISABLED DUE TO BACK. VITAL SIGNS WT 169.4 LBS, HT 69 IN, BMI 25.01 INDEX, BP 116/72 MM HG, HR 96 /MIN, RR 18 /MIN, TEMP 97.6 F, OXYGEN SAT % 100%, SAFE IN ENV? (Y/N) YES, NA INITIALS AW 1321, REVIEWED BY: Deyvi MOREIRA RN. EXAMINATION GENERAL: A HISTORY AND PHYSICAL EXAM ON THE PATIENT WAS DONE ON 06/12/2020 (DATE OF ORIGINAL ASSESSMENT) IN PREPARATION OF SURGERY/PROCEDURE. I HAVE NOW REASSESSED THIS PATIENT'S HEALTH STATUS AND PERFORMED AN UPDATED EXAM TODAY. ALL CHANGES IN THE PATIENT'S HISTORY, PHYSICAL EXAM, PRE-EXISTING CONDITONS, AND INDICATIONS/CONTRAINDICATIONS TO THE PLANNED PROCEDURE AND ANESTHESIA ARE DOCUMENTED AND EVALUATED BELOW. I ATTEST TO THE ADEQUACY AND APPROPRIATENESS OF MY ASSESSMENT, AND CONFIRM THE NECESSITY FOR THE PLANNED PROCEDURE. THE PATIENT IS ALERT, ORIENTED TIMES THREE AND COOPERATIVE. LUNGS ARE CLEAR TO AUSCULTATION. HEART SHOWS REGULAR RHYTHM, NO MURMURS AND NO GALLOPS. ASSESSMENTS TROCHANTERIC BURSITIS OF LEFT HIP - M70.62 (PRIMARY) TREATMENT TROCHANTERIC BURSITIS OF LEFT HIP [facility] FLUORO GUIDANCE (PAIN)[id number] COMPLETION OF PROCEDURAL VISIT WHEN MEETS CRITERIALUIS FERNANDO SOSA 08/16/2020 4:42:48 PM > 1435 CRITERIA MET MEDICATION: VALIUM TAB 10MG ORALLY (DIAZEPAM)JAKY WRIGHT 08/16/2020 2:45:00 PM > VERIFIED LUIS FERNANDO SOSA 08/16/2020 2:50:25 PM > ADMINISTERED MEDICATION: OXYCODONE HCL TAB 10MG ORALLYJAKY WRIGHT 08/16/2020 2:45:13 PM > VERIFIED LUIS FERNANDO SOSA 08/16/2020 2:50:46 PM > ADMINISTERED SALINE LOCKLUIS FERNANDO SOSA 08/16/2020 2:59:44 PM > #22 SL STARTED X 2 ND ATTEMPT IN LEFT FA. SITE ASYMPTOMATIC, FLUSHES WELL. PATIENT TOLERATED PROCEDURE WELL. OTHERS NOTES: 08/14/20 1550 PAT COMPLETED. Tea ALVAREZ RN BSN. PROCEDURES PAIN NURSING RECORD PROCEDURE IN ROOM 1530, PHYSICIAN IN ROOM 1547, START 1552, FINISH 1559, PHYSICIAN OUT OF ROOM 1600, OUT OF ROOM 1609 VIA STRETCHER, ECG NORMAL SINUS, PATIENT SHIELDED YES, SAFETY STRAP YES, PREP CHLORHEXIDINE AND DURAPREP Serjio MOREIRA RN, DRESSING TEGADERM DR. CAI LOC: LUIS FERNANDO SOSA 08/16/2020 3:43:57 PM > , 1. ALERT, ORIENTED RESP: LUIS FERNANDO SOSA 08/16/2020 3:44:01 PM > , 1. REGULAR, NO DYSPNEA COLOR: LUIS FERNANDO SOSA 08/16/2020 3:44:04 PM > , 1. PINK SKIN: LUIS FERNANDO SOSA 08/16/2020 3:44:09 PM > , 1. WARM, DRY POSITION: LUIS FERNANDO SOSA 08/16/2020 3:44:14 PM > , 3. LATERAL VITALS: LUIS FERNANDO SOSA 08/16/2020 3:44:17 PM > 140/65-82-18-93% , LUIS FERNANDO SOSA 08/16/2020 3:53:02 PM > 112/57-83-16-92% , LUIS FERNANDO SOSA 08/16/2020 4:00:17 PM > 122/51-82-18-93% 08/16/2020 1634 147/77-94-18-93% NOTES Serjio MOREIRA RN , LUIS FERNANDO SOSA 08/16/2020 3:45:14 PM > UPON PREPPING PATIENT OPEN AREA WAS NOTED ON LEFT BUTTOCK. 3 AREAS NOTED IN TOTAL, PROXIMAL 2 AREAS ARE NOT OPEN, BUT DARK IN COLOR. DISTAL AREA OPEN. NO DRAINAGE NOTED AT SITE, OUTER EDGE OF OPEN AREA IS REDDENED. DR CAI AWARE AND VIEWED AREAS. COMPLETION OF PROCEDURE APPOINTMENT: POST PAIN 0, DRESSING SITE DRY AND INTACT LEFT HIP, IV DISCONTINUED, SITE CLEAR, CATHETER INTACT, GAIT STEADY, TEACHING COMPLETED, PATIENT ACKNOWLEDGES UNDERSTANDING YES PATIENT VERBALIZES UNDERSTANDING OF POST PROCEDURE INSTRUCTIONS REVIEWED, PROCEDURE APPOINTMENT COMPLETED AT 1635 BY: Serjio MOREIRA RN PRE PROCEDURE DIAGNOSIS BURSITIS AT THE LEFT GREATER TROCHANTER OF THE FEMUR POST PROCEDURE DIAGNOSIS BURSITIS AT THE LEFT GREATER TROCHANTER OF THE FEMUR PROCEDURE INJECTION AT THE BURSA OF THE LEFT GREATER TROCHANTER OF THE FEMUR UNDER FLUOROSCOPIC GUIDANCE. SURGEON DR. ARELIS CAI FILM PAINTER NONE ANESTHESIA LOCAL PRE PROCEDURE NOTE THE PATIENT HAS A HISTORY OF LEFT HIP PAIN. I EVALUATED THE PATIENT AND REVIEWED THE CHART. WE BOTH AGREE ON INJECTING OVER THE BURSA OF THE LEFT GREATER TROCHANTER OF THE FEMUR. I DISCUSSED THE RISKS, BENEFITS AND ALTERNATIVES ASSOCIATED WITH THIS PROCEDURE. THE PATIENT WOULD LIKE TO PROCEED AND GAVE CONSENT TO PERFORM THE PROCEDURE. THE PATIENT DENIES UNEXPLAINABLE WEIGHT LOSS, FEVERS, CHILLS, OR CHANGES IN HIS URINARY OR BOWEL CONTROL. THE PATIENT IS COVID-19 NEGATIVE. THE PATIENT HAS A LESION OVER THE LEFT BUTTOCK. SEE PHOTO. I DO NOT THINK THAT THIS WILL AFFECT THE PROCEDURE TODAY, BUT I WOULD LIKE TO HAVE THE PATIENT SEE HIS PRIMARY CARE PHYSICIAN ABOUT THIS DESCRIPTION OF PROCEDURE AFTER CONSENT WAS TAKEN, THE PATIENT WAS BROUGHT TO THE PROCEDURE ROOM AND PLACED IN THE RIGHT LATERAL DECUBITUS POSITION. THE LEFT HIP AREA WAS CLEANED WITH CHLORHEXADINE AND DURAPREP SOLUTION AND DRAPED ASEPTICALLY. THE PROCEDURE WAS DONE UNDER STERILE CONDITIONS. A TIMEOUT WAS PERFORMED WHERE THE CONSENTED SITE WAS VERIFIED WITH EVERYONE IN THE ROOM. UNDER FLUOROSCOPIC GUIDANCE, TARGET WAS SELECTED AT THE LEFT GREATER TROCHANTER OF THE FEMUR. I CONFIRMED AGAIN THE SITE OF TARGET. LIDOCAINE WAS USED TO NUMB THE SKIN AND THE SUBCUTANEOUS TISSUE BELOW IT. SPINAL NEEDLE, 22-GAUGE, WAS ADVANCED UNDER FLUOROSCOPIC GUIDANCE AND FOLLOWING PATIENT FEEDBACK UNTIL THE TARGET WAS TOUCHED. POSITION OF THE NEEDLE WAS VERIFIED WITH AP AND LATERAL VIEWS. AFTER PROPER POSITION OF THE NEEDLE WAS ACHIEVED, ISOVUE-M 30%, 1.0 ML, WAS INJECTED SHOWING ADEQUATE SPREAD OF THE DYE. KENALOG 40 MG WAS INJECTED. THEN, A SOLUTION OF 30 ML OF BUPIVACAINE 0.125% WAS USED TO FLUSH THE SITE. THE MEDICATIONS WERE VERIFIED WITH THE NURSE. THERE WAS NO EVIDENCE OF BLOOD OR PARESTHESIA. THE PATIENT WAS SENT TO THE RECOVERY ROOM. THE PATIENT WAS MOVING THE EXTREMITIES AND DOING WELL. THERE WERE NO COMPLICATIONS DURING THE PROCEDURE. ESTIMATED BLOOD LOSS WAS LESS THAN 5 ML. FLUOROSCOPIC TIME WAS 9 SECONDS POST PROCEDURE NOTE I DISCUSSED THE PROCEDURE WITH THE PATIENT. WE WILL SEE THE PATIENT BACK IN SEVERAL WEEKS FOR FOLLOWUP. I AM LOOKING FOR LONG-LASTING PAIN RELIEF WITH THIS INTERVENTION. I, CRUZ COTTO, DOCUMENTED THE ABOVE INFORMATION ACTING A SCRIBE FOR DR. CAI. I HAVE REVIEWED THE ABOVE DOCUMENT, WRITTEN BY CRUZ COTTO, OBSERVER GRAVITY PROSPECTING, AND I VERIFY THAT IT IS ACCURATE PROCEDURE CODES 98303 DRAIN/INJ JOINT/BURSA W/O US, MODIFI[place]: [place] [id number] NEEDLE LOCALIZATION BY XRAY, MODIFIERS: 26 DISPOSITION & COMMUNICATION FOLLOW UP FOLLOW UP WITH LEAF STAMPER (REASON: POST LEFT GREATER TROCHANTER OF THE FEMUR INJECTION) ELECTRONICALLY SIGNED BY ARELIS CAI MD, MD ON 08/22/2020 AT 12:54 PM EDT DISCLAIMER : THIS IS A VISIT SUMMARY EXTRACTED FROM THE [facility] CHART. IT IS NOT A COPY OF THE [facility] PROGRESS NOTE. RIP
== END ==
LOC: M PAIN 13:20
PROVIDERS: ATTEND Anesthesiology
DX: M70.62 Trochanteric bursitis, left hip (principal); E11.9 Type 2 diabetes mellitus without complications; K21.9 Gastro-esophageal reflux disease without esophagitis; F17.200 Nicotine dependence, unspecified, uncomplicated; Z86.59 Personal history of other mental and behavioral disorders; Z88.3 Allergy status to other anti-infective agents; Z88.8 Allergy status to other drugs, medicaments and biological substances; Z91.013 Allergy to seafood; Z79.82 Long term (current) use of aspirin; Z79.84 Long term (current) use of oral hypoglycemic drugs; Z79.899 Other long term (current) drug therapy
CPT/HCPCS: 20610; 77002; J3301; Q9967

== ENCOUNTER 2020-09-05 08:02 | Outpatient (CLI) | payer MEDICARE, MEDICAID ==
[~2020-09-05] VITALS: Ht 175.3 cm; Wt 81.1 kg
[~2020-09-05 08:02] MED LIST changes: -BUPIVACAINE HCL 0.25% 30ML VIAL As Ordered ONE; -ISOVUE-M 300 61% 15ML VIAL As Ordered ONE; -LIDOCAINE 1% SDV 30ML VIAL As Ordered ONE; +NS IV ONE; -TRIAMCINOLONE ACETONIDE SUSP 40 MG/ML VIAL (J3301) As Ordered ONE; +VEDOLIZUMAB IV ONE; -diazePAM 5MG TABLET As Ordered ONE; -oxyCODONE 5MG TAB As Ordered ONE
[2020-09-05 08:19] VITALS: BP 153/65
[2020-09-05 08:20] VITALS: BP 153/65
[2020-09-05 10:30] VITALS: BP 137/63
== END 2020-09-05 10:30 | disposition home or self-care (01) ==
LOC: M INFU 08:02
PROVIDERS: ATTEND Internal Medicine Gastroenterology
DX: K50.90 Crohn's disease, unspecified, without complications (principal)
CPT/HCPCS: 96365; J3380

== ENCOUNTER 2020-09-29 12:17 | Emergency (ER) | payer MEDICARE, MEDICAID ==
[~2020-09-29] VITALS: Ht 175.3 cm; Wt 74.5 kg
[~2020-09-29 12:17] MED LIST changes: -NS IV ONE; +OMEP40CA4 PO; -OMEP40CA97 PO; -VEDOLIZUMAB IV ONE
[2020-09-29] MEDS ORDERED: VENL150C43 PO (15:06)
[2020-09-29] MEDS ORDERED: METF-838 PO (15:06)
[2020-09-29] MEDS ORDERED: OMEP-221 PO (15:06)
[2020-09-29] MEDS ORDERED: MIRT-62 PO (15:06)
[2020-09-29] MEDS ORDERED: ATOR1TAB21 PO (15:06)
[2020-09-29] MEDS ORDERED: D3-5CAP PO (15:06)
[2020-09-29] MEDS ORDERED: GLIP2.5T6 PO (15:06)
[2020-09-29] MEDS ORDERED: ADV100INH INH (15:06)
[2020-09-29] MEDS ORDERED: TRUL10IN SC (15:06)
[2020-09-29] MEDS ORDERED: ALPR1TAB3 PO (15:06)
[2020-09-29] MEDS ORDERED: BUPR150T12 PO (15:06)
[2020-09-29] MEDS ORDERED: METO1TAB87 PO (15:06)
[2020-09-29] MEDS ORDERED: ALBU8.5H INH (15:06)
[2020-09-29] MEDS ORDERED: NS 1,000 ML IV ONE (15:10)
[2020-09-29 15:13] LABS: BASO # 0.1 10^3/uL (0.0-0.2); BASO % 0.7 % (0.0-1.0); EOS # 0.3 10^3/uL (0.0-0.5); EOS % 2.1 % (0.0-3.0); HEMATOCRIT 39.7 % (42.0-52.0); HEMOGLOBIN 12.4 g/dl (13.5-17.5); LYMPH # 3.1 10^3/uL (1.5-5.0); LYMPH % 21.8 % (24.0-44.0); MEAN CORPUSCULAR HEMOGLOBIN 27.9 pg (27.0-33.0); MEAN CORPUSCULAR HGB CONC 31.2 g/dl (32.0-36.5); MEAN CORPUSCULAR VOLUME 89.4 fl (80.0-96.0); MONO # 1.2 10^3/uL (0.0-0.8); MONO % 8.6 % (2.0-8.0); NEUTROPHILS # 9.2 10^3/uL (1.5-8.5); NEUTROPHILS % 66.1 % (36.0-66.0); PLATELET COUNT, AUTOMATED 399 10^3/uL (150-450); RED BLOOD COUNT 4.44 10^6/uL (4.30-6.10)
[2020-09-29 15:25] LABS: INR 0.96
[2020-09-29 15:26] LABS: PARTIAL THROMBOPLASTIN TIME 29.6 SECONDS (24.2-38.5)
[2020-09-29 15:28] LABS: D-DIMER QUANT 300.56 ng/ml (<500)
[2020-09-29 15:35] LABS: ALBUMIN 3.8 GM/DL (3.2-5.2); ALT/SGPT 35 U/L (12-78); BILIRUBIN,DIRECT < 0.1 MG/DL (0.0-0.2); BILIRUBIN,TOTAL 0.2 MG/DL (0.2-1.0); BLOOD UREA NITROGEN 36 MG/DL (7-18); C REACTIVE PROTEIN QUANTITATIV 0.64 MG/DL (0.00-0.30); CALCIUM LEVEL 9.9 MG/DL (8.8-10.2); CARBON DIOXIDE LEVEL 27 MEQ/L (21-32); CHLORIDE LEVEL 103 MEQ/L (98-107); CK-MB VALUE MASS < 1.0 NG/ML (<3.6); CPK CREATINE PHOSPHOKINASE 95 U/L (39-308); CREATININE FOR GFR 1.55 MG/DL (0.70-1.30); GLOMERULAR FILTRATION RATE 47.6 (>49); GLUCOSE, FASTING 90 MG/DL (70-100); LIPASE 138 U/L (73-393); MB/CK RELATIVE INDEX 1.05 (< OR =4); POTASSIUM SERUM 4.6 MEQ/L (3.5-5.1); RHEUMATOID FACTOR QUANT < 10.0 IU/ML (<15.0); SODIUM LEVEL 135 MEQ/L (136-145); TROPONIN I < 0.02 NG/ML (< 0.10)
--- NOTE | 2020-09-29 15:35 | REP ---
INDICATION: weakness COMPARISON: 12/08/2018. TECHNIQUE: PA/Lateral FINDINGS: Lungs: Clear, no infiltrate. Heart: Normal in size. Mediastinum: Mediastinal silhouette unremarkable. Pleural angles: Unremarkable.. Bones and soft tissues: Unremarkable. IMPRESSION: No acute pulmonary disease. <Electronically signed by Armando eD > 09/29/20 [id number]
--- NOTE | 2020-09-29 15:48 | REP ---
INDICATION: abdominal pain. COMPARISON: None. TECHNIQUE: Standard helical technique without intravenous contrast administration secondary to generalized abdominal pain. FINDINGS: The lack of intravenous contrast and oral bowel preparatory contrast administration decreases the sensitivity of the exam. Limited evaluation of the solid intra-abdominal organs show no gross abnormalities or significant changes from the prior exam. The patient is status post cholecystectomy and cystectomy. The patient is status post ileal loop urostomy which is unchanged. Limited evaluation of the pancreas, adrenal glands, and kidneys show no gross abnormalities or significant changes from the prior exam. Limited evaluation of the abdominal aorta and para-aortic regions show no gross abnormalities or significant changes from the prior exam. There is no evidence of significant change in appearance of the bowel loops or the mesenteries. There is no free fluid or free air. There is no intestinal obstruction. There is no significant change in the appearance of the imaged osseous structures. Spinal degenerative changes are noted status quo. The lung bases are clear and unchanged IMPRESSION: No significant change from the prior exam. Findings as described above. There is no evidence of acute intra-abdominal or intrapelvic disease. <Electronically signed by Phil Disla > 09/29/20 2714
--- NOTE | 2020-09-29 15:59 | REP ---
INDICATION: pain in calves/lg weakness COMPARISON: 05/25/2013. TECHNIQUE: Real time compression and duplex Doppler interrogation of the bilateral lower extremity deep venous system is performed. Compression ultrasound is performed of the bilateral peroneal and posterior tibial veins. FINDINGS: Bilaterally, the common femoral, superficial femoral and popliteal veins are fully compressible with transducer pressure and demonstrate normal spontaneous and phasic flow, without evidence of deep venous thrombosis. No thrombus is seen in the bilateral visualized portions of the peroneal and posterior tibial veins. IMPRESSION: No evidence of deep venous thrombosis of the bilateral lower extremity femoral popliteal venous system. <Electronically signed by Armando De > 09/29/20 [id number]
[2020-09-29] MEDS ORDERED: ERGO500029 PO (16:19)
[2020-09-29] MEDS ORDERED: cefTRIAXone SOD 1 GM in D5W MINI-BAG PLUS 50 ML IV ONE (17:00)
[2020-09-29 18:36] VITALS: BP 158/79
--- NOTE | 2020-09-30 07:44 | ECGEPIP ---
[facility] - ED Test Date: 2020-09-29 Pat Name: JOVITA OLIVA Department: Room: - Gender: Male [employer]: : 1950 Requested By: LINO Avila PA-C Order Number: [id number] Reading MD: Anthony Moreira Measurements Intervals [place] Rate: 86 P: 63 MO: 170 QRS: 84 QRSD: 120 T: 52 QT: 372 QTc: 445 Interpretive Statements Normal sinus rhythm Right bundle branch block new from tracing done 07-22-[address]-T wave abnormalities Electronically Signed on 09-30-2020 7:44:40 EDT by Anthony Moreira
== END 2020-09-29 18:54 | disposition home or self-care (01) ==
LOC: M ED 12:17
DX: N39.0 Urinary tract infection, site not specified (principal); I10 Essential (primary) hypertension; M79.661 Pain in right lower leg; R94.31 Abnormal electrocardiogram [ECG] [EKG]; I45.10 Unspecified right bundle-branch block; I25.10 Atherosclerotic heart disease of native coronary artery without angina pectoris; E11.9 Type 2 diabetes mellitus without complications; J44.9 Chronic obstructive pulmonary disease, unspecified; F41.9 Anxiety disorder, unspecified; F33.9 Major depressive disorder, recurrent, unspecified; F90.9 Attention-deficit hyperactivity disorder, unspecified type; Z79.899 Other long term (current) drug therapy; Z79.84 Long term (current) use of oral hypoglycemic drugs; Z91.013 Allergy to seafood; Z88.8 Allergy status to other drugs, medicaments and biological substances; Z85.46 Personal history of malignant neoplasm of prostate; Z87.19 Personal history of other diseases of the digestive system; Z98.890 Other specified postprocedural states
CPT/HCPCS: 71046; 74176; 80047; 80048; 80076; 81001; 82550; 82553; 83605; 83690; 84484; 85025; 85379; 85610; 85730; 86038; 86140; 86256; 86431; 87086; 93005; 93970; 96361; 96365; 99284; J0696

== ENCOUNTER → 2020-10-02 | Outpatient (CLI) | payer MEDICARE, MEDICAID ==
[~2020-10-02] MED LIST changes: +ADV100INH INH; +ALBU8.5H INH; +ALPR1TAB3 PO; +ATOR1TAB21 PO; +BUPR150T12 PO; +D3-5CAP PO; +ERGO500029 PO; +GLIP2.5T6 PO; +METF-838 PO; +METO1TAB87 PO; +MIRT-62 PO; +OMEP-221 PO; +TRUL10IN SC
[2020-10-02 11:44] LABS: BASO # 0.1 10^3/uL (0.0-0.2); BASO % 1.1 % (0.0-1.0); EOS # 0.4 10^3/uL (0.0-0.5); HEMATOCRIT 36.7 % (42.0-52.0); HEMOGLOBIN 11.5 g/dl (13.5-17.5); MEAN CORPUSCULAR HEMOGLOBIN 28.1 pg (27.0-33.0); MEAN CORPUSCULAR HGB CONC 31.3 g/dl (32.0-36.5); MEAN CORPUSCULAR VOLUME 89.7 fl (80.0-96.0); MONO % 8.4 % (2.0-8.0); NEUTROPHILS # 7.7 10^3/uL (1.5-8.5); NEUTROPHILS % 62.8 % (36.0-66.0); PLATELET COUNT, AUTOMATED 363 10^3/uL (150-450); RED BLOOD COUNT 4.09 10^6/uL (4.30-6.10); WHITE BLOOD COUNT 12.3 10^3/uL (4.0-10.0)
[2020-10-02 12:16] LABS: HEMOGLOBIN A1c 6.9 %
[2020-10-02 12:29] LABS: ALBUMIN 3.4 GM/DL (3.2-5.2); BILIRUBIN,TOTAL 0.2 MG/DL (0.2-1.0); CALCIUM LEVEL 9.2 MG/DL (8.8-10.2); CREATININE FOR GFR 1.46 MG/DL (0.70-1.30); POTASSIUM SERUM 4.7 MEQ/L (3.5-5.1); THYROID STIMULATING HORMONE 1.77 uIU/ML (0.358-3.740); TOTAL PROTEIN 7.1 GM/DL (6.4-8.2)
== END ==
LOC: M LAB 10:45
PROVIDERS: ATTEND Urology
DX: C61 Malignant neoplasm of prostate (principal); D09.0 Carcinoma in situ of bladder; N28.1 Cyst of kidney, acquired

== ENCOUNTER 2020-10-31 08:15 | Outpatient (CLI) | payer MEDICARE, MEDICAID ==
[~2020-10-31] VITALS: Ht 175.3 cm; Wt 81.0 kg
[~2020-10-31 08:15] MED LIST changes: +NS IV ONE; +VEDOLIZUMAB IV ONE
[2020-10-31 08:30] VITALS: BP 165/71
[2020-10-31 10:06] VITALS: BP 160/70
== END 2020-10-31 10:10 | disposition home or self-care (01) ==
LOC: M INFU 08:15
PROVIDERS: ATTEND Internal Medicine Gastroenterology
DX: K50.90 Crohn's disease, unspecified, without complications (principal); Z88.8 Allergy status to other drugs, medicaments and biological substances; Z91.013 Allergy to seafood
CPT/HCPCS: 96365; J3380

== ENCOUNTER → 2020-11-15 | Outpatient (CLI) | payer MEDICARE, MEDICAID ==
[~2020-11-15] MED LIST changes: -NS IV ONE; -VEDOLIZUMAB IV ONE
== END ==
LOC: M LABSMTC 12:49
PROVIDERS: ATTEND Internal Medicine Cardiovascular Disease
DX: Z01.812 Encounter for preprocedural laboratory examination (principal); Z20.822 Contact with and (suspected) exposure to COVID-19

== ENCOUNTER → 2020-11-24 | Outpatient (REF) | payer MEDICARE, MEDICAID ==
[2020-11-24 17:12] LABS: HEMATOCRIT 37.4 % (42.0-52.0); HEMOGLOBIN 11.8 g/dl (13.5-17.5); MEAN CORPUSCULAR HEMOGLOBIN 27.5 pg (27.0-33.0); MEAN CORPUSCULAR HGB CONC 31.6 g/dl (32.0-36.5); MEAN CORPUSCULAR VOLUME 87.2 fl (80.0-96.0); PLATELET COUNT, AUTOMATED 385 10^3/uL (150-450); RED BLOOD COUNT 4.29 10^6/uL (4.30-6.10); WHITE BLOOD COUNT 13.7 10^3/uL (4.0-10.0)
[2020-11-24 17:47] LABS: ALBUMIN 3.3 GM/DL (3.2-5.2); ALT/SGPT 38 U/L (12-78); BILIRUBIN,TOTAL 0.2 MG/DL (0.2-1.0); BLOOD UREA NITROGEN 28 MG/DL (7-18); CALCIUM LEVEL 9.5 MG/DL (8.8-10.2); CARBON DIOXIDE LEVEL 27 MEQ/L (21-32); CHLORIDE LEVEL 107 MEQ/L (98-107); CHOLESTEROL LEVEL 149 MG/DL (<200); CHOLESTEROL RISK RATIO 4.138 (<5); CREATININE FOR GFR 1.68 MG/DL (0.70-1.30); GLOMERULAR FILTRATION RATE 43.2 (>42); GLUCOSE, FASTING 144 MG/DL (70-100); HDL CHOLESTEROL 36 MG/DL (>40); NON-HDL-C 113 MG/DL; POTASSIUM SERUM 4.6 MEQ/L (3.5-5.1); SODIUM LEVEL 139 MEQ/L (136-145); TOTAL PROTEIN 7.1 GM/DL (6.4-8.2); TRIGLYCERIDES LEVEL 484 MG/DL (<150)
[2020-11-24 17:48] LABS: VITAMIN B12 LEVEL 405 PG/ML (247-911)
[2020-11-24 18:26] LABS: HEMOGLOBIN A1c 6.9 %
== END ==
LOC: M SFHCADAM 14:39
PROVIDERS: ATTEND Family Medicine
DX: E11.59 Type 2 diabetes mellitus with other circulatory complications (principal); E55.9 Vitamin D deficiency, unspecified; E78.5 Hyperlipidemia, unspecified; E53.8 Deficiency of other specified B group vitamins

== ENCOUNTER 2020-12-26 08:16 | Outpatient (CLI) | payer MEDICARE, MEDICAID ==
[~2020-12-26] VITALS: Ht 175.3 cm; Wt 81.0 kg
[~2020-12-26 08:16] MED LIST changes: +NS IV ONE; +VEDOLIZUMAB IV ONE
[2020-12-26 08:28] VITALS: BP 178/79
[2020-12-26 10:25] VITALS: BP 160/86
== END 2020-12-26 10:25 | disposition home or self-care (01) ==
LOC: M INFU 08:16
PROVIDERS: ATTEND Internal Medicine Gastroenterology
DX: K50.90 Crohn's disease, unspecified, without complications (principal); Z88.8 Allergy status to other drugs, medicaments and biological substances; Z91.013 Allergy to seafood
CPT/HCPCS: 96365; J3380

== ENCOUNTER → 2021-02-02 | Outpatient (CLI) | payer MEDICARE, MEDICAID ==
[~2021-02-02] MED LIST changes: -NS IV ONE; -VEDOLIZUMAB IV ONE
[2021-02-02 13:19] LABS: APPEARANCE, URINE CLOUDY (CLEAR); BACTERIA, URINE AUTO 1+ (NEGATIVE); BILIRUBIN, URINE AUTO NEGATIVE (NEGATIVE); BLOOD, URINE BLOOD NEGATIVE (NEGATIVE); COLOR, URINE YELLOW (YELLOW); GLUCOSE, URINE (UA) AUTO NEGATIVE (NEGATIVE); KETONE, URINE AUTO NEGATIVE (NEGATIVE); LEUKOCYTE ESTERASE, URINE AUTO 2+ (NEGATIVE); MUCUS, URINE SMALL (NEGATIVE); NITRITE, URINE AUTO POSITIVE (NEGATIVE); PROTEIN, URINE AUTO 2+ mg/dL (NEGATIVE); RBC, URINE AUTO 3 /HPF (0-3); SPECIFIC GRAVITY URINE AUTO 1.013 (1.002-1.035); SQUAMOUS EPITHELIAL CELL UR AU 0 /HPF (0-6); UROBILINOGEN, URINE AUTO 0.2 mg/dL (0.0-2.0); WBC, URINE AUTO 27 /HPF (0-3)
[2021-02-02 16:00] LABS: BASO # 0.1 10^3/uL (0.0-0.2); BASO % 0.7 % (0.0-1.0); EOS # 0.3 10^3/uL (0.0-0.5); EOS % 3.1 % (0.0-3.0); HEMATOCRIT 37.2 % (42.0-52.0); HEMOGLOBIN 11.6 g/dl (13.5-17.5); LYMPH # 3.1 10^3/uL (1.5-5.0); LYMPH % 27.7 % (24.0-44.0); MEAN CORPUSCULAR HEMOGLOBIN 27.1 pg (27.0-33.0); MEAN CORPUSCULAR HGB CONC 31.2 g/dl (32.0-36.5); MEAN CORPUSCULAR VOLUME 86.9 fl (80.0-96.0); MONO # 1.1 10^3/uL (0.0-0.8); MONO % 9.6 % (2.0-8.0); NEUTROPHILS # 6.5 10^3/uL (1.5-8.5); NEUTROPHILS % 58.3 % (36.0-66.0); PLATELET COUNT, AUTOMATED 398 10^3/uL (150-450); RED BLOOD COUNT 4.28 10^6/uL (4.30-6.10); WHITE BLOOD COUNT 11.1 10^3/uL (4.0-10.0)
[2021-02-02 16:35] LABS: ALBUMIN 3.3 GM/DL (3.2-5.2); BILIRUBIN,TOTAL 0.3 MG/DL (0.2-1.0); CALCIUM LEVEL 9.3 MG/DL (8.8-10.2); CREATININE FOR GFR 1.64 MG/DL (0.70-1.30); GLOMERULAR FILTRATION RATE 44.4 (>42); TOTAL PROTEIN 7.5 GM/DL (6.4-8.2)
== END ==
LOC: M PLALAB 12:21
PROVIDERS: ATTEND Family Medicine
DX: N39.0 Urinary tract infection, site not specified (principal); R11.2 Nausea with vomiting, unspecified; R19.7 Diarrhea, unspecified
CPT/HCPCS: 36415; 80053; 81001; 83690; 85025; 87086; U0003

== ENCOUNTER → 2021-02-12 | Outpatient (REF) | payer MEDICARE, MEDICAID | LOC: M LAB REF 11:58 | PROVIDERS: ATTEND Internal Medicine Gastroenterology | DX: R19.7 Diarrhea, unspecified (principal) ==

== ENCOUNTER → 2021-02-15 | Outpatient (REF) | payer MEDICARE, MEDICAID ==
[~2021-02-15] MED LIST changes: +ASPI81TA26 PO
[2021-02-15 16:33] LABS: BASO # 0.1 10^3/uL (0.0-0.2); BASO % 0.8 % (0.0-1.0); EOS # 0.3 10^3/uL (0.0-0.5); EOS % 2.2 % (0.0-3.0); HEMATOCRIT 36.9 % (42.0-52.0); HEMOGLOBIN 11.5 g/dl (13.5-17.5); LYMPH # 2.5 10^3/uL (1.5-5.0); LYMPH % 21.6 % (24.0-44.0); MEAN CORPUSCULAR HEMOGLOBIN 27.1 pg (27.0-33.0); MEAN CORPUSCULAR HGB CONC 31.2 g/dl (32.0-36.5); MONO % 8.4 % (2.0-8.0); NEUTROPHILS # 7.8 10^3/uL (1.5-8.5); NEUTROPHILS % 66.5 % (36.0-66.0); PLATELET COUNT, AUTOMATED 394 10^3/uL (150-450); RED BLOOD COUNT 4.24 10^6/uL (4.30-6.10); WHITE BLOOD COUNT 11.8 10^3/uL (4.0-10.0)
[2021-02-15 16:37] LABS: APPEARANCE, URINE CLOUDY (CLEAR); BACTERIA, URINE AUTO 1+ (NEGATIVE); BILIRUBIN, URINE AUTO NEGATIVE (NEGATIVE); BLOOD, URINE BLOOD 2+ (NEGATIVE); COLOR, URINE YELLOW (YELLOW); GLUCOSE, URINE (UA) AUTO NEGATIVE (NEGATIVE); KETONE, URINE AUTO NEGATIVE (NEGATIVE); LEUKOCYTE ESTERASE, URINE AUTO 3+ (NEGATIVE); MUCUS, URINE SMALL (NEGATIVE); NITRITE, URINE AUTO POSITIVE (NEGATIVE); PROTEIN, URINE AUTO 1+ mg/dL (NEGATIVE); RBC, URINE AUTO 12 /HPF (0-3); SPECIFIC GRAVITY URINE AUTO 1.012 (1.002-1.035); SQUAMOUS EPITHELIAL CELL UR AU 0 /HPF (0-6); UROBILINOGEN, URINE AUTO 0.2 mg/dL (0.0-2.0); WBC, URINE AUTO 83 /HPF (0-3)
[2021-02-15 17:15] LABS: ALBUMIN 3.5 GM/DL (3.2-5.2); BILIRUBIN,TOTAL 0.2 MG/DL (0.2-1.0); CALCIUM LEVEL 9.3 MG/DL (8.8-10.2); CHOLESTEROL RISK RATIO 3.416 (<5); CREATININE FOR GFR 1.82 MG/DL (0.70-1.30); FREE T4 0.95 NG/DL (0.76-1.46); GLOMERULAR FILTRATION RATE 39.4 (>42); POTASSIUM SERUM 4.6 MEQ/L (3.5-5.1); THYROID STIMULATING HORMONE 1.55 uIU/ML (0.358-3.740); TOTAL PROTEIN 7.5 GM/DL (6.4-8.2)
[2021-02-15 17:32] LABS: HEMOGLOBIN A1c 7.1 %
== END ==
LOC: M SFHCADAM 13:47
PROVIDERS: ATTEND Family Medicine
DX: R11.2 Nausea with vomiting, unspecified (principal); R19.7 Diarrhea, unspecified; E11.59 Type 2 diabetes mellitus with other circulatory complications; E78.5 Hyperlipidemia, unspecified; R05.3 Chronic cough; R68.83 Chills (without fever); R53.1 Weakness; D84.9 Immunodeficiency, unspecified

== ENCOUNTER → 2021-02-15 | Outpatient (CLI) | payer MEDICARE, MEDICAID ==
[~2021-02-15] MED LIST changes: -ASPI81TA26 PO
--- NOTE | 2021-02-15 14:48 | REP ---
INDICATION: CHILLS WITHOUT FEVER, CHRONIC COUGH. COMPARISON: 09/29/2020 TECHNIQUE: PA and lateral FINDINGS: The superior mediastinal structures are midline. The cardiac silhouette is unremarkable in size, shape, and position. The diaphragmatic surfaces of the lungs are regular, and the costophrenic angles are clear. The pulmonary lee are clear. The imaged osseous structures are intact. IMPRESSION: There is no acute cardiopulmonary disease. <Electronically signed by Phil Disla > 02/15/21 [id number]
== END ==
LOC: M ADAMS 14:21
PROVIDERS: ATTEND Family Medicine
DX: R68.83 Chills (without fever) (principal); R05.3 Chronic cough

== ENCOUNTER 2021-02-20 07:56 | Outpatient (CLI) | payer MEDICARE, MEDICAID ==
[~2021-02-20] VITALS: Ht 175.3 cm; Wt 77.2 kg
[~2021-02-20 07:56] MED LIST changes: +ASPI81TA26 PO
[2021-02-20] MEDS ORDERED: NS IV ONE (08:00)
[2021-02-20] MEDS ORDERED: VEDOLIZUMAB IV ONE (08:00)
[2021-02-20] MEDS ORDERED: diphenhydrAMINE 25MG CAP PO ONE (08:00)
[2021-02-20] MEDS ORDERED: ACETAMINOPHEN TAB 650MG DOSE (2X325MG) PO ONE (08:00)
[2021-02-20 08:13] VITALS: BP 141/76
[2021-02-20 09:38] VITALS: BP 131/63
== END 2021-02-20 09:50 | disposition home or self-care (01) ==
LOC: M INFU 07:56
PROVIDERS: ATTEND Internal Medicine Gastroenterology
DX: K50.90 Crohn's disease, unspecified, without complications (principal); Z88.8 Allergy status to other drugs, medicaments and biological substances
CPT/HCPCS: 96365; J3380

== ENCOUNTER → 2021-03-01 | Outpatient (CLI) | payer MEDICARE, MEDICAID | LOC: M LABSMTC 10:43 | PROVIDERS: ATTEND Anesthesiology | DX: Z01.812 Encounter for preprocedural laboratory examination (principal); Z20.822 Contact with and (suspected) exposure to COVID-19 ==

== ENCOUNTER 2021-03-06 10:46 | Day surgery (SDC) | payer MEDICARE, MEDICAID ==
[~2021-03-06] VITALS: Ht 175.3 cm; Wt 73.5 kg
[~2021-03-06 10:46] MED LIST changes: +LIDOCAINE 2% 100MG/5ML SDV (FOR ANES.) As Ordered ONE; +LOSA50TA28 PO; -LOSA50TA88 PO; +NS 1,000 ML IV ONE; -OMEP-221 PO; +OMEP40CA5 PO; -PARO12.510 PO; +PARO12.56 PO; +fentaNYL 100 MCG/2 ML INJECTION As Ordered ONE; +propofoL 200 MG/20 ML VIAL As Ordered ONE
[2021-03-06] MEDS ORDERED: ePHEDrine SULFATE 25 MG/5 ML(5MG/ML) SYRINGE As Ordered ONE (13:48)
[2021-03-06 14:50] VITALS: BP 132/69
== END 2021-03-06 14:54 | disposition home or self-care (01) ==
LOC: M OPP 10:46
PROVIDERS: ATTEND Internal Medicine Gastroenterology
DX: K50.112 Crohn's disease of large intestine with intestinal obstruction (principal); K63.89 Other specified diseases of intestine; K64.8 Other hemorrhoids; K22.70 Barrett's esophagus without dysplasia; R07.9 Chest pain, unspecified; D11.9 Benign neoplasm of major salivary gland, unspecified; I10 Essential (primary) hypertension; E78.5 Hyperlipidemia, unspecified; J44.9 Chronic obstructive pulmonary disease, unspecified; Z85.51 Personal history of malignant neoplasm of bladder; Z88.1 Allergy status to other antibiotic agents; Z88.5 Allergy status to narcotic agent; Z91.013 Allergy to seafood; Z91.09 Other allergy status, other than to drugs and biological substances
CPT/HCPCS: 43239; 45378; 88305; J3010

== ENCOUNTER → 2021-03-28 | Outpatient (REF) | payer MEDICARE, MEDICAID ==
[~2021-03-28] MED LIST changes: -LIDOCAINE 2% 100MG/5ML SDV (FOR ANES.) As Ordered ONE; -LOSA50TA28 PO; +LOSA50TA88 PO; -NS 1,000 ML IV ONE; +OMEP-221 PO; -OMEP40CA5 PO; +PARO12.510 PO; -PARO12.56 PO; -fentaNYL 100 MCG/2 ML INJECTION As Ordered ONE; -propofoL 200 MG/20 ML VIAL As Ordered ONE
[2021-03-28 19:39] LABS: HEMATOCRIT 35.5 % (42.0-52.0); HEMOGLOBIN 10.8 g/dl (13.5-17.5); MEAN CORPUSCULAR HEMOGLOBIN 26.6 pg (27.0-33.0); MEAN CORPUSCULAR HGB CONC 30.4 g/dl (32.0-36.5); MEAN CORPUSCULAR VOLUME 87.4 fl (80.0-96.0); PLATELET COUNT, AUTOMATED 379 10^3/uL (150-450); RED BLOOD COUNT 4.06 10^6/uL (4.30-6.10); WHITE BLOOD COUNT 11.3 10^3/uL (4.0-10.0)
[2021-03-28 19:40] LABS: APPEARANCE, URINE CLOUDY (CLEAR); BACTERIA, URINE AUTO NEGATIVE (NEGATIVE); BILIRUBIN, URINE AUTO NEGATIVE (NEGATIVE); BLOOD, URINE BLOOD 1+ (NEGATIVE); COLOR, URINE YELLOW (YELLOW); GLUCOSE, URINE (UA) AUTO NEGATIVE (NEGATIVE); KETONE, URINE AUTO NEGATIVE (NEGATIVE); LEUKOCYTE ESTERASE, URINE AUTO 3+ (NEGATIVE); MUCUS, URINE SMALL (NEGATIVE); NITRITE, URINE AUTO POSITIVE (NEGATIVE); PROTEIN, URINE AUTO 2+ mg/dL (NEGATIVE); RBC, URINE AUTO 3 /HPF (0-3); SPECIFIC GRAVITY URINE AUTO 1.014 (1.002-1.035); SQUAMOUS EPITHELIAL CELL UR AU 1 /HPF (0-6); TRIPLE PHOSPHATE CRYSTALS SMALL; UROBILINOGEN, URINE AUTO 0.2 mg/dL (0.0-2.0); WBC, URINE AUTO 39 /HPF (0-3)
== END ==
LOC: M SFHCADAM 15:58
PROVIDERS: ATTEND Physician Assistant
DX: R09.81 Nasal congestion (principal); R10.30 Lower abdominal pain, unspecified
CPT/HCPCS: 81001; 85027; U0003

== ENCOUNTER 2021-04-03 00:54 | Emergency (ER) | payer MEDICARE, MEDICAID ==
[~2021-04-03] VITALS: Ht 175.3 cm; Wt 75.6 kg
[2021-04-03 00:56] VITALS: BP 137/60
[2021-04-03] MEDS ORDERED: ZOLO50TA PO (01:09)
[2021-04-03] MEDS ORDERED: CHOL50003 PO (01:09)
[2021-04-03 02:35] LABS: RSV AMPLIFICATION NEGATIVE (NEGATIVE)
== END 2021-04-03 03:47 | disposition left against medical advice (07) ==
LOC: M ED 00:54
DX: Z53.21 Procedure and treatment not carried out due to patient leaving prior to being seen by health care provider (principal)

== ENCOUNTER → 2021-04-17 | Outpatient (CLI) | payer OTHER, MEDICAID ==
[~2021-04-17] MED LIST changes: +CHOL50003 PO; +ZOLO50TA PO
--- NOTE | 2021-04-17 08:22 | REP ---
INDICATION: CARCINOMA IN SITU OF BLADDER XR LAB AND INFUSION COMPARISON: 02/15/2021 TECHNIQUE: PA and lateral. FINDINGS: The mediastinum and cardiac silhouette are normal. The lung lee are clear and without acute consolidation, effusion, or pneumothorax. The skeletal structures are intact and normal. IMPRESSION: No acute cardiopulmonary process. <Electronically signed by Christian Garcia > 04/17/21 0818
== END ==
LOC: M LAB 07:35
PROVIDERS: ATTEND Urology
DX: D09.0 Carcinoma in situ of bladder (principal)

== ENCOUNTER → 2021-04-19 | Outpatient (CLI) | payer OTHER, MEDICAID ==
[2021-04-19 06:50] LABS: BASO # 0.1 10^3/uL (0.0-0.2); BASO % 0.7 % (0.0-1.0); EOS # 0.6 10^3/uL (0.0-0.5); EOS % 4.8 % (0.0-3.0); HEMATOCRIT 32.2 % (42.0-52.0); HEMOGLOBIN 10.1 g/dl (13.5-17.5); LYMPH # 2.6 10^3/uL (1.5-5.0); LYMPH % 21.7 % (24.0-44.0); MEAN CORPUSCULAR HEMOGLOBIN 26.8 pg (27.0-33.0); MEAN CORPUSCULAR HGB CONC 31.4 g/dl (32.0-36.5); MEAN CORPUSCULAR VOLUME 85.4 fl (80.0-96.0); MONO # 1.2 10^3/uL (0.0-0.8); MONO % 9.9 % (2.0-8.0); NEUTROPHILS # 7.4 10^3/uL (1.5-8.5); NEUTROPHILS % 62.5 % (36.0-66.0); PLATELET COUNT, AUTOMATED 328 10^3/uL (150-450); RED BLOOD COUNT 3.77 10^6/uL (4.30-6.10); WHITE BLOOD COUNT 11.8 10^3/uL (4.0-10.0)
[2021-04-19 07:18] LABS: ALBUMIN 3.3 GM/DL (3.2-5.2); BILIRUBIN,TOTAL 0.1 MG/DL (0.2-1.0); CALCIUM LEVEL 8.7 MG/DL (8.8-10.2); CREATININE FOR GFR 1.62 MG/DL (0.70-1.30); GLOMERULAR FILTRATION RATE 45.1 (>42); POTASSIUM SERUM 4.3 MEQ/L (3.5-5.1); TOTAL PROTEIN 7.3 GM/DL (6.4-8.2)
== END ==
LOC: M LAB 06:19
PROVIDERS: ATTEND Internal Medicine Gastroenterology
DX: K50.00 Crohn's disease of small intestine without complications (principal)

== ENCOUNTER → 2021-05-31 | Outpatient (REF) | payer OTHER, MEDICAID ==
[~2021-05-31] MED LIST changes: -CHOL4POW2 PO; +CHOL4POW35 PO; +LOSA50TA28 PO; -LOSA50TA88 PO; +NITR100C2; -OMEP-221 PO; +OMEP40CA5 PO; -PARO12.510 PO; +PARO12.56 PO; +STEL90IN SC
== END ==
LOC: M LABDRWAD 15:53
PROVIDERS: ATTEND Internal Medicine Gastroenterology
DX: K50.018 Crohn's disease of small intestine with other complication (principal)

== ENCOUNTER 2021-06-12 08:56 | Outpatient (CLI) | payer OTHER, MEDICAID ==
[2021-06-12 08:28] VITALS: BP 184/88
[~2021-06-12 08:56] MED LIST changes: +CHOL4POW2 PO; -CHOL4POW35 PO; -NITR100C2; -STEL90IN SC; +USTEKINUMAB 390 MG in NS 172 ML IV ONE
[2021-06-12 10:04] VITALS: BP 138/66
== END 2021-06-12 10:18 | disposition home or self-care (01) ==
LOC: M INFU 08:56
PROVIDERS: ATTEND Internal Medicine Gastroenterology
DX: K50.90 Crohn's disease, unspecified, without complications (principal); Z88.8 Allergy status to other drugs, medicaments and biological substances
CPT/HCPCS: 96365; J3358

== ENCOUNTER → 2021-07-11 | Outpatient (REF) | payer OTHER, MEDICAID ==
[~2021-07-11] MED LIST changes: +NITR100C2; +STEL90IN SC; -USTEKINUMAB 390 MG in NS 172 ML IV ONE
[2021-07-11 12:47] LABS: HEMATOCRIT 34.8 % (42.0-52.0); HEMOGLOBIN 10.9 g/dl (13.5-17.5); MEAN CORPUSCULAR HEMOGLOBIN 25.6 pg (27.0-33.0); MEAN CORPUSCULAR HGB CONC 31.3 g/dl (32.0-36.5); MEAN CORPUSCULAR VOLUME 81.9 fl (80.0-96.0); PLATELET COUNT, AUTOMATED 389 10^3/uL (150-450); RED BLOOD COUNT 4.25 10^6/uL (4.30-6.10); WHITE BLOOD COUNT 12.3 10^3/uL (4.0-10.0)
[2021-07-11 13:26] LABS: ALBUMIN 3.4 GM/DL (3.2-5.2); BILIRUBIN,TOTAL 0.2 MG/DL (0.2-1.0); CALCIUM LEVEL 8.9 MG/DL (8.8-10.2); CHOLESTEROL RISK RATIO 3.111 (<5); CREATININE FOR GFR 1.57 MG/DL (0.70-1.30); FREE T4 0.83 NG/DL (0.76-1.46); GLOMERULAR FILTRATION RATE 46.7 (>42); POTASSIUM SERUM 4.6 MEQ/L (3.5-5.1); THYROID STIMULATING HORMONE 2.24 uIU/ML (0.358-3.740); TOTAL 25(OH) VITAMIN D 28.9 NG/ML (30.0-100.0); TOTAL PROTEIN 7.3 GM/DL (6.4-8.2)
[2021-07-11 13:29] LABS: CREATININE, URINE 75.1 MG/DL; MALB URINE SIEMENS 95.3 MG/L; MAU/CREAT RATIO 126.8 MCG/MG (0.0-30.0)
[2021-07-11 17:52] LABS: HEMOGLOBIN A1c 7.2 %
== END ==
LOC: M SFHCADAM 10:38
PROVIDERS: ATTEND Family Medicine
DX: E11.59 Type 2 diabetes mellitus with other circulatory complications (principal); E78.5 Hyperlipidemia, unspecified; F32.9 Major depressive disorder, single episode, unspecified; D84.9 Immunodeficiency, unspecified; E55.9 Vitamin D deficiency, unspecified; N39.0 Urinary tract infection, site not specified; Z79.899 Other long term (current) drug therapy

== ENCOUNTER 2021-07-13 11:42 | Emergency (ER) | payer OTHER, MEDICAID ==
[~2021-07-13] VITALS: Ht 175.3 cm; Wt 79.5 kg
[~2021-07-13 11:42] MED LIST changes: -NITR100C2; -STEL90IN SC
[2021-07-13 11:44] VITALS: BP 156/70
[2021-07-13] MEDS ORDERED: STEL90IN SC (12:01)
[2021-07-13] MEDS ORDERED: NITR100C2 (12:01)
[2021-07-13 12:36] LABS: BASO # 0.1 10^3/uL (0.0-0.2); BASO % 0.7 % (0.0-1.0); EOS # 0.3 10^3/uL (0.0-0.5); EOS % 2.2 % (0.0-3.0); HEMATOCRIT 32.5 % (42.0-52.0); HEMOGLOBIN 10.4 g/dl (13.5-17.5); LYMPH # 2.2 10^3/uL (1.5-5.0); LYMPH % 17.3 % (24.0-44.0); MEAN CORPUSCULAR VOLUME 81.3 fl (80.0-96.0); MONO % 8.3 % (2.0-8.0); NEUTROPHILS # 8.9 10^3/uL (1.5-8.5); NEUTROPHILS % 70.9 % (36.0-66.0); PLATELET COUNT, AUTOMATED 337 10^3/uL (150-450); WHITE BLOOD COUNT 12.5 10^3/uL (4.0-10.0)
[2021-07-13 13:04] LABS: CK-MB VALUE MASS 1.7 NG/ML (<3.6); MB/CK RELATIVE INDEX 2.58 (< OR =4)
[2021-07-13 13:12] LABS: ALBUMIN 3.2 GM/DL (3.2-5.2); ALT/SGPT 31 U/L (12-78); BILIRUBIN,DIRECT < 0.1 MG/DL (0.0-0.2); BILIRUBIN,TOTAL 0.2 MG/DL (0.2-1.0); BLOOD UREA NITROGEN 31 MG/DL (7-18); CALCIUM LEVEL 8.5 MG/DL (8.8-10.2); CARBON DIOXIDE LEVEL 22 MEQ/L (21-32); CHLORIDE LEVEL 110 MEQ/L (98-107); CREATININE FOR GFR 1.66 MG/DL (0.70-1.30); FREE T4 0.84 NG/DL (0.76-1.46); GLOMERULAR FILTRATION RATE 43.8 (>42); GLUCOSE, FASTING 188 MG/DL (70-100); LIPASE 142 U/L (73-393); NT-PRO BNP 25 PG/ML (<125); POTASSIUM SERUM 4.2 MEQ/L (3.5-5.1); SODIUM LEVEL 140 MEQ/L (136-145)
[2021-07-13 14:47] LABS: CK-MB VALUE MASS 1.6 NG/ML (<3.6); MB/CK RELATIVE INDEX 2.42 (< OR =4)
== END 2021-07-13 16:40 | disposition home or self-care (01) ==
LOC: M ED 11:42
DX: N39.0 Urinary tract infection, site not specified (principal); R91.8 Other nonspecific abnormal finding of lung field; I45.10 Unspecified right bundle-branch block; I25.10 Atherosclerotic heart disease of native coronary artery without angina pectoris; E11.9 Type 2 diabetes mellitus without complications; I10 Essential (primary) hypertension; D64.9 Anemia, unspecified; K50.90 Crohn's disease, unspecified, without complications; Z85.46 Personal history of malignant neoplasm of prostate; Z98.61 Coronary angioplasty status; Z87.440 Personal history of urinary (tract) infections; Z87.891 Personal history of nicotine dependence; Z79.899 Other long term (current) drug therapy; Z79.82 Long term (current) use of aspirin; Z79.4 Long term (current) use of insulin; Z91.013 Allergy to seafood; Z88.1 Allergy status to other antibiotic agents; Z91.89 Other specified personal risk factors, not elsewhere classified; Z88.6 Allergy status to analgesic agent; Z85.59 Personal history of malignant neoplasm of other urinary tract organ

== ENCOUNTER → 2021-08-06 | Outpatient (CLI) | payer OTHER, MEDICAID ==
[~2021-08-06] MED LIST changes: -CHOL4POW2 PO; +CHOL4POW35 PO; +NITR100C2; +STEL90IN SC
== END ==
LOC: M PLARAD 14:53
PROVIDERS: ATTEND Family Medicine
DX: R91.8 Other nonspecific abnormal finding of lung field (principal); J98.11 Atelectasis; I70.0 Atherosclerosis of aorta; I25.10 Atherosclerotic heart disease of native coronary artery without angina pectoris
CPT/HCPCS: 78815; A9552

== ENCOUNTER → 2021-08-11 | Outpatient (CLI) | payer OTHER, MEDICAID | LOC: M LABSMTC 09:38 | PROVIDERS: ATTEND Anesthesiology | DX: Z01.812 Encounter for preprocedural laboratory examination (principal); Z20.822 Contact with and (suspected) exposure to COVID-19 ==

== ENCOUNTER 2021-08-22 07:19 | Day surgery (SDC) | payer MEDICAID, OTHER ==
[~2021-08-22] VITALS: Ht 172.7 cm; Wt 76.6 kg
[~2021-08-22 07:19] MED LIST changes: +ALBUTEROL SULFATE 2.5 MG/0.5 ML INH NEB SOLN INH ONE; +BUDE3CAP PO; +LIDOCAINE 4% INJ 5ML AMP NEB ONE
[2021-08-22 08:49] LABS: PLATELET COUNT, AUTOMATED 318 10^3/uL (150-450)
[2021-08-22 08:55] LABS: INR 0.96; PROTHROMBIN TIME 13.2 SECONDS (12.7-14.5)
[2021-08-22] MEDS ORDERED: CETACAINE SPRAY 5GM As Ordered ONE (09:11)
[2021-08-22] MEDS ORDERED: EPINEPHrine 1MG/10ML SYRINGE 1.5IN As Ordered ONE (09:12)
[2021-08-22] MEDS ORDERED: MIDAZOLAM INJ 2MG/2ML VIAL (J2250 PER 1MG) As Ordered ONE (09:26)
[2021-08-22] MEDS ORDERED: propofoL 200 MG/20 ML VIAL As Ordered ONE (09:44)
[2021-08-22] MEDS ORDERED: dexameTHASONE 4 MG/ML 1ML VIAL (J1100 PER 1MG) As Ordered ONE (09:44)
[2021-08-22] MEDS ORDERED: ROCURONIUM BROMIDE 50 MG/5 ML VIAL As Ordered ONE (09:44)
[2021-08-22] MEDS ORDERED: ONDANSETRON 4MG/2ML VIAL As Ordered ONE (09:44)
[2021-08-22] MEDS ORDERED: fentaNYL 100 MCG/2 ML INJECTION As Ordered ONE (09:44)
[2021-08-22] MEDS ORDERED: LIDOCAINE 2% 100MG/5ML SDV (FOR ANES.) As Ordered ONE (09:44)
[2021-08-22] MEDS ORDERED: SUGAMMADEX SODIUM 500 MG/5 ML VIAL (BRIDION) As Ordered ONE (09:45)
[2021-08-22] MEDS ORDERED: ACETAMINOPHEN 1000MG 100ML IV BTL (OFIRMEV) (J0131 PER 10MG) As Ordered ONE (09:45)
[2021-08-22] MEDS ORDERED: ESMOLOL INJ 100MG/10ML VIAL As Ordered ONE (10:28)
[2021-08-22] MEDS ORDERED: fentaNYL 100 MCG/2 ML INJECTION IV PRN (10:45)
[2021-08-22] MEDS ORDERED: LR 1,000 ML IV SCH (10:45)
[2021-08-22] MEDS ORDERED: ONDANSETRON 4MG/2ML VIAL IV PRN (10:45)
[2021-08-22] MEDS ORDERED: oxyCODONE 5MG TAB PO PRN (10:45)
[2021-08-22 12:45] VITALS: BP 181/77
== END 2021-08-22 12:45 | disposition home or self-care (01) ==
LOC: M SDC 07:19
PROVIDERS: ATTEND Internal Medicine Pulmonary Disease
DX: C34.12 Malignant neoplasm of upper lobe, left bronchus or lung (principal); E11.9 Type 2 diabetes mellitus without complications; I10 Essential (primary) hypertension; I25.10 Atherosclerotic heart disease of native coronary artery without angina pectoris; K21.9 Gastro-esophageal reflux disease without esophagitis; E78.5 Hyperlipidemia, unspecified; F41.9 Anxiety disorder, unspecified; F32.9 Major depressive disorder, single episode, unspecified; J44.9 Chronic obstructive pulmonary disease, unspecified; Z87.891 Personal history of nicotine dependence; Z88.8 Allergy status to other drugs, medicaments and biological substances; Z91.013 Allergy to seafood; Z85.46 Personal history of malignant neoplasm of prostate; Z85.51 Personal history of malignant neoplasm of bladder; Z79.84 Long term (current) use of oral hypoglycemic drugs; Z79.51 Long term (current) use of inhaled steroids; Z79.899 Other long term (current) drug therapy
CPT/HCPCS: 31623; 31624; 31625; 31654; 36415; 71045; 85027; 85610; 85730; 87070; 87102; 87116; 87205; 87206; 87428; 88104; 88108; 88173; 88305; 88313; J0131; J0171; J1100; J2250; J2405; J3010

== ENCOUNTER → 2021-08-28 | Outpatient (CLI) | payer OTHER ==
[~2021-08-28] MED LIST changes: -ALBUTEROL SULFATE 2.5 MG/0.5 ML INH NEB SOLN INH ONE; -LIDOCAINE 4% INJ 5ML AMP NEB ONE
== END ==
LOC: M RAD 13:27
PROVIDERS: ATTEND Urology
DX: D09.0 Carcinoma in situ of bladder (principal); B96.4 Proteus (mirabilis) (morganii) as the cause of diseases classified elsewhere; I25.10 Atherosclerotic heart disease of native coronary artery without angina pectoris; J98.4 Other disorders of lung

== ENCOUNTER → 2021-09-05 | Outpatient (CLI) | payer OTHER, MEDICAID ==
[~2021-09-05] MED LIST changes: +CHOL4POW14 PO; +ISOVUE-370 76% 100ML VIAL ONE
== END ==
LOC: M PLAIMG 11:11
PROVIDERS: ATTEND Internal Medicine Pulmonary Disease
DX: C34.12 Malignant neoplasm of upper lobe, left bronchus or lung (principal)
CPT/HCPCS: 71260; Q9967

== ENCOUNTER → 2021-09-06 | Outpatient (CLI) | payer OTHER, MEDICAID ==
[~2021-09-06] MED LIST changes: -ISOVUE-370 76% 100ML VIAL ONE
== END ==
LOC: M ONCR 10:50
PROVIDERS: ATTEND General Practice
DX: C34.12 Malignant neoplasm of upper lobe, left bronchus or lung (principal); Z79.82 Long term (current) use of aspirin; Z79.899 Other long term (current) drug therapy; Z85.51 Personal history of malignant neoplasm of bladder; Z87.891 Personal history of nicotine dependence; Z91.030 Bee allergy status

== ENCOUNTER → 2021-09-12 | Outpatient (REF) | payer OTHER, MEDICAID ==
[~2021-09-12] MED LIST changes: +DOXY100C3
[2021-09-12 13:04] LABS: BASO # 0.1 10^3/uL (0.0-0.2); BASO % 0.7 % (0.0-1.0); EOS # 0.3 10^3/uL (0.0-0.5); EOS % 3.2 % (0.0-3.0); HEMATOCRIT 34.4 % (42.0-52.0); HEMOGLOBIN 10.4 g/dl (13.5-17.5); LYMPH # 1.9 10^3/uL (1.5-5.0); MEAN CORPUSCULAR HEMOGLOBIN 24.2 pg (27.0-33.0); MEAN CORPUSCULAR HGB CONC 30.2 g/dl (32.0-36.5); MEAN CORPUSCULAR VOLUME 80.2 fl (80.0-96.0); MONO % 11.6 % (2.0-8.0); NEUTROPHILS # 4.9 10^3/uL (1.5-8.5); NEUTROPHILS % 60.6 % (36.0-66.0); PLATELET COUNT, AUTOMATED 400 10^3/uL (150-450); RED BLOOD COUNT 4.29 10^6/uL (4.30-6.10); WHITE BLOOD COUNT 8.2 10^3/uL (4.0-10.0)
[2021-09-12 13:23] LABS: ALBUMIN 3.4 GM/DL (3.2-5.2); BILIRUBIN,TOTAL 0.1 MG/DL (0.2-1.0); CHOLESTEROL RISK RATIO 2.653 (<5); CREATININE FOR GFR 1.58 MG/DL (0.70-1.30); GLOMERULAR FILTRATION RATE 46.4 (>42); POTASSIUM SERUM 4.2 MEQ/L (3.5-5.1); TOTAL PROTEIN 7.3 GM/DL (6.4-8.2)
[2021-09-12 14:02] LABS: APPEARANCE, URINE MANUAL HAZY (CLEAR); BILIRUBIN, URINE MANUAL NEGATIVE (NEGATIVE); BLOOD URINE MANUAL POSITIVE (NEGATIVE); COLOR, URINE MANUAL YELLOW (YELLOW); GLUCOSE, URINE (UA) MANUAL NEGATIVE (NEGATIVE); KETONE, URINE MANUAL NEGATIVE (NEGATIVE); LEUKOCYTE ESTERASE, URINE MAN POSITIVE (NEGATIVE); NITRITE, URINE MANUAL POSITIVE (NEGATIVE); PROTEIN, URINE MANUAL 2+ mg/dL (NEGATIVE); SPECIFIC GRAVITY,URINE MANUAL 1.005 (1.002-1.035); UROBILINOGEN, URINE MANUAL NORMAL (NORMAL)
[2021-09-12 14:17] LABS: WBC, URINE 20-30 /hpf (0-3)
[2021-09-12 14:18] LABS: BACTERIA, URINE SMALL AMOUNT; MUCUS, URINE SMALL AMOUNT (NEGATIVE); TRANSITIONAL EPI CELLS, URINE MOD AMOUNT /hpf
[2021-09-12 14:20] LABS: TRIPLE PHOSPHATE CRYSTAL,URINE LARGE AMOUNT /hpf
== END ==
LOC: M SFHCADAM 10:12
PROVIDERS: ATTEND Family Medicine
DX: K50.90 Crohn's disease, unspecified, without complications (principal); N39.0 Urinary tract infection, site not specified; A49.9 Bacterial infection, unspecified; D84.9 Immunodeficiency, unspecified; E11.59 Type 2 diabetes mellitus with other circulatory complications; E78.5 Hyperlipidemia, unspecified
CPT/HCPCS: 80053; 80061; 81000; 83036; 85025; 87040; 87088; 87186; G0463

== ENCOUNTER → 2021-09-20 | Outpatient (CLI) | payer OTHER, MEDICAID | LOC: M ONCR 09:07 | PROVIDERS: ATTEND General Practice | DX: C34.12 Malignant neoplasm of upper lobe, left bronchus or lung (principal) ==

== ENCOUNTER 2021-09-26 07:30 | Outpatient (CLI) | payer OTHER, MEDICAID ==
[~2021-09-26] VITALS: Ht 170.2 cm; Wt 74.0 kg
[2021-09-26 07:41] VITALS: BP 140/65
[2021-09-26] MEDS ORDERED: VEDOLIZUMAB 300 MG in NS 250 ML IV ONE (08:00)
[2021-09-26 08:40] VITALS: BP 167/71
== END 2021-09-26 08:40 | disposition home or self-care (01) ==
LOC: M INFU 07:30
PROVIDERS: ATTEND Internal Medicine Gastroenterology
DX: K50.919 Crohn's disease, unspecified, with unspecified complications (principal); Z88.6 Allergy status to analgesic agent; Z91.89 Other specified personal risk factors, not elsewhere classified; Z88.8 Allergy status to other drugs, medicaments and biological substances; Z91.013 Allergy to seafood
CPT/HCPCS: 96365; J3380

== ENCOUNTER 2021-10-10 07:15 | Outpatient (CLI) | payer OTHER, MEDICAID ==
[~2021-10-10] VITALS: Ht 175.3 cm; Wt 73.9 kg
[2021-10-10 07:15] VITALS: BP_SYST 122; BP_SYST 163; BP_DIAS 57; BP_DIAS 73
[~2021-10-10 07:15] MED LIST changes: +ONDA-84 PO; +PROC10TA5 PO; +TRAZ-257 PO
[2021-10-10] MEDS ORDERED: VEDOLIZUMAB 300 MG in NS 250 ML IV ONE (08:00)
[2021-10-10 08:30] VITALS: BP 154/66
== END 2021-10-10 08:40 | disposition home or self-care (01) ==
LOC: M INFU 07:15
PROVIDERS: ATTEND Internal Medicine Gastroenterology
DX: K50.919 Crohn's disease, unspecified, with unspecified complications (principal); Z88.8 Allergy status to other drugs, medicaments and biological substances; Z88.6 Allergy status to analgesic agent; Z91.89 Other specified personal risk factors, not elsewhere classified
CPT/HCPCS: 96365; J3380

== ENCOUNTER → 2021-10-11 | Outpatient (RCR) | payer OTHER, MEDICAID | LOC: M ONCR 09-20 08:28 | PROVIDERS: ATTEND General Practice | DX: C34.12 Malignant neoplasm of upper lobe, left bronchus or lung (principal) | CPT/HCPCS: 77334; 77386; 77470; G0463 ==

== ENCOUNTER → 2021-10-11 | Outpatient (CLI) | payer OTHER, MEDICAID ==
[~2021-10-11] MED LIST changes: +LIDOCAINE 1% MDV 20ML VIAL As Ordered ONE; +MIDAZOLAM INJ 2MG/2ML VIAL (J2250 PER 1MG) As Ordered ONE; +NS 1,000 ML IV SCH; +PROMETHAZINE 25MG/ML 1ML VIAL As Ordered ONE; +ceFAZolin 2 GM/D5W 50 ML IV BAG (J0690 PER 500MG) As Ordered ONE; +ceFAZolin SOD 2 GM in IV 1 EA IV ONE; +diphenhydrAMINE 50MG/ML VIAL (J1200) As Ordered ONE; +fentaNYL 100 MCG/2 ML INJECTION As Ordered ONE
[2021-10-11 13:15] VITALS: BP 135/63
== END ==
LOC: M IRPRO 08:48
PROVIDERS: ATTEND Specialist
DX: C34.12 Malignant neoplasm of upper lobe, left bronchus or lung (principal)
CPT/HCPCS: 36561; 99152; 99153; C1769; C1788; C1894; J0690; J1200; J1642; J1644; J2250; J2550; J3010

== ENCOUNTER 2021-11-07 07:30 | Outpatient (CLI) | payer OTHER, MEDICAID ==
[~2021-11-07 07:30] MED LIST changes: +CHOL378P3 PO; -CHOL4POW14 PO; +IRON325T9 PO; -LIDOCAINE 1% MDV 20ML VIAL As Ordered ONE; +MAGN400C2 PO; -MIDAZOLAM INJ 2MG/2ML VIAL (J2250 PER 1MG) As Ordered ONE; -NS 1,000 ML IV SCH; -PROMETHAZINE 25MG/ML 1ML VIAL As Ordered ONE; +VITA500C24 PO; -ceFAZolin 2 GM/D5W 50 ML IV BAG (J0690 PER 500MG) As Ordered ONE; -ceFAZolin SOD 2 GM in IV 1 EA IV ONE; -diphenhydrAMINE 50MG/ML VIAL (J1200) As Ordered ONE; -fentaNYL 100 MCG/2 ML INJECTION As Ordered ONE
[2021-11-07] MEDS ORDERED: VEDOLIZUMAB 300 MG in NS 250 ML IV ONE (08:00)
[2021-11-07 08:10] VITALS: BP 134/68
[2021-11-07 08:32] VITALS: BP 145/66
== END 2021-11-07 08:32 | disposition home or self-care (01) ==
LOC: M INFU 07:30
PROVIDERS: ATTEND Internal Medicine Gastroenterology
DX: K50.919 Crohn's disease, unspecified, with unspecified complications (principal); Z88.8 Allergy status to other drugs, medicaments and biological substances
CPT/HCPCS: 96365; J3380

== ENCOUNTER 2021-11-09 08:10 | Outpatient (RCR) | payer OTHER, MEDICAID ==
[2021-10-19 09:36] LABS: ALBUMIN 3.2 GM/DL (3.2-5.2); BILIRUBIN,TOTAL 0.1 MG/DL (0.2-1.0); CALCIUM LEVEL 8.4 MG/DL (8.8-10.2); CREATININE FOR GFR 1.49 MG/DL (0.70-1.30); GLOMERULAR FILTRATION RATE 49.6 (>42); POTASSIUM SERUM 3.8 MEQ/L (3.5-5.1); TOTAL PROTEIN 6.8 GM/DL (6.4-8.2)
[~2021-11-09 08:10] MED LIST changes: +SODIUM CHLORIDE 0.9% INJ 10 ML SYR IV PRN
== END 2021-11-11 ==
LOC: M ONCR 08:10
PROVIDERS: ATTEND General Practice
DX: C34.12 Malignant neoplasm of upper lobe, left bronchus or lung (principal)
CPT/HCPCS: 36591; 77336; 77386; 80053; 83735; J1642

== ENCOUNTER → 2021-11-13 | Outpatient (CLI) | payer OTHER, MEDICAID ==
[~2021-11-13] MED LIST changes: -SODIUM CHLORIDE 0.9% INJ 10 ML SYR IV PRN
== END ==
LOC: M RAD 09:33
PROVIDERS: ATTEND Nurse Practitioner
DX: C34.90 Malignant neoplasm of unspecified part of unspecified bronchus or lung (principal); M79.661 Pain in right lower leg; M79.662 Pain in left lower leg

== ENCOUNTER → 2021-11-15 | Outpatient (CLI) | payer OTHER, MEDICAID | LOC: M RAD 08:52 | PROVIDERS: ATTEND General Practice | DX: C34.12 Malignant neoplasm of upper lobe, left bronchus or lung (principal) ==

== ENCOUNTER 2021-11-19 08:10 | Outpatient (RCR) | payer OTHER, MEDICAID ==
[2021-11-30] MEDS ORDERED: IRON325T9 PO (09:17)
[2021-12-12] MEDS ORDERED: OMEG10002 PO (08:31)
[2021-12-12] MEDS ORDERED: GLYCCAP PO (08:31)
[2021-12-12] MEDS ORDERED: IRON325T9 PO (08:50)
== END 2021-12-12 ==
LOC: M ONCR 08:10
PROVIDERS: ATTEND General Practice
DX: C34.12 Malignant neoplasm of upper lobe, left bronchus or lung (principal)

== ENCOUNTER → 2021-12-14 | Outpatient (CLI) | payer OTHER, MEDICAID ==
[~2021-12-14] MED LIST changes: +GLYCCAP PO; +ISOVUE-370 76% 25ML SYRINGE As Ordered ONE; +OMEG10002 PO
== END ==
LOC: M RAD 09:43
PROVIDERS: ATTEND Nurse Practitioner
DX: C34.12 Malignant neoplasm of upper lobe, left bronchus or lung (principal)
CPT/HCPCS: 71260; Q9967

== ENCOUNTER 2022-01-02 07:25 | Outpatient (CLI) | payer OTHER, MEDICAID ==
[2022-01-02 07:25] VITALS: BP 150/69
[~2022-01-02 07:25] MED LIST changes: -ISOVUE-370 76% 25ML SYRINGE As Ordered ONE
[2022-01-02] MEDS ORDERED: VEDOLIZUMAB 300 MG in NS 250 ML IV ONE (08:00)
[2022-01-02 08:50] VITALS: BP 137/65
== END 2022-01-02 08:55 | disposition home or self-care (01) ==
LOC: M INFU 07:25
PROVIDERS: ATTEND Internal Medicine Gastroenterology
DX: K50.90 Crohn's disease, unspecified, without complications (principal); Z88.8 Allergy status to other drugs, medicaments and biological substances; Z88.6 Allergy status to analgesic agent
CPT/HCPCS: 96365; J3380

== ENCOUNTER 2022-02-27 07:35 | Outpatient (CLI) | payer OTHER, MEDICAID ==
[~2022-02-27] VITALS: Ht 170.2 cm; Wt 74.5 kg
[2022-02-27 07:35] VITALS: BP 140/64
[2022-02-27] MEDS ORDERED: VEDOLIZUMAB 300 MG in NS 250 ML IV ONE (08:00)
[2022-02-27 08:21] VITALS: BP 140/64
[2022-02-27 08:45] VITALS: BP 144/67
== END 2022-02-27 08:45 | disposition home or self-care (01) ==
LOC: M INFU 07:35
PROVIDERS: ATTEND Internal Medicine Gastroenterology
DX: K50.90 Crohn's disease, unspecified, without complications (principal); Z88.8 Allergy status to other drugs, medicaments and biological substances
CPT/HCPCS: 17000; 17003; 96365; G0463; J3380

== ENCOUNTER → 2022-03-21 | Outpatient (CLI) | payer OTHER, MEDICAID ==
[~2022-03-21] MED LIST changes: -PAXI40TA10 PO; +PAXI40TA12 PO; +[UNRECOGNIZED DRUG - CODE] PO; -[UNRECOGNIZED DRUG - CODE] PO
== END ==
LOC: M LABSMTC 10:04
PROVIDERS: ATTEND Anesthesiology
DX: Z01.812 Encounter for preprocedural laboratory examination (principal); Z20.822 Contact with and (suspected) exposure to COVID-19

== ENCOUNTER → 2022-04-11 | Outpatient (REF) | payer OTHER, MEDICAID ==
[~2022-04-11] MED LIST changes: -CHOL4POW35 PO; +CHOL4POW36 PO
== END ==
LOC: M SFHCDERM 17:55
PROVIDERS: ATTEND Nurse Practitioner Family
DX: L28.2 Other prurigo (principal)

== ENCOUNTER 2022-04-24 07:15 | Outpatient (CLI) | payer OTHER, MEDICAID ==
[~2022-04-24] VITALS: Ht 175.3 cm; Wt 73.9 kg
[2022-04-24 07:15] VITALS: BP 159/80
[2022-04-24] MEDS ORDERED: VEDOLIZUMAB 300 MG in NS 250 ML IV ONE (08:00)
[2022-04-24 08:27] VITALS: BP 147/79
== END 2022-04-24 08:35 | disposition home or self-care (01) ==
LOC: M INFU 07:15
PROVIDERS: ATTEND Internal Medicine Gastroenterology
DX: K50.90 Crohn's disease, unspecified, without complications (principal); Z88.1 Allergy status to other antibiotic agents; Z88.3 Allergy status to other anti-infective agents
CPT/HCPCS: 96365; J3380

== ENCOUNTER → 2022-04-25 | Outpatient (CLI) | payer OTHER, MEDICAID | LOC: M LABSMTC 09:31 | PROVIDERS: ATTEND Anesthesiology | DX: Z01.812 Encounter for preprocedural laboratory examination (principal); Z20.822 Contact with and (suspected) exposure to COVID-19 ==

== ENCOUNTER 2022-04-30 06:10 | Day surgery (SDC) | payer OTHER, MEDICAID ==
[~2022-04-30] VITALS: Ht 175.3 cm; Wt 74.4 kg
[~2022-04-30 06:10] MED LIST changes: +CYCLOPENTOLATE 1% OPHTH SOLN 2ML BTL OD SCH; +OFLOXACIN 0.3 % (OCUFLOX) OPTH SOL 5ML OD SCH; +PHENYLEPHRINE 2.5% OPHTH SOL 2ML OD SCH; +PROPARACAINE 0.5% OPHTH SOL 15ML OD ONE; +TROPICAMIDE 1% OPHTH SOLN 15ML OD SCH
[2022-04-30] MEDS ORDERED: CEFUROXIME 1MG/0.1ML INTRACAMERAL INJ As Ordered ONE (06:32)
[2022-04-30] MEDS ORDERED: LIDOCAINE 1% SDV 5ML VIAL As Ordered ONE (06:33)
[2022-04-30] MEDS ORDERED: BSS IRR 500ML/OMIDRIA 4ML IRR BAG (OR ONLY) As Ordered ONE (06:33)
[2022-04-30] MEDS ORDERED: MIDAZOLAM INJ 2MG/2ML VIAL As Ordered ONE (07:12)
[2022-04-30 07:55] VITALS: BP 135/64
== END 2022-04-30 08:25 | disposition home or self-care (01) ==
LOC: M SDC 06:10
PROVIDERS: ATTEND Ophthalmology
DX: H25.11 Age-related nuclear cataract, right eye (principal); I10 Essential (primary) hypertension; F32.A Depression, unspecified; F41.9 Anxiety disorder, unspecified; E78.5 Hyperlipidemia, unspecified; K21.9 Gastro-esophageal reflux disease without esophagitis; Z85.46 Personal history of malignant neoplasm of prostate; E11.9 Type 2 diabetes mellitus without complications; K50.90 Crohn's disease, unspecified, without complications; J44.9 Chronic obstructive pulmonary disease, unspecified; Z90.49 Acquired absence of other specified parts of digestive tract; I25.10 Atherosclerotic heart disease of native coronary artery without angina pectoris; Z87.891 Personal history of nicotine dependence; Z88.8 Allergy status to other drugs, medicaments and biological substances; Z91.013 Allergy to seafood; Z79.899 Other long term (current) drug therapy
CPT/HCPCS: 66984; J1097; V2632

== ENCOUNTER 2022-06-19 07:40 | Outpatient (CLI) | payer OTHER, MEDICAID ==
[~2022-06-19] VITALS: Ht 175.3 cm; Wt 73.9 kg
[2022-06-19 07:40] VITALS: BP 152/72
[~2022-06-19 07:40] MED LIST changes: -CYCLOPENTOLATE 1% OPHTH SOLN 2ML BTL OD SCH; -OFLOXACIN 0.3 % (OCUFLOX) OPTH SOL 5ML OD SCH; -PHENYLEPHRINE 2.5% OPHTH SOL 2ML OD SCH; -PROPARACAINE 0.5% OPHTH SOL 15ML OD ONE; -TROPICAMIDE 1% OPHTH SOLN 15ML OD SCH
[2022-06-19] MEDS ORDERED: SODIUM CHLORIDE 0.9% INJ 10 ML SYR IV PRN (08:00)
[2022-06-19] MEDS ORDERED: SODIUM CHLORIDE 0.9% INJ 10 ML SYR IV SCH (08:00)
[2022-06-19] MEDS ORDERED: VEDOLIZUMAB 300 MG in NS 250 ML IV ONE (08:00)
[2022-06-19 09:18] VITALS: BP 142/72
== END 2022-06-19 09:20 | disposition home or self-care (01) ==
LOC: M INFU 07:40
PROVIDERS: ATTEND Internal Medicine Gastroenterology
DX: K50.90 Crohn's disease, unspecified, without complications (principal); Z88.8 Allergy status to other drugs, medicaments and biological substances; Z88.3 Allergy status to other anti-infective agents
CPT/HCPCS: 96365; J3380

== ENCOUNTER 2022-08-14 07:47 | Outpatient (CLI) | payer OTHER, MEDICAID ==
[~2022-08-14] VITALS: Ht 175.3 cm; Wt 74.0 kg
[2022-08-14 07:59] VITALS: BP 131/67
[2022-08-14] MEDS ORDERED: SODIUM CHLORIDE 0.9% INJ 10 ML SYR IV PRN (08:00)
[2022-08-14] MEDS ORDERED: VEDOLIZUMAB 300 MG in NS 250 ML IV ONE (08:00)
[2022-08-14] MEDS ORDERED: SODIUM CHLORIDE 0.9% INJ 10 ML SYR IV SCH (09:00)
[2022-08-14 09:27] VITALS: BP 116/61
== END 2022-08-14 09:30 ==
LOC: M INFU 07:47
PROVIDERS: ATTEND Internal Medicine Gastroenterology
DX: K50.90 Crohn's disease, unspecified, without complications (principal); Z88.3 Allergy status to other anti-infective agents; Z88.6 Allergy status to analgesic agent
CPT/HCPCS: 96365; J3380

== ENCOUNTER → 2022-08-14 | Outpatient (REF) | payer OTHER, MEDICAID ==
[2022-08-14 16:22] LABS: HEMATOCRIT 40.2 % (42.0-52.0); HEMOGLOBIN 13.1 g/dl (13.5-17.5); MEAN CORPUSCULAR HEMOGLOBIN 28.9 pg (27.0-33.0); MEAN CORPUSCULAR HGB CONC 32.6 g/dl (32.0-36.5); MEAN CORPUSCULAR VOLUME 88.7 fl (80.0-96.0); PLATELET COUNT, AUTOMATED 237 10^3/uL (150-450); RED BLOOD COUNT 4.53 10^6/uL (4.30-6.10); WHITE BLOOD COUNT 8.8 10^3/uL (4.0-10.0)
[2022-08-14 16:54] LABS: ALBUMIN 3.8 G/DL (3.2-5.2); ALKALINE PHOSPHATASE 140 U/L (46-116); ALT/SGPT 31 U/L (7.0-40); AST/SGOT 18 U/L (<34); BILIRUBIN,TOTAL 0.2 MG/DL (0.3-1.2); BLOOD UREA NITROGEN 25 MG/DL (9-23); CALCIUM LEVEL 9.1 MG/DL (8.3-10.6); CARBON DIOXIDE LEVEL 26 MMOL/L (20-31); CHLORIDE LEVEL 105 MMOL/L (98-107); CHOLESTEROL LEVEL 128 MG/DL (<200); CHOLESTEROL RISK RATIO 3.44 (<5); CREATININE FOR GFR 1.71 MG/DL (0.70-1.30); CREATININE, URINE 87.2 MG/DL; GLOMERULAR FILTRATION RATE 42.2 (>42); GLUCOSE, FASTING 131 MG/DL (74-106); HDL CHOLESTEROL 37.2 MG/DL (>40); HEMOGLOBIN A1c 7.5 % (4.0-6.0); NON-HDL-C 90.8 MG/DL; POTASSIUM SERUM 4.3 MMOL/L (3.5-5.1); SODIUM LEVEL 138 MMOL/L (136-145); THYROID STIMULATING HORMONE 2.476 uIU/ML (0.55-4.78); TRIGLYCERIDES LEVEL 403 MG/DL (<150)
[2022-08-14 16:56] LABS: FREE T4 1.14 NG/DL (0.89-1.76)
== END ==
LOC: M SFHCADAM 15:13
PROVIDERS: ATTEND Family Medicine
DX: E11.59 Type 2 diabetes mellitus with other circulatory complications (principal); I11.9 Hypertensive heart disease without heart failure; E78.5 Hyperlipidemia, unspecified; D84.9 Immunodeficiency, unspecified; C34.12 Malignant neoplasm of upper lobe, left bronchus or lung; E11.22 Type 2 diabetes mellitus with diabetic chronic kidney disease

== ENCOUNTER 2022-10-09 08:10 | Outpatient (CLI) | payer OTHER, MEDICAID ==
[~2022-10-09] VITALS: Ht 175.3 cm; Wt 78.0 kg
[~2022-10-09 08:10] MED LIST changes: +VEDOLIZUMAB 300 MG in NS 250 ML IV ONE
[2022-10-09 08:24] VITALS: BP 144/70; O2SAT 97
[2022-10-09 09:15] VITALS: BP 123/61; O2SAT 98
== END 2022-10-09 09:30 ==
LOC: M INFU 08:10
PROVIDERS: ATTEND Internal Medicine Gastroenterology
DX: K50.90 Crohn's disease, unspecified, without complications (principal); Z88.3 Allergy status to other anti-infective agents; Z88.1 Allergy status to other antibiotic agents
CPT/HCPCS: 96365; J3380

== ENCOUNTER 2022-12-04 07:45 | Outpatient (CLI) | payer OTHER, MEDICAID ==
[~2022-12-04] VITALS: Ht 172.7 cm; Wt 76.7 kg
[2022-12-04 07:45] VITALS: BP 146/71; TEMP 97.6; O2SAT 98
[~2022-12-04 07:45] MED LIST changes: -VEDOLIZUMAB 300 MG in NS 250 ML IV ONE
[2022-12-04] MEDS ORDERED: SODIUM CHLORIDE 0.9% INJ 10 ML SYR IV PRN (07:55)
[2022-12-04] MEDS ORDERED: VEDOLIZUMAB 300 MG in NS 250 ML IV ONE (08:00)
[2022-12-04 08:56] VITALS: BP 155/82; O2SAT 98
[2022-12-04] MEDS ORDERED: SODIUM CHLORIDE 0.9% INJ 10 ML SYR IV SCH (09:00)
== END 2022-12-04 09:00 ==
LOC: M INFU 07:45
PROVIDERS: ATTEND Internal Medicine Gastroenterology
DX: K50.90 Crohn's disease, unspecified, without complications (principal); Z88.1 Allergy status to other antibiotic agents; Z88.3 Allergy status to other anti-infective agents
CPT/HCPCS: 96365; J3380

== ENCOUNTER → 2023-01-23 | Outpatient (CLI) | payer OTHER, MEDICAID ==
[~2023-01-23] MED LIST changes: -MIRT-62 PO; +MIRT-88 PO
[2023-01-23 12:55] LABS: BASO # 0.1 10^3/uL (0.0-0.2); BASO % 0.5 % (0.0-1.0); EOS # 0.3 10^3/uL (0.0-0.5); EOS % 2.2 % (0.0-3.0); HEMATOCRIT 38.3 % (42.0-52.0); HEMOGLOBIN 12.8 g/dl (13.5-17.5); LYMPH # 1.6 10^3/uL (1.5-5.0); LYMPH % 14.3 % (24.0-44.0); MEAN CORPUSCULAR HEMOGLOBIN 30.8 pg (27.0-33.0); MEAN CORPUSCULAR HGB CONC 33.4 g/dl (32.0-36.5); MEAN CORPUSCULAR VOLUME 92.1 fl (80.0-96.0); MONO # 1.1 10^3/uL (0.0-0.8); MONO % 9.4 % (2.0-8.0); NEUTROPHILS # 8.2 10^3/uL (1.5-8.5); PLATELET COUNT, AUTOMATED 268 10^3/uL (150-450); RED BLOOD COUNT 4.16 10^6/uL (4.30-6.10); WHITE BLOOD COUNT 11.2 10^3/uL (4.0-10.0)
[2023-01-23 13:21] LABS: ALBUMIN 3.4 G/DL (3.2-5.2); BILIRUBIN,TOTAL 0.2 MG/DL (0.3-1.2); CALCIUM LEVEL 8.9 MG/DL (8.3-10.6); CREATININE FOR GFR 1.53 MG/DL (0.70-1.30); GLOMERULAR FILTRATION RATE 47.9 (>42); POTASSIUM SERUM 4.4 MMOL/L (3.5-5.1); TOTAL PROTEIN 6.7 G/DL (5.7-8.2)
== END ==
LOC: M LAB 12:11
PROVIDERS: ATTEND Internal Medicine Gastroenterology
DX: K50.00 Crohn's disease of small intestine without complications (principal)

== ENCOUNTER → 2023-01-27 | Outpatient (REF) | payer OTHER, MEDICAID | LOC: M LABDRWCV 16:49 | PROVIDERS: ATTEND Internal Medicine Gastroenterology | DX: K50.00 Crohn's disease of small intestine without complications (principal) ==

== ENCOUNTER 2023-01-29 08:25 | Outpatient (CLI) | payer OTHER, MEDICAID ==
[~2023-01-29] VITALS: Ht 175.3 cm; Wt 75.0 kg
[2023-01-29 08:25] VITALS: BP 125/59; TEMP 97.4; O2SAT 97
[2023-01-29] MEDS ORDERED: VEDOLIZUMAB 300 MG in NS 250 ML IV ONE (08:35)
[2023-01-29] MEDS ORDERED: SODIUM CHLORIDE 0.9% INJ 10 ML SYR IV SCH (09:00)
[2023-01-29 10:10] VITALS: BP 135/66; O2SAT 99
== END 2023-01-29 10:10 ==
LOC: M INFU 08:25
PROVIDERS: ATTEND Internal Medicine Gastroenterology
DX: K50.90 Crohn's disease, unspecified, without complications (principal); Z88.1 Allergy status to other antibiotic agents; Z88.3 Allergy status to other anti-infective agents
CPT/HCPCS: 96365; J3380

== ENCOUNTER → 2023-02-03 | Outpatient (CLI) | payer OTHER, MEDICAID ==
[~2023-02-03] MED LIST changes: +GASTROGRAFIN SOLUTION 30ML As Ordered ONE; +ISOVUE-370 76% 100ML VIAL As Ordered ONE
== END ==
LOC: M RAD 12:49
PROVIDERS: ATTEND Internal Medicine Gastroenterology
DX: K50.00 Crohn's disease of small intestine without complications (principal); Q62.39 Other obstructive defects of renal pelvis and ureter; Z93.6 Other artificial openings of urinary tract status; K76.0 Fatty (change of) liver, not elsewhere classified; N28.1 Cyst of kidney, acquired; K57.30 Diverticulosis of large intestine without perforation or abscess without bleeding; I70.0 Atherosclerosis of aorta; I25.10 Atherosclerotic heart disease of native coronary artery without angina pectoris
CPT/HCPCS: 74177; Q9963; Q9967

== ENCOUNTER 2023-02-20 11:25 | Emergency (ER) | payer OTHER, MEDICAID ==
[~2023-02-20] VITALS: Ht 175.3 cm; Wt 76.1 kg
[~2023-02-20 11:25] MED LIST changes: -GASTROGRAFIN SOLUTION 30ML As Ordered ONE; -ISOVUE-370 76% 100ML VIAL As Ordered ONE
[2023-02-20 11:27] VITALS: BP_DIAS 59
[2023-02-20 13:58] LABS: BASO # 0.1 10^3/uL (0.0-0.2); BASO % 0.5 % (0.0-1.0); EOS # 0.2 10^3/uL (0.0-0.5); EOS % 1.8 % (0.0-3.0); HEMATOCRIT 40.2 % (42.0-52.0); HEMOGLOBIN 13.2 g/dl (13.5-17.5); LYMPH # 1.7 10^3/uL (1.5-5.0); LYMPH % 15.5 % (24.0-44.0); MEAN CORPUSCULAR HEMOGLOBIN 30.4 pg (27.0-33.0); MEAN CORPUSCULAR HGB CONC 32.8 g/dl (32.0-36.5); MEAN CORPUSCULAR VOLUME 92.6 fl (80.0-96.0); MONO # 1.1 10^3/uL (0.0-0.8); MONO % 9.8 % (2.0-8.0); NEUTROPHILS # 7.9 10^3/uL (1.5-8.5); NEUTROPHILS % 71.6 % (36.0-66.0); PLATELET COUNT, AUTOMATED 244 10^3/uL (150-450); RED BLOOD COUNT 4.34 10^6/uL (4.30-6.10)
[2023-02-20 14:22] LABS: LIPASE 40 U/L (12-53)
[2023-02-20 14:24] LABS: CK-MB VALUE MASS 1.4 NG/ML (<3.6)
[2023-02-20 14:25] LABS: ALBUMIN 3.6 G/DL (3.2-5.2); ALKALINE PHOSPHATASE 122 U/L (46-116); ALT/SGPT 30 U/L (7.0-40); AST/SGOT 12 U/L (<34); BILIRUBIN,DIRECT < 0.1 MG/DL (<0.4); BILIRUBIN,TOTAL 0.2 MG/DL (0.3-1.2); CALCIUM LEVEL 9.7 MG/DL (8.3-10.6); CREATININE FOR GFR 1.42 MG/DL (0.70-1.30); GLOMERULAR FILTRATION RATE 52.2 (>42); MB/CK RELATIVE INDEX 1.72 (< OR =4); POTASSIUM SERUM 4.8 MMOL/L (3.5-5.1)
[2023-02-20 17:13] LABS: APPEARANCE, URINE HAZY (CLEAR); BACTERIA, URINE AUTO 1+ (NEGATIVE); BILIRUBIN, URINE AUTO NEGATIVE (NEGATIVE); BLOOD, URINE BLOOD 3+ (NEGATIVE); COLOR, URINE YELLOW (YELLOW); GLUCOSE, URINE (UA) AUTO NEGATIVE (NEGATIVE); KETONE, URINE AUTO NEGATIVE (NEGATIVE); LEUKOCYTE ESTERASE, URINE AUTO 3+ (NEGATIVE); NITRITE, URINE AUTO POSITIVE (NEGATIVE); PROTEIN, URINE AUTO 1+ mg/dL (NEGATIVE); RBC, URINE AUTO 18 /HPF (0-3); SPECIFIC GRAVITY URINE AUTO 1.012 (1.002-1.035); SQUAMOUS EPITHELIAL CELL UR AU 0 /HPF (0-6); UROBILINOGEN, URINE AUTO 0.2 mg/dL (0.0-2.0); WBC, URINE AUTO 143 /HPF (0-3)
[2023-02-20] MEDS ORDERED: CEFDINIR 300 MG CAP (OMNICEF) PO ONE (17:30)
[2023-02-20] MEDS ORDERED: CEFD300C42 PO (17:38)
[2023-02-20 17:50] VITALS: BP_SYST 118; TEMP 98.3; O2SAT 98
== END 2023-02-20 18:12 | disposition home or self-care (01) ==
LOC: M ED 11:25
DX: N39.0 Urinary tract infection, site not specified (principal); I45.10 Unspecified right bundle-branch block; I25.2 Old myocardial infarction; Z91.013 Allergy to seafood; C34.90 Malignant neoplasm of unspecified part of unspecified bronchus or lung; C61 Malignant neoplasm of prostate; F41.9 Anxiety disorder, unspecified; F90.9 Attention-deficit hyperactivity disorder, unspecified type; J44.9 Chronic obstructive pulmonary disease, unspecified; I10 Essential (primary) hypertension; E11.9 Type 2 diabetes mellitus without complications; Z91.048 Other nonmedicinal substance allergy status; Z79.52 Long term (current) use of systemic steroids; Z79.02 Long term (current) use of antithrombotics/antiplatelets; Z79.82 Long term (current) use of aspirin; Z79.899 Other long term (current) drug therapy; Z79.811 Long term (current) use of aromatase inhibitors

== ENCOUNTER → 2023-03-10 | Outpatient (REF) | payer OTHER, MEDICAID ==
[~2023-03-10] MED LIST changes: +CEFD300C42 PO
[2023-03-10 17:06] LABS: APPEARANCE, URINE CLOUDY (CLEAR); BACTERIA, URINE AUTO 1+ (NEGATIVE); BILIRUBIN, URINE AUTO NEGATIVE (NEGATIVE); BLOOD, URINE BLOOD 3+ (NEGATIVE); COLOR, URINE YELLOW (YELLOW); GLUCOSE, URINE (UA) AUTO NEGATIVE (NEGATIVE); KETONE, URINE AUTO NEGATIVE (NEGATIVE); LEUKOCYTE ESTERASE, URINE AUTO 3+ (NEGATIVE); MUCUS, URINE SMALL (NEGATIVE); NITRITE, URINE AUTO NEGATIVE (NEGATIVE); PROTEIN, URINE AUTO 1+ mg/dL (NEGATIVE); RBC, URINE AUTO 22 /HPF (0-3); SPECIFIC GRAVITY URINE AUTO 1.013 (1.002-1.035); SQUAMOUS EPITHELIAL CELL UR AU 1 /HPF (0-6); TRANSITIONAL EPITHELIAL AUTO <1 /HPF; UROBILINOGEN, URINE AUTO 0.2 mg/dL (0.0-2.0); WBC, URINE AUTO 123 /HPF (0-3)
[2023-03-10 17:08] LABS: BASO # 0.1 10^3/uL (0.0-0.2); BASO % 0.8 % (0.0-1.0); EOS # 0.2 10^3/uL (0.0-0.5); EOS % 2.1 % (0.0-3.0); HEMATOCRIT 40.3 % (42.0-52.0); HEMOGLOBIN 13.4 g/dl (13.5-17.5); LYMPH # 1.6 10^3/uL (1.5-5.0); MEAN CORPUSCULAR HEMOGLOBIN 30.5 pg (27.0-33.0); MEAN CORPUSCULAR HGB CONC 33.3 g/dl (32.0-36.5); MEAN CORPUSCULAR VOLUME 91.8 fl (80.0-96.0); MONO % 9.3 % (2.0-8.0); NEUTROPHILS # 7.6 10^3/uL (1.5-8.5); NEUTROPHILS % 71.9 % (36.0-66.0); PLATELET COUNT, AUTOMATED 266 10^3/uL (150-450); RED BLOOD COUNT 4.39 10^6/uL (4.30-6.10); WHITE BLOOD COUNT 10.5 10^3/uL (4.0-10.0)
[2023-03-10 17:23] LABS: ALBUMIN 3.4 G/DL (3.2-5.2); BILIRUBIN,TOTAL 0.2 MG/DL (0.3-1.2); CALCIUM LEVEL 9.4 MG/DL (8.3-10.6); CREATININE FOR GFR 1.81 MG/DL (0.70-1.30); GLOMERULAR FILTRATION RATE 39.4 (>42); MAGNESIUM LEVEL 1.9 MG/DL (1.8-2.4); POTASSIUM SERUM 4.5 MMOL/L (3.5-5.1)
== END ==
LOC: M SFHCCAPE 14:27
PROVIDERS: ATTEND Physician Assistant Medical
DX: R05.3 Chronic cough (principal); Z87.440 Personal history of urinary (tract) infections; Z79.899 Other long term (current) drug therapy

== ENCOUNTER → 2023-03-12 | Outpatient (REF) | payer OTHER, MEDICAID | LOC: M SFHCCAPE 16:52 | PROVIDERS: ATTEND Physician Assistant Medical | DX: N39.0 Urinary tract infection, site not specified (principal) ==

== ENCOUNTER 2023-03-26 08:20 | Outpatient (CLI) | payer OTHER, MEDICAID ==
[~2023-03-26] VITALS: Ht 175.3 cm; Wt 75.0 kg
[~2023-03-26 08:20] MED LIST changes: +CEFD1CAP9 PO; -CEFD300C42 PO
[2023-03-26 08:30] VITALS: BP 137/73; O2SAT 97
[2023-03-26] MEDS ORDERED: VEDOLIZUMAB 300 MG in NS 250 ML IV ONE (08:30)
[2023-03-26] MEDS ORDERED: SODIUM CHLORIDE 0.9% INJ 10 ML SYR IV SCH (09:00)
[2023-03-26 09:53] VITALS: BP_SYST 136; BP_SYST 142; BP_DIAS 75; BP_DIAS 78; O2SAT 100; O2SAT 97
== END 2023-03-26 10:00 | disposition home or self-care (01) ==
LOC: M INFU 08:20
PROVIDERS: ATTEND Internal Medicine Gastroenterology
DX: K50.90 Crohn's disease, unspecified, without complications (principal); Z88.1 Allergy status to other antibiotic agents; Z88.3 Allergy status to other anti-infective agents
CPT/HCPCS: 96365; J3380

== ENCOUNTER → 2023-03-28 | Outpatient (REF) | payer OTHER, MEDICAID ==
[2023-03-28 16:56] LABS: HEMATOCRIT 39.6 % (42.0-52.0); HEMOGLOBIN 12.7 g/dl (13.5-17.5); MEAN CORPUSCULAR HEMOGLOBIN 30.2 pg (27.0-33.0); MEAN CORPUSCULAR HGB CONC 32.1 g/dl (32.0-36.5); MEAN CORPUSCULAR VOLUME 94.1 fl (80.0-96.0); PLATELET COUNT, AUTOMATED 213 10^3/uL (150-450); RED BLOOD COUNT 4.21 10^6/uL (4.30-6.10); WHITE BLOOD COUNT 11.2 10^3/uL (4.0-10.0)
[2023-03-28 17:13] LABS: HEMOGLOBIN A1c 6.8 % (4.0-6.0)
[2023-03-28 17:16] LABS: ALBUMIN 3.3 G/DL (3.2-5.2); BILIRUBIN,TOTAL 0.2 MG/DL (0.3-1.2); CHOLESTEROL RISK RATIO 3.15 (<5); CREATININE FOR GFR 1.56 MG/DL (0.70-1.30); GLOMERULAR FILTRATION RATE 46.8 (>42); HDL CHOLESTEROL 41.8 MG/DL (>40); NON-HDL-C 90.2 MG/DL; POTASSIUM SERUM 4.5 MMOL/L (3.5-5.1); TOTAL PROTEIN 6.3 G/DL (5.7-8.2)
[2023-03-28 17:39] LABS: APPEARANCE, URINE CLEAR (CLEAR); BACTERIA, URINE AUTO NEGATIVE (NEGATIVE); BILIRUBIN, URINE AUTO NEGATIVE (NEGATIVE); BLOOD, URINE BLOOD 2+ (NEGATIVE); COLOR, URINE STRAW (YELLOW); GLUCOSE, URINE (UA) AUTO NEGATIVE (NEGATIVE); KETONE, URINE AUTO NEGATIVE (NEGATIVE); LEUKOCYTE ESTERASE, URINE AUTO 2+ (NEGATIVE); NITRITE, URINE AUTO NEGATIVE (NEGATIVE); PROTEIN, URINE AUTO NEGATIVE (NEGATIVE); RBC, URINE AUTO 9 /HPF (0-3); SPECIFIC GRAVITY URINE AUTO 1.009 (1.002-1.035); SQUAMOUS EPITHELIAL CELL UR AU 0 /HPF (0-6); UROBILINOGEN, URINE AUTO 0.2 mg/dL (0.0-2.0); WBC, URINE AUTO 17 /HPF (0-3)
== END ==
LOC: M SFHCADAM 14:49
PROVIDERS: ATTEND Family Medicine
DX: N39.0 Urinary tract infection, site not specified (principal); E11.22 Type 2 diabetes mellitus with diabetic chronic kidney disease; E78.5 Hyperlipidemia, unspecified

== ENCOUNTER 2023-05-21 07:49 | Outpatient (CLI) | payer OTHER, MEDICAID ==
[~2023-05-21] VITALS: Ht 175.3 cm; Wt 77.2 kg
[2023-05-21 08:10] VITALS: BP 129/77; O2SAT 97
[2023-05-21] MEDS ORDERED: SODIUM CHLORIDE 0.9% INJ 10 ML SYR IV SCH (09:00)
[2023-05-21] MEDS: VEDOLIZUMAB 300 MG in NS 250 ML IV ONE (09:03)
[2023-05-21] MEDS: SODIUM CHLORIDE 0.9% INJ 10 ML SYR IV PRN (09:05)
[2023-05-21 09:54] VITALS: BP 160/70; O2SAT 95
== END 2023-05-21 10:00 ==
LOC: M INFU 07:49
PROVIDERS: ATTEND Internal Medicine Gastroenterology
DX: K50.90 Crohn's disease, unspecified, without complications (principal); Z88.1 Allergy status to other antibiotic agents; Z88.3 Allergy status to other anti-infective agents
CPT/HCPCS: 96365; J3380

== ENCOUNTER → 2023-06-13 | Outpatient (CLI) | payer OTHER, MEDICAID ==
[~2023-06-13] MED LIST changes: +FERR325T14 PO; -IRON325T9 PO; +PROHANCE 279.3MG/ML 15ML VIAL As Ordered ONE
== END ==
LOC: M RAD 13:24
PROVIDERS: ATTEND Nurse Practitioner Family
DX: C34.92 Malignant neoplasm of unspecified part of left bronchus or lung (principal); D64.9 Anemia, unspecified
CPT/HCPCS: 70553; A9576

== ENCOUNTER → 2023-07-22 | Outpatient (CLI) | payer OTHER, MEDICAID ==
[~2023-07-22] VITALS: Ht 175.3 cm; Wt 77.3 kg
[~2023-07-22] MED LIST changes: -PROHANCE 279.3MG/ML 15ML VIAL As Ordered ONE; +SODIUM CHLORIDE 0.9% INJ 10 ML SYR IV PRN
[2023-07-22 13:50] VITALS: BP 100/73; O2SAT 98
[2023-07-22] MEDS: VEDOLIZUMAB 300 MG in NS 250 ML IV ONE (14:34)
[2023-07-22] MEDS: SODIUM CHLORIDE 0.9% INJ 10 ML SYR IV SCH (14:58)
[2023-07-22 15:13] VITALS: BP 125/64; O2SAT 96
== END ==
LOC: M INFU 13:13
PROVIDERS: ATTEND Internal Medicine Gastroenterology
DX: K50.919 Crohn's disease, unspecified, with unspecified complications (principal); Z88.1 Allergy status to other antibiotic agents; Z88.3 Allergy status to other anti-infective agents
CPT/HCPCS: 96365; J3380

== ENCOUNTER → 2023-08-21 | Outpatient (REF) | payer OTHER, MEDICAID ==
[~2023-08-21] MED LIST changes: -SODIUM CHLORIDE 0.9% INJ 10 ML SYR IV PRN
[2023-08-21 14:06] LABS: CLOSTRIDIUM DIFFICILE PCR NEGATIVE (NEGATIVE)
== END ==
LOC: M LAB REF 11:55
PROVIDERS: ATTEND Internal Medicine Gastroenterology
DX: A09 Infectious gastroenteritis and colitis, unspecified (principal); K50.00 Crohn's disease of small intestine without complications; R19.7 Diarrhea, unspecified

== ENCOUNTER 2023-09-01 10:54 | Outpatient (CLI) | payer OTHER, MEDICAID ==
[~2023-09-01] VITALS: Ht 175.3 cm; Wt 71.8 kg
[2023-09-01 10:15] VITALS: BP 133/66; O2SAT 99
[2023-09-01] MEDS: D5W IV ONE (11:33)
[2023-09-01] MEDS: RISANKIZUMAB RZAA IV ONE (11:33)
[2023-09-01] MEDS: SODIUM CHLORIDE 0.9% INJ 10 ML SYR IV PRN (12:42)
[2023-09-01 13:00] VITALS: BP 166/90; TEMP 36.6; O2SAT 97
== END 2023-09-01 13:00 | disposition home or self-care (01) ==
LOC: M INFU 10:54
PROVIDERS: ATTEND Internal Medicine Gastroenterology
DX: K50.90 Crohn's disease, unspecified, without complications (principal); Z88.1 Allergy status to other antibiotic agents; Z88.3 Allergy status to other anti-infective agents
CPT/HCPCS: 96365; J2327

== ENCOUNTER → 2023-09-02 | Outpatient (CLI) | payer OTHER, MEDICAID | LOC: M CARPUL 07:49 | PROVIDERS: ATTEND Internal Medicine Hematology & Oncology | DX: R06.02 Shortness of breath (principal); C34.92 Malignant neoplasm of unspecified part of left bronchus or lung ==

== ENCOUNTER 2023-09-29 08:20 | Outpatient (CLI) | payer OTHER, MEDICAID ==
[~2023-09-29] VITALS: Ht 172.7 cm; Wt 74.0 kg
[2023-09-29 08:20] VITALS: BP 135/74; O2SAT 97
[2023-09-29] MEDS: RISANKIZUMAB-RZAA 600 MG in D5W 250 ML IV ONE (08:54)
[2023-09-29] MEDS: SODIUM CHLORIDE 0.9% INJ 10 ML SYR IV PRN (10:01)
[2023-09-29 10:05] VITALS: BP 135/74; O2SAT 97
== END 2023-09-29 10:10 ==
LOC: M INFU 08:20
PROVIDERS: ATTEND Internal Medicine Gastroenterology
DX: K50.90 Crohn's disease, unspecified, without complications (principal); Z88.1 Allergy status to other antibiotic agents; Z88.3 Allergy status to other anti-infective agents
CPT/HCPCS: 96365; J2327

== ENCOUNTER → 2023-10-15 | Outpatient (REF) | payer OTHER, MEDICAID ==
[~2023-10-15] MED LIST changes: +ATIV2TAB PO; +BUDE3CAP; +FLUT1BLS4; +LEVO1TAB39 PO; +METO10TA3; +ONDA-84; +VENL75CA47; +[UNRECOGNIZED DRUG - CODE] IV
[2023-10-15 17:47] LABS: ALKALINE PHOSPHATASE 153 U/L (46-116); ALT/SGPT 21 U/L (7.0-40); AST/SGOT < 8 U/L (<34); BILIRUBIN,TOTAL 0.2 MG/DL (0.3-1.2); BLOOD UREA NITROGEN 25 MG/DL (9-23); CALCIUM LEVEL 8.7 MG/DL (8.3-10.6); CARBON DIOXIDE LEVEL 28 MMOL/L (20-31); CHLORIDE LEVEL 100 MMOL/L (98-107); CHOLESTEROL LEVEL 145 MG/DL (<200); CHOLESTEROL RISK RATIO 4.34 (<5); GLUCOSE, FASTING 324 MG/DL (74-106); HDL CHOLESTEROL 33.4 MG/DL (>40); NON-HDL-C 111.6 MG/DL; POTASSIUM SERUM 3.9 MMOL/L (3.5-5.1); SODIUM LEVEL 133 MMOL/L (136-145); TOTAL PROTEIN 6.3 G/DL (5.7-8.2); TRIGLYCERIDES LEVEL 515 MG/DL (<150)
[2023-10-15 17:48] LABS: HEMATOCRIT 38.1 % (42.0-52.0); HEMOGLOBIN 12.5 g/dl (13.5-17.5); MEAN CORPUSCULAR HEMOGLOBIN 30.3 pg (27.0-33.0); MEAN CORPUSCULAR HGB CONC 32.8 g/dl (32.0-36.5); MEAN CORPUSCULAR VOLUME 92.3 fl (80.0-96.0); PLATELET COUNT, AUTOMATED 219 10^3/uL (150-450); RED BLOOD COUNT 4.13 10^6/uL (4.30-6.10); WHITE BLOOD COUNT 10.1 10^3/uL (4.0-10.0)
[2023-10-15 18:23] LABS: HEMOGLOBIN A1c 9.2 % (4.0-6.0)
== END ==
LOC: M SFHCCAPE 08:10
PROVIDERS: ATTEND Family Medicine
DX: E78.5 Hyperlipidemia, unspecified (principal); F32.9 Major depressive disorder, single episode, unspecified; E11.59 Type 2 diabetes mellitus with other circulatory complications; I73.9 Peripheral vascular disease, unspecified; N18.2 Chronic kidney disease, stage 2 (mild)

== ENCOUNTER → 2023-10-17 | Outpatient (CLI) | payer OTHER, MEDICAID ==
[~2023-10-17] MED LIST changes: +PROHANCE 279.3MG/ML 15ML VIAL ONE
== END ==
LOC: M PLAIMG 10:47
PROVIDERS: ATTEND Internal Medicine Hematology & Oncology
DX: C34.90 Malignant neoplasm of unspecified part of unspecified bronchus or lung (principal)
CPT/HCPCS: 70553; A9576

== ENCOUNTER 2023-10-26 20:28 | Emergency (ER) | payer OTHER, MEDICAID ==
[~2023-10-26] VITALS: Ht 175.3 cm; Wt 73.5 kg
[~2023-10-26 20:28] MED LIST changes: -PROHANCE 279.3MG/ML 15ML VIAL ONE
[2023-10-26 20:29] VITALS: BP 150/82; TEMP 98.6; O2SAT 98
[2023-10-26 21:58] LABS: BASO # 0.1 10^3/uL (0.0-0.2); BASO % 0.9 % (0.0-1.0); EOS # 0.3 10^3/uL (0.0-0.5); EOS % 3.8 % (0.0-3.0); HEMATOCRIT 37.3 % (42.0-52.0); HEMOGLOBIN 12.1 g/dl (13.5-17.5); LYMPH # 2.2 10^3/uL (1.5-5.0); LYMPH % 27.9 % (24.0-44.0); MEAN CORPUSCULAR HEMOGLOBIN 29.7 pg (27.0-33.0); MEAN CORPUSCULAR HGB CONC 32.4 g/dl (32.0-36.5); MEAN CORPUSCULAR VOLUME 91.4 fl (80.0-96.0); MONO # 0.8 10^3/uL (0.0-0.8); MONO % 10.6 % (2.0-8.0); NEUTROPHILS # 4.3 10^3/uL (1.5-8.5); NEUTROPHILS % 55.8 % (36.0-66.0); PLATELET COUNT, AUTOMATED 222 10^3/uL (150-450); RED BLOOD COUNT 4.08 10^6/uL (4.30-6.10); WHITE BLOOD COUNT 7.7 10^3/uL (4.0-10.0)
[2023-10-26 22:23] LABS: CK-MB VALUE MASS 1.2 NG/ML (<3.6); MB/CK RELATIVE INDEX 1.81 (< OR =4)
[2023-10-26 22:24] LABS: CALCIUM LEVEL 8.4 MG/DL (8.3-10.6); CREATININE FOR GFR 1.47 MG/DL (0.70-1.30); GLOMERULAR FILTRATION RATE 50.1 (>42); POTASSIUM SERUM 4.3 MMOL/L (3.5-5.1)
[2023-10-26 22:27] LABS: THYROID STIMULATING HORMONE 2.392 uIU/ML (0.55-4.78)
[2023-10-26 22:35] LABS: HEMOGLOBIN A1c 10.6 % (4.0-6.0)
== END 2023-10-27 00:22 | disposition left against medical advice (07) ==
LOC: M ED 20:28
DX: Z53.21 Procedure and treatment not carried out due to patient leaving prior to being seen by health care provider (principal)

== ENCOUNTER 2023-10-27 08:15 | Outpatient (CLI) | payer OTHER, MEDICAID ==
[~2023-10-27] VITALS: Ht 175.3 cm; Wt 77.2 kg
[2023-10-27 08:10] VITALS: BP 136/86; O2SAT 98
[2023-10-27] MEDS: D5W IV ONE (08:54)
[2023-10-27] MEDS: RISANKIZUMAB RZAA IV ONE (08:54)
[2023-10-27 10:05] VITALS: BP 129/84; O2SAT 98
[2023-10-27] MEDS: SODIUM CHLORIDE 0.9% INJ 10 ML SYR IV PRN (10:05)
== END 2023-10-27 10:15 ==
LOC: M INFU 08:15
PROVIDERS: ATTEND Internal Medicine Gastroenterology
DX: K50.90 Crohn's disease, unspecified, without complications (principal); Z91.013 Allergy to seafood; Z88.8 Allergy status to other drugs, medicaments and biological substances; Z88.1 Allergy status to other antibiotic agents
CPT/HCPCS: 96365; J2327

== ENCOUNTER 2023-10-27 10:38 | Emergency (ER) | payer OTHER, MEDICAID ==
[~2023-10-27] VITALS: Ht 175.3 cm; Wt 74.4 kg
[2023-10-27 10:39] VITALS: BP 144/81; TEMP 97.1; O2SAT 99
== END 2023-10-27 11:24 | disposition left against medical advice (07) ==
LOC: M ED 10:38
DX: Z53.21 Procedure and treatment not carried out due to patient leaving prior to being seen by health care provider (principal)

== ENCOUNTER → 2023-11-10 | Outpatient (REF) | payer OTHER, MEDICAID ==
[2023-11-10 18:45] LABS: CALCIUM LEVEL 8.6 MG/DL (8.3-10.6); CREATININE FOR GFR 1.62 MG/DL (0.70-1.30); GLOMERULAR FILTRATION RATE 44.8 (>42); POTASSIUM SERUM 4.5 MMOL/L (3.5-5.1)
[2023-11-10 20:23] LABS: HEMOGLOBIN A1c 10.2 % (4.0-6.0)
== END ==
LOC: M SFHCCLAY 14:03
PROVIDERS: ATTEND Family Medicine
DX: E11.22 Type 2 diabetes mellitus with diabetic chronic kidney disease (principal)

== ENCOUNTER → 2023-12-04 | Outpatient (REF) | payer OTHER, MEDICAID ==
[2023-12-04 18:48] LABS: HEMOGLOBIN A1c 8.9 % (4.0-6.0)
[2023-12-04 19:06] LABS: ALBUMIN 3.5 G/DL (3.2-5.2); BILIRUBIN,TOTAL 0.2 MG/DL (0.3-1.2); CALCIUM LEVEL 9.3 MG/DL (8.3-10.6); CREATININE FOR GFR 1.54 MG/DL (0.70-1.30); GLOMERULAR FILTRATION RATE 47.4 (>42); POTASSIUM SERUM 4.4 MMOL/L (3.5-5.1); TOTAL PROTEIN 6.9 G/DL (5.7-8.2)
== END ==
LOC: M SFHCADAM 14:49
PROVIDERS: ATTEND Family Medicine
DX: E11.59 Type 2 diabetes mellitus with other circulatory complications (principal)

== ENCOUNTER → 2023-12-08 | Outpatient (CLI) | payer OTHER, MEDICAID ==
[2023-12-08 10:24] LABS: BASO # 0.1 10^3/uL (0.0-0.2); BASO % 0.8 % (0.0-1.0); EOS # 0.3 10^3/uL (0.0-0.5); EOS % 3.6 % (0.0-3.0); HEMATOCRIT 38.3 % (42.0-52.0); HEMOGLOBIN 12.1 g/dl (13.5-17.5); LYMPH # 1.6 10^3/uL (1.5-5.0); LYMPH % 20.5 % (24.0-44.0); MEAN CORPUSCULAR HEMOGLOBIN 29.2 pg (27.0-33.0); MEAN CORPUSCULAR HGB CONC 31.6 g/dl (32.0-36.5); MEAN CORPUSCULAR VOLUME 92.5 fl (80.0-96.0); MONO # 0.8 10^3/uL (0.0-0.8); MONO % 10.9 % (2.0-8.0); NEUTROPHILS # 4.9 10^3/uL (1.5-8.5); NEUTROPHILS % 63.4 % (36.0-66.0); PLATELET COUNT, AUTOMATED 237 10^3/uL (150-450); RED BLOOD COUNT 4.14 10^6/uL (4.30-6.10); WHITE BLOOD COUNT 7.7 10^3/uL (4.0-10.0)
[2023-12-08 10:44] LABS: ALBUMIN 3.3 G/DL (3.2-5.2); ALKALINE PHOSPHATASE 112 U/L (46-116); ALT/SGPT 24 U/L (7.0-40); AST/SGOT 14 U/L (<34); BILIRUBIN,TOTAL 0.2 MG/DL (0.3-1.2); BLOOD UREA NITROGEN 23 MG/DL (9-23); CALCIUM LEVEL 9.3 MG/DL (8.3-10.6); CARBON DIOXIDE LEVEL 32 MMOL/L (20-31); CHLORIDE LEVEL 107 MMOL/L (98-107); CREATININE FOR GFR 1.46 MG/DL (0.70-1.30); GLOMERULAR FILTRATION RATE 50.4 (>42); GLUCOSE, FASTING 153 MG/DL (74-106); SODIUM LEVEL 138 MMOL/L (136-145); TOTAL PROTEIN 6.8 G/DL (5.7-8.2)
== END ==
LOC: M LAB 09:53
DX: C34.92 Malignant neoplasm of unspecified part of left bronchus or lung (principal)

== ENCOUNTER → 2024-01-13 | Outpatient (CLI) | payer OTHER, MEDICAID ==
[~2024-01-13] MED LIST changes: +AMLO1TAB24 PO; +BUPR-597 PO; +CALC500C16 PO; +DOXY100T PO; +GLIP5TAB20 PO; +MAGN200T PO; +MUCI600T31 PO; -OLAN2.5T25 PO; +OLAN2.5T53 PO; +PROBCAP14 PO; +RISA360W INJ
== END ==
LOC: M ONCR 13:04
PROVIDERS: ATTEND General Practice
DX: C34.12 Malignant neoplasm of upper lobe, left bronchus or lung (principal); J98.11 Atelectasis; Z87.891 Personal history of nicotine dependence; Z92.21 Personal history of antineoplastic chemotherapy; Z92.3 Personal history of irradiation; Z88.1 Allergy status to other antibiotic agents; Z91.013 Allergy to seafood; Z91.048 Other nonmedicinal substance allergy status; Z79.51 Long term (current) use of inhaled steroids; Z79.84 Long term (current) use of oral hypoglycemic drugs; Z79.82 Long term (current) use of aspirin; Z79.85 Long-term (current) use of injectable non-insulin antidiabetic drugs; Z79.899 Other long term (current) drug therapy

== ENCOUNTER 2024-01-18 19:08 | Inpatient (IN) | payer OTHER, MEDICAID ==
[~2024-01-18] VITALS: Ht 172.7 cm; Wt 69.5 kg
[~2024-01-18 19:08] MED LIST changes: -AMLO1TAB24 PO; -BUPR-597 PO; -CALC500C16 PO; -DOXY100T PO; -GLIP5TAB20 PO; -MAGN200T PO; -MUCI600T31 PO; -PROBCAP14 PO; -RISA360W INJ
[2024-01-18 19:52] LABS: BASO # 0.1 10^3/uL (0.0-0.2); BASO % 0.4 % (0.0-1.0); EOS # 0.1 10^3/uL (0.0-0.5); EOS % 0.5 % (0.0-3.0); HEMATOCRIT 35.7 % (42.0-52.0); HEMOGLOBIN 11.4 g/dl (13.5-17.5); LYMPH # 1.3 10^3/uL (1.5-5.0); LYMPH % 7.4 % (24.0-44.0); MEAN CORPUSCULAR HGB CONC 31.9 g/dl (32.0-36.5); MEAN CORPUSCULAR VOLUME 90.8 fl (80.0-96.0); MONO # 1.9 10^3/uL (0.0-0.8); NEUTROPHILS # 13.6 10^3/uL (1.5-8.5); NEUTROPHILS % 80.1 % (36.0-66.0); PLATELET COUNT, AUTOMATED 304 10^3/uL (150-450); RED BLOOD COUNT 3.93 10^6/uL (4.30-6.10)
[2024-01-18 20:09] LABS: INR 1.15; PARTIAL THROMBOPLASTIN TIME 28.9 SECONDS (24.8-34.2); PROTHROMBIN TIME 14.4 SECONDS (12.5-14.5)
[2024-01-18 20:16] LABS: CK-MB VALUE MASS < 1.0 NG/ML (<3.6)
[2024-01-18 20:17] LABS: LIPASE 35 U/L (12-53)
[2024-01-18 20:19] LABS: ALBUMIN 3.1 G/DL (3.2-5.2); ALKALINE PHOSPHATASE 109 U/L (46-116); ALT/SGPT 16 U/L (7.0-40); AST/SGOT 9 U/L (<34); BILIRUBIN,DIRECT 0.2 MG/DL (<0.4); BILIRUBIN,TOTAL 0.4 MG/DL (0.3-1.2); BLOOD UREA NITROGEN 31 MG/DL (9-23); CALCIUM LEVEL 9.3 MG/DL (8.3-10.6); CARBON DIOXIDE LEVEL 28 MMOL/L (20-31); CHLORIDE LEVEL 105 MMOL/L (98-107); CPK CREATINE PHOSPHOKINASE 57 U/L (46-171); CREATININE FOR GFR 1.69 MG/DL (0.70-1.30); GLOMERULAR FILTRATION RATE 42.6 (>42); GLUCOSE, FASTING 149 MG/DL (74-106); MB/CK RELATIVE INDEX 1.75 (< OR =4); POTASSIUM SERUM 4.7 MMOL/L (3.5-5.1); SODIUM LEVEL 136 MMOL/L (136-145); TOTAL PROTEIN 6.9 G/DL (5.7-8.2)
[2024-01-18 20:21] LABS: THYROID STIMULATING HORMONE 1.145 uIU/ML (0.55-4.78)
[2024-01-18 20:22] LABS: FREE T4 1.35 NG/DL (0.89-1.76)
[2024-01-18] MEDS ORDERED: ISOVUE-370 76% 100ML VIAL As Ordered ONE (20:43)
[2024-01-18] MEDS: NS 500 ML IV ONE (21:08)
[2024-01-18 21:28] LABS: CK-MB VALUE MASS < 1.0 NG/ML (<3.6)
[2024-01-18 21:29] LABS: CPK CREATINE PHOSPHOKINASE 49 U/L (46-171); MB/CK RELATIVE INDEX 2.04 (< OR =4)
[2024-01-18 21:35] LABS: RSV AMPLIFICATION NEGATIVE (NEGATIVE)
[2024-01-18] MEDS ORDERED: MED REC IN PROGRESS XX SCH (23:05)
[2024-01-18] MEDS: cefTRIAXone SOD 2 GM in D5W MINI-BAG PLUS 50 ML IV ONE (23:10)
[2024-01-19] VITALS (7 sets, daily range): BP systolic 108–137; BP diastolic 61–88; TEMP 97.8–99.4; O2SAT 92–96
[2024-01-19] MEDS ORDERED: MOM 30ML SUSPENSION UDC PO PRN (00:35)
[2024-01-19] MEDS ORDERED: GLIP5TAB20 PO (00:46)
[2024-01-19] MEDS ORDERED: RISA360W INJ (00:46)
[2024-01-19] MEDS ORDERED: MAGN200T PO (00:46)
[2024-01-19] MEDS ORDERED: BUPR-597 PO (00:46)
[2024-01-19] MEDS ORDERED: CALC500C16 PO (00:46)
[2024-01-19] MEDS ORDERED: CHOL378P3 PO (00:46)
[2024-01-19] MEDS ORDERED: HOME MED LIST COMPLETE! XX SCH (00:50)
[2024-01-19] MEDS: ACETAMINOPHEN 325 MG TAB PO PRN (02:18)
[2024-01-19] MEDS: AZITHROMYCIN 250MG TABLET PO SCH (02:22)
[2024-01-19] MEDS: ALPRAZolam 0.5 MG TAB PO PRN (02:48)
[2024-01-19] MEDS ORDERED: ALBUTEROL 90 MCG/ACT 8GM HFA INHALER INH PRN (02:50)
[2024-01-19] MEDS ORDERED: GLUCAGON INJ 1MG VIAL SC PRN (02:50)
[2024-01-19] MEDS ORDERED: GLUCOSE 4 GM CHEW PO PRN (02:50)
[2024-01-19] MEDS ORDERED: CHOLESTYRAMINE 4GM PWD PKT PO PRN (02:50)
[2024-01-19] MEDS ORDERED: DEXTROSE 50% 50ML SYRINGE IV PRN (02:50)
[2024-01-19] MEDS: HEPARIN SOD (PORCINE) 5000UNITS/ML 1ML VIAL/SYRINGE SC SCH (05:07)
[2024-01-19] MEDS: PANTOPRAZOLE 40MG VIAL IV SCH (05:07)
[2024-01-19] MEDS: NS 500 ML IV ONE (05:07)
[2024-01-19 05:59] LABS: HEMATOCRIT 33.4 % (42.0-52.0); HEMOGLOBIN 10.7 g/dl (13.5-17.5); MEAN CORPUSCULAR HEMOGLOBIN 28.8 pg (27.0-33.0); MEAN CORPUSCULAR VOLUME 89.8 fl (80.0-96.0); PLATELET COUNT, AUTOMATED 291 10^3/uL (150-450); RED BLOOD COUNT 3.72 10^6/uL (4.30-6.10); WHITE BLOOD COUNT 11.9 10^3/uL (4.0-10.0)
[2024-01-19 06:37] LABS: ALBUMIN 2.8 G/DL (3.2-5.2); ALKALINE PHOSPHATASE 99 U/L (46-116); ALT/SGPT 13 U/L (7.0-40); AST/SGOT < 8 U/L (<34); BILIRUBIN,TOTAL 0.3 MG/DL (0.3-1.2); BLOOD UREA NITROGEN 29 MG/DL (9-23); CALCIUM LEVEL 9.1 MG/DL (8.3-10.6); CARBON DIOXIDE LEVEL 26 MMOL/L (20-31); CHLORIDE LEVEL 102 MMOL/L (98-107); CREATININE FOR GFR 1.63 MG/DL (0.70-1.30); GLOMERULAR FILTRATION RATE 44.4 (>42); GLUCOSE, FASTING 107 MG/DL (74-106); POTASSIUM SERUM 4.1 MMOL/L (3.5-5.1); SODIUM LEVEL 134 MMOL/L (136-145); TOTAL PROTEIN 6.5 G/DL (5.7-8.2)
[2024-01-19] MEDS: ADVAIR HFA 45/21MCG INHALER INH SCH (07:55)
[2024-01-19] MEDS: VENLAFAXINE **XR** 75MG CAPSULE PO SCH (08:32)
[2024-01-19] MEDS: ATORVASTATIN 20 MG TAB PO SCH (08:32)
[2024-01-19] MEDS: ASPIRIN 81MG ENTERIC TABLET PO SCH (08:32)
[2024-01-19] MEDS: LOSARTAN 50MG TABLET PO SCH (08:32)
[2024-01-19] MEDS: buPROPion **XL** TABLET 150MG (WELLBUTRIN XL) PO SCH (08:32)
[2024-01-19] MEDS: CALCIUM CARBONATE 500 MG CHEW U/D PO SCH (08:32)
[2024-01-19] MEDS: INSULIN LISPRO (NovoLOG) PER UNIT SC SCH ×2 (08:33→20:41)
[2024-01-19] MEDS: MIDODRINE 5 MG TAB PO SCH (11:47)
[2024-01-19] MEDS: cefTRIAXone SOD 2 GM in D5W MINI-BAG PLUS 50 ML IV SCH (22:05)
[2024-01-20] VITALS (8 sets, daily range): BP systolic 122–150; BP diastolic 61–89; TEMP 98.1–99.5; O2SAT 93–97
[2024-01-20 06:16] LABS: HEMATOCRIT 33.9 % (42.0-52.0); HEMOGLOBIN 10.9 g/dl (13.5-17.5); MEAN CORPUSCULAR HEMOGLOBIN 29.1 pg (27.0-33.0); MEAN CORPUSCULAR HGB CONC 32.2 g/dl (32.0-36.5); MEAN CORPUSCULAR VOLUME 90.4 fl (80.0-96.0); PLATELET COUNT, AUTOMATED 295 10^3/uL (150-450); RED BLOOD COUNT 3.75 10^6/uL (4.30-6.10); WHITE BLOOD COUNT 11.4 10^3/uL (4.0-10.0)
[2024-01-20 06:39] LABS: CALCIUM LEVEL 9.1 MG/DL (8.3-10.6); CREATININE FOR GFR 1.69 MG/DL (0.70-1.30); GLOMERULAR FILTRATION RATE 42.6 (>42); POTASSIUM SERUM 4.4 MMOL/L (3.5-5.1)
[2024-01-20] MEDS: guaiFENesin DM *SUGAR FREE* 5ML**DIABETIC TUSSIN DM PO ONE (12:35)
[2024-01-20] MEDS: guaiFENesin ER TABLET 600 MG TAB PO SCH (20:38)
[2024-01-21] VITALS: BP_SYST 147; BP_SYST 164; BP_DIAS 91; BP_DIAS 95; TEMP 98.1; O2SAT 96
[2024-01-21 04:00] VITALS: BP 125/71; TEMP 97.5; O2SAT 97
[2024-01-21 06:00] LABS: HEMATOCRIT 34.8 % (42.0-52.0); HEMOGLOBIN 11.2 g/dl (13.5-17.5); MEAN CORPUSCULAR HEMOGLOBIN 28.9 pg (27.0-33.0); MEAN CORPUSCULAR HGB CONC 32.2 g/dl (32.0-36.5); MEAN CORPUSCULAR VOLUME 89.9 fl (80.0-96.0); PLATELET COUNT, AUTOMATED 329 10^3/uL (150-450); RED BLOOD COUNT 3.87 10^6/uL (4.30-6.10); WHITE BLOOD COUNT 12.1 10^3/uL (4.0-10.0)
[2024-01-21 06:27] LABS: CALCIUM LEVEL 9.1 MG/DL (8.3-10.6); CREATININE FOR GFR 1.66 MG/DL (0.70-1.30); GLOMERULAR FILTRATION RATE 43.4 (>42); MAGNESIUM LEVEL 2.1 MG/DL (1.8-2.4); POTASSIUM SERUM 4.5 MMOL/L (3.5-5.1)
[2024-01-21 08:00] VITALS: BP 124/72; TEMP 98.2; O2SAT 98
[2024-01-21] MEDS: DOXYCYCLINE HYCLATE 100MG TABLET PO SCH (08:04)
[2024-01-21] MEDS ORDERED: DOXY100T PO (11:30)
[2024-01-21] MEDS ORDERED: MUCI600T31 PO (11:30)
[2024-01-21 12:00] VITALS: BP 128/74; TEMP 98.3; O2SAT 97
[2024-01-21] MEDS ORDERED: AMLO1TAB24 PO (12:07)
[2024-01-21] MEDS ORDERED: CEFD1CAP9 PO (12:07)
[2024-01-21] MEDS ORDERED: PROBCAP14 PO (12:07)
== END 2024-01-21 13:06 | disposition home or self-care (01) | DRG 312 ==
LOC: M ED 19:08 → EDBD 19:08 → M ED INP 01-19 00:32 → M PCU 01-19 01:33 → M MSPAV 01-20 20:26
PROVIDERS: ADMIT Internal Medicine; ATTEND Student in an Organized Health Care Education/Training Program
DX: I95.1 Orthostatic hypotension (principal); J18.9 Pneumonia, unspecified organism; N39.0 Urinary tract infection, site not specified; C34.12 Malignant neoplasm of upper lobe, left bronchus or lung; K50.90 Crohn's disease, unspecified, without complications; I31.39 Other pericardial effusion (noninflammatory); N13.30 Unspecified hydronephrosis; I12.9 Hypertensive chronic kidney disease with stage 1 through stage 4 chronic kidney disease, or unspecified chronic kidney disease; E11.22 Type 2 diabetes mellitus with diabetic chronic kidney disease; I25.10 Atherosclerotic heart disease of native coronary artery without angina pectoris; E78.5 Hyperlipidemia, unspecified; K21.9 Gastro-esophageal reflux disease without esophagitis; E11.51 Type 2 diabetes mellitus with diabetic peripheral angiopathy without gangrene; N18.32 Chronic kidney disease, stage 3b; Z91.013 Allergy to seafood; Z88.8 Allergy status to other drugs, medicaments and biological substances; Z79.899 Other long term (current) drug therapy; Z79.82 Long term (current) use of aspirin; F41.9 Anxiety disorder, unspecified; F32.A Depression, unspecified; Z85.46 Personal history of malignant neoplasm of prostate; Z87.891 Personal history of nicotine dependence; Z95.2 Presence of prosthetic heart valve; Z66 Do not resuscitate

== ENCOUNTER 2024-01-30 10:30 | Outpatient (RCR) | payer OTHER, MEDICAID ==
[~2024-01-30 10:30] MED LIST changes: +AMLO1TAB24 PO; +BUPR-597 PO; +CALC500C16 PO; +DOXY100T PO; +GLIP5TAB20 PO; +MAGN200T PO; +METF-1156 PO; -METF-817 PO; +MUCI600T31 PO; +PROBCAP14 PO; +RISA360W INJ
[2024-02-05] MEDS ORDERED: EFFE75CA2 PO (10:50)
[2024-02-05] MEDS ORDERED: METO5TAB2 PO (10:50)
[2024-02-05] MEDS ORDERED: OMEGCAP4 PO (10:50)
[2024-02-05] MEDS ORDERED: ALBU8.5H INH (11:26)
== END 2024-02-12 ==
LOC: M ONCR 10:30
PROVIDERS: ATTEND General Practice
DX: Z51.0 Encounter for antineoplastic radiation therapy (principal); C34.12 Malignant neoplasm of upper lobe, left bronchus or lung

== ENCOUNTER → 2024-02-05 | Outpatient (CLI) | payer OTHER, MEDICAID ==
[~2024-02-05] VITALS: Ht 170.2 cm; Wt 68.0 kg
[~2024-02-05] MED LIST changes: +EFFE75CA2 PO; -METF-1156 PO; +METF-817 PO; +METO5TAB2 PO; +OMEGCAP4 PO
[2024-02-05 10:38] VITALS: BP 135/76; O2SAT 96
== END ==
LOC: M PAL 10:25
PROVIDERS: ATTEND Nurse Practitioner Adult Health
DX: C34.12 Malignant neoplasm of upper lobe, left bronchus or lung (principal); R63.0 Anorexia; R11.0 Nausea; R53.81 Other malaise; R06.09 Other forms of dyspnea; Z87.891 Personal history of nicotine dependence; R29.6 Repeated falls; Z51.5 Encounter for palliative care; Z79.620 Long term (current) use of immunosuppressive biologic; Z79.84 Long term (current) use of oral hypoglycemic drugs; Z79.899 Other long term (current) drug therapy; Z79.82 Long term (current) use of aspirin; Z91.013 Allergy to seafood; Z91.048 Other nonmedicinal substance allergy status; Z88.6 Allergy status to analgesic agent; Z80.42 Family history of malignant neoplasm of prostate; Z85.51 Personal history of malignant neoplasm of bladder; Z87.81 Personal history of (healed) traumatic fracture; Z90.6 Acquired absence of other parts of urinary tract; Z90.79 Acquired absence of other genital organ(s); Z92.21 Personal history of antineoplastic chemotherapy; Z92.3 Personal history of irradiation

== ENCOUNTER 2024-02-23 14:51 | Outpatient (RCR) | payer OTHER, MEDICAID ==
[~2024-02-23 14:51] MED LIST changes: -ADV100INH INH; +ADVA1AER8 INH; +METF-1156 PO; -METF-817 PO
== END 2024-03-13 ==
LOC: M ONCR 14:51
PROVIDERS: ATTEND General Practice
DX: Z51.0 Encounter for antineoplastic radiation therapy (principal); C34.12 Malignant neoplasm of upper lobe, left bronchus or lung

== ENCOUNTER → 2024-04-23 | Outpatient (REF) | payer OTHER, MEDICAID ==
[2024-04-23 18:01] LABS: HEMATOCRIT 40.2 % (42.0-52.0); HEMOGLOBIN 12.9 g/dl (13.5-17.5); MEAN CORPUSCULAR HEMOGLOBIN 27.7 pg (27.0-33.0); MEAN CORPUSCULAR HGB CONC 32.1 g/dl (32.0-36.5); MEAN CORPUSCULAR VOLUME 86.5 fl (80.0-96.0); PLATELET COUNT, AUTOMATED 233 10^3/uL (150-450); RED BLOOD COUNT 4.65 10^6/uL (4.30-6.10); WHITE BLOOD COUNT 9.5 10^3/uL (4.0-10.0)
[2024-04-23 18:10] LABS: ALBUMIN 3.3 G/DL (3.2-5.2); ALKALINE PHOSPHATASE 143 U/L (40-129); ALT/SGPT 32 U/L (7.0-40); AST/SGOT 12 U/L (<34); BILIRUBIN,TOTAL 0.2 MG/DL (0.3-1.2); BLOOD UREA NITROGEN 29 MG/DL (9-23); CALCIUM LEVEL 9.8 MG/DL (8.3-10.6); CARBON DIOXIDE LEVEL 30 MMOL/L (20-31); CHLORIDE LEVEL 102 MMOL/L (98-107); CHOLESTEROL LEVEL 149 MG/DL (<200); CHOLESTEROL RISK RATIO 3.01 (<5); CREATININE FOR GFR 1.53 MG/DL (0.70-1.30); GLOMERULAR FILTRATION RATE 47.7 (>42); GLUCOSE, FASTING 184 MG/DL (74-106); HDL CHOLESTEROL 49.4 MG/DL (>40); HEMOGLOBIN A1c 8.5 % (4.0-6.0); LDL CHOLESTEROL 64.2 MG/DL (<100); NON-HDL-C 99.6 MG/DL; POTASSIUM SERUM 4.7 MMOL/L (3.5-5.1); SODIUM LEVEL 138 MMOL/L (136-145); TOTAL PROTEIN 7.4 G/DL (5.7-8.2); TRIGLYCERIDES LEVEL 177 MG/DL (<150)
[2024-04-23 18:11] LABS: FREE T4 1.28 NG/DL (0.89-1.76)
[2024-04-23 18:12] LABS: FOLATE > 24.00 NG/ML (>5.4); THYROID STIMULATING HORMONE 1.891 uIU/ML (0.55-4.78)
[2024-04-23 18:13] LABS: VITAMIN B12 LEVEL 335 PG/ML (211-911)
== END ==
LOC: M SFHCADAM 11:34
PROVIDERS: ATTEND Family Medicine
DX: E11.22 Type 2 diabetes mellitus with diabetic chronic kidney disease (principal); I11.9 Hypertensive heart disease without heart failure; I73.9 Peripheral vascular disease, unspecified; K50.919 Crohn's disease, unspecified, with unspecified complications; G63 Polyneuropathy in diseases classified elsewhere

== ENCOUNTER → 2024-05-18 | Outpatient (CLI) | payer OTHER, MEDICAID | LOC: M RAD 14:09 | PROVIDERS: ATTEND General Practice | DX: C34.12 Malignant neoplasm of upper lobe, left bronchus or lung (principal); K57.30 Diverticulosis of large intestine without perforation or abscess without bleeding; I70.0 Atherosclerosis of aorta ==

== ENCOUNTER → 2024-05-25 | Outpatient (CLI) | payer OTHER, MEDICAID ==
[~2024-05-25] MED LIST changes: +IPRA0.00 NEB
== END ==
LOC: M ONCR 14:48
PROVIDERS: ATTEND General Practice
DX: J98.11 Atelectasis (principal); R41.3 Other amnesia; R26.81 Unsteadiness on feet; Z85.818 Personal history of malignant neoplasm of other sites of lip, oral cavity, and pharynx; Z85.51 Personal history of malignant neoplasm of bladder; Z90.6 Acquired absence of other parts of urinary tract; Z90.79 Acquired absence of other genital organ(s); Z87.891 Personal history of nicotine dependence; Z92.3 Personal history of irradiation; Z92.21 Personal history of antineoplastic chemotherapy; Z91.013 Allergy to seafood; Z88.8 Allergy status to other drugs, medicaments and biological substances; Z88.6 Allergy status to analgesic agent; Z79.899 Other long term (current) drug therapy; Z79.82 Long term (current) use of aspirin; Z79.84 Long term (current) use of oral hypoglycemic drugs; Z79.620 Long term (current) use of immunosuppressive biologic

== ENCOUNTER 2024-06-04 15:10 | Inpatient (IN) | payer OTHER, MEDICAID ==
[~2024-06-04] VITALS: Ht 167.6 cm; Wt 71.6 kg
[2024-06-04] MEDS ORDERED: ISOVUE-370 76% 100ML VIAL As Ordered ONE (16:22)
[2024-06-04 16:59] LABS: BASO # 0.1 10^3/uL (0.0-0.2); BASO % 0.9 % (0.0-1.0); EOS # 0.3 10^3/uL (0.0-0.5); EOS % 2.7 % (0.0-3.0); HEMOGLOBIN 11.9 g/dl (13.5-17.5); LYMPH % 9.5 % (24.0-44.0); MEAN CORPUSCULAR HEMOGLOBIN 28.3 pg (27.0-33.0); MEAN CORPUSCULAR HGB CONC 33.1 g/dl (32.0-36.5); MEAN CORPUSCULAR VOLUME 85.7 fl (80.0-96.0); MONO % 9.6 % (2.0-8.0); NEUTROPHILS # 7.7 10^3/uL (1.5-8.5); NEUTROPHILS % 75.2 % (36.0-66.0); PLATELET COUNT, AUTOMATED 238 10^3/uL (150-450); WHITE BLOOD COUNT 10.3 10^3/uL (4.0-10.0)
[2024-06-04 17:01] LABS: CK-MB VALUE MASS 2.2 NG/ML (<3.6)
[2024-06-04 17:04] LABS: KETONE, URINE AUTO RFX NEGATIVE (NEGATIVE); LEUKOCYTE ESTERASE UR AUTO RFX 3+ (NEGATIVE); MUCUS, URINE RFX SMALL (NEGATIVE); NITRITE, URINE AUTO RFX NEGATIVE (NEGATIVE); RBC, URINE AUTO RFX 9 /HPF (0-3); SQUAM EPITHELIAL CELL UR AURFX 0 /HPF (0-6); WBC, URINE AUTO RFX 70 /HPF (0-3)
[2024-06-04 17:04] LABS: CPK CREATINE PHOSPHOKINASE 76 U/L (46-171); MB/CK RELATIVE INDEX 2.89 (< OR =4)
[2024-06-04 17:05] LABS: THYROID STIMULATING HORMONE 1.356 uIU/ML (0.55-4.78)
[2024-06-04] MEDS: dexAMETHasone 20MG/5ML VIAL IV ONE (17:07)
[2024-06-04] MEDS: ALBUTEROL SULFATE 2.5MG/0.5ML INH NEB SOLN INH ONE (17:10)
[2024-06-04] MEDS: IPRATROPIUM 0.5MG/ALBUTEROL 2.5MG INH SOL UD 3ML (DUONEB) NEB ONE (17:10)
[2024-06-04 17:12] LABS: ALBUMIN 2.9 G/DL (3.2-5.2); ALKALINE PHOSPHATASE 137 U/L (40-129); ALT/SGPT 17 U/L (7.0-40); AST/SGOT 8 U/L (<34); BILIRUBIN,DIRECT < 0.1 MG/DL (<0.4); BILIRUBIN,TOTAL 0.3 MG/DL (0.3-1.2); BLOOD UREA NITROGEN 31 MG/DL (9-23); CALCIUM LEVEL 8.8 MG/DL (8.3-10.6); CARBON DIOXIDE LEVEL 25 MMOL/L (20-31); CHLORIDE LEVEL 99 MMOL/L (98-107); CREATININE FOR GFR 1.53 MG/DL (0.70-1.30); GLOMERULAR FILTRATION RATE 47.7 (>42); GLUCOSE, FASTING 402 MG/DL (74-106); POTASSIUM SERUM 4.5 MMOL/L (3.5-5.1); SODIUM LEVEL 134 MMOL/L (136-145); TOTAL PROTEIN 6.8 G/DL (5.7-8.2)
[2024-06-04 17:17] LABS: INR 1.04; PARTIAL THROMBOPLASTIN TIME 27.2 SECONDS (24.8-34.2); PROTHROMBIN TIME 13.9 SECONDS (12.5-14.5)
[2024-06-04] MEDS: NS (Normal Saline) 0.9% 1,000 ML IV ONE (18:33)
[2024-06-04] MEDS: HumuLIN R (REGULAR) INSULIN (NovoLIN R) **100U/ML** PER UNIT IV ONE (18:33)
[2024-06-04] MEDS ORDERED: MOM 30ML SUSPENSION UDC PO PRN (18:40)
[2024-06-04] MEDS: cefTRIAXone SOD 1 GM in DEXTROSE 5% (D5W) ADV/MINI-BAG 50 ML IV ONE (18:40)
[2024-06-04] MEDS ORDERED: ACETAMINOPHEN 325 MG TAB PO PRN (18:40)
[2024-06-04] MEDS ORDERED: GLUCOSE 4 GM CHEW PO PRN (18:50)
[2024-06-04] MEDS ORDERED: DEXTROSE 50% 50ML SYRINGE IV PRN (18:50)
[2024-06-04] MEDS ORDERED: GLUCAGON INJ 1MG VIAL SC PRN (18:50)
[2024-06-04 19:28] LABS: HEMOGLOBIN A1c 10.5 % (4.0-6.0)
[2024-06-04] MEDS: INSULIN LISPRO (NovoLOG) PER UNIT SC STA (19:29)
[2024-06-04] MEDS: IPRATROPIUM 0.5MG/ALBUTEROL 2.5MG INH SOL UD 3ML (DUONEB) NEB SCH (20:00)
[2024-06-04] MEDS ORDERED: AMLO1TAB24 PO (20:29)
[2024-06-04] MEDS ORDERED: SITA50TAB PO (20:34)
[2024-06-04] MEDS ORDERED: BUDE3CAP PO (20:34)
[2024-06-04] MEDS ORDERED: MIDO5TA PO (20:34)
[2024-06-04] MEDS ORDERED: HOME MED LIST COMPLETE! XX SCH (20:40)
[2024-06-04] MEDS ORDERED: INSULIN LISPRO (NovoLOG) PER UNIT SC SCH (21:00)
[2024-06-04] MEDS: DOCUSATE SODIUM 100MG CAPSULE PO SCH (21:00)
[2024-06-04] MEDS ORDERED: PROHANCE 279.3MG/ML 15ML VIAL As Ordered ONE (22:25)
[2024-06-04] MEDS: INSULIN LISPRO (NovoLOG) PER UNIT SC SCH (23:44)
[2024-06-05 03:30] VITALS: BP 147/79; TEMP 97.5; O2SAT 91
[2024-06-05 03:32] VITALS: BP_SYST 132; BP_SYST 134; BP_SYST 147; BP_DIAS 101; BP_DIAS 75; BP_DIAS 79
[2024-06-05 06:27] LABS: HEMATOCRIT 36.7 % (42.0-52.0); HEMOGLOBIN 12.1 g/dl (13.5-17.5); PLATELET COUNT, AUTOMATED 240 10^3/uL (150-450); RED BLOOD COUNT 4.32 10^6/uL (4.30-6.10)
[2024-06-05 06:56] LABS: CALCIUM LEVEL 9.3 MG/DL (8.3-10.6); CREATININE FOR GFR 1.41 MG/DL (0.70-1.30); GLOMERULAR FILTRATION RATE 52.5 (>42); POTASSIUM SERUM 4.6 MMOL/L (3.5-5.1)
[2024-06-05] MEDS ORDERED: INSULIN LISPRO (NovoLOG) PER UNIT SC SCH (07:30)
[2024-06-05] MEDS: INSULIN LISPRO (NovoLOG) PER UNIT SC SCH (07:30)
[2024-06-05] MEDS ORDERED: ALPRAZolam 0.5 MG TAB PO PRN (07:40)
[2024-06-05] MEDS ORDERED: METOCLOPRAMIDE 5 MG TAB PO PRN (07:40)
[2024-06-05] MEDS: ADVAIR HFA 45/21MCG INHALER INH SCH (08:27)
[2024-06-05] MEDS: BUDESONIDE EC 3MG CAP (ENTOCORT EC) PO SCH (09:00)
[2024-06-05] MEDS: ENOXAPARIN 40MG/0.4ML SYRINGE (J1650 PER 10MG) SC SCH (09:04)
[2024-06-05] MEDS: buPROPion **XL** TABLET 150MG (WELLBUTRIN XL) PO SCH (09:04)
[2024-06-05] MEDS: OMEPRAZOLE 20MG CAP PO SCH (09:04)
[2024-06-05] MEDS: ATORVASTATIN 20 MG TAB PO SCH (09:05)
[2024-06-05] MEDS: amLODIPine 5 MG TAB PO SCH (09:05)
[2024-06-05] MEDS: VENLAFAXINE **XR** 75MG CAPSULE PO SCH (09:05)
[2024-06-05] MEDS: LEVEMIR (INSULIN DETEMIR) 1 UNITS/0.01ML SC SCH (09:07)
[2024-06-05 12:00] VITALS: BP 132/95; O2SAT 94
[2024-06-05] MEDS: SITagliptin 50 MG TAB (JANUVIA) PO SCH (12:16)
[2024-06-05] MEDS: ALPRAZolam 0.5 MG TAB PO PRN (12:16)
[2024-06-05] MEDS: MIDODRINE 5 MG TAB PO SCH (17:06)
[2024-06-05] MEDS: ALBUTEROL 90 MCG/ACT 8GM HFA INHALER INH PRN (19:15)
[2024-06-05 21:00] VITALS: BP 125/89; TEMP 98.6; O2SAT 95
[2024-06-05] MEDS: INSULIN LISPRO (NovoLOG) PER UNIT SC ONE (21:44)
[2024-06-06 03:00] VITALS: BP 118/80; TEMP 97.7; O2SAT 95
[2024-06-06] MEDS: PREVNAR-20 VACCINE 0.5ML SYRINGE IM.IMMUN ONE (08:45)
[2024-06-06] MEDS: LEVEMIR (INSULIN DETEMIR) 1 UNITS/0.01ML SC ONE (12:23)
[2024-06-06] MEDS: METOPROLOL TART 25 MG TABLET PO SCH (12:25)
[2024-06-06 19:37] VITALS: BP 144/66; TEMP 97.9; O2SAT 94
[2024-06-06] MEDS: INSULIN LISPRO (NovoLOG) PER UNIT SC SCH (21:00)
[2024-06-07 03:46] VITALS: BP 118/68; TEMP 99; O2SAT 91
[2024-06-07 06:42] VITALS: BP 144/77
[2024-06-07 06:47] VITALS: O2SAT 97
[2024-06-07] MEDS: LEVEMIR (INSULIN DETEMIR) 1 UNITS/0.01ML SC SCH (09:08)
[2024-06-07] MEDS: CEFDINIR 300 MG CAP (OMNICEF) PO SCH (15:09)
[2024-06-08 08:05] VITALS: BP 140/78
[2024-06-08] MEDS: LanTUS (INSULIN GLARGINE INJ) 1 UNITS/0.01 ML SC SCH (08:07)
[2024-06-08] MEDS ORDERED: AMOX875T2 PO (08:42)
[2024-06-08] MEDS ORDERED: PROBCAP14 PO (08:42)
[2024-06-08] MEDS ORDERED: ALPR1TAB3 PO (08:42)
[2024-06-08] MEDS ORDERED: CEFD1CAP9 PO (08:42)
[2024-06-08] MEDS ORDERED: BLOOKIT21 XX (08:49)
[2024-06-08] MEDS ORDERED: ALCOPAD25 TOP (08:49)
[2024-06-08] MEDS ORDERED: GLUC1TES2 XX (08:49)
[2024-06-08] MEDS ORDERED: HUMA50IN4 SC (08:49)
[2024-06-08] MEDS ORDERED: LANTINJ4 SC (08:49)
[2024-06-08] MEDS ORDERED: LANC30MI XX (08:49)
[2024-06-08] MEDS ORDERED: PEN-308 SC (08:49)
[2024-06-08] MEDS ORDERED: METO1TAB87 PO (08:56)
[2024-06-08 11:15] LABS: BASO # 0.1 10^3/uL (0.0-0.2); EOS # 0.5 10^3/uL (0.0-0.5); EOS % 4.6 % (0.0-3.0); HEMATOCRIT 38.8 % (42.0-52.0); HEMOGLOBIN 12.7 g/dl (13.5-17.5); LYMPH # 1.1 10^3/uL (1.5-5.0); LYMPH % 10.8 % (24.0-44.0); MEAN CORPUSCULAR HEMOGLOBIN 28.3 pg (27.0-33.0); MEAN CORPUSCULAR HGB CONC 32.7 g/dl (32.0-36.5); MEAN CORPUSCULAR VOLUME 86.6 fl (80.0-96.0); MONO # 1.2 10^3/uL (0.0-0.8); MONO % 11.2 % (2.0-8.0); NEUTROPHILS # 7.1 10^3/uL (1.5-8.5); NEUTROPHILS % 68.1 % (36.0-66.0); PLATELET COUNT, AUTOMATED 269 10^3/uL (150-450); RED BLOOD COUNT 4.48 10^6/uL (4.30-6.10); WHITE BLOOD COUNT 10.4 10^3/uL (4.0-10.0)
[2024-06-08 11:47] LABS: CALCIUM LEVEL 8.7 MG/DL (8.3-10.6); CREATININE FOR GFR 1.81 MG/DL (0.70-1.30); GLOMERULAR FILTRATION RATE 39.3 (>42); POTASSIUM SERUM 4.7 MMOL/L (3.5-5.1)
[2024-06-08] MEDS ORDERED: ADVA1AER8 INH (12:12)
[2024-06-08] MEDS ORDERED: ALBU8.5H INH (12:12)
== END 2024-06-08 13:57 | disposition home health service (06) | DRG 312 ==
LOC: M ED 15:10 → M ED INP 18:39 → M MSPAV 21:28
PROVIDERS: ADMIT Student in an Organized Health Care Education/Training Program; ATTEND Internal Medicine
PROC: B246ZZZ Ultrasonography of Right and Left Heart (ICD-10-PCS; principal; 2024-06-05)
DX: R55 Syncope and collapse (principal); K50.90 Crohn's disease, unspecified, without complications; C34.12 Malignant neoplasm of upper lobe, left bronchus or lung; R29.6 Repeated falls; I45.10 Unspecified right bundle-branch block; I12.9 Hypertensive chronic kidney disease with stage 1 through stage 4 chronic kidney disease, or unspecified chronic kidney disease; F32.A Depression, unspecified; F41.9 Anxiety disorder, unspecified; E11.22 Type 2 diabetes mellitus with diabetic chronic kidney disease; I25.10 Atherosclerotic heart disease of native coronary artery without angina pectoris; N18.31 Chronic kidney disease, stage 3a; K22.70 Barrett's esophagus without dysplasia; J98.09 Other diseases of bronchus, not elsewhere classified; E11.65 Type 2 diabetes mellitus with hyperglycemia; I73.9 Peripheral vascular disease, unspecified; E11.51 Type 2 diabetes mellitus with diabetic peripheral angiopathy without gangrene; R06.1 Stridor; J44.9 Chronic obstructive pulmonary disease, unspecified; Z79.82 Long term (current) use of aspirin; Z79.84 Long term (current) use of oral hypoglycemic drugs; Z79.899 Other long term (current) drug therapy; Z91.013 Allergy to seafood; Z88.8 Allergy status to other drugs, medicaments and biological substances; Z85.51 Personal history of malignant neoplasm of bladder; Z93.2 Ileostomy status; Z85.46 Personal history of malignant neoplasm of prostate; Z87.891 Personal history of nicotine dependence; R00.0 Tachycardia, unspecified

== ENCOUNTER → 2024-06-10 | Outpatient (CLI) | payer OTHER, MEDICAID ==
[~2024-06-10] MED LIST changes: +ALCOPAD25 TOP; +AMOX875T2 PO; +BLOOKIT21 XX; +GLUC1TES2 XX; +HUMA50IN4 SC; +LANC30MI XX; +LANTINJ4 SC; +MIDO5TA PO; +PEN-308 SC; +SITA50TAB PO
== END ==
LOC: M ONCR 13:40
PROVIDERS: ATTEND General Practice
DX: C34.12 Malignant neoplasm of upper lobe, left bronchus or lung (principal); R29.6 Repeated falls; Z92.3 Personal history of irradiation; Z87.828 Personal history of other (healed) physical injury and trauma

== ENCOUNTER → 2024-06-15 | Outpatient (CLI) | payer OTHER, MEDICAID | LOC: M PLARAD 12:47 | PROVIDERS: ATTEND Internal Medicine Hematology & Oncology | DX: C34.92 Malignant neoplasm of unspecified part of left bronchus or lung (principal) | CPT/HCPCS: 78815; A9552 ==

== ENCOUNTER 2024-07-06 14:19 | Inpatient (IN) | payer OTHER, MEDICAID ==
[~2024-07-06] VITALS: Ht 175.3 cm; Wt 70.6 kg
[~2024-07-06 14:19] MED LIST changes: +GLIP-318 PO; +GLIP2.5T46 PO; -GLIP2.5T6 PO; -GLIP5TAB20 PO
[2024-07-06 14:59] LABS: BASO # 0.1 10^3/uL (0.0-0.2); BASO % 0.5 % (0.0-1.0); EOS # 0.1 10^3/uL (0.0-0.5); EOS % 0.7 % (0.0-3.0); HEMATOCRIT 30.7 % (42.0-52.0); HEMOGLOBIN 9.9 g/dl (13.5-17.5); LYMPH # 0.9 10^3/uL (1.5-5.0); MEAN CORPUSCULAR HEMOGLOBIN 27.7 pg (27.0-33.0); MEAN CORPUSCULAR HGB CONC 32.2 g/dl (32.0-36.5); MONO % 10.8 % (2.0-8.0); NEUTROPHILS # 14.6 10^3/uL (1.5-8.5); NEUTROPHILS % 81.1 % (36.0-66.0); PLATELET COUNT, AUTOMATED 422 10^3/uL (150-450); RED BLOOD COUNT 3.57 10^6/uL (4.30-6.10); WHITE BLOOD COUNT 18.1 10^3/uL (4.0-10.0)
[2024-07-06] MEDS: PANTOPRAZOLE 40MG VIAL IV ONE (15:18)
[2024-07-06 15:20] LABS: INR 1.2; PROTHROMBIN TIME 15.5 SECONDS (12.5-14.5)
[2024-07-06 15:23] LABS: ALBUMIN 2.1 G/DL (3.2-5.2); BILIRUBIN,TOTAL 0.3 MG/DL (0.3-1.2); CALCIUM LEVEL 8.5 MG/DL (8.3-10.6); CREATININE FOR GFR 1.44 MG/DL (0.70-1.30); GLOMERULAR FILTRATION RATE 51.2 (>42); POTASSIUM SERUM 4.9 MMOL/L (3.5-5.1); TOTAL PROTEIN 6.5 G/DL (5.7-8.2)
[2024-07-06 15:34] LABS: VENOUS BASE EXCESS -2.9 (-2.0-2.0); VENOUS HCO3 23.3 MMOL/L (23.0-27.0); VENOUS O2 SATURATION 58.2 % (60.0-80.0); VENOUS PARTIAL PRESSURE CO2 46.8 mmHg (38.0-50.0); VENOUS PARTIAL PRESSURE O2 33.7 mmHg (30.0-50.0); VENOUS PH 7.315 UNITS (7.330-7.430); VENOUS STANDARD HCO3 21.3 MMOL/L; VENOUS TOTAL CO2 24.7 MMOL/L (24.0-28.0)
[2024-07-06] MEDS ORDERED: ISOVUE-370 76% 100ML VIAL As Ordered ONE (15:55)
[2024-07-06] MEDS ORDERED: ALBU8.5H INH (16:54)
[2024-07-06] MEDS ORDERED: LANTINJ4 SC (16:54)
[2024-07-06] MEDS ORDERED: IPRA0.00 NEB (16:54)
[2024-07-06] MEDS ORDERED: FLUT1BLS4 INH (16:56)
[2024-07-06] MEDS ORDERED: HOME MED LIST COMPLETE! XX SCH (17:00)
[2024-07-06] MEDS: cefTRIAXone SOD 1 GM in DEXTROSE 5% (D5W) ADV/MINI-BAG 50 ML IV ONE (17:09)
[2024-07-06] MEDS ORDERED: GLUCAGON INJ 1MG VIAL SC PRN (18:15)
[2024-07-06] MEDS ORDERED: DEXTROSE 50% 50ML SYRINGE IV PRN (18:15)
[2024-07-06] MEDS ORDERED: GLUCOSE 4 GM CHEW PO PRN (18:15)
[2024-07-06] MEDS: NS 500 ML IV ONE (18:59)
[2024-07-06 19:55] LABS: INR 1.2; PARTIAL THROMBOPLASTIN TIME 30.9 SECONDS (24.8-34.2); PROTHROMBIN TIME 15.5 SECONDS (12.5-14.5)
[2024-07-06] MEDS: LEVALBUTEROL 1.25MG 0.5ML CONCENTRATE NEB NEB SCH (19:57)
[2024-07-06] MEDS: ADVAIR HFA 115/21MCG INHALER INH SCH (19:57)
[2024-07-06] MEDS: ALPRAZolam 0.5 MG TAB PO SCH (21:18)
[2024-07-06] MEDS: DOXYCYCLINE HYCLATE 100MG TABLET PO SCH (21:18)
[2024-07-06] MEDS: INSULIN LISPRO (NovoLOG) PER UNIT SC SCH (21:19)
[2024-07-06] MEDS: PANTOPRAZOLE 40MG VIAL IV SCH (21:19)
[2024-07-06] MEDS: LanTUS (INSULIN GLARGINE INJ) 1 UNITS/0.01 ML SC SCH (21:19)
[2024-07-06] MEDS: PIPERACILLIN/TAZOBACTAM SOD 3.375 GM in DEXTROSE 5% (D5W) ADV/MINI-BAG 50 ML IV SCH (21:19)
[2024-07-06 22:49] LABS: HEMATOCRIT 24.9 % (42.0-52.0); HEMOGLOBIN 8.3 g/dl (13.5-17.5); MEAN CORPUSCULAR HEMOGLOBIN 28.4 pg (27.0-33.0); MEAN CORPUSCULAR HGB CONC 33.3 g/dl (32.0-36.5); MEAN CORPUSCULAR VOLUME 85.3 fl (80.0-96.0); PLATELET COUNT, AUTOMATED 352 10^3/uL (150-450); RED BLOOD COUNT 2.92 10^6/uL (4.30-6.10); WHITE BLOOD COUNT 18.7 10^3/uL (4.0-10.0)
[2024-07-07] MEDS: LEVALBUTEROL 1.25MG 0.5ML CONCENTRATE NEB NEB PRN (01:04)
[2024-07-07 06:37] LABS: HEMATOCRIT 26.5 % (42.0-52.0); HEMOGLOBIN 8.5 g/dl (13.5-17.5); MEAN CORPUSCULAR HEMOGLOBIN 27.4 pg (27.0-33.0); MEAN CORPUSCULAR HGB CONC 32.1 g/dl (32.0-36.5); MEAN CORPUSCULAR VOLUME 85.5 fl (80.0-96.0); PLATELET COUNT, AUTOMATED 375 10^3/uL (150-450); WHITE BLOOD COUNT 18.7 10^3/uL (4.0-10.0)
[2024-07-07] MEDS ORDERED: SUGAMMADEX SODIUM 500 MG/5 ML VIAL (BRIDION) As Ordered ONE (06:50)
[2024-07-07] MEDS ORDERED: ROCURONIUM BROMIDE 50MG/5ML VIAL As Ordered ONE (06:50)
[2024-07-07] MEDS ORDERED: LIDOCAINE 2% 100MG/5ML SDV (FOR ANES.) As Ordered ONE (06:50)
[2024-07-07] MEDS ORDERED: propofoL 200 MG/20 ML VIAL As Ordered ONE (06:50)
[2024-07-07] MEDS ORDERED: ONDANSETRON 4MG 2ML VIAL As Ordered ONE (06:50)
[2024-07-07] MEDS ORDERED: fentaNYL 100 MCG/2 ML INJECTION As Ordered ONE (06:55)
[2024-07-07 07:11] LABS: ALBUMIN 1.9 G/DL (3.2-5.2); BILIRUBIN,TOTAL 0.3 MG/DL (0.3-1.2); CALCIUM LEVEL 8.4 MG/DL (8.3-10.6); CREATININE FOR GFR 1.45 MG/DL (0.70-1.30); GLOMERULAR FILTRATION RATE 50.8 (>42); POTASSIUM SERUM 4.9 MMOL/L (3.5-5.1); TOTAL PROTEIN 6.1 G/DL (5.7-8.2)
[2024-07-07] MEDS: INSULIN LISPRO (NovoLOG) PER UNIT SC SCH (07:15)
[2024-07-07] MEDS: CETACAINE SPRAY 5GM As Ordered ONE (07:55)
[2024-07-07] MEDS ORDERED: ACETAMINOPHEN 1000MG/100ML IV BAG As Ordered ONE (07:58)
[2024-07-07] MEDS ORDERED: HYDROMORPHONE HCL 0.5 MG/ 0.5 ML SYRINGE IV PRN (08:20)
[2024-07-07] MEDS ORDERED: fentaNYL 100 MCG/2 ML INJECTION IV PRN (08:20)
[2024-07-07] MEDS: LR 1,000 ML IV SCH (08:20)
[2024-07-07] MEDS ORDERED: GLUCAGON INJ 1MG VIAL SC PRN (08:20)
[2024-07-07] MEDS ORDERED: ONDANSETRON 4MG 2ML VIAL IV PRN (08:20)
[2024-07-07] MEDS ORDERED: DEXTROSE 50% 50ML SYRINGE IV PRN (08:20)
[2024-07-07] MEDS ORDERED: oxyCODONE 5MG TAB PO PRN (08:20)
[2024-07-07] MEDS ORDERED: GLUCOSE 4 GM CHEW PO PRN (08:20)
[2024-07-07] MEDS: THROMBIN 5,000 UNITS VIAL As Ordered ONE (08:28)
[2024-07-07] MEDS: EPINEPHrine 1MG/10ML SYRINGE 1.5IN As Ordered ONE (08:28)
[2024-07-07] MEDS: INSULIN LISPRO (NovoLOG) PER UNIT SC PRN ×2 (08:37→09:37)
[2024-07-07] MEDS ORDERED: PANTOPRAZOLE 40MG VIAL IV SCH (09:00)
[2024-07-07] MEDS: MIDODRINE 5 MG TAB PO SCH (09:18)
[2024-07-07 09:19] VITALS: BP 118/63
[2024-07-07] MEDS: LOSARTAN 50MG TABLET PO SCH (09:19)
[2024-07-07] MEDS: buPROPion **XL** TABLET 150MG (WELLBUTRIN XL) PO SCH (09:19)
[2024-07-07] MEDS: VENLAFAXINE **XR** 75MG CAPSULE PO SCH (09:20)
[2024-07-07] MEDS: NS (Normal Saline) 0.9% 1,000 ML IV SCH (09:44)
[2024-07-07] MEDS: LanTUS (INSULIN GLARGINE INJ) 1 UNITS/0.01 ML SC SCH (10:30)
[2024-07-07] MEDS: NS (Normal Saline) 0.9% 1,000 ML IV ONE (11:59)
[2024-07-07 12:15] VITALS: BP 108/53; TEMP 97.2; O2SAT 93
[2024-07-07 13:17] LABS: PROCALCITONIN 0.24 ng/ml
[2024-07-07] MEDS: ACETAMINOPHEN 325 MG TAB PO PRN (13:43)
[2024-07-07 16:00] VITALS: BP 100/62; TEMP 98.9; O2SAT 92
[2024-07-07] MEDS ORDERED: PIPE3.3729 IV (17:47)
[2024-07-07] MEDS ORDERED: ACET32TAB PO (17:47)
[2024-07-07] MEDS ORDERED: ADVA115A INH (17:47)
[2024-07-07] MEDS ORDERED: INSUHUMDS SC ×2 (17:47)
[2024-07-07] MEDS ORDERED: DOXY100T PO (17:47)
[2024-07-07] MEDS ORDERED: INSULANT SC ×2 (17:47)
[2024-07-07] MEDS ORDERED: PANT40IN4 IV (17:47)
[2024-07-07] MEDS ORDERED: LEVA1.25 NEB ×2 (17:47)
[2024-07-07 19:25] VITALS: BP 137/60; TEMP 98; O2SAT 93
[2024-07-07] MEDS ORDERED: LanTUS (INSULIN GLARGINE INJ) 1 UNITS/0.01 ML SC SCH (21:00)
== END 2024-07-07 19:38 | disposition short-term general hospital (02) | DRG 853 ==
LOC: EDBD 14:19 → M ED 14:19 → M ED INP 18:01 → M PCU 07-07 12:08
PROVIDERS: ADMIT Internal Medicine; ATTEND Internal Medicine
PROC: 0W3Q8ZZ Control Bleeding in Respiratory Tract, Via Natural or Artificial Opening Endoscopic (ICD-10-PCS; principal; 2024-07-07 07:30)
DX: A41.9 Sepsis, unspecified organism (principal); J18.9 Pneumonia, unspecified organism; C34.12 Malignant neoplasm of upper lobe, left bronchus or lung; K50.90 Crohn's disease, unspecified, without complications; R04.2 Hemoptysis; I28.1 Aneurysm of pulmonary artery; N18.30 Chronic kidney disease, stage 3 unspecified; I12.9 Hypertensive chronic kidney disease with stage 1 through stage 4 chronic kidney disease, or unspecified chronic kidney disease; F32.A Depression, unspecified; E11.22 Type 2 diabetes mellitus with diabetic chronic kidney disease; J44.9 Chronic obstructive pulmonary disease, unspecified; E11.51 Type 2 diabetes mellitus with diabetic peripheral angiopathy without gangrene; R74.01 Elevation of levels of liver transaminase levels; K21.9 Gastro-esophageal reflux disease without esophagitis; K22.70 Barrett's esophagus without dysplasia; F41.9 Anxiety disorder, unspecified; E78.5 Hyperlipidemia, unspecified; Z87.891 Personal history of nicotine dependence; Z79.4 Long term (current) use of insulin; Z79.899 Other long term (current) drug therapy; Z91.013 Allergy to seafood; Z88.8 Allergy status to other drugs, medicaments and biological substances